=== PATIENT | female | born 1955 | race Caucasian/White ===

== ENCOUNTER → 2019-12-14 12:50 | Outpatient (BNVA) | payer MEDICARE, MEDICAID, SELFPAY | PROVIDERS: PCP Family Medicine; Visit Provider Family Medicine | DX: E05.90 Thyrotoxicosis, unspecified without thyrotoxic crisis or storm (principal); F25.9 Schizoaffective disorder, unspecified; F41.9 Anxiety disorder, unspecified; G47.00 Insomnia, unspecified; J44.9 Chronic obstructive pulmonary disease, unspecified | CPT/HCPCS: 80053; 80061; 84443; 85025 ==

== ENCOUNTER → 2020-05-23 11:57 | Outpatient (BNVA) | payer MEDICARE, MEDICAID, SELFPAY | PROVIDERS: PCP Family Medicine; Visit Provider Family Medicine | DX: E89.0 Postprocedural hypothyroidism (principal); F25.9 Schizoaffective disorder, unspecified; R07.1 Chest pain on breathing | CPT/HCPCS: 71046; 80053; 80061; 84443; 85025 ==

== ENCOUNTER → 2020-11-29 13:16 | Outpatient (BNVA) | payer MEDICARE, MEDICAID, SELFPAY | PROVIDERS: PCP Family Medicine; Visit Provider Family Medicine | DX: F25.9 Schizoaffective disorder, unspecified (principal); E78.2 Mixed hyperlipidemia; E89.0 Postprocedural hypothyroidism; G47.00 Insomnia, unspecified; F41.9 Anxiety disorder, unspecified; J44.9 Chronic obstructive pulmonary disease, unspecified | CPT/HCPCS: 80053; 80061; 84443 ==

== ENCOUNTER → 2021-03-04 11:59 | Outpatient (BNVA) | payer MEDICARE, MEDICAID, SELFPAY | PROVIDERS: PCP Family Medicine; Visit Provider Family Medicine | DX: E78.2 Mixed hyperlipidemia (principal); E89.0 Postprocedural hypothyroidism; F25.9 Schizoaffective disorder, unspecified; J44.9 Chronic obstructive pulmonary disease, unspecified | CPT/HCPCS: 80053; 80061; 84443; 85025 ==

== ENCOUNTER → 2021-08-07 10:22 | Outpatient (BNVA) | payer MEDICARE, MEDICAID, SELFPAY | PROVIDERS: PCP Family Medicine; Visit Provider Nurse Practitioner Family | DX: E78.2 Mixed hyperlipidemia (principal); E89.0 Postprocedural hypothyroidism; E55.9 Vitamin D deficiency, unspecified; F25.9 Schizoaffective disorder, unspecified; G47.00 Insomnia, unspecified; F41.9 Anxiety disorder, unspecified; R03.0 Elevated blood-pressure reading, without diagnosis of hypertension | CPT/HCPCS: 80053; 80061; 82306; 84439; 84443; 84481; 85025 ==

== ENCOUNTER 2021-12-18 10:25 | Inpatient (IN) | payer MEDICARE, MEDICAID, SELFPAY ==
[2021-12-18] VITALS (8 sets, daily range): BP systolic 148–182; BP diastolic 82–101; PULSE 0–113; RESP 16–21; TEMP 36.6–36.8; O2SAT 96–99; BMI 30.7
--- NOTE | 2021-12-18 10:31 | ECG_ITS ---
[facility] Test Date: 2021-12-18 Pat Name: Gilda Hodge Department: Room: Gender: Female Paid Search Analyst: : 1955 Requested By: Naveen Zuniga Order Number: [id number] Alfonso MD: Mundo Campbell M.D. Measurements Intervals [place] Rate: 100 P: 55 PA: 158 QRS: -12 QRSD: 78 T: 34 QT: 349 QTc: 450 Interpretive Statements SINUS TACHYCARDIA ABNORMAL RHYTHM ECG No previous ECG available for comparison Electronically Signed On 12-18-2021 15:16:20 CDT by Mundo Campbell M.D. [email or web address].[id number]
--- NOTE | 2021-12-18 10:31 | CT_ITS ---
WS: [id number] CT HEAD NONCONTRAST HISTORY: AMS TECHNIQUE: Contiguous axial imaging performed through the brain in 2.5 mm imaging. Bone and soft tiss ue windows. Sagittal and coronal reformats reviewed. All CT scans at [facility] use at least one of these dose optimization techniques: automated exposure control; mA and/or kV adjustment per pa tient size (includes targeted exams where dose is matched to clinical indication); or iterative recon struction. DLP: 831.39 mGy.cm COMPARISON: None available. No acute intracranial hemorrhage, midline shift or mass effect. Moderate atrophy involving the frontotemporal lobes is out of proportion to the remaining brain in mo re than expected for a patient of this age. Mild small vessel ischemic disease in the white matter. T here is also mild bilateral cerebellar atrophy. Ventricles: Normal size with no hydrocephalus. Paranasal sinuses: As visualized are clear. Mastoid air cells: Well pneumatized. Calvarium and scalp: Skull is intact with no soft tissue edema or swelling. CT/CT head wo con* [id number] IMPRESSION: 1. No acute intracranial hemorrhage or edema. 2. Moderate bilateral frontal temporal lobe atrophy more than expected for a p atient of this age. 3. Mild small vessel ischemic disease.
[2021-12-18 10:48] LABS: Basophils % 0.3 %; Hematocrit 31.5 % (37.0-47.0); Hemoglobin 11.2 g/dL (11.5-15.3); Lymphocytes # 0.6 10^3/uL (0.8-4.8); Lymphocytes % 6.4 %; Mean Corpuscular HGB Conc 35.6 g/dL (30.0-36.0); Mean Corpuscular Hemoglobin 36.4 pg (28.0-34.0); Mean Corpuscular Volume 102.3 fl (81-99); Mean Platelet Volume 11.2 fL (7.4-10.4); Monocytes # 0.6 10^3/uL (0.2-0.9); Monocytes % 6.6 %; Neutrophils # 7.81 10^3/uL (1.8-7.7); Neutrophils % 86.1 %; Nucleated Red Blood Cells % 0 %; Platelet Count 124 10^3/cmm (130-400); Red Blood Count 3.08 10^6/uL (4.1-5.3); Red Cell Distribution Width 12.2 % (12.1-15.1); White Blood Count 9.1 10^3/uL (4.0-10.0)
[2021-12-18] MEDS: lactated ringers 1,000 ML 999 ML IV (11:02)
[2021-12-18 11:04] LABS: Ketone (Acetest) Serum Negative (Negative)
--- NOTE | 2021-12-18 11:06 | XR_ITS ---
WS: [id number] PORTABLE CHEST HISTORY: chest pain COMPARISON: 05/23/2020 Minimal atelectasis or scar at the LEFT lung base. No pneumonia. No increased vascularity. No pleural effusion or pneumothorax. Cardiac size: Normal. Mediastinum/Aorta: Mild ectasia aorta. Remote healed rib fractures in the posterior LEFT thorax. XR/XR chest 1V portable [id number] IMPRESSION: 1. No pneumonia. 2. Minimal LEFT basilar atelectasis versus scar.
--- NOTE | 2021-12-18 11:09 | ED_ITS ---
HPI - General Adult General: Chief complaint: General Medical Stated complaint: GENERAL WEAKNESS Time Seen by Provider: 12/18/21 10:26 Source: patient Limitations: no limitations History of Present Illness: 66-year-old female presents emergency room with complaints of chest pain for the last 3 days. She not really had any shortness of breath with it. She does generally feel poorly weak not of malaise. No vomiting she had a single episode of diarrhea she denies any hematochezia melena hematemesis or coffee-ground emesis. She denies any productive cough. She does admit to drinking 3-4 mixed drinks of hard liquor per day her last drink was this morning before she came in. She has no known history of heart disease per her report. She is on antihypertensives as well as on a statin. Onset (ago): day(s) (3) Relieving factors: none Associated symptoms: Reports chest pain, decreased appetite, malaise and nausea; Deny confusion, cough, diaphoresis, dyspnea, fevers/chills, headache(s), rash, palpitations, seizures, short of breath, syncope, vomiting or weakness Treatments prior to arrival: other (Nitroglycerin) Review of Systems Const: Reports: fatigue and malaise; Denies: fever(s), chills or diaphoresis ENMT: Denies: throat pain, ear or mastoid pain, nasal discharge or nasal congestion Card: Reports: chest pain; Denies: palpitations or syncope Resp: Reports: non-productive cough; Denies: dyspnea, productive cough or wheezing GI: Reports: nausea and diarrhea (Single episode); Denies: abdominal pain or vomiting : Denies: flank pain, difficulty voiding, dysuria, urinary frequency or urinary urgency Skin/Breast: Denies: rash Neuro: Denies: headache(s) or confusion PFSH ED PFSH: Medical History (Updated 12/18/21 @ 15:12 by Naveen Evans DO) Anxiety Chronic alcohol use Chronic back pain DDD (degenerative disc disease) High anion gap metabolic acidosis Hyperthyroidism Insomnia Schizoaffective disorder Schizoaffective disorder Social History (Updated 12/18/21 @ 11:13 by Naveen Evans DO) Smoking and tobacco status: current every day smoker (1ppd for 50 years) Second hand smoke exposure: Yes Smoking risk assessment/counseling performed?: No Alcohol intake: current Alcohol intake frequency: 3 or more drinks per day Alcohol type: hard liquor Current occupational status: unemployed Current gender identity: Female Physical Exam Const: GENERAL APPEARANCE: cooperative and comfortable ORIENTATION/CONSCIOUSNESS: Yes awake, Yes oriented to person, Yes oriented to place and Yes oriented to time HENMT: COMMON NORMALS: normocephalic, atraumatic and hearing grossly normal bilaterally HEAD & SCALP: normocephalic and atraumatic Neck/C-Spine: COMMON NORMALS: no JVD Resp: COMMON NORMALS: normal respiratory effort, No retractions, No use of accessory muscles and clear to auscultation bilaterally AUSCULTATION: clear to auscultation bilaterally Cardio: COMMON NORMALS: no JVD, regular rate, regular rhythm and No murmurs present (Cardio) RATE: regular rate RHYTHM: regular rhythm GI: COMMON NORMALS: Soft to palpation and No hepatosplenomegaly present AUSCULTATION: Yes normoactive bowel sounds PALPATION: Yes Soft to palpation, No Tenderness to palpation present (GI), No Guarding due to palpation present (GI) and Yes No hepatosplenomegaly present Extremity: COMMON NORMALS: normal to inspection, capillary refill normal, no clubbing, cyanosis or edema, no calf tenderness and no pedal edema Neuro: SENSORIUM/ORIENTATION: Yes oriented to person, Yes oriented to place and Yes oriented to time Skin: COMMON NORMALS: no rashes or lesions noted GENERAL SKIN EXAM: no rashes or lesions noted Course Vital Signs: Vital signs: Vital Signs Temperature 97.9 F 12/18/21 11:50 Pulse Rate 92 12/18/21 14:03 Respiratory Rate 21 H 12/18/21 14:03 Blood Pressure 178/89 12/18/21 14:03 Pulse Oximetry 99 12/18/21 14:03 [facility] - General Adult Medical Decision Making High anion gap metabolic acidosis with CT elevated CPK I think some of this is caused by alcohol intake. Her first troponin was 19 and her second was 15.89 with a negative delta. Her EKG is downtrending [place] chest x-ray is normal fluid resuscitation given empiric antibiotics started discussed with Dr. Morton orders written. Medical Records I reviewed the patient's medical records. Lab Data I reviewed the patient's lab results. : 12/18/21 10:40 12/18/21 10:[address] 12/18/21 10:31 IMPRESSION: 1. No acute intracranial hemorrhage or edema. 2. Moderate bilateral frontal temporal lobe atrophy more than expected for a patient of this age. 3. Mild small vessel ischemic disease. Chest X-Ray 12/18/21 11:06 IMPRESSION: 1. No pneumonia. 2. Minimal LEFT basilar atelectasis versus scar. Laboratory Results WBC 9.1 10^3/uL (4.0-10.0) 12/18/21 10:40 RBC 3.08 10^6/uL (4.1-5.3) L 12/18/21 10:40 Hgb 11.2 g/dL (11.5-15.3) L 12/18/21 10:40 Hct 31.5 % (37.0-47.0) L 12/18/21 10:40 MCV 102.3 fl (81-99) H 12/18/21 10:40 MCH 36.4 pg (28.0-34.0) H 12/18/21 10:40 MCHC 35.6 g/dL (30.0-36.0) 12/18/21 10:40 RDW 12.2 % (12.1-15.1) 12/18/21 10:40 Plt Count 124 10^3/cmm (130-400) L 12/18/21 10:40 MPV 11.2 fL (7.4-10.4) H 12/18/21 10:40 Neut % (Auto) 86.1 % 12/18/21 10:40 Lymph % (Auto) 6.4 % 12/18/21 10:40 [place] % (Auto) 6.6 % 12/18/21 10:40 Eos % (Auto) 0.0 % 12/18/21 10:40 Baso % (Auto) 0.3 % 12/18/21 10:40 Neut # (Auto) 7.81 10^3/uL (1.8-7.7) H 12/18/21 10:40 Lymph # (Auto) 0.6 10^3/uL (0.8-4.8) L 12/18/21 10:40 [place] # (Auto) 0.6 10^3/uL (0.2-0.9) 12/18/21 10:40 Eos # (Auto) 0.0 10^3/uL (0.0-0.8) 12/18/21 10:40 Baso # (Auto) 0.0 10^3/uL (0.0-0.1) 12/18/21 10:40 Nucleated RBC % (auto) 0 % 12/18/21 10:40 Nucleated RBCs # 0.0 /100WBC 12/18/21 10:40 Sodium 135 mmol/L (136-145) L 12/18/21 10:40 Potassium 3.4 mmol/L (3.5-5.1) L 12/18/21 10:40 Chloride 92 mmol/L (98-107) L 12/18/21 10:40 Carbon Dioxide 15 mmol/L (22-29) L 12/18/21 10:40 Anion Gap 31.4 (5-19) H 12/18/21 10:40 BUN 14 mg/dL (8-23) 12/18/21 10:40 Creatinine 1.0 mg/dL (0.5-0.9) H 12/18/21 10:40 GFR Calculation 55.3 mL/min (90-130) L 12/18/21 10:40 Glucose 93 mg/dL (65-115) 12/18/21 10:40 Calculated Osmolality 280 mOsm/kg (285-295) L 12/18/21 10:40 Lactic Acid 4.1 mmol/L (0.5-2.2) H* 12/18/21 10:40 Lactic Acid (Sepsis) 2.1 mmol/L (0.5-2.2) 12/18/21 13:08 Calcium 8.9 mg/dL (8.5-10.5) 12/18/21 10:40 Total Bilirubin 0.7 mg/dL (0.15-1.2) 12/18/21 10:40 AST 91 U/L (0-32) H 12/18/21 10:40 ALT 61 U/L (0-33) H 12/18/21 10:40 Alkaline Phosphatase 53 IU/L (35-105) 12/18/21 10:40 Creatine Kinase 1020 U/L (26-192) H* 12/18/21 10:40 CK-MB (CK-2) 6.8 ng/mL (0-5.34) H 12/18/21 10:40 CK-MB (CK-2) Rel Index 0.6 % (0.0-10.4) 12/18/21 10:40 Troponin T Baseline 19 ng/L (0-10) H 12/18/21 10:40 Troponin T 120 Minute 15.89 ng/L (0-10) H 12/18/21 13:08 Delta Troponin T -3.11 ABS# (0-10) L 12/18/21 13:08 Total Protein 7.1 g/dL (6.6-8.7) 12/18/21 10:40 Albumin 4.5 g/dL (3.5-5.2) 12/18/21 10:40 Globulin 2.6 g/dL (1.3-4.6) 12/18/21 10:40 Lipase 60 U/L (13-60) 12/18/21 10:40 Ethyl Alcohol 20 mg/dL (0-10) H 12/18/21 10:40 Serum Ketones Negative (Negative) 12/18/21 10:40 Discharge Plan Discharge Patient Disposition: Admitted As Inpatient Admit Provider: Cristi Wang Clinical Impression: High anion gap metabolic acidosis, Chronic alcohol use, Transaminitis, Altered mental status, Schizoaffective disorder, Rhabdomyolysis Condition: Stable Prescriptions: No Action ziprasidone HCl 80 mg capsule 80 mg PO BEDTIME 0RF Rx Instructions: *GIVE WITH FOOD(MEAL/SNACK) * trazodone 50 mg tablet 50 mg PO BEDTIME PRN (Reason: Sleep) 0RF clonazepam 0.5 mg tablet 0.5 mg PO BEDTIME 0RF levothyroxine 150 mcg tablet 150 mcg PO QAM 0RF ergocalciferol (vitamin D2) 1,250 mcg (50,000 unit) capsule 50,000 unit PO Q7D 0RF Ventolin HFA 90 mcg/actuation HFA aerosol inhaler 2 puff inhalation TID PRN (Reason: Shortness Of Breath) 0RF sertraline 50 mg tablet 100 mg PO QAM 0RF rosuvastatin 10 mg tablet 10 mg PO QAM 0RF Rx Instructions: TAKE ONE TABLET BY MOUTH EVERY DAY bupropion HCl 150 mg tablet extended release 24 hr 150 mg PO BID 0RF Referrals: Vivian Roblero MD [Primary Care Provider] - Coding Level of Care Code ED Rn Forensic for Chg Fwd Exam Comprehensive
[2021-12-18 11:13] LABS: Troponin(5th) Baseline 19 ng/L (0-10)
[2021-12-18 11:16] LABS: Lactic Sepsis W/Reflex 4.1 mmol/L (0.5-2.2)
[2021-12-18] MEDS: aspirin 81 mg Chew Tablet 324 MG PO (11:17)
[2021-12-18] MEDS: morphine 4 mg/mL SDV 1 mL 2 MG IVP (11:17)
[2021-12-18] MEDS: ondansetron 2 mg/ML SDV 2 mL 4 MG IVP (11:18)
[2021-12-18 11:19] LABS: Alanine Aminotransferase 61 U/L (0-33); Albumin Level 4.5 g/dL (3.5-5.2); Alkaline Phosphatase 53 IU/L (35-105); Aspartate Amino Transferase 91 U/L (0-32); Blood Urea Nitrogen 14 mg/dL (8-23); Calcium 8.9 mg/dL (8.5-10.5); Carbon Dioxide 15 mmol/L (22-29); Globulin 2.6 g/dL (1.3-4.6); Glomerular Filtration Rate 55.3 mL/min (90-130); Glucose 93 mg/dL (65-115); Lipase 60 U/L (13-60); Total Bilirubin 0.7 mg/dL (0.15-1.2); Total Protein 7.1 g/dL (6.6-8.7)
[2021-12-18 11:21] LABS: Creatine Phosphokinase 1020 U/L (26-192)
[2021-12-18 11:25] LABS: Potassium 3.4 mmol/L (3.5-5.1)
[2021-12-18 11:41] LABS: Alcohol Level 20 mg/dL (0-10)
[2021-12-18 11:42] LABS: CKMB 6.8 ng/mL (0-5.34)
[2021-12-18 11:43] LABS: Anion Gap 31.4 (5-19); CKMB Relative Index 0.6 % (0.0-10.4); Chloride 92 mmol/L (98-107); Osmolality Calculated 280 mOsm/kg (285-295); Sodium 135 mmol/L (136-145)
[2021-12-18] MEDS: sodium chloride 0.9% 1,000 ML 999 ML IV (11:45)
--- NOTE | 2021-12-18 12:31 | ECG_ITS ---
[facility] Test Date: 2021-12-18 Pat Name: Gilda Hodge Department: Room: Gender: Female Parts Product Analyst: : 1955 Requested By: Naveen Zuniga Order Number: [id number] Alfonso MD: Mundo Campbell M.D. Measurements Intervals [place] Rate: 96 P: 74 PA: 156 QRS: -11 QRSD: 81 T: 48 QT: 354 QTc: 447 Interpretive Statements SINUS RHYTHM Compared to ECG 12/18/2021 10:50:39 Sinus tachycardia no longer present Electronically Signed On 12-18-2021 15:18:29 CDT by Mundo Campbell M.D. [id number]
[2021-12-18 12:33] LABS: Reflex Lactate Order REFLEX LACTIC ORDERD
[2021-12-18] MEDS: levofloxacin-dextrose 5 % 750 MG/150 ML PREMIX 100 MG IV (13:44)
[2021-12-18 14:00] LABS: Lactic Acid level (Lactate) 2.1 mmol/L (0.5-2.2)
--- NOTE | 2021-12-18 14:04 | PM.HP ---
Providers/Chief Complaint Primary Care Provider: Vivian Roblero MD Chief Complaint: GENERAL WEAKNESS History of Present Illness Gilda Hodge is a 66 year old female with past medical history of chronic alcohol abuse, schizoaffective disorder, insomnia, COPD, hypothyroidism who presented to the ER today because of chest pain which has been going on and off for last 3 days associated with moving around along with patient stating she might think she had a UTI because she is not passing as much urine as she usually does. States last bowel movement was few days ago and also states has not been able to eat for last 1 week or so as nobody has been able to get her food. States usually she goes out by herself to the store to get her food but not able to do so currently. Patient states she usually drinks up to 4 shots of hard alcohol including vodka daily. In the ER was found to have a blood pressure 178/90 mmHg, saturating 99% on room air. Denies of having any chest pain currently. Patient slightly confused on examination. In the ER getting D5 NS at 125 cc/h, getting Levaquin. Blood work showed a white count 9000, hemoglobin of 11.2, MCV of 102, sodium 135 potassium 3.4, chloride 92, bicarb 18, creatinine of 1 lactate of 4.1, AST/ALT of 91/61, CPK 1020, baseline troponin of 19 with a delta of -3 in 2 hours, and had alcohol level of 20. Review of Systems General: Reports: 10 or more systems reviewed and unremarkable except in HPI and below Const: Denies: fever(s), chills, body aches, change in appetite, change in weight, malaise, night sweats, diaphoresis, change in sleep pattern, daytime sleepiness or snoring Eyes: Denies: change in vision, blurry vision, photophobia, eye discomfort or eye discharge ENMT: Denies: throat pain, enlarged tonsils, hoarseness, mouth pain, oral sores, dry mouth, tinnitus, nasal congestion or post nasal drip Card: Denies: chest pain, palpitations, irregular heart rhythm, edema, swelling of feet/ankles, lightheadedness, syncope, pre-syncope, dyspnea on exertion, orthopnea, leg pain with exertion or acrocyanosis Resp: Denies: dyspnea, productive cough, non-productive cough, wheezing, stridor, pain on inspiration, change in phlegm color, hemoptysis or chest congestion GI: Denies: abdominal pain, nausea, vomiting, hematemesis, coffee ground emesis, dysphagia, heartburn, diarrhea, constipation, bloating, GI cramping, change in bowel habits, pain on defecation, hematochezia or melena : Denies: flank pain, dysuria, urinary frequency, urinary urgency, urinary hesitancy, nocturia or hematuria Musc: Denies: neck pain, back pain, extremity pain, joint pain, joint swelling, joint redness, joint stiffness or limited range of motion Neuro: Denies: headache(s), numbness in extremities, weakness in extremities, sensory changes, lack of coordination, difficulty walking, frequent falls, dizziness, vertigo, confusion, Slurred speech present, difficulty communicating thoughts or seizure-like activity Psych: Denies: anxiety, depression, mood swings, panic attacks, hopelessness or irritability Endo: Denies: polyuria, polydipsia, tired all the time, cold intolerance, excessive sweating, flushing or heat intolerance [place]/Lymph: Denies: easy bruising or easy bleeding All/Imm: Denies: tongue swelling, facial swelling or acute wheezing Medications/Allergies Home Medications Medication Instructions Recorded Confirmed Last Taken Type albuterol sulfate 90 mcg/actuation 2 puff INHALATION TID PRN 12/18/21 12/18/21 12/18/21 History aerosol inhaler (Ventolin HFA) bupropion HCl 150 mg 24 hr tablet, 150 mg PO BID 12/18/21 12/18/21 Unknown History extended release clonazepam 0.5 mg tablet 0.5 mg PO BEDTIME 12/18/21 12/18/21 12/17/21 History ergocalciferol (vitamin D2) 1,250 50,000 unit PO Q7D 12/18/21 12/18/21 Unknown History mcg (50,000 unit) capsule levothyroxine 150 mcg tablet 150 mcg PO QAM 12/18/21 12/18/21 12/17/21 History rosuvastatin 10 mg tablet 10 mg PO QAM 12/18/21 12/18/21 12/18/21 08:00 History sertraline 50 mg tablet 100 mg PO QAM 12/18/21 12/18/21 Unknown History trazodone 50 mg tablet 50 mg PO BEDTIME PRN 12/18/21 12/18/21 1 Month Ago History ~11/17/21 ziprasidone HCl 80 mg capsule 80 mg PO BEDTIME 12/18/21 12/18/21 Unknown History Allergies Allergy/AdvReac Type Severity Reaction Status Date / Time Penicillins Allergy unk Verified 12/18/21 11:10 PFSH Acute PFSH: Medical History (Updated 12/18/21 @ 14:26 by Cristi Wang MD) Anxiety Chronic alcohol use Chronic back pain DDD (degenerative disc disease) High anion gap metabolic acidosis Hyperthyroidism Insomnia Schizoaffective disorder Schizoaffective disorder Social History (Updated 12/18/21 @ 11:13 by Naveen Evans DO) Smoking and tobacco status: current every day smoker (1ppd for 50 years) Second hand smoke exposure: Yes Smoking risk assessment/counseling performed?: No Alcohol intake: current Alcohol intake frequency: 3 or more drinks per day Alcohol type: hard liquor Current occupational status: unemployed Current gender identity: Female Vitals/I&O/Wt Last Vital Signs Temp 97.9 F 12/18/21 11:50 Pulse 92 12/18/21 14:03 Resp 21 H 12/18/21 14:03 BP 178/89 12/18/21 14:03 Pulse Ox 99 12/18/21 14:03 12/17/21 12/18/21 12/18/21 22:59 06:59 14:59 Intake Total 1999 Balance 1999 Weight last 48 hrs Weight 76.204 kg Physical Exam Narrative: General: No acute distress, AO x3, slightly confused on examination standing up at the bedside, dehydrated HEENT: PERRLA, pupils bilaterally equal and reactive Chest: Normal vesicular breath sounds, no added sounds, equal good air entry bilaterally CVS: S1-S2 regular, no murmurs, no tachycardia, no gallops, no rubs Abdomen: Soft, nontender, no organomegaly, bowel sounds present Neuro: No focal deficits, no facial deformity, AO x3, power 5/5 in all limbs Data : 12/18/21 10:40 12/18/21 10:40 Other Labs: Radiology Impressions Head CT 12/18/21 10:31 IMPRESSION: 1. No acute intracranial hemorrhage or edema. 2. Moderate bilateral frontal temporal lobe atrophy more than expected for a patient of this age. 3. Mild small vessel ischemic disease. Chest X-Ray 12/18/21 11:06 IMPRESSION: 1. No pneumonia. 2. Minimal LEFT basilar atelectasis versus scar. Micro: Microbiology 12/18/21 13:08 Blood Culture - Preliminary Blood SPECIMEN COLLECTED 12/18/21 12:05 Blood Culture - Preliminary Blood SPECIMEN COLLECTED A&P Assessment and plan (1) Altered mental status: Status: Acute (2) PANCHO (acute kidney injury): Status: Acute (3) High anion gap metabolic acidosis: Status: Acute (4) Chronic alcohol use: Status: Acute (5) Transaminitis: Status: Acute (6) Elevated blood pressure reading: Status: Acute (7) Chest pain made worse by breathing: Status: Acute (8) Chronic obstructive pulmonary disease: Status: Acute Qualifiers: COPD type: unspecified COPD Qualified Code(s): J44.9 - Chronic obstructive pulmonary disease, unspecified (9) Schizoaffective disorder: Status: Acute Plan 66-year-old female with past medical history of schizoaffective disorder, chronic alcohol abuse, COPD presented to the ER with chest pain on movement and taking deep breath found to have elevated blood pressures, abnormal BMP consistent with high anion gap acidosis, dehydration. Also complaining of dysuria. Altered mental status: Chronic alcohol abuse: Most likely secondary to chronic alcohol use. PEEWEE Cruz protocol. Oral folic acid, thiamine. Frequent reorientation. Check ammonia levels, vitamin B12, folate level. CT head negative for acute abnormality. IV thiamine. High anion gap acidosis: Most likely secondary to lactic acidosis, ketosis secondary dehydration and rhabdomyolysis Check CT abdomen pelvis. Check ketone level. D5 NS at 100 cc/h. Monitor BMP daily for now. Strict ins output charting, daily weights. Adame catheterization. Dysuria: Urine analysis awaited. Cannot rule out UTI. For now start on ceftriaxone IV daily. Check blood cultures. We will follow-up urinalysis and de-escalate antibiotics accordingly. Rhabdomyolysis: Dehydration chronic alcohol use. IV fluid as above check CPK daily. Stop statins. Transaminitis: Most likely secondary alcohol abuse. Check HIV, hepatitis panel. Chest pain: Unlikely cardiac in nature. Troponin cycle negative in 2 hours. Follow-up for 6-hour. Could be secondary to mild COPD exacerbation. Cannot rule out musculoskeletal versus psychosomatic. marj Priestonide. Continue other chronic medications for anxiety, schizoaffective disorder. Full code. Regular diet. Protonix for PUD prophylaxis. Lovenox for DVT prophylaxis. Attestations Medical Necessity Statement*: Admission for more than 2 midnights for management of altered mental status secondary to chronic alcohol abuse, high anion gap metabolic acidosis, dysuria, rhabdomyolysis Time Spent in Patient Care: Greater than 35 minutes Coding Level of Care Code Acute Auto Claim Representative for [facility] Fwd Diagnoses Altered mental status R41.82 PANCHO (acute kidney injury) N17.9 High anion gap metabolic acidosis E87.2 Chronic alcohol use Z72.89 Transaminitis R74.01 Elevated blood pressure reading R03.0 Chest pain made worse by breathing R07.1 Chronic obstructive pulmonary disease J44.9 COPD type: unspecified COPD Schizoaffective disorder F25.9
[2021-12-18 14:15] LABS: Troponin 5 2HR 15.89 ng/L (0-10)
[2021-12-18 14:17] LABS: Troponin 5 2HR Delta -3.11 ABS# (0-10)
--- NOTE | 2021-12-18 14:33 | CT_ITS ---
WS: [id number] CT ABDOMEN AND PELVIS NONCONTRAST HISTORY: uti, urinary retention TECHNIQUE: Imaging performed through the abdomen and pelvis. Coronal and sagittal reformats are submi tted. All CT scans at [facility] use at least one of these dose optimization techniques: auto mated exposure control; mA and/or kV adjustment per patient size (includes targeted exams where dose is matched to clinical indication); or iterative reconstruction. DLP: 1585.87 mGy.cm COMPARISON: None available. Lower thorax: Lung bases are clear. Heart is normal size. Large portion of the stomach is intrathorac ic. Liver: Marked low attenuation from hepatic steatosis throughout the liver. Gallbladder: Normal gallbladder. Pancreas: Normal size and attenuation. Normal pancreatic duct. No pancreatitis or mass. Spleen: Normal. Adrenal glands: Negative. Right kidney: Mild renal atrophy with no obstruction. Left kidney: Mild atrophy with no obstruction. Aorta: Mild atherosclerosis abdominal aorta with no aneurysm. No free fluid, intraperitoneal air or significant lymphadenopathy. GI tract: Collapsed stomach. No small bowel obstruction. No wall thickening throughout the GI tract. Negative appendix. Abdominal wall: Small umbilical hernia contains fat only. Pelvis: No free fluid. Prior hysterectomy. Osseous structures: Increase in the lumbar lordosis. Mild compression fractures involving T12 and L4 of approximately 20%. Age indeterminate. Remote fracture with healing inferior RIGHT pubic ramus. Rem ote healed rib fractures in the posterior inferior LEFT thorax. CT/CT abdomen pelvis wo con [id number] IMPRESSION: 1. No acute abdominal or pelvic abnormalities are identified. 2. Hepatic steatosis. 3. Large portion of the stomach is intrathoracic. 4. No renal obstruction. 5. Age indeterminate but remote appearing compression fractures at T12 and L4. 6. Remote healed rib fractures in the posterior inferior LEFT thorax and the R IGHT inferior pubic ramus.
[2021-12-18] MEDS: folic acid 1 MG, multivitamin inj 10 ML, thiamine 100 MG in sodium chloride 0.9% 1,000 ML 252.8 MG IV (15:07)
[2021-12-18 15:13] LABS: Adenovirus Not Detected (NOT DETECT); Chlamydia Pneumoniae Not Detected (NOT DETECT); Coronavirus 229E,HKU1,NL63,OC4 Not Detected (NOT DETECT); Human Metapneumovirus Not Detected (NOT DETECT); Human Rhinovirus/Enterovirus Not Detected (NOT DETECT); Influenza A Not Detected (NOT DETECT); Influenza A H1 Not Detected (NOT DETECT); Influenza A H1-2009 Not Detected (NOT DETECT); Influenza A H3 Not Detected (NOT DETECT); Influenza B Not Detected (NOT DETECT); Mycoplasma Pneumoniae Not Detected (NOT DETECT); Parainfluenza Virus Type 1 Not Detected (NOT DETECT); Parainfluenza Virus Type 2 Not Detected (NOT DETECT); Parainfluenza Virus Type 3 Not Detected (NOT DETECT); Parainfluenza Virus Type 4 Not Detected (NOT DETECT); Respiratory Syncytial Virus A Not Detected (NOT DETECT); Respiratory Syncytial Virus B Not Detected (NOT DETECT); SARS-COV-2 Not Detected (NOT DETECT)
[2021-12-18 15:19] LABS: Procalcitonin 0.28 ng/mL (0-0.5); Thyroid Stimulating Hormone 5.83 uIU/mL (0.27-4.20); Vitamin B12 280 pg/mL (232-1245)
[2021-12-18 15:32] LABS: Ammonia 11 umol/L (11-51)
[2021-12-18 16:06] LABS: Ketone (Acetest) Serum Positive (Negative)
[2021-12-18 16:24] LABS: Add Urine Microscopic? YES; Bilirubin Urine Neg (Negative); Blood Urine 2+ (Negative); Glucose Urine UA Norm (Normal); Ketones Urine 1+ (Negative); Leukocyte Esterase Urine Negative (Negative); Nitrate Urine Negative (Negative); Protein Urine Neg (Negative); RBC Urine 0-4 /hpf (0-2); Squamous Epithelial Cell Urine 0-4 /hpf (0-5); Urine Appearance Clear (CLEAR); Urine Color Yellow (Yellow); Urobilinogen Urine Norm (Negative); WBC Urine 0-4 /hpf (0-5); pH Urine 6 (5-7)
[2021-12-18 16:25] LABS: HIV 1 & 2 Antibody Non-Reactive (Non-Reactiv); HIV 1 & 2 Antigen Non-Reactive (Non-Reactiv)
[2021-12-18 16:25] LABS: Add Urine Culture? No; Bacteria Urine TRACE /hpf; Hyaline Casts Urine 0-4 /lpf
[2021-12-18 16:31] LABS: Potassium, Radom Urine 37 mmol/L; Urine Random Chloride 22 mmol/L
--- NOTE | 2021-12-18 16:31 | ECG_ITS ---
[facility] Test Date: 2021-12-18 Pat Name: Gilda Hodge Department: Room: 252 Gender: Female Manager Spanish: : 1955 Requested By: Naveen Zuniga Order Number: [id number] Alfonso MD: Florentino Trejo M.D. Measurements Intervals [place] Rate: 100 P: 47 SD: 178 QRS: 4 QRSD: 84 T: 49 QT: 346 QTc: 446 Interpretive Statements SINUS TACHYCARDIA LOW QRS VOLTAGE IN PRECORDIAL LEADS [QRS DEFLECTION < 1.0 mV IN CHEST LEADS] ABNORMAL RHYTHM ECG Compared to ECG 12/18/2021 12:39:40 Low QRS voltage now present Sinus rhythm no longer present Electronically Signed On 12-19-2021 19:03:25 CDT by Florentino Trejo M.D. [id number]
[2021-12-18 16:32] LABS: Folate Level 4.6 ng/mL (4.8-37.3)
[2021-12-18 16:33] LABS: Urine Random Sodium 19 mmol/L
[2021-12-18 16:35] LABS: Hepatitis A Antibody IgM Non-Reactive (Nonreactive); Hepatitis B Core AB, Total Non-Reactive (Nonreactive); Hepatitis B Surface AB 3.5 (11.5-1000); Hepatitis B Surface Antigen Non-Reactive (Nonreactive); Hepatitis C Virus Antibody Reactive (Nonreactive)
[2021-12-18 17:05] LABS: Iron 73 ug/dL (37-145); Total Iron Binding Capacity 221 mcg/dl; Unsaturated Iron Binding 148 ug/dL (112-347)
[2021-12-18] MEDS: cyanocobalamin 1,000 mcg/mL SDV 1000 MCG IM (17:10)
[2021-12-18] MEDS: enoxaparin 40 mg/0.4 mL Syringe SUBCUT (17:13)
[2021-12-18] MEDS: pantoprazole 40 mg SDV IVP (17:15)
[2021-12-18] MEDS: folic acid 1 mg Tablet PO (17:16)
[2021-12-18] MEDS: buPROPion XL (24 HR) 150 mg Tablet PO (17:16)
[2021-12-18] MEDS: ergocalciferol (vitamin D2) 50,000 Unit Capsule 50000 UNIT PO (17:16)
[2021-12-18] MEDS: dextrose 5%-ns + KCl 20 20 MEQ/1,000 ML BAG 100 MEQ IV (17:19)
[2021-12-18 19:04] LABS: Troponin 5 6HR 17.37 ng/L (0-10)
[2021-12-18 19:10] LABS: Troponin 5 6HR Delta -1.63 ng/L (0-12)
--- NOTE | 2021-12-18 19:43 | PC.NURSE ---
i reported high reps 20 to nurse
[2021-12-18] MEDS: budesonide 0.5 mg/2 mL Neb INHALATION (20:29)
[2021-12-18] MEDS: ipratropium-albuterol 3 mL Neb INHALATION (20:29)
[2021-12-18] MEDS: ziprasidone hcl 40 mg Capsule 80 MG PO (20:51)
[2021-12-18] MEDS: CLONazepam 0.5 mg Tablet PO (20:51)
[2021-12-19] VITALS (16 sets, daily range): BP systolic 126–179; BP diastolic 70–93; PULSE 72–94; RESP 14–20; TEMP 36.6–36.9; O2SAT 93–98
[2021-12-19] MEDS: acetaminophen 325 mg Tablet 650 MG PO ×3 (01:45→20:23)
[2021-12-19] MEDS: alum-mag-hydroxide-sime 30 mL UDC 15 ML PO ×2 (01:45→20:23)
[2021-12-19 03:41] LABS: Basophils % 0.2 %; Hematocrit 28.9 % (37.0-47.0); Lymphocytes # 0.7 10^3/uL (0.8-4.8); Lymphocytes % 14.9 %; Mean Corpuscular HGB Conc 34.6 g/dL (30.0-36.0); Mean Corpuscular Hemoglobin 35.8 pg (28.0-34.0); Mean Corpuscular Volume 103.6 fl (81-99); Mean Platelet Volume 10.7 fL (7.4-10.4); Monocytes # 0.3 10^3/uL (0.2-0.9); Monocytes % 6.5 %; Neutrophils # 3.86 10^3/uL (1.8-7.7); Nucleated Red Blood Cells % 0 %; Platelet Count 94 10^3/cmm (130-400); Red Blood Count 2.79 10^6/uL (4.1-5.3); Red Cell Distribution Width 12.2 % (12.1-15.1)
[2021-12-19 04:04] LABS: Alanine Aminotransferase 43 U/L (0-33); Albumin Level 3.6 g/dL (3.5-5.2); Alkaline Phosphatase 42 IU/L (35-105); Anion Gap 17.9 (5-19); Aspartate Amino Transferase 63 U/L (0-32); Blood Urea Nitrogen 11 mg/dL (8-23); Calcium 7.9 mg/dL (8.5-10.5); Carbon Dioxide 21 mmol/L (22-29); Chloride 103 mmol/L (98-107); Chol HDL Ratio 1.38 mg/dL (0.0-4.40); Cholesterol 128 mg/dL (0-200); Globulin 2.5 g/dL (1.3-4.6); Glomerular Filtration Rate 99.7 mL/min (90-130); Glucose 252 mg/dL (65-115); HDL Cholesterol 93 mg/dL (60-100); LDL Cholesterol Calculated 21 mg/dL (50-129); Magnesium 1.4 mg/dL (1.7-2.3); Osmolality Calculated 294 mOsm/kg (285-295); Phosphorus 1.2 mg/dL (2.5-4.5); Potassium 3.9 mmol/L (3.5-5.1); Sodium 138 mmol/L (136-145); Total Bilirubin 0.6 mg/dL (0.15-1.2); Total Protein 6.1 g/dL (6.6-8.7); Triglycerides 69 mg/dL (0-150); VLDL Cholestrol Calculation 14 mg/dL (0-30)
[2021-12-19 04:08] LABS: Estmated Average Glucose 85; Hemoglobin A1C 4.6 % (4.0-6.0)
[2021-12-19 04:11] LABS: Creatine Phosphokinase 579 U/L (26-192)
[2021-12-19] MEDS: sertraline 50 mg Tablet 100 MG PO (05:27)
[2021-12-19] MEDS: levothyroxine 150 mcg Tablet PO (05:27)
[2021-12-19] MEDS: pantoprazole 40 mg SDV IVP ×2 (05:50→17:53)
[2021-12-19] MEDS: budesonide 0.5 mg/2 mL Neb INHALATION ×2 (08:27→20:49)
[2021-12-19] MEDS: ipratropium-albuterol 3 mL Neb INHALATION ×4 (08:27→20:49)
[2021-12-19] MEDS: LORazepam 2 mg Tablet PO (08:45)
[2021-12-19] MEDS: folic acid 1 mg Tablet PO ×2 (08:45→17:53)
[2021-12-19] MEDS: docusate sodium 100 mg Capsule PO ×2 (08:45→17:53)
[2021-12-19] MEDS: cefTRIAXone 1,000 MG in sodium chloride 0.9% (plus) 50 ML 100 MG IV (08:46)
[2021-12-19] MEDS: multivitamin therapeutic Tablet 1 TAB PO (08:46)
[2021-12-19] MEDS: buPROPion XL (24 HR) 150 mg Tablet PO ×2 (08:46→17:53)
[2021-12-19] MEDS: dextrose 5%-ns + KCl 20 20 MEQ/1,000 ML BAG 100 MEQ IV ×2 (10:30→17:52)
[2021-12-19] MEDS: ondansetron 2 mg/ML SDV 2 mL 4 MG IVP (11:55)
--- NOTE | 2021-12-19 15:17 | P.PN_ITS ---
Subjective Subjective: No acute vents overnight. Patient states she is feeling okay but little weak. Denies any nausea, vomiting, headache, dizziness, jitteriness, hallucination. Required 1 dose of oral Ativan within the last 24 hours since admission. Has remained hemodynamically stable and afebrile. Denies any fur ther chest pain. Vitals/I&O/Wt Last Vital Signs Temp 98.1 F 12/19/21 11:37 Pulse 93 12/19/21 14:00 Resp 18 12/19/21 11:49 BP 133/82 12/19/21 11:37 Pulse Ox 98 12/19/21 11:49 12/19/21 12/19/21 12/19/21 06:59 14:59 22:59 Intake Total 418 / 3819.2 1232 / 1232 Output Total 1800 / 2550 1025 / 1025 Balance -1382 / 1269.2 207 / 207 Weight last 48 hrs Weight 80.966 kg Weight 76.204 kg Weight 76.204 kg Physical Exam Narrative: General: No acute distress, AO x3, left dehydrated, not confused, slightly drowsy HEENT: PERRLA, pupils bilaterally equal and reactive Chest: Normal vesicular breath sounds, no added sounds, equal good air entry bilaterally CVS: S1-S2 regular, no murmurs, no tachycardia, no gallops, no rubs Abdomen: Soft, nontender, no organomegaly, bowel sounds present Neuro: No focal deficits, no facial deformity, AO x3, power 5/5 in all limbs Urinary Catheter Management: Adame: Cath Placed During This Visit: yes Reason for Continuing Indwelling Catheter: Acute Urinary Retention or Obstruction Urinary Catheter Date of Insertion: 12/18/21 Urinary Catheter Time of Insertion: 14:56 Data : 12/19/21 03:20 12/19/21 03:20 Micro: Microbiology 12/18/21 13:08 Blood Culture - Preliminary Blood NEGATIVE TO DATE 12/18/21 12:05 Blood Culture - Preliminary Blood NEGATIVE TO DATE A&P Assessment and plan (1) Altered mental status: Status: Acute (2) PANCHO (acute kidney injury): Status: Acute (3) High anion gap metabolic acidosis: Status: Acute (4) Chronic alcohol use: Status: Acute (5) Transaminitis: Status: Acute (6) Elevated blood pressure reading: Status: Acute (7) Chest pain made worse by breathing: Status: Acute (8) Chronic obstructive pulmonary disease: Status: Acute Qualifiers: COPD type: unspecified COPD Qualified Code(s): J44.9 - Chronic obstructive pulmonary disease, unspecified (9) Schizoaffective disorder: Status: Acute (10) Hepatitis C: Status: Acute Plan 66-year-old female with past medical history of schizoaffective disorder, chronic alcohol abuse, COPD presented to the ER with chest pain on movement and taking deep breath found to have elevated blood pressures, abnormal BMP co nsistent with high anion gap acidosis, dehydration. Also complaining of dysuria. Altered mental status: Chronic alcohol abuse: Most likely secondary to chronic alcohol abuse along with polypharmacy for schizoaffective disorder. Continue with oral folic acid, IV thiamine. Vitamin B12 borderline normal, low folic acid, normal ammonia levels. CIWA protocol Ativan. Decrease dose of Geodon to 60 mg nightly. High anion gap acidosis: Most likely secondary to lactic acidosis, ketosis secondary dehydration and rhabdomyolysis Resolved. Continued IV hydration. Monitor BMP daily for now. SIGIFREDO Adame. Dysuria: UTI ruled out. UA clear Stop IV antibiotics. Rhabdomyolysis: Dehydration chronic alcohol use. Resolving. Continue to hold statins. Transaminitis: Most likely secondary alcohol abuse. Back to baseline. HIV negative, positive hepatitis C Chest pain: Unlikely cardiac in nature. Troponin cycle negative. Could be secondary to mild COPD exacerbation. Cannot rule out musculoskeletal versus psychosomatic. DuoNebs, budesonide. Full code. Regular diet. Protonix for PUD prophylaxis. Lovenox for DVT prophylaxis. Attestations Medical Necessity Statement*: Requires further hospitalization for resolving rhabdomyolysis in a patient with chronic alcohol abuse, schizoaffective disorder Time Spent in Patient Care: 16 - 35 minutes Coding Level of Care Code Acute Soil Conservation Technician for [facility] Fwd Diagnoses Altered mental status R41.82 PANCHO (acute kidney injury) N17.9 High anion gap metabolic acidosis E87.2 Chronic alcohol use Z72.89 Transaminitis R74.01 Elevated blood pressure reading R03.0 Chest pain made worse by breathing R07.1 Chronic obstructive pulmonary disease J44.9 COPD type: unspecified COPD Schizoaffective disorder F25.9 Hepatitis C B19.20
[2021-12-19] MEDS: enoxaparin 40 mg/0.4 mL Syringe SUBCUT (15:56)
[2021-12-19] MEDS: CLONazepam 0.5 mg Tablet PO (20:23)
[2021-12-19] MEDS: ziprasidone hcl 60 mg Capsule PO (22:11)
[2021-12-20] VITALS (8 sets, daily range): BP systolic 152–168; BP diastolic 90–95; PULSE 67–98; RESP 16–18; TEMP 36.6–36.8; O2SAT 96–99
[2021-12-20 03:01] LABS: Basophils % 0.5 %; Eosinophils % 0.5 %; Hemoglobin 9.3 g/dL (11.5-15.3); Lymphocytes # 0.9 10^3/uL (0.8-4.8); Lymphocytes % 23.2 %; Mean Corpuscular HGB Conc 34.4 g/dL (30.0-36.0); Mean Corpuscular Hemoglobin 35.8 pg (28.0-34.0); Mean Corpuscular Volume 103.8 fl (81-99); Mean Platelet Volume 10.7 fL (7.4-10.4); Monocytes # 0.4 10^3/uL (0.2-0.9); Monocytes % 9.8 %; Neutrophils # 2.37 10^3/uL (1.8-7.7); Neutrophils % 64.9 %; Nucleated Red Blood Cells % 0 %; Platelet Count 105 10^3/cmm (130-400); White Blood Count 3.7 10^3/uL (4.0-10.0)
[2021-12-20 03:20] LABS: Alanine Aminotransferase 62 U/L (0-33); Albumin Level 3.3 g/dL (3.5-5.2); Alkaline Phosphatase 48 IU/L (35-105); Aspartate Amino Transferase 119 U/L (0-32); Blood Urea Nitrogen 7 mg/dL (8-23); Calcium 7.9 mg/dL (8.5-10.5); Carbon Dioxide 23 mmol/L (22-29); Chloride 102 mmol/L (98-107); Globulin 2.6 g/dL (1.3-4.6); Glomerular Filtration Rate 83.5 mL/min (90-130); Glucose 101 mg/dL (65-115); Osmolality Calculated 282 mOsm/kg (285-295); Sodium 137 mmol/L (136-145); Total Bilirubin 0.3 mg/dL (0.15-1.2); Total Protein 5.9 g/dL (6.6-8.7)
[2021-12-20 03:25] LABS: Anion Gap 14.8 (5-19); Potassium 2.8 mmol/L (3.5-5.1)
[2021-12-20] MEDS: sertraline 50 mg Tablet 100 MG PO (05:43)
[2021-12-20] MEDS: potassium chloride ER 20 mEq Tablet 60 MEQ PO (05:44)
[2021-12-20] MEDS: levothyroxine 150 mcg Tablet PO (05:44)
[2021-12-20] MEDS: dextrose 5%-ns + KCl 20 20 MEQ/1,000 ML BAG 100 MEQ IV (05:50)
[2021-12-20] MEDS: docusate sodium 100 mg Capsule PO (07:48)
[2021-12-20] MEDS: folic acid 1 mg Tablet PO (07:48)
[2021-12-20] MEDS: buPROPion XL (24 HR) 150 mg Tablet PO (07:49)
[2021-12-20] MEDS: multivitamin therapeutic Tablet 1 TAB PO (07:49)
[2021-12-20] MEDS: pantoprazole 40 mg SDV IVP (07:49)
[2021-12-20] MEDS: ipratropium-albuterol 3 mL Neb INHALATION ×2 (08:05→13:20)
[2021-12-20] MEDS: budesonide 0.5 mg/2 mL Neb INHALATION (08:05)
--- NOTE | 2021-12-20 09:38 | PC.NURSE ---
Bedside report received from HITESH Carney, this morning.
--- NOTE | 2021-12-20 12:18 | P.DS_ITS ---
Discharge Providers Date of Admission: 12/18/21 13:13 Date of Discharge: December 20, 2021 Attending Provider at Admission: Cristi Wang MD Attending Provider at Discharge: Cristi Wang MD Primary Care Provider: Vivian Roblero MD Diagnoses at Discharge Discharge Diagnosis (1) Altered mental status: Status: Acute (2) PANCHO (acute kidney injury): Status: Acute (3) High anion gap metabolic acidosis: Status: Acute (4) Chronic alcohol use: Status: Acute (5) Transaminitis: Status: Acute (6) Elevated blood pressure reading: Status: Acute (7) Chest pain made worse by breathing: Status: Acute (8) Chronic obstructive pulmonary disease: Status: Acute Qualifiers: COPD type: unspecified COPD Qualified Code(s): J44.9 - Chronic obstructive pulmonary disease, unspecified (9) Schizoaffective disorder: Status: Acute (10) Hepatitis C: Status: Acute Reason for Visit Reason for Visit: GENERAL WEAKNESS Hospital Course Hospital Course Gilda Hodge is a 66 year old female with past medical history of chronic alcohol abuse, schizoaffective disorder, insomnia, COPD, hypothyroidism who presented to the ER today because of chest pain which has been going on and off for last 3 days associated with moving around along with patient stating she might think she had a UTI because she is not passing as much urine as she usually does.? States last bowel movement was few days ago and also states has not been able to eat for last 1 week or so as nobody has been able to get her food.? States usually she goes out by herself to the store to get her food but not able to do so currently.? Patient states she usually drinks up to 4 shots of hard alcohol including vodka daily. In the ER was found to have a blood pressure 178/90 mmHg, saturating 99% on room air.? Denies of having any chest pain currently.? Patient slightly confused on examination. In the ER getting D5 NS at 125 cc/h, getting Levaquin. Blood work showed a white count 9000, hemoglobin of 11.2, MCV of 102, sodium 135 potassium 3.4, chloride 92, bicarb 18, creatinine of 1 lactate of 4.1, AST/ALT of 91/61, CPK 1020, baseline troponin of 19 with a delta of -3 in 2 hours, and had alcohol level of 20. Patient admitted to hospital for further evaluation and management. On admission she was found to be severely dehydrated, altered mental status secondary to chronic alcohol abuse and polypharmacy from multiple psych medications. Blood work suggestive of high anion gap metabolic acidosis secondary to starvation ketosis and rhabdomyolysis. She was started on IV hydration. With her IV hydration her acute kidney injury, anion gap acidosis, rhabdomyolysis resolved. Transaminitis also resolved is back to her baseline. She was found to be positive for hepatitis C. Patient is back to her baseline mentation. She did not have any episode of alcohol withdrawal. She was found to be deficient for vitamin B12 and folate which were repleted. During hospitalization patient has been able to walk around, get out of bed by herself multiple times. She was also found to be mildly hypotensive for which she was started on 10 mg of amlodipine daily. She has been discharged back home in hemodynamically stable condition. Multiple psych medication doses have been changed. It is believed her altered mental status on admission was secondary to polypharmacy. Physical Exam Narrative: General: No acute distress, AO x3, HEENT: PERRLA, pupils bilaterally equal and reactive Chest: Normal vesicular breath sounds, no added sounds, equal good air entry bilaterally CVS: S1-S2 regular, no murmurs, no tachycardia, no gallops, no rubs Abdomen: Soft, nontender, no organomegaly, bowel sounds present Neuro: No focal deficits, no facial deformity, AO x3, power 5/5 in all limbs Urinary Catheter Management: Adame: Cath Placed During This Visit: yes, but has since been removed by the nurse Reason for Continuing Indwelling Catheter: Does Not Meet Criteria Urinary Catheter Date of Insertion: 12/18/21 Urinary Catheter Time of Insertion: 14:56 Date Urinary Catheter Removed: 12/19/21 Time Urinary Catheter Discontinued: 15:58 Discharge Data Studies Completed and Pending Completed Studies During Hospitalization Category Date Time Status CT abdomen pelvis wo con [id number] Urgent Cat Scan 12/18/21 14:[address] head wo con* [id number] Stat Cat Scan 12/18/21 10:31 Completed XR chest 1V portable [id number] Stat Exams 12/18/21 11:06 Completed Pending at discharge Category Date Time Status Blood Culture Stat Lab 12/18/21 13:08 Results Hepatitis C RNA Viral Load Qnt Routine Lab 12/18/21 16:45 Received Radiology Impressions Head CT 12/18/21 10:31 IMPRESSION: 1. No acute intracranial hemorrhage or edema. 2. Moderate bilateral frontal temporal lobe atrophy more than expected for a patient of this age. 3. Mild small vessel ischemic disease. Chest X-Ray 12/18/21 11:06 IMPRESSION: 1. No pneumonia. 2. Minimal LEFT basilar atelectasis versus scar. Abdomen/Pelvis CT 12/18/21 14:33 IMPRESSION: 1. No acute abdominal or pelvic abnormalities are identified. 2. Hepatic steatosis. 3. Large portion of the stomach is intrathoracic. 4. No renal obstruction. 5. Age indeterminate but remote appearing compression fractures at T12 and L4. 6. Remote healed rib fractures in the posterior inferior LEFT thorax and the RIGHT inferior pubic ramus. Microbiology 12/18/21 14:45 Nose MRSA Culture - Final 12/18/21 13:08 Blood Blood Culture - Preliminary NEGATIVE TO DATE 12/18/21 12:05 Blood Blood Culture - Preliminary NEGATIVE TO DATE Laboratory Results WBC 3.7 10^3/uL (4.0-10.0) L 12/20/21 02:33 RBC 2.60 10^6/uL (4.1-5.3) L 12/20/21 02:33 Hgb 9.3 g/dL (11.5-15.3) L 12/20/21 02:33 Hct 27.0 % (37.0-47.0) L 12/20/21 02:33 MCV 103.8 fl (81-99) H 12/20/21 02:33 MCH 35.8 pg (28.0-34.0) H 12/20/21 02:33 MCHC 34.4 g/dL (30.0-36.0) 12/20/21 02:33 RDW 12.0 % (12.1-15.1) L 12/20/21 02:33 Plt Count 105 10^3/cmm (130-400) L 12/20/21 02:33 MPV 10.7 fL (7.4-10.4) H 12/20/21 02:33 Neut % (Auto) 64.9 % 12/20/21 02:33 Lymph % (Auto) 23.2 % 12/20/21 02:33 [place] % (Auto) 9.8 % 12/20/21 02:33 Eos % (Auto) 0.5 % 12/20/21 02:33 Baso % (Auto) 0.5 % 12/20/21 02:33 Neut # (Auto) 2.37 10^3/uL (1.8-7.7) 12/20/21 02:33 Lymph # (Auto) 0.9 10^3/uL (0.8-4.8) 12/20/21 02:33 [place] # (Auto) 0.4 10^3/uL (0.2-0.9) 12/20/21 02:33 Eos # (Auto) 0.0 10^3/uL (0.0-0.8) 12/20/21 02:33 Baso # (Auto) 0.0 10^3/uL (0.0-0.1) 12/20/21 02:33 Nucleated RBC % (auto) 0 % 12/20/21 02:33 Nucleated RBCs # 0.0 /100WBC 12/20/21 02:33 Sodium 137 mmol/L (136-145) 12/20/21 02:33 Potassium 2.8 mmol/L (3.5-5.1) L* D 12/20/21 02:33 Chloride 102 mmol/L (98-107) 12/20/21 02:33 Carbon Dioxide 23 mmol/L (22-29) 12/20/21 02:33 Anion Gap 14.8 (5-19) 12/20/21 02:33 BUN 7 mg/dL (8-23) L 12/20/21 02:33 Creatinine 0.7 mg/dL (0.5-0.9) 12/20/21 02:33 GFR Calculation 83.5 mL/min (90-130) L 12/20/21 02:33 Glucose 101 mg/dL (65-115) 12/20/21 02:33 Estimat Average Glucose 85 12/19/21 03:20 Hemoglobin A1c 4.6 % (4.0-6.0) 12/19/21 03:20 Calculated Osmolality 282 mOsm/kg (285-295) L 12/20/21 02:33 Lactic Acid 4.1 mmol/L (0.5-2.2) H* 12/18/21 10:40 Lactic Acid (Sepsis) 2.1 mmol/L (0.5-2.2) 12/18/21 13:08 Calcium 7.9 mg/dL (8.5-10.5) L 12/20/21 02:33 Phosphorus 1.2 mg/dL (2.5-4.5) L 12/19/21 03:20 Magnesium 1.4 mg/dL (1.7-2.3) L 12/19/21 03:20 Iron 73 ug/dL (37-145) 12/18/21 10:40 TIBC 221 mcg/dl 12/18/21 10:40 % Saturation 33.0 % (20-50) 12/18/21 10:40 Unsat Iron Binding 148 ug/dL (112-347) 12/18/21 10:40 Total Bilirubin 0.3 mg/dL (0.15-1.2) 12/20/21 02:33 AST 119 U/L (0-32) H 12/20/21 02:33 ALT 62 U/L (0-33) H 12/20/21 02:33 Alkaline Phosphatase 48 IU/L (35-105) 12/20/21 02:33 Ammonia 11 umol/L (11-51) 12/18/21 15:10 Creatine Kinase 579 U/L (26-192) H* 12/19/21 03:20 CK-MB (CK-2) 6.8 ng/mL (0-5.34) H 12/18/21 10:40 CK-MB (CK-2) Rel Index 0.6 % (0.0-10.4) 12/18/21 10:40 Troponin T Baseline 19 ng/L (0-10) H 12/18/21 10:40 Troponin T 120 Minute 15.89 ng/L (0-10) H 12/18/21 13:08 Delta Troponin T -3.11 ABS# (0-10) L 12/18/21 13:08 Troponin T Hi Sens 6Hr 17.37 ng/L (0-10) H 12/18/21 17:55 Troponin T Hi Sens 6Hr Delta -1.63 ng/L (0-12) L 12/18/21 17:55 Total Protein 5.9 g/dL (6.6-8.7) L 12/20/21 02:33 Albumin 3.3 g/dL (3.5-5.2) L 12/20/21 02:33 Globulin 2.6 g/dL (1.3-4.6) 12/20/21 02:33 Triglycerides 69 mg/dL (0-150) 12/19/21 03:20 Cholesterol 128 mg/dL (0-200) 12/19/21 03:20 LDL Cholesterol, Calc 21 mg/dL (50-129) L 12/19/21 03:20 Total VLDL Cholesterol 14 mg/dL (0-30) 12/19/21 03:20 HDL Cholesterol 93 mg/dL (60-100) 12/19/21 03:20 Cholesterol/HDL Ratio 1.38 mg/dL (0.0-4.40) 12/19/21 03:20 Lipase 60 U/L (13-60) 12/18/21 10:40 Vitamin B12 280 pg/mL (232-1245) 12/18/21 10:40 Folate 4.6 ng/mL (4.8-37.3) L 12/18/21 15:10 Procalcitonin 0.28 ng/mL (0-0.5) 12/18/21 10:40 TSH 5.83 uIU/mL (0.27-4.20) H 12/18/21 10:40 Urine Color Yellow (Yellow) 12/18/21 14:56 Urine Appearance Clear (CLEAR) 12/18/21 14:56 Urine pH 6 (5-7) 12/18/21 14:56 Ur Specific [place] 1.010 (1.005-1.030) 12/18/21 14:56 Urine Protein Neg (Negative) 12/18/21 14:56 Urine Glucose (UA) Norm (Normal) 12/18/21 14:56 Urine Ketones 1+ (Negative) H 12/18/21 14:56 Urine Blood 2+ (Negative) H 12/18/21 14:56 Urine Nitrate Negative (Negative) 12/18/21 14:56 Urine Bilirubin Neg (Negative) 12/18/21 14:56 Urine Urobilinogen Norm mg/dL (Negative) 12/18/21 14:56 Ur Leukocyte Esterase Negative (Negative) 12/18/21 14:56 Urine RBC 0-4 /hpf (0-2) H 12/18/21 14:56 Urine WBC 0-4 /hpf (0-5) H 12/18/21 14:56 Ur Squamous Epith Cells 0-4 /hpf (0-5) H 12/18/21 14:56 Amorphous Sediment Not Reportable 12/18/21 14:56 Urine Bacteria Trace /hpf (NONE) 12/18/21 14:56 Hyaline Casts 0-4 /lpf H 12/18/21 14:56 Ur Random Sodium 19 mmol/L 12/18/21 14:56 Ur Random Potassium 37 mmol/L 12/18/21 14:56 Ur Random Chloride 22 mmol/L 12/18/21 14:56 Ethyl Alcohol 20 mg/dL (0-10) H 12/18/21 10:40 Serum Ketones Positive (Negative) H 12/18/21 15:10 Coronavirus 229E (PCR) Not detected (NOT DETECT) 12/18/21 13:25 Hepatitis A IgM Ab Non-reactive (Nonreactive) 12/18/21 15:10 Hep Bs Antigen Non-reactive (Nonreactive) 12/18/21 15:10 Hep Bs Antibody 3.5 (11.5-1000) L 12/18/21 15:10 Hep B Core Total Ab Non-reactive (Nonreactive) 12/18/21 15:10 Hepatitis C Antibody Reactive (Nonreactive) H 12/18/21 15:10 HIV 1&2 Ab & HIV 1 Ag Non-reactive (Non-Reactiv) 12/18/21 15:10 HIV 1&2 Antibody Non-reactive (Non-Reactiv) 12/18/21 15:10 SARS-CoV-2 (PCR) Not detected (NOT DETECT) 12/18/21 13:25 Vitals Last Vital Signs Temp 97.8 F 12/20/21 11:45 Pulse 92 12/20/21 11:45 Resp 17 12/20/21 11:45 BP 159/95 12/20/21 11:45 Pulse Ox 96 12/20/21 11:45 Discharge Plan Discharge Patient Disposition: Home Condition: Stable Prescriptions: New folic acid 1 mg Tablet 1 mg PO BID Qty: 60 0RF ziprasidone HCl 60 mg Capsule 60 mg PO BEDTIME Qty: 30 0RF amlodipine 10 mg tablet 10 mg PO DAILY Qty: 30 0RF Continued trazodone 50 mg tablet 50 mg PO BEDTIME PRN (Reason: Sleep) 0RF levothyroxine 150 mcg tablet 150 mcg PO QAM 0RF ergocalciferol (vitamin D2) 1,250 mcg (50,000 unit) capsule 50,000 unit PO Q7D 0RF Ventolin HFA 90 mcg/actuation HFA aerosol inhaler 2 puff inhalation TID PRN (Reason: Shortness Of Breath) 0RF sertraline 50 mg tablet 100 mg PO QAM 0RF rosuvastatin 10 mg tablet 10 mg PO QAM 0RF Rx Instructions: TAKE ONE TABLET BY MOUTH EVERY DAY bupropion HCl 150 mg tablet extended release 24 hr 150 mg PO BID 0RF Changed clonazepam 0.5 mg tablet 0.5 mg PO BEDTIME PRN (Reason: Anxiety) Qty: 0 0RF Discontinued ziprasidone HCl 80 mg capsule 80 mg PO BEDTIME 0RF Rx Instructions: *GIVE WITH FOOD(MEAL/SNACK) * Discharge Orders: Discharge Order (Routine); Ordered 12/20/21 Ordered By: Cristi Wang Referrals: Vivian Roblero MD [Primary Care Provider] - 7-10 days Discharge Diet: Usual diet Discharge Activity: Resume usual activity and Increase activity as tolerated Patient Instructions: Opioid Safety Activity Restrictions/Additional Instructions: Klonopin has been changed to as needed at bedtime. Dose of ziprasidone has been decreased to 60 mg daily. Amlodipine 10 mg daily has been added to your medication list. Please try to practice alcohol or stimulants as much as possible. Please follow-up with a primary care provider within next 1 week. Your hepatitis C positive. You should follow-up with your primary care provider for further treatment of hepatitis C. Discharge Attestations Time Spent in Discharge Care*: greater than 30 min Specific Discharge Activities: educating patient, discussing with shelter case manager/social workers/dc planners, documenting/other paperwork and evaluating patient/reviewing data Status at Discharge: Cognitive status at discharge: mildly impaired cognition , Behavioral status at discharge: cooperative , Functional status at discharge: independent ambulation , Overall status at discharge: patient is back to baseline Quality Metrics Clinical Quality Measures [ No reported AMI, CVA or VTE this stay] Coding Level of Care Code Acute Chg DC note Diagnoses Altered mental status R41.82 PANCHO (acute kidney injury) N17.9 High anion gap metabolic acidosis E87.2 Chronic alcohol use Z72.89 Transaminitis R74.01 Elevated blood pressure reading R03.0 Chest pain made worse by breathing R07.1 Chronic obstructive pulmonary disease J44.9 COPD type: unspecified COPD Schizoaffective disorder F25.9 Hepatitis C B19.20
[2021-12-20] MEDS: potassium chloride ER 20 mEq Tablet 40 MEQ PO (12:31)
[2021-12-20] MEDS: acetaminophen 325 mg Tablet 650 MG PO (13:17)
[2021-12-20] MEDS: alum-mag-hydroxide-sime 30 mL UDC 15 ML PO (13:17)
[2021-12-21 03:17] LABS: HEP C RNA Viral Load Quant <1.18 NOT DETECTED Log IU/mL (NOT DETECTED); HEP C RNA Viral Load Quant <15 NOT DETECTED IU/mL (NOT DETECTED)
== END 2021-12-20 16:34 | disposition home or self-care (01) | DRG 683 ==
LOC: ER 11:10 → MEDSURG 15:12
PROVIDERS: Admitting Provider Student in an Organized Health Care Education/Training Program; Emergency Provider Family Medicine; PCP Family Medicine; Visit Provider Student in an Organized Health Care Education/Training Program
DX: N17.9 Acute kidney failure, unspecified (principal); E87.2 Acidosis; M62.82 Rhabdomyolysis; F25.9 Schizoaffective disorder, unspecified; F10.129 Alcohol abuse with intoxication, unspecified; Y90.9 Presence of alcohol in blood, level not specified; G89.29 Other chronic pain; M54.9 Dorsalgia, unspecified; F17.200 Nicotine dependence, unspecified, uncomplicated; G47.00 Insomnia, unspecified; J44.9 Chronic obstructive pulmonary disease, unspecified; E03.9 Hypothyroidism, unspecified; B19.20 Unspecified viral hepatitis C without hepatic coma; E86.0 Dehydration; R30.0 Dysuria; Z79.51 Long term (current) use of inhaled steroids; Z79.891 Long term (current) use of opiate analgesic; I95.9 Hypotension, unspecified; E53.8 Deficiency of other specified B group vitamins; T50.991A Poisoning by other drugs, medicaments and biological substances, accidental (unintentional), initial encounter; R41.82 Altered mental status, unspecified; R07.89 Other chest pain
CPT/HCPCS: 36415; 51702; 70450; 71045; 74176; 80053; 80061; 80307; 81001; 82009; 82140; 82436; 82550; 82553; 82607; 82746; 83036; 83540; 83550; 83605; 83690; 83735; 84100; 84133; 84145; 84300; 84443; 84484; 85025; 86705; 86706; 86709; 86803; 87040; 87340; 87522; 87635; 87641; 87806; 93005; 94640; 96365; 96372; 96375; 99285; C9113; J0696; J1650; J1956; J2270; J2405; J3411; J3420; J3490; J7030; J7626

== ENCOUNTER → 2021-12-31 17:01 | Outpatient (BNVA) | payer MEDICARE, MEDICAID, SELFPAY | PROVIDERS: PCP Family Medicine; Visit Provider Family Medicine | DX: R41.82 Altered mental status, unspecified (principal); E89.0 Postprocedural hypothyroidism; Z09 Encounter for follow-up examination after completed treatment for conditions other than malignant neoplasm; E87.6 Hypokalemia | CPT/HCPCS: 80053; 82607; 82746; 84443; 85025 ==

== ENCOUNTER → 2022-02-18 17:45 | Outpatient (BNVA) | payer MEDICARE, MEDICAID, SELFPAY | PROVIDERS: PCP Family Medicine; Visit Provider Family Medicine | DX: E87.6 Hypokalemia (principal); R60.9 Edema, unspecified | CPT/HCPCS: 80053; 85025 ==

== ENCOUNTER 2022-02-25 09:29 | Emergency (ER) | payer MEDICARE, MEDICAID, SELFPAY ==
[2022-02-25 10:02] VITALS: BP 117/73; PULSE 67; RESP 15; TEMP 36.3; O2SAT 99
--- NOTE | 2022-02-25 11:47 | ED_ITS ---
HPI - Extremity Problem General: Chief complaint: Extremity Problem,Nontraumatic Stated complaint: needs rings cut off Time Seen by Provider: 02/25/22 09:30 History of Present Illness: 66-year-old female patient presents to the emergency department with a ring stuck on her right fourth digit. Patient states she had some swelling to that finger and tried to get the ring off that caused more swelling. Patient presents to have this ring cut off. Patient denies any numbness or tingling. Patient denies any other complaint Associated symptoms: Deny chest pain, fever(s) or rash Review of Systems Const: Denies: fever(s), chills, body aches, change in appetite, change in weight, fatigue, malaise or diaphoresis Eyes: Denies: change in vision, blurry vision, blind spots, photophobia, eye discomfort, eye discharge, eye redness, floaters or seeing flashes ENMT: Denies: throat pain, enlarged tonsils, odynophagia, hoarseness, mouth pain, swelling of lips/tongue, oral sores, bleeding gums, dental pain, dry mouth, ear or mastoid pain, ear discharge, change in hearing, tinnitus, disequilibrium, nasal discharge, nasal congestion, post nasal drip or sinus pain Card: Denies: chest pain, palpitations, irregular heart rhythm, edema, swelling of feet/ankles, lightheadedness, syncope, pre-syncope, dyspnea on exertion, orthopnea, leg pain with exertion or acrocyanosis Resp: Denies: dyspnea, productive cough, non-productive cough, wheezing, stridor, pain on inspiration, change in phlegm color, hemoptysis or chest congestion GI: Denies: abdominal pain, nausea, vomiting, hematemesis, dysphagia, diarrhea, constipation, GI cramping, change in bowel habits or rectal pain : Denies: flank pain, difficulty voiding, dysuria, urinary frequency, urinary urgency, urinary hesitancy or hematuria Musc: Reports: extremity swelling; Denies: neck pain, back pain, extremity pain, joint pain, joint swelling, joint redness, joint warmth or deformity Skin/Breast: Denies: rash, pruritus, erythema, sores, new lesions, changes in skin color or dry skin Neuro: Denies: headache(s), numbness in extremities, weakness in extremities, sensory changes, lack of coordination, difficulty walking, frequent falls, dizziness, vertigo, confusion, behavioral changes, Slurred speech present, difficulty communicating thoughts or seizure-like activity Psych: Denies: anxiety, depression, suicidal ideation or homicidal ideation Endo: Denies: polyuria, polydipsia, tired all the time, cold intolerance, excessive sweating, flushing, hot flashes or heat intolerance [place]/Lymph: Denies: easy bruising, easy bleeding, petechiae, purpura, enlarged lymph nodes or tender lymph nodes All/Imm: Denies: urticaria, throat swelling, tongue swelling, facial swelling, acute wheezing or itchy eyes PFSH ED PFSH: Medical History Anxiety Chronic alcohol use Chronic back pain Chronic obstructive pulmonary disease DDD (degenerative disc disease) Hepatitis C High anion gap metabolic acidosis Hyperthyroidism Insomnia Schizoaffective disorder Schizoaffective disorder Transaminitis Social History Smoking and tobacco status: current every day smoker Second hand smoke exposure: Yes Smoking risk assessment/counseling performed?: No Alcohol intake: current Alcohol intake frequency: 3 or more drinks per day Alcohol type: hard liquor Current occupational status: unemployed Current gender identity: Female Physical Exam Const: COMMON NORMALS: no acute distress, average body habitus, patient oriented x3, no limitations, healthy appearing, alert and well nourished Extremity: NARRATIVE EXTREMITY EXAM: Swelling noted to the fourth digit on the right hand Neuro: COMMON NORMALS: patient oriented x3 SENSORIUM/ORIENTATION: Yes alert Course Vital Signs: Vital signs: Vital Signs Temperature 97.4 F L 02/25/22 10:02 Pulse Rate 67 02/25/22 10:02 Respiratory Rate 15 02/25/22 10:02 Blood Pressure 117/73 02/25/22 10:02 Pulse Oximetry 99 02/25/22 10:02 Oxygen Delivery Me thod 02/25/22 10:02 MDM - Extremity (Nontraumatic) Medical Decision Making Patient is well-appearing nontoxic in no acute distress.66-year-old female patient presents to the emergency department with a ring stuck on her right fourth digit. Patient states she had some swelling to that finger and tried to get the ring off that caused more swelling. Patient presents to have this ring cut off. Patient denies any numbness or tingling. Patient denies any other complaint Ring was removed successfully. Patient has no pain or tenderness to digit. Patient is neurovascular intact distally. Discharge Plan Discharge Patient Disposition: Home Clinical Impression: Finger swelling Condition: Stable Prescriptions: No Action triamterene-hydrochlorothiazid 37.5-25 mg tablet 1 tab PO QAM Qty: 30 2RF bupropion HCl 150 mg tablet extended release 24 hr 150 mg PO BID Qty: 60 0RF ergocalciferol (vitamin D2) 1,250 mcg (50,000 unit) capsule 50,000 unit PO Q7D Qty: 4 0RF ziprasidone HCl 60 mg capsule 60 mg PO BEDTIME Qty: 30 0RF rosuvastatin 10 mg tablet 10 mg PO QAM Qty: 30 0RF Rx Instructions: TAKE ONE TABLET BY MOUTH EVERY DAY sertraline 50 mg tablet 100 mg PO QAM Qty: 60 0RF trazodone 50 mg tablet 50 mg PO BEDTIME PRN (Reason: Sleep) Qty: 30 0RF levothyroxine 150 mcg tablet 150 mcg PO QAM Qty: 30 0RF amlodipine 10 mg tablet See Rx Instructions .ROUTE .COMPLEX Qty: 30 0RF Dose Instruction: TAKE ONE TABLET BY MOUTH DAILY Rx Instructions: TAKE ONE TABLET BY MOUTH DAILY Ventolin HFA 90 mcg/actuation HFA aerosol inhaler 2 puff inhalation TID PRN (Reason: Shortness Of Breath) folic acid 1 mg Tablet 1 mg PO BID Qty: 60 0RF clonazepam 0.5 mg tablet 0.5 mg PO BEDTIME PRN (Reason: Anxiety) Qty: 0 0RF Discharge Orders: Discharge ED (Routine); Ordered 02/25/22 Ordered By: Mary Brantley Referrals: Vivian Roblero MD [Primary Care Provider] - Discharge Diet: Advance as tolerated Discharge Activity: Increase activity as tolerated Patient Instructions: Opioid Safety Activity Restrictions/Additional Instructions: Return to ER with any worsening of symptoms Coding Level of Care Code ED Peat Shredder Tender for Anyi Cunningham
[2022-02-25 11:52] VITALS: PULSE 67; RESP 16; O2SAT 99
== END 2022-02-25 11:56 | disposition home or self-care (01) ==
PROVIDERS: Emergency Provider Registered Nurse; PCP Family Medicine
DX: M25.441 Effusion, right hand (principal)
CPT/HCPCS: 99282

== ENCOUNTER 2022-10-17 16:55 | Inpatient (IN) | payer MEDICARE, MEDICAID, SELFPAY ==
[2022-10-17 17:03] VITALS: BP 152/66; PULSE 84; RESP 15; TEMP 36.6; O2SAT 97
--- NOTE | 2022-10-17 17:14 | CTR_ITS ---
PROCEDURE INFORMATION: Exam: CT Head Without Contrast Exam date and time: 10/17/2022 5:27 PM Age: 67 years old Clinical indication: Injury or trauma; Fall; Blunt trauma (contusions or hematomas); Additional info: Fall, altered level of consciousness (? ) TECHNIQUE: Imaging protocol: Computed tomography of the head without contrast. Radiation optimization: All CT scans at this facility use at least one of these dose optimization techniques: automated exposure control; mA and/or kV adjustment per patient size (includes targeted exams where dose is matched to clinical indication); or iterative reconstruction. REPORTING DATA: Count of CT and Cardiac NM exams in prior 12 months: This patient has received 2 known CTs and 0 known cardiac nuclear medicine studies in the 12 months prior to the current study. COMPARISON: CT head wo con* [id number] 12/18/2021 11:35 AM RADIATION DOSE METRICS: Total DLP (mGy-cm): 1107.32 FINDINGS: Brain: No hemorrhage. No edema. Moderate diffuse cerebral atrophy. No significant white matter disease. No mass effect. Cerebral ventricles: No ventriculomegaly. Paranasal sinuses: Visualized sinuses are unremarkable. No fluid levels. Mastoid air cells: Visualized mastoid air cells are well aerated. Bones/joints: Unremarkable. No acute fracture. Soft tissues: Unremarkable. CT/CT head wo con* [id number] IMPRESSION: No acute intracranial abnormality.
--- NOTE | 2022-10-17 17:15 | CTR_ITS ---
PROCEDURE INFORMATION: Exam: CT Cervical Spine Without Contrast Exam date and time: 10/17/2022 5:27 PM Age: 67 years old Clinical indication: Injury or trauma; Fall; Blunt trauma; Additional info: Fall, altered mental (? ) TECHNIQUE: Imaging protocol: Computed tomography of the cervical spine without contrast. Radiation optimization: All CT scans at this facility use at least one of these dose optimization techniques: automated exposure control; mA and/or kV adjustment per patient size (includes targeted exams where dose is matched to clinical indication); or iterative reconstruction. REPORTING DATA: Count of CT and Cardiac NM exams in prior 12 months: This patient has received 2 known CTs and 0 known cardiac nuclear medicine studies in the 12 months prior to the current study. COMPARISON: CT head wo con* [id number] 12/18/2021 11:35 AM RADIATION DOSE METRICS: Total DLP (mGy-cm): 237.9 FINDINGS: Bones/joints: No acute fracture. Normal alignment. No significant disc bulge or herniation. No severe spinal canal stenosis. Lungs: Lung apices are normal. Soft tissues: Unremarkable. CT/CT cervical spin wo con* [id number] IMPRESSION: No acute findings.
--- NOTE | 2022-10-17 17:15 | XRR_ITS ---
PROCEDURE INFORMATION: Exam: XR Right Forearm Exam date and time: 10/17/2022 5:49 PM Age: 67 years old Clinical indication: Injury or trauma; Fall; Blunt trauma (contusions or hematomas); Arm, lower; Right; Additional info: Fall, large skin abrasion/tear TECHNIQUE: Imaging protocol: Radiologic exam of the right forearm. Views: 2 views. COMPARISON: No relevant prior studies available. FINDINGS: Bones/joints: Radius and ulna are intact. Negative for fracture. Soft tissues: Normal. XR/XR forearm RT 2V [id number] IMPRESSION: No acute findings.
--- NOTE | 2022-10-17 17:15 | XRR_ITS ---
PROCEDURE INFORMATION: Exam: XR Right Hip Exam date and time: 10/17/2022 5:45 PM Age: 67 years old Clinical indication: Injury or trauma; Fall; Blunt trauma (contusions or hematomas); Right; Hip; Additional info: Fall, favoring RT hip- per EMS TECHNIQUE: Imaging protocol: Radiologic exam of the right hip. Views: 1 view hip with pelvis when performed. COMPARISON: CT abdomen pelvis wo con [id number] 12/18/2021 3:46 PM FINDINGS: Bones/joints: Fracture through the inferior right pubic ramus. A 1.5 cm ossific fragment projects over the obturator foramen. Soft tissues: Unremarkable. XR/XR hip RT 2-3V wo/w pel* [id number] IMPRESSION: Fracture through the inferior right pubic ramus.
--- NOTE | 2022-10-17 17:19 | ED_ITS ---
HPI - Fall General: Chief Complaint: Fall Stated Complaint: Fall/ R hip pain Time Seen by Provider: 10/17/22 17:06 Source: patient, EMS and RN notes reviewed Mode of arrival: EMS Limitations: altered mental status (slowed, slurred speech) History of Present Illness: Patient presents to the emergency department today brought by EMS for evaluation treatment of injury sustained after falling in her bathroom. All the patient is extremely pleasant and is attempting to answer her history, she is extremely slurred and speech is extremely slowed. Nursing was able to gather the EMS report which indicates the patient was found down in her bathroom. They believe she fell off the toilet and may have impacted the wall. She has a wound to her right forearm and they indicated minimal weightbearing and favoring of the right lower extremity at the hip when they attempted to ambulate her. They also ace cated there was a bottle of vodka in the bathroom with her. Patient agrees she was in the bathroom but does not know much about her fall. She thinks she may have hit her arm on the trash can causing her wound. She is not sure if she hit her head or why she fell. Chart review shows she is not on any blood thinners. She does have a history of chronic alcohol use and hepatitis C. She also has a history of schizophrenia. It appears patient has been septic and acidotic before and in rhabdomyolysis. Patient's body temperature is within normal limits upon arrival. Review of Systems General: Reports: 10 or more systems reviewed and unremarkable except in HPI and below PFSH ED PFSH: Medical History (Updated 10/17/22 @ 21:37 by Cristi Wang MD) Anxiety Chronic alcohol use Chronic back pain Chronic obstructive pulmonary disease DDD (degenerative disc disease) Hepatitis C High anion gap metabolic acidosis Hyperthyroidism Insomnia Schizoaffective disorder Schizoaffective disorder Transaminitis Social History Smoking and tobacco status: current every day smoker Second hand smoke exposure: Yes Smoking risk assessment/counseling performed?: No Alcohol intake: current Alcohol intake frequency: 3 or more drinks per day Alcohol type: hard liquor Substance/Drug Use: never Current occupational status: unemployed Current gender identity: Female Physical Exam Const: COMMON NORMALS: no acute distress, patient oriented x3 and alert EXAM LIMITATIONS: altered mental status (Speech is extremely slowed/slurred, reports she is unsure of cause of fall) ORIENTATION/CONSCIOUSNESS: Yes oriented to person HENMT: COMMON NORMALS: normocephalic, atraumatic and hearing grossly normal bilaterally HEAD & SCALP: normocephalic and atraumatic OTHER: Patient is speaking extremely loud Eye: COMMON NORMALS: Equal, round and reactive pupils present, EOMs intact bilaterally and conjunctivae normal CONJUNCTIVA: Yes conjunctivae normal PUPIL: Yes Equal, round and reactive pupils present Neck/C-Spine: COMMON NORMALS: full ROM and no JVD Lymph: LYMPHATIC: no lymphadenopathy noted Resp: COMMON NORMALS: normal respiratory effort, No retractions and No use of accessory muscles Cardio: COMMON NORMALS: no JVD and regular rate RATE: regular rate Extremity: NARRATIVE EXTREMITY EXAM: Patient arrives from EMS laying on her left hip. Patient is not laying back and is having difficulty describing locations of pain at this time. Neuro: COMMON NORMALS: patient oriented x3 SENSORIUM/ORIENTATION: Yes alert and Yes oriented to person Psych: COMMON NORMALS: mental status grossly normal, Normal thought process present, cooperative and normal affect SPEECH: Yes minimal (Short responses- I do not know , I am not sure , that is fine ...), Yes slow, Yes loud and Yes slurred THOUGHT PROCESS: Normal thought process present Skin: COMMON NORMALS: no rashes or lesions noted NARRATIVE SKIN EXAM: Patient has many areas of bruising on her upper extremities. Patient has a large area of total skin loss/abrasion noted to the posterior mid forearm approximately 10 to 12 cm in length and approximately 4 to 5 cm wide. No significant bleeding at this time. GENERAL SKIN EXAM: no rashes or lesions noted Course Vital Signs: Vital signs: Vital Signs Temperature 97.8 F 10/17/22 17:03 Pulse Rate 88 10/17/22 21:11 Respiratory Rate 19 H 10/17/22 21:11 Blood Pressure 126/74 10/17/22 18:20 Pulse Oximetry 94 10/17/22 21:11 Oxygen Delivery Me thod Room Air 10/17/22 21:11 MDM - Fall Medical Decision Making Patient presented to the emergency department today brought by EMS secondary to reports of falling in her bathroom. Patient was not able to tell me why she fel l but, EMS indicated finding a bottle of vodka with her. Patient has known chronic alcohol use with hepatitis C, transaminitis, history of acidosis and rhabdomyolysis. Patient was found to have a right forearm skin tear but, x-ray indicated no underlying bony injury. CT of the patient's head and neck was otherwise negative except for chronic changes and atrophy noted. Patient's pelvic and right hip x-ray did indicate an inferior rami fracture. Patient was somewhat difficult to treat while she was here as she often would refuse lab work, imaging, fluids, or EKG. However, each time I went in and spoke with her, she would agree to continue treatment. Patient had no elevated white blood cell count. She had no signs of acute anemia today. She did have an abnormal CO2 level at 16 with an anion gap of 29.8. Patient's GFR was 62 and she received IV fluids upon arrival. Patient's glucose was found to be 59 and we switched her over to a lactated ringer. Patient had a slightly elevated ALT at 185. Urinalysis showed 1+ ketones. CK was negative. Patient's EtOH was 310 but her urine drug screen was negative. Took quite a long time to get the patient's lactic acid back as apparently, it had to be collected more than once. I also had to call down to the lab who had not gotten the result posted after it had been ran. Patient's lactate came back at 7.2. At this point I did call the hospitalist after speaking to Dr. Adlana as I do not think the patient is safe or stable to go home. Hospitalist agreed patient needs to be admitted but also requested we start a banana bag and get a CT of the abdomen pelvis with contrast. He indicated he would be seeing the patient at bedside. Dr. Aldana provided the admission order for the patient to be admitted to the [facility] floor. We will defer care to the hospitalist services for further treatment and intervention at this time. Differential Diagnosis Likely syncope (MD, cardiac arrhythmia, alcohol intoxication, septicemia, rhabdomyolysis), compression fracture and concussion with loss of consciousness Lab Data 10/17/22 18:05 10/17/22 18:[address] 10/17/22 17:14 IMPRESSION: No acute intracranial abnormality. Cervical Spine CT 10/17/22 17:15 IMPRESSION: No acute findings. Forearm X-Ray 10/17/22 17:15 IMPRESSION: No acute findings. Hip/Pelvis X-Ray 10/17/22 17:15 IMPRESSION: Fracture through the inferior right pubic ramus. Laboratory Results WBC 4.7 10^3/uL (4.0-10.0) 10/17/22 18:05 RBC 3.49 10^6/uL (4.1-5.3) L 10/17/22 18:05 Hgb 12.5 g/dL (11.5-15.3) 10/17/22 18:05 Hct 38.2 % (37.0-47.0) 10/17/22 18:05 MCV 109.5 fl (81-99) H 10/17/22 18:05 MCH 35.8 pg (28.0-34.0) H 10/17/22 18:05 MCHC 32.7 g/dL (30.0-36.0) 10/17/22 18:05 RDW 14.7 % (12.1-15.1) 10/17/22 18:05 Plt Count 217 10^3/cmm (130-400) 10/17/22 18:05 MPV 10.2 fL (7.4-10.4) 10/17/22 18:05 Neut % (Auto) 56.9 % 10/17/22 18:05 Lymph % (Auto) 32.3 % 10/17/22 18:05 [place] % (Auto) 9.1 % 10/17/22 18:05 Eos % (Auto) 0.2 % 10/17/22 18:05 Baso % (Auto) 1.1 % 10/17/22 18:05 Neut # (Auto) 2.70 10^3/uL (1.8-7.7) 10/17/22 18:05 Lymph # (Auto) 1.5 10^3/uL (0.8-4.8) 10/17/22 18:05 [place] # (Auto) 0.4 10^3/uL (0.2-0.9) 10/17/22 18:05 Eos # (Auto) 0.0 10^3/uL (0.0-0.8) 10/17/22 18:05 Baso # (Auto) 0.1 10^3/uL (0.0-0.1) 10/17/22 18:05 Nucleated RBC % (auto) 0 % 10/17/22 18:05 Nucleated RBCs # 0.0 /100WBC 10/17/22 18:05 Sodium 141 mmol/L (136-145) 10/17/22 18:05 Potassium 3.8 mmol/L (3.5-5.1) 10/17/22 18:05 Chloride 99 mmol/L (98-107) 10/17/22 18:05 Carbon Dioxide 16 mmol/L (22-29) L 10/17/22 18:05 Anion Gap 29.8 (5-19) H 10/17/22 18:05 BUN 11 mg/dL (8-23) 10/17/22 18:05 Creatinine 0.9 mg/dL (0.5-0.9) 10/17/22 18:05 GFR Calculation 62.3 mL/min (90-130) L 10/17/22 18:05 Glucose 59 mg/dL (65-115) L 10/17/22 18:05 POC Glucose 55 mg/dL (70-110) L 10/17/22 20:55 Calculated Osmolality 289 mOsm/kg (285-295) 10/17/22 18:05 Lactic Acid 7.2 mmol/L (0.5-2.2) H* 10/17/22 19:37 Calcium 8.7 mg/dL (8.5-10.5) 10/17/22 18:05 Total Bilirubin 0.5 mg/dL (0.15-1.2) 10/17/22 18:05 AST 186 U/L (0-32) H 10/17/22 18:05 ALT 85 U/L (0-33) H 10/17/22 18:05 Alkaline Phosphatase 71 U/L (35-105) 10/17/22 18:05 Creatine Kinase 139 U/L (26-192) 10/17/22 18:05 Total Protein 7.7 g/dL (6.6-8.7) 10/17/22 18:05 Albumin 4.6 g/dL (3.5-5.2) 10/17/22 18:05 Globulin 3.1 g/dL (1.3-4.6) 10/17/22 18:05 Urine Color Light yellow (Yellow) 10/17/22 18:00 Urine Appearance Clear (CLEAR) 10/17/22 18:00 Urine pH 6 (5-7) 10/17/22 18:00 Ur Specific [place] 1.015 (1.005-1.030) 10/17/22 18:00 Urine Protein Neg (Negative) 10/17/22 18:00 Urine Glucose (UA) Norm (Normal) 10/17/22 18:00 Urine Ketones 1+ (Negative) H 10/17/22 18:00 Urine Blood Neg (Negative) 10/17/22 18:00 Urine Nitrate Negative (Negative) 10/17/22 18:00 Urine Bilirubin Neg (Negative) 10/17/22 18:00 Urine Urobilinogen Norm mg/dL (Negative) 10/17/22 18:00 Ur Leukocyte Esterase Negative (Negative) 10/17/22 18:00 Urine Opiates Screen Negative ng/mL (Negative) 10/17/22 18:00 Ur Barbiturates Screen Negative ng/mL (Negative) 10/17/22 18:00 Ur Phencyclidine Scrn Negative ng/mL (Negative) 10/17/22 18:00 Ur Amphetamines Screen Negative ng/mL (Negative) 10/17/22 18:00 U Benzodiazepines Scrn Negative ng/mL (Negative) 10/17/22 18:00 Urine Cocaine Screen Negative ng/mL (Negative) 10/17/22 18:00 U Marijuana (THC) Screen Negative ng/mL (Negative) 10/17/22 18:00 Ethyl Alcohol 232 mg/dL (0-10) H 10/17/22 20:58 Discharge Plan Discharge Patient Disposition: Admitted As Inpatient Admit Provider: Cristi Wang Clinical Impression: Closed fracture of inferior pubic ramus, Elevated lactic acid level, Alcohol intoxication, Skin tear of right upper extremity Condition: Stable Coding Level of Care Code ED Bottom Liquor Attendant for Anyi Cunningham
[2022-10-17 18:20] VITALS: BP 126/74; PULSE 96; RESP 16; O2SAT 98
[2022-10-17 18:31] LABS: Basophils # 0.1 10^3/uL (0.0-0.1); Basophils % 1.1 %; Eosinophils % 0.2 %; Hematocrit 38.2 % (37.0-47.0); Hemoglobin 12.5 g/dL (11.5-15.3); Lymphocytes # 1.5 10^3/uL (0.8-4.8); Lymphocytes % 32.3 %; Mean Corpuscular HGB Conc 32.7 g/dL (30.0-36.0); Mean Corpuscular Hemoglobin 35.8 pg (28.0-34.0); Mean Corpuscular Volume 109.5 fl (81-99); Mean Platelet Volume 10.2 fL (7.4-10.4); Monocytes # 0.4 10^3/uL (0.2-0.9); Monocytes % 9.1 %; Neutrophils % 56.9 %; Nucleated Red Blood Cells % 0 %; Platelet Count 217 10^3/cmm (130-400); Red Blood Count 3.49 10^6/uL (4.1-5.3); Red Cell Distribution Width 14.7 % (12.1-15.1); White Blood Count 4.7 10^3/uL (4.0-10.0)
[2022-10-17 18:32] LABS: Add Urine Microscopic? NO; Charge for UA Resulting for Rev
[2022-10-17 18:46] LABS: Amphetamines Screen Urine Negative (Negative); Barbiturates Screen Urine Negative (Negative); Benzodiazepines Screen Urine Negative (Negative); Bilirubin Urine Neg (Negative); Blood Urine Neg (Negative); Cocaine Screen Urine Negative (Negative); Glucose Urine UA Norm (Normal); Ketones Urine 1+ (Negative); Nitrate Urine Negative (Negative); Opiate Screen Urine Negative (Negative); PCP Screen Urine Negative (Negative); Protein Urine Neg (Negative); Specific Gravity, Urine 1.015 (1.005-1.030); THC Screen Urine Negative (Negative); Urine Appearance Clear (CLEAR); Urine Color Light yellow (Yellow); pH Urine 6 (5-7)
[2022-10-17 18:47] LABS: Leukocyte Esterase Urine Negative (Negative); Urobilinogen Urine Norm (Negative)
[2022-10-17 18:52] LABS: Alanine Aminotransferase 85 U/L (0-33); Albumin Level 4.6 g/dL (3.5-5.2); Alkaline Phosphatase 71 U/L (35-105); Anion Gap 29.8 (5-19); Aspartate Amino Transferase 186 U/L (0-32); Blood Urea Nitrogen 11 mg/dL (8-23); Calcium 8.7 mg/dL (8.5-10.5); Carbon Dioxide 16 mmol/L (22-29); Chloride 99 mmol/L (98-107); Creatine Phosphokinase 139 U/L (26-192); Globulin 3.1 g/dL (1.3-4.6); Glomerular Filtration Rate 62.3 mL/min (90-130); Glucose 59 mg/dL (65-115); Osmolality Calculated 289 mOsm/kg (285-295); Potassium 3.8 mmol/L (3.5-5.1); Sodium 141 mmol/L (136-145); Total Bilirubin 0.5 mg/dL (0.15-1.2); Total Protein 7.7 g/dL (6.6-8.7)
[2022-10-17] MEDS: sodium chloride 0.9% 1,000 ML 999 ML IV ×2 (18:52→21:04)
[2022-10-17 18:57] LABS: Alcohol Level 310 mg/dL (0-10)
[2022-10-17] MEDS: lactated ringers 500 ML 999 ML IV (19:55)
--- NOTE | 2022-10-17 20:09 | ECG_ITS ---
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 Measurements Intervals [place] Rate: 81 P: 34 FL: 162 QRS: -18 QRSD: 84 T: 60 QT: 396 QTc: 462 Interpretive Statements SINUS RHYTHM LOW QRS VOLTAGE IN PRECORDIAL LEADS [QRS DEFLECTION < 1.0 mV IN CHEST LEADS] Compared to ECG 12/18/2021 17:19:41 Sinus tachycardia no longer present Electronically Signed On 10-18-2022 16:36:15 CDT by Didier Garcia M.D. [email or web address]
[2022-10-17 20:46] LABS: Lactic Sepsis W/Reflex 7.2 mmol/L (0.5-2.2)
[2022-10-17 20:57] LABS: Glucose Point of Care 55 mg/dL (70-110)
--- NOTE | 2022-10-17 20:58 | CTR_ITS ---
PROCEDURE INFORMATION: Exam: CT Abdomen And Pelvis With Contrast Exam date and time: 10/17/2022 9:19 PM Age: 67 years old Clinical indication: Abnormal findings; Abnormal lab test; Other: Lactic acid 7.2; Patient HX: Lactic acid of 7.2. ETOH. History of hep c. ; Additional info: Altered mental, fall, per hospitalist TECHNIQUE: Imaging protocol: Computed tomography of the abdomen and pelvis with contrast. Radiation optimization: All CT scans at this facility use at least one of these dose optimization techniques: automated exposure control; mA and/or kV adjustment per patient size (includes targeted exams where dose is matched to clinical indication); or iterative reconstruction. Contrast material: OMNI 350; Contrast volume: 100 ml; Contrast route: INTRAVENOUS (IV); REPORTING DATA: Count of CT and Cardiac NM exams in prior 12 months: This patient has received 2 known CTs and 0 known cardiac nuclear medicine studies in the 12 months prior to the current study. COMPARISON: CT abdomen pelvis wo con [id number] 12/18/2021 3:46 PM RADIATION DOSE METRICS: Total DLP (mGy-cm): 810.97 FINDINGS: Diaphragm: Moderate intrathoracic hiatal hernia. Liver: Markedly severe fatty infiltration of the liver measuring 21 Hounsfield units on images with contrast. Previously this measured-10 Hounsfield units on images without contrast. Correlation with chronic ingestion of alcohol and/or fructose is recommended. Calcified hepatic granulomas. Gallbladder and bile ducts: Normal. No calcified stones. No ductal dilation. Pancreas: Normal. No ductal dilation. Spleen: One or more accessory splenules. One or more accessory splenules. Adrenal glands: Normal. No mass. Kidneys and ureters: Normal. No hydronephrosis. Stomach and bowel: Unremarkable. No obstruction. No mucosal thickening. Appendix: No evidence of appendicitis. Intraperitoneal space: Unremarkable. No free air. No significant fluid collection. Vasculature: One or more calcified pelvic phleboliths. Calcification of the abdominal aorta and/or iliac arteries consistent with atherosclerotic vessel disease. Lymph nodes: Unremarkable. No enlarged lymph nodes. Urinary bladder: Unremarkable as visualized. Reproductive: Unremarkable as visualized. Bones/joints: Healed right inferior pubic ramus fracture. Soft tissues: Unremarkable. CT/CT abdomen pelvis w con* [id number] IMPRESSION: 1. Markedly severe fatty infiltration of the liver measuring 21 Hounsfield units on images with contrast. Previously this measured-10 Hounsfield units on images without contrast. Correlation with chronic ingestion of alcohol and/or fructose is recommended. 2. Moderate intrathoracic hiatal hernia.
[2022-10-17] MEDS: mupirocin oint 22 gm 1 APPLIC TOPICAL (21:04)
[2022-10-17 21:11] VITALS: PULSE 88; RESP 19; O2SAT 94
[2022-10-17] MEDS: iohexol 350 mg/mL 500 mL Btl (per mL) IV (21:24)
[2022-10-17 21:30] VITALS: BP 143/72; PULSE 88; RESP 19; O2SAT 96
[2022-10-17 21:32] LABS: Alcohol Level 232 mg/dL (0-10)
--- NOTE | 2022-10-17 21:35 | P.HP_ITS ---
Providers/Chief Complaint Admitting Physician: Cristi Wang MD Primary Care Provider: Vivian Roblero MD Chief Complaint: Fall/ R hip pain History of Present Illness Gilda Hodge is a 67 year old female with past medical history of psoriasis, hepatitis C, schizoaffective disorder, chronic alcohol abuse who was brought to the ER via EMS after she was found fallen in the bathroom while she was trying to get up from the toilet. Patient has been continuing vodka daily. Today she had 2 glasses of vodka with water. She states she has been having alcohol for a long time and has not had alcohol withdrawal in the past. She denies of having any pain currently. Is AOx3, pleasant on examination asking for her ziprasidone. Denies any nausea, vomiting, headache. Review of Systems General: Reports: 10 or more systems reviewed and unremarkable except in HPI and below Const: Denies: fever(s), chills, body aches, change in appetite, change in weight, malaise, night sweats, diaphoresis, change in sleep pattern, daytime sleepiness or snoring Eyes: Denies: change in vision, blurry vision, photophobia, eye discomfort or eye discharge ENMT: Denies: throat pain, enlarged tonsils, hoarseness, mouth pain, oral sores, dry mouth, tinnitus, nasal congestion or post nasal drip Card: Denies: chest pain, palpitations, irregular heart rhythm, edema, swelling of feet/ankles, lightheadedness, syncope, pre-syncope, dyspnea on exertion, orthopnea, leg pain with exertion or acrocyanosis Resp: Denies: dyspnea, productive cough, non-productive cough, wheezing, stridor, pain on inspiration, change in phlegm color, hemoptysis or chest congestion GI: Denies: abdominal pain, nausea, vomiting, hematemesis, coffee ground emesis, dysphagia, heartburn, diarrhea, constipation, bloating, GI cramping, change in bowel habits, pain on defecation, hematochezia or melena : Denies: flank pain, dysuria, urinary frequency, urinary urgency, urinary hesitancy, nocturia or hematuria Musc: Denies: neck pain, back pain, extremity pain, joint pain, joint swelling, joint redness, joint stiffness or limited range of motion Neuro: Denies: headache(s), numbness in extremities, weakness in extremities, sensory changes, lack of coordination, difficulty walking, frequent falls, dizziness, vertigo, confusion, Slurred speech present, difficulty communicating thoughts or seizure-like activity Psych: Denies: anxiety, depression, mood swings, panic attacks, hopelessness or irritability Endo: Denies: polyuria, polydipsia, tired all the time, cold intolerance, excessive sweating, flushing or heat intolerance Wyatt/Lymph: Denies: easy bruising or easy bleeding All/Imm: Denies: tongue swelling, facial swelling or acute wheezing Medications/Allergies Home Medications Medication Instructions Recorded Confirmed Last Taken Type albuterol sulfate 90 mcg/actuation 2 puff inhalation TID PRN 12/18/21 02/18/22 12/18/21 History aerosol inhaler (Ventolin HFA) Shortness Of Breath clonazepam 0.5 mg tablet 0.5 mg PO BEDTIME PRN Anxiety #0 12/20/21 02/18/22 12/17/21 Rx tabs folic acid 1 mg tablet 1 mg PO BID #60 tabs 12/20/21 02/18/22 Unknown Rx ziprasidone HCl 60 mg capsule See Rx Instructions .Route 08/13/22 Unknown Rx .COMPLEX #30 caps amlodipine 10 mg tablet See Rx Instructions .Route 10/03/22 Unknown Rx .COMPLEX #30 tabs bupropion HCl 150 mg 24 hr tablet, See Rx Instructions .Route 10/03/22 Unknown Rx extended release .COMPLEX #60 tabs ergocalciferol (vitamin D2) 1,250 See Rx Instructions .Route 10/03/22 Unknown Rx mcg (50,000 unit) capsule .COMPLEX #4 caps levothyroxine 150 mcg tablet See Rx Instructions .Route 10/03/22 Unknown Rx .COMPLEX #30 tabs rosuvastatin 10 mg tablet See Rx Instructions .Route 10/03/22 Unknown Rx .COMPLEX #14 tabs sertraline 50 mg tablet See Rx Instructions .Route 10/03/22 Unknown Rx .COMPLEX #60 tabs trazodone 50 mg tablet See Rx Instructions .Route 10/03/22 Unknown Rx .COMPLEX #30 tabs triamterene 37.5 See Rx Instructions .Route 10/03/22 Unknown Rx mg-hydrochlorothiazide 25 mg tablet .COMPLEX #30 tabs Allergies Allergy/AdvReac Type Severity Reaction Status Date / Time Penicillins Allergy unk Verified 02/18/22 13:36 PFSH Acute PFSH: Medical History (Updated 10/17/22 @ 23:23 by Cristi Wang MD) Anxiety Chronic alcohol use Consumes vodka daily. Chronic back pain Chronic obstructive pulmonary disease DDD (degenerative disc disease) Hepatitis C High anion gap metabolic acidosis Hyperthyroidism Insomnia Psoriasis Schizoaffective disorder Schizoaffective disorder Transaminitis Social History Smoking and tobacco status: current every day smoker Second hand smoke exposure: Yes Smoking risk assessment/counseling performed?: No Alcohol intake: current Alcohol intake frequency: 3 or more drinks per day Alcohol type: hard liquor Substance/Drug Use: never Current occupational status: unemployed Current gender identity: Female Vitals/I&O/Wt Last Vital Signs Temp 97.8 F 10/17/22 17:03 Pulse 88 10/17/22 21:11 Resp 19 H 10/17/22 21:11 BP 126/74 10/17/22 18:20 Pulse Ox 94 10/17/22 21:11 O2 Del Method Room Air 10/17/22 21:11 10/17/22 10/17/22 10/17/22 06:59 14:59 22:59 Intake Total 1500 / 1500 Balance 1500 / 1500 Weight last 48 hrs Weight 78.471 kg Physical Exam Narrative: General: No acute distress, AO x3, pleasant HEENT: PERRLA, pupils bilaterally equal and reactive Chest: Normal vesicular breath sounds all over lung germain with occasional rhonchi CVS: S1-S2 regular, no murmurs, no tachycardia, no gallops, no rubs Abdomen: Soft, nontender, no organomegaly, bowel sounds present, morbidly obese Neuro: No focal deficits, no facial deformity, AO x3, power 5/5 in all limbs Skin: RASHES: rashes noted (Psoriatic rash on both lower limbs) Data 10/17/22 18:05 10/17/22 18:05 Other Labs: Radiology Impressions Head CT 10/17/22 17:14 IMPRESSION: No acute intracranial abnormality. Cervical Spine CT 10/17/22 17:15 IMPRESSION: No acute findings. Forearm X-Ray 10/17/22 17:15 IMPRESSION: No acute findings. Hip/Pelvis X-Ray 10/17/22 17:15 IMPRESSION: Fracture through the inferior right pubic ramus. A&P Assessment and plan (1) Altered mental status: Most likely in setting of alcohol intoxication along with hypoglycemia. Infectious cause less likely. Seizure protocol. Keep n.p.o. for now. Will reassess in the morning. Hypoglycemia protocol, fall precautions. Frequent reorientation. (2) Alcohol intoxication: Banana bag. Followed by [facility] NS at 75 cc/h. Oral folic acid, thiamine. Watch for alcohol withdrawal. CIWA protocol. IV Protonix 40 mg daily, Zofran as needed (3) Elevated lactic acid level: Most likely in setting of transaminitis along with alcohol abuse. Not sure of circumstances of fall. Patient did receive Ringer lactate in ER. Multiple CT images appreciated. Check CT abdomen pelvis with contrast. For now hold off on antibiotics. Repeat lactate in AM. So far hemodynamically stable. (4) High anion gap metabolic acidosis: Most likely in setting of starvation ketosis along with lactic acidosis. Monitor BMP every 12 hours for now. IV fluid as above. (5) Hypoglycemia: Hypoglycemia protocol. Last A1c within the last 1 year ago 4.6. 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 Continue to monitor. (7) Hepatitis C: Chronic. Not treated. HIV negative. (8) Closed fracture of inferior pubic ramus: Will consult Ortho in a.m. Most likely will need outpatient follow-up. PT evaluation. Adame catheter. Pain control with morphine 1 mg every 4 hours as needed, [place] 5 mg every 6 sol rly as needed (9) Schizoaffective disorder: Restart home dose of ziprasidone 60 mg nightly, Klonopin 0.5 nightly as needed. Restart ordered medications after confirming from patient's outpatient pharmacy in AM. (10) Chronic alcohol use: (11) Skin tear of right upper extremity: Superficial. Wound care. Empirically start on Keflex for now. Allergies to penicillin. Plan History of hypertension: Goal blood pressure less than 140/90 mmHg. For now continue with home dose of amlodipine 10 mg oral daily. Hypothyroidism: Check TSH. Continue with home dose of levothyroxine. Full code. N.p.o. except meds. Protonix for PUD prophylaxis Heparin for DVT prophylaxis. Attestations Medical Necessity Statement*: Admission for more than 2 midnights for management of altered mental status in setting of alcohol intoxication, hypoglycemia, lactic acidosis with high anion gap metabolic acidosis, inferior pubic rami fracture while safe discharge planning is sought. Diagnoses Altered mental status R41.82 Alcohol intoxication F10.929 Elevated lactic acid level R79.89 High anion gap metabolic acidosis E87.2 Hypoglycemia E16.2 Transaminitis R74.01 Hepatitis C B19.20 Closed fracture of inferior pubic ramus S32.599A Schizoaffective disorder F25.9 Chronic alcohol use Z72.89 Skin tear of right upper extremity S41.111A
[2022-10-17 21:37] LABS: Reflex Lactate Order REFLEX LACTIC ORDERD
[2022-10-17] MEDS: folic acid 1 MG, multivitamin inj 10 ML, thiamine 100 MG in sodium chloride 0.9% 1,000 ML 252.8 MG IV (21:40)
[2022-10-17 22:07] VITALS: BP 127/66; PULSE 81; RESP 16; TEMP 36.4; O2SAT 95
--- NOTE | 2022-10-17 22:36 | PC.NURSE ---
Patient refusing castellano. Patient getting up to bedside commode with one assist. Patient oriented x3. Patient states she got brought her by an ambulance but doesn't know why she is here. Patient appears to have poor hygiene and body odor. Patient placed in hospital gown but refusing to be cleaned up.
[2022-10-17] MEDS: LORazepam 2 mg/mL INJ 1 mL 1 MG IVP (22:49)
[2022-10-17] MEDS: heparin 5,000 unit/mL INJ 1 mL 5000 UNIT SUBCUT (22:49)
[2022-10-17] MEDS: pantoprazole 40 mg SDV IVP (22:49)
[2022-10-17 22:53] LABS: Procalcitonin 0.08 ng/mL (0-0.5); Thyroid Stimulating Hormone 11.45 uIU/mL (0.27-4.20)
[2022-10-17 22:58] LABS: Lactic Acid level (Lactate) 5.8 mmol/L (0.5-2.2)
[2022-10-17 23:08] LABS: Vitamin B12 514 pg/mL (232-1245)
[2022-10-17 23:10] LABS: Folate Level 12.9 ng/mL (4.8-37.3)
[2022-10-17 23:25] VITALS: BP 140/64; PULSE 68; RESP 16; O2SAT 94
[2022-10-17] MEDS: ziprasidone hcl 20 mg Capsule 60 MG PO (23:28)
--- NOTE | 2022-10-17 23:32 | PC.NURSE ---
Unable to verify home medications at this time.
[2022-10-17] MEDS: dextrose 5%-sod chloride 0.9% 1,000 ML 75 ML IV (23:37)
[2022-10-17 23:47] LABS: Free T4 Free Thyroxine 0.82 ng/dL (0.82-1.77); T3 Free 1.6 PG/ML (2.0-4.4)
[2022-10-17 23:50] LABS: Glucose Point of Care 54 mg/dL (70-110)
[2022-10-18] VITALS (7 sets, daily range): BP systolic 112–157; BP diastolic 70–89; PULSE 69–92; RESP 16–18; TEMP 36.6–36.9; O2SAT 92–99; BMI 33.4
[2022-10-18 04:15] LABS: Glucose Point of Care 63 mg/dL (70-110)
[2022-10-18] MEDS: HYDROcodone-acetaminophen 5-325 mg Tablet 1 TAB PO ×3 (05:00→19:57)
[2022-10-18 05:12] LABS: Basophils % 0.8 %; Eosinophils % 0.5 %; Hematocrit 32.2 % (37.0-47.0); Hemoglobin 10.5 g/dL (11.5-15.3); Lymphocytes # 1.2 10^3/uL (0.8-4.8); Lymphocytes % 33.3 %; Mean Corpuscular HGB Conc 32.6 g/dL (30.0-36.0); Mean Corpuscular Hemoglobin 35.6 pg (28.0-34.0); Mean Corpuscular Volume 109.2 fl (81-99); Mean Platelet Volume 10.2 fL (7.4-10.4); Monocytes # 0.4 10^3/uL (0.2-0.9); Monocytes % 10.1 %; Neutrophils # 2.01 10^3/uL (1.8-7.7); Nucleated Red Blood Cells % 0 %; Platelet Count 154 10^3/cmm (130-400); Red Blood Count 2.95 10^6/uL (4.1-5.3); Red Cell Distribution Width 14.6 % (12.1-15.1); White Blood Count 3.7 10^3/uL (4.0-10.0)
[2022-10-18 05:36] LABS: Albumin Level 3.9 g/dL (3.5-5.2); Alkaline Phosphatase 50 U/L (35-105); Chloride 102 mmol/L (98-107); Cholesterol 187 mg/dL (0-200); Globulin 2.7 g/dL (1.3-4.6); LDL HDL Ratio 0.19 RATIO (0.00-3.22); Osmolality Calculated 286 mOsm/kg (285-295); Phosphorus 2.5 mg/dL (2.5-4.5); Sodium 140 mmol/L (136-145); Total Bilirubin 0.7 mg/dL (0.15-1.2); Total Protein 6.6 g/dL (6.6-8.7); Triglycerides 82 mg/dL (0-150)
[2022-10-18 05:40] LABS: Lactic Sepsis W/Reflex 3.8 mmol/L (0.5-2.2)
[2022-10-18 06:56] LABS: Reflex Lactate Order REFLEX LACTIC ORDERD
[2022-10-18 07:30] LABS: Alanine Aminotransferase 67 U/L (0-33); Aspartate Amino Transferase 121 U/L (0-32); Blood Urea Nitrogen 7 mg/dL (8-23); Calcium 7.6 mg/dL (8.5-10.5); Carbon Dioxide 15 mmol/L (22-29); Glucose 59 mg/dL (65-115); HDL Cholesterol 144 mg/dL (60-100); LDL Cholesterol Calculated 27 mg/dL (50-129); Magnesium 1.5 mg/dL (1.7-2.3)
--- NOTE | 2022-10-18 08:08 | P.CONIM_ITS ---
Providers/Reason For Consult Consulting Physician/Specialty*: hospitalist Reason for Consult*: pubic rami fx on x ray Attending Physician: Constantine Villareal MD Primary Care Provider: Vivian Roblero MD History of Present Illness History of Present Illness Gilda Hodge is a 67 year old female brought to the ER via EMS after she was found fallen in the bathroom while she was trying to get up from the toilet.? Patient has been continuing vodka daily.? Today she had 2 glasses of vodka with water.? She states she has been having alcohol for a long time and has not had alcohol withdrawal in the past.? She denies of having any pain currently.? Is AOx3, pleasant on examination asking for her ziprasidone.? Denies any nausea, vomiting, headache. Review of Systems General: Reports: 10 or more systems reviewed and unremarkable except in HPI and below Const: Denies: fever(s), chills, body aches, change in appetite, change in weight, malaise, night sweats, diaphoresis, change in sleep pattern, daytime sleepiness or snoring Eyes: Denies: change in vision, blurry vision, photophobia, eye discomfort or eye discharge ENMT: Denies: throat pain, enlarged tonsils, hoarseness, mouth pain, oral sores, dry mouth, tinnitus, nasal congestion or post nasal drip Card: Denies: chest pain, palpitations, irregular heart rhythm, edema, swelling of feet/ankles, lightheadedness, syncope, pre-syncope, dyspnea on exertion, orthopnea, leg pain with exertion or acrocyanosis Resp: Denies: dyspnea, productive cough, non-productive cough, wheezing, stridor, pain on inspiration, change in phlegm color, hemoptysis or chest congestion GI: Denies: abdominal pain, nausea, vomiting, hematemesis, coffee ground emesis, dysphagia, heartburn, diarrhea, constipation, bloating, GI cramping, change in bowel habits, pain on defecation, hematochezia or melena : Denies: flank pain, dysuria, urinary frequency, urinary urgency, urinary hesitancy, nocturia or hematuria Musc: Denies: neck pain, back pain, extremity pain, joint pain, joint swelling, joint redness, joint stiffness or limited range of motion Neuro: Denies: headache(s), numbness in extremities, weakness in extremities, sensory changes, lack of coordination, difficulty walking, frequent falls, dizziness, vertigo, confusion, Slurred speech present, difficulty communicating thoughts or seizure-like activity Psych: Denies: anxiety, depression, mood swings, panic attacks, hopelessness or irritability Endo: Denies: polyuria, polydipsia, tired all the time, cold intolerance, excessive sweating, flushing or heat intolerance Wyatt/Lymph: Denies: easy bruising or easy bleeding All/Imm: Denies: tongue swelling, facial swelling or acute wheezing Medications/Allergies Home Medications Medication Instructions Recorded Confirmed Last Taken Type albuterol sulfate 90 mcg/actuation 2 puff inhalation TID PRN 12/18/21 02/18/22 12/18/21 History aerosol inhaler (Ventolin HFA) Shortness Of Breath clonazepam 0.5 mg tablet 0.5 mg PO BEDTIME PRN Anxiety #0 12/20/21 02/18/22 12/17/21 Rx tabs folic acid 1 mg tablet 1 mg PO BID #60 tabs 12/20/21 02/18/22 Unknown Rx ziprasidone HCl 60 mg capsule See Rx Instructions .Route 08/13/22 Unknown Rx .COMPLEX #30 caps amlodipine 10 mg tablet See Rx Instructions .Route 10/03/22 Unknown Rx .COMPLEX #30 tabs bupropion HCl 150 mg 24 hr tablet, See Rx Instructions .Route 10/03/22 Unknown Rx extended release .COMPLEX #60 tabs ergocalciferol (vitamin D2) 1,250 See Rx Instructions .Route 10/03/22 Unknown Rx mcg (50,000 unit) capsule .COMPLEX #4 caps levothyroxine 150 mcg tablet See Rx Instructions .Route 10/03/22 Unknown Rx .COMPLEX #30 tabs rosuvastatin 10 mg tablet See Rx Instructions .Route 10/03/22 Unknown Rx .COMPLEX #14 tabs sertraline 50 mg tablet See Rx Instructions .Route 10/03/22 Unknown Rx .COMPLEX #60 tabs trazodone 50 mg tablet See Rx Instructions .Route 10/03/22 Unknown Rx .COMPLEX #30 tabs triamterene 37.5 See Rx Instructions .Route 10/03/22 Unknown Rx mg-hydrochlorothiazide 25 mg tablet .COMPLEX #30 tabs Allergies Allergy/AdvReac Type Severity Reaction Status Date / Time Penicillins Allergy unk Verified 02/18/22 13:36 Current Medications Generic Name Dose Route Start Last Admin Trade Name Freq PRN Reason Stop Dose Admin Hydrocodone Bitart/Acetaminophen 1 tab 10/17/22 21:43 10/18/22 05:00 Hydrocodone-Acetaminophen 5-325 Mg Tablet PO 1 tab Q6H PRN Administration MODERATE PAIN Heparin Sodium (Porcine) 5,000 unit 10/17/22 22:07 10/17/22 22:49 Heparin 5,000 Unit/Ml Inj 1 Ml SUBCUT 5,000 unit Q12H WILLIAM Administration Dextrose/Sodium Chloride 1,000 mls @ 75 mls/hr 10/17/22 22:07 10/17/22 23:37 Dextrose 5%-Sod Chloride 0.9% IV 75 mls/hr .[id number] WILLIAM Administration Lorazepam 1 mg 10/17/22 22:07 10/17/22 22:49 Lorazepam 2 Mg/Ml Inj 1 Ml IVP 1 mg Q4H PRN Administration WITHDRAWAL Protocol Pantoprazole Sodium 40 mg 10/17/22 22:07 10/17/22 22:49 Pantoprazole 40 Mg Sdv IVP 40 mg Q24H WILLIAM Administration Ziprasidone 60 mg 10/17/22 23:30 10/17/22 23:28 Ziprasidone Hcl 20 Mg Capsule PO 60 mg BEDTIME WILLIAM Administration PFSH Acute PFSH: Medical History (Updated 10/17/22 @ 23:23 by Cristi Wang MD) Anxiety Chronic alcohol use Consumes vodka daily. Chronic back pain Chronic obstructive pulmonary disease DDD (degenerative disc disease) Hepatitis C High anion gap metabolic acidosis Hyperthyroidism Insomnia Psoriasis Schizoaffective disorder Schizoaffective disorder Transaminitis Social History Smoking and tobacco status: current every day smoker Second hand smoke exposure: Yes Smoking risk assessment/counseling performed?: No Alcohol intake: current Alcohol intake frequency: 3 or more drinks per day Alcohol type: hard liquor Substance/Drug Use: never Current occupational status: unemployed Current gender identity: Female Vitals/I&O/Wt Last Vital Signs Temp 98.3 F 10/18/22 07:56 Pulse 81 10/18/22 07:56 Resp 16 10/18/22 07:56 BP 157/83 10/18/22 07:56 Pulse Ox 99 10/18/22 07:56 O2 Del Method Room Air 10/18/22 07:56 10/17/22 10/18/22 10/18/22 22:59 06:59 14:59 Intake Total 2500 / 2500 1011.2 / 3511.2 Balance 2500 / 2500 1011.2 / 3511.2 Weight last 48 hrs Weight 182 lb 11.2 oz Weight 173 lb Physical Exam Narrative: Patient has no pain in her hips with range of motion. Complain more of knee pain. Data 10/18/22 04:56 10/18/22 04:56 Micro: Microbiology 10/17/22 22:07 Blood Culture - Preliminary Blood SPECIMEN COLLECTED 10/17/22 22:04 Blood Culture - Preliminary Blood SPECIMEN COLLECTED A&P Assessment and plan (1) Chronic alcohol use: X-ray does make it look like there is a possible pubic rami fracture. However she does have a CT scan after this x-ray which shows no evidence of any fra cture. Clinically she is not having any pain as well. At this point I would let her weight-bear as tolerated and she can follow-up with her primary care because she does not have a fracture. Coding Level of Care Code Acute Code for Chg Fwd Diagnoses Chronic alcohol use Z72.89
[2022-10-18 08:25] LABS: Glucose Point of Care 86 mg/dL (70-110)
[2022-10-18 08:30] LABS: Creatinine Clr Calc Pharmacy 67.1589; Glomerular Filtration Rate 83.2 mL/min (90-130)
[2022-10-18 08:31] LABS: Lactic Acid level (Lactate) 2.5 mmol/L (0.5-2.2)
[2022-10-18 08:38] LABS: Estmated Average Glucose 77; Hemoglobin A1C 4.3 % (4.0-6.0)
[2022-10-18] MEDS: levothyroxine 150 mcg Tablet PO (08:53)
[2022-10-18] MEDS: multivitamin therapeutic Tablet 1 TAB PO (08:53)
[2022-10-18] MEDS: amlodipine 10 mg Tablet PO (08:54)
[2022-10-18] MEDS: thiamine 100 mg Tablet PO (08:54)
[2022-10-18] MEDS: folic acid 1 mg Tablet PO (08:54)
[2022-10-18] MEDS: cephALEXin 500 mg Capsule PO ×4 (08:57→19:56)
--- NOTE | 2022-10-18 10:41 | PC.NURSE ---
Tereza Anderson per patient medical contact- [phone] or [phone]. Tereza Anderson called for update on patient, Tereza states, she takes patient to all her Dr appointments, picks up her groceries, patient also has a home caregiver named Cassandra and a nurse who is suppose to come and take care of the patient as well and help with her medications,Possibly uses [facility] nurse, Tereza believes patient takes multiple sleeping pills/nerve pills, but does not know all of the medications the patient takes on a daily basis, pt uses [facility].
[2022-10-18] MEDS: dextrose 5%-sod chloride 0.9% 1,000 ML 75 ML IV ×2 (13:01→19:57)
--- NOTE | 2022-10-18 13:04 | P.PN_ITS ---
Subjective Medications: Medication Review Details: Generic Name Dose Route Start Last Admin Trade Name Vincenzoq PRN Reason Stop Dose Admin Hydrocodone Bitart /Acetaminophen 1 tab 10/17/22 21:43 10/18/22 13:01 Hydrocodone-Acet aminophen 5-325 Mg Tablet PO 1 tab Q6H PRN Administration MODERATE PAIN Amlodipine Besylat e 10 mg 10/18/22 09:00 10/18/22 08:54 Amlodipine 10 Mg Tablet PO 10 mg DAILY WILLIAM Administration Cephalexin HCl 500 mg 10/18/22 09:00 10/18/22 13:01 Cephalexin 500 M g Capsule PO 10/23/22 08:59 500 mg QID WILLIAM Administration Protocol Folic Acid 1 mg 10/18/22 09:00 10/18/22 08:54 Folic Acid 1 Mg Tablet PO 1 mg DAILY WILLIAM Administration Heparin Sodium (Po rcine) 5,000 unit 10/17/22 22:07 10/18/22 09:00 Heparin 5,000 Un it/Ml Inj 1 Ml SUBCUT Not Given Q12H WILLIAM Dextrose/Sodium Ch loride 1,000 mls @ 75 ml s/hr 10/17/22 22:07 10/18/22 13:01 Dextrose 5%-Sod Chloride 0.9% IV 75 mls/hr .[id number] WILLIAM Administration Levothyroxine Sodi um 150 mcg 10/18/22 09:00 10/18/22 08:53 Levothyroxine 15 0 Mcg Tablet PO 150 mcg DAILY WILLIAM Administration Lorazepam 1 mg 10/17/22 22:07 10/17/22 22:49 Lorazepam 2 Mg/M l Inj 1 Ml IVP 1 mg Q4H PRN Administration WITHDRAWAL Protocol Multivitamins Ther apeutic 1 tab 10/18/22 09:00 10/18/22 08:53 Multivitamin The rapeutic Tablet PO 1 tab DAILY WILLIAM Administration Pantoprazole Sodiu m 40 mg 10/17/22 22:07 10/17/22 22:49 Pantoprazole 40 Mg Sdv IVP 40 mg Q24H WILLIAM Administration Thiamine Mononitra te 100 mg 10/18/22 09:00 10/18/22 08:54 Thiamine 100 Mg Tablet PO 100 mg DAILY WILLIAM Administration Ziprasidone 60 mg 10/17/22 23:30 10/17/22 23:28 Ziprasidone Hcl 20 Mg Capsule PO 60 mg BEDTIME WILLIAM Administration Vitals/I&O/Wt Last Vital Signs Temp 98.4 F 10/18/22 11:51 Pulse 89 10/18/22 11:51 Resp 18 10/18/22 11:51 BP 149/87 10/18/22 11:51 Pulse Ox 96 10/18/22 11:51 O2 Del Method Room Air 10/18/22 11:51 10/17/22 10/18/22 10/18/22 22:59 06:59 14:59 Intake Total 2500 / 2500 1011.2 / 3511.2 1000 / 1000 Balance 2500 / 2500 1011.2 / 3511.2 1000 / 1000 Weight last 48 hrs Weight 82.871 kg Weight 82.871 kg Weight 78.471 kg Physical Exam Narrative: NAD, currently holding good conversation HENMT: COMMON NORMALS: hearing grossly normal bilaterally and external ears normal EXTERNAL EAR: Yes external ears normal Resp: COMMON NORMALS: normal respiratory effort, No retractions, No use of accessory muscles and clear to auscultation bilaterally EFFORT & INSPECTION: Yes symmetric chest movement AUSCULTATION: clear to auscultation bilaterally Cardio: COMMON NORMALS: regular rate, regular rhythm, S1 normal heart sound present, S2 normal heart sound present, No gallops present (Cardio), No murmurs present (Cardio), No rub (Cardio) and Peripheral pulses 2+ throughout RATE: regular rate RHYTHM: regular rhythm HEART SOUNDS: S1 normal heart sound present and S2 normal heart sound present PERIPHERAL PULSES: Peripheral pulses 2+ throughout GI: COMMON NORMALS: Normal to inspection, nondistended, normoactive bowel sounds present, Soft to palpation, non-tender, No hepatosplenomegaly present and no masses AUSCULTATION: Yes normoactive bowel sounds PALPATION: Yes Soft to palpation and Yes No hepatosplenomegaly present RECTAL EXAM: deferred Extremity: COMMON NORMALS: no clubbing, cyanosis or edema and no pedal edema Data 10/18/22 04:56 10/18/22 04:56 Micro: Microbiology 10/17/22 22:07 Blood Culture - Preliminary Blood SPECIMEN COLLECTED 10/17/22 22:04 Blood Culture - Preliminary Blood SPECIMEN COLLECTED A&P Assessment and plan (1) Altered mental status: Most likely in setting of alcohol intoxication along with hypoglycemia. Infec tious cause less likely. Seizure protocol. Keep n.p.o. for now. Will reassess in the morning. Hypoglycemia protocol, fall precautions. Frequent reorientation. (2) Alcohol intoxication: Banana bag. Followed by D5 NS at 75 cc/h. Oral folic acid, thiamine. Watch for alcohol withdrawal. CIWA protocol. IV Protonix 40 mg daily, Zofran as needed (3) Elevated lactic acid level: Most likely in setting of transaminitis along with alcohol abuse. Not sure of circumstances of fall. Patient did receive Ringer lactate in ER. Multiple CT images appreciated. Check CT abdomen pelvis with contrast. For now hold off on antibiotics. Repeat lactate in AM. So far hemodynamically stable. (4) High anion gap metabolic acidosis: Most likely in setting of starvation ketosis along with lactic acidosis. Monitor BMP every 12 hours for now. IV fluid as above. (5) Hypoglycemia: Hypoglycemia protocol. Last A1c within the last 1 year ago 4.6. 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 Continue to monitor. (7) Hepatitis C: Chronic. Not treated. HIV negative. (8) Closed fracture of inferior pubic ramus: Will consult Ortho in a.m. Most likely will need outpatient follow-up. PT evaluation. Adame catheter. Pain control with morphine 1 mg every 4 hours as needed, [place] 5 mg every 6 hourly as needed (9) Schizoaffective disorder: Restart home dose of ziprasidone 60 mg nightly, Klonopin 0.5 nightly as needed. Restart ordered medications after confirming from patient's outpatient pharmacy in AM. (10) Chronic alcohol use: (11) Skin tear of right upper extremity: Superficial. Wound care. Empirically start on Keflex for now. Allergies to penicillin. Plan 67 year old female with medical history of C psoriasis chronic alcohol abuse, was brought in by the EMS after she experienced fall at home, she fell in her bathroom while trying to get up from the toilet, when she was brought in ER she was found to be alcohol intoxication, as well as hypoglycemic, she was admitted for the management of the same. Assessment: Altered mental status secondary to alcohol intoxication ,hypoglycemia. Currently it has resolved: Patient is holding good conversation, she is hungry and asking for food. Serum B12:514 Serum folate:12.9 CT head without contrast: No acute intracranial pathology CT C-spine: No acute finding CT abdomen and pelvis:Markedly severe fatty infiltration of the liver,Moderate intrathoracic hiatal hernia. ?Blood culture. Monitor for alcohol withdrawal: Monitor CIWA score Continue IV hydration Continue thiamine folic acid On IV Protonix Zofran as needed Lactic acidosis: Possibly secondary to alcohol intoxication: has more or less normalized Continue IV hydration. 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 Attestations Medical Necessity Statement*: Needs to be in hospital for monitoring of alcohol withdrawal, need for IV fluid. Coding Level of Care Code Acute Code for Chg Fwd Diagnoses Altered mental status R41.82 Alcohol intoxication F10.929 Elevated lactic acid level R79.89 High anion gap metabolic acidosis E87.2 Hypoglycemia E16.2 Transaminitis R74.01 Hepatitis C B19.20 Closed fracture of inferior pubic ramus S32.599A Schizoaffective disorder F25.9 Chronic alcohol use Z72.89 Skin tear of right upper extremity S41.111A
[2022-10-18] MEDS: LORazepam 2 mg/mL INJ 1 mL 1 MG IVP (15:13)
[2022-10-18 16:52] LABS: Glucose Point of Care 134 mg/dL (70-110)
[2022-10-18] MEDS: CLONazepam 0.5 mg Tablet PO (19:56)
[2022-10-18] MEDS: ziprasidone hcl 20 mg Capsule 60 MG PO (19:56)
[2022-10-18] MEDS: heparin 5,000 unit/mL INJ 1 mL 5000 UNIT SUBCUT (19:57)
[2022-10-18] MEDS: pantoprazole 40 mg SDV IVP (19:57)
[2022-10-19 01:33] LABS: Glucose Point of Care 112 mg/dL (70-110)
[2022-10-19] MEDS: HYDROcodone-acetaminophen 5-325 mg Tablet 1 TAB PO ×2 (03:44→10:08)
[2022-10-19 03:58] VITALS: BP 111/73; PULSE 79; RESP 18; TEMP 36.8; O2SAT 98
[2022-10-19 05:25] LABS: Basophils % 0.4 %; Eosinophils % 0.8 %; Hemoglobin 10.5 g/dL (11.5-15.3); Lymphocytes % 38.3 %; Mean Corpuscular HGB Conc 32.8 g/dL (30.0-36.0); Mean Corpuscular Hemoglobin 35.1 pg (28.0-34.0); Mean Platelet Volume 10.5 fL (7.4-10.4); Monocytes # 0.3 10^3/uL (0.2-0.9); Monocytes % 10.7 %; Neutrophils # 1.28 10^3/uL (1.8-7.7); Nucleated Red Blood Cells % 0 %; Platelet Count 136 10^3/cmm (130-400); Red Blood Count 2.99 10^6/uL (4.1-5.3); Red Cell Distribution Width 14.2 % (12.1-15.1); White Blood Count 2.6 10^3/uL (4.0-10.0)
[2022-10-19 05:39] LABS: Alanine Aminotransferase 51 U/L (0-33); Albumin Level 3.9 g/dL (3.5-5.2); Alkaline Phosphatase 50 U/L (35-105); Anion Gap 18.2 (5-19); Aspartate Amino Transferase 75 U/L (0-32); Blood Urea Nitrogen 6 mg/dL (8-23); Calcium 7.9 mg/dL (8.5-10.5); Carbon Dioxide 22 mmol/L (22-29); Chloride 102 mmol/L (98-107); Creatinine Clr Calc Pharmacy 67.1589; Globulin 2.8 g/dL (1.3-4.6); Glomerular Filtration Rate 83.2 mL/min (90-130); Glucose 105 mg/dL (65-115); Osmolality Calculated 286 mOsm/kg (285-295); Potassium 3.2 mmol/L (3.5-5.1); Sodium 139 mmol/L (136-145); Total Bilirubin 0.9 mg/dL (0.15-1.2); Total Protein 6.7 g/dL (6.6-8.7)
[2022-10-19 07:52] VITALS: BP 160/84; PULSE 71; RESP 16; TEMP 36.6; O2SAT 99
[2022-10-19] MEDS: cephALEXin 500 mg Capsule PO (08:32)
[2022-10-19] MEDS: multivitamin therapeutic Tablet 1 TAB PO (08:32)
[2022-10-19] MEDS: folic acid 1 mg Tablet PO (08:32)
[2022-10-19] MEDS: thiamine 100 mg Tablet PO (08:32)
[2022-10-19] MEDS: levothyroxine 150 mcg Tablet PO (08:32)
[2022-10-19] MEDS: amlodipine 10 mg Tablet PO (08:32)
[2022-10-19] MEDS: potassium chloride ER 20 mEq Tablet 40 MEQ PO (10:08)
[2022-10-19] MEDS: heparin 5,000 unit/mL INJ 1 mL 5000 UNIT SUBCUT (10:10)
[2022-10-19 11:12] VITALS: BP 132/89; PULSE 91; RESP 18; TEMP 36.3; O2SAT 97
--- NOTE | 2022-10-19 15:39 | PM.DCS ---
Discharge Providers Date of Admission: 10/17/22 21:04 Date of Discharge: October 19, 2022 Attending Provider at Admission: Cristi Wang MD Attending Provider at Discharge: Constantine Villareal MD Primary Care Provider: Vivian Roblero MD Diagnoses at Discharge Discharge Diagnosis (1) Altered mental status: Status: Acute (2) Alcohol intoxication: Status: Acute (3) Elevated lactic acid level: Status: Acute (4) High anion gap metabolic acidosis: Status: Acute (5) Hypoglycemia: Status: Acute (6) Transaminitis: Status: Acute (7) Hepatitis C: Status: Acute (8) Closed fracture of inferior pubic ramus: Status: Acute (9) Schizoaffective disorder: Status: Acute (10) Chronic alcohol use: Status: Acute Permanent problem details: Consumes vodka daily. (11) Skin tear of right upper extremity: Status: Acute Reason for Visit Reason for Visit: Fall/ R hip pain Hospital Course Hospital Course 67 year old female with medical history of C psoriasis chronic alcohol abuse, was brought in by the EMS after she experienced fall at home, she fell in her bathroom while trying to get up from the toilet, when she was brought in? ER she was found to be alcohol intoxication, as well as hypoglycemic, during the hospital stay she was managed for Altered mental status secondary to alcohol intoxication ,hypoglycemia,Serum B12:514 Serum folate:12.9,CT head without contrast: No acute intracranial pathology,CT C-spine: No acute finding CT abdomen and pelvis:Markedly severe fatty infiltration of the liver,Moderate intrathoracic hiatal hernia. She was kept on IV hydration, folic acid, thiamine, antiemetics, Protonix, she was monitored for alcohol withdrawal, was on CIWA protocol. During hospital stay she was also managed for lactic acidosis possibly secondary to alcohol intoxication, had normalized at the time of discharge with IV hydration, she was also managed for transaminitis, possibly secondary to alcohol abuse disorder hep C fatty liver CMP was monitored, her TSH was elevated,Free T4 : 0.82 , free T31.6 Follow with repeat TSH in 2 to 3 weeks,for pubic rami fx seen on x ray:CT abdomen and pelvis has not shown any fracture. Case was reviewed by orthopedic, for a superficial skin laceration of the right upper extremity, she was kept on Keflex, and was discharged on p.o. Keflex for 7 days, for hypoglycemia, she was on D5 normal saline, fingerstick was monitored, more frequently, she was started on regular diet, hypoglycemia had resolved Possibility of intermittent hypoglycemia in the setting of, progressively worsening overall liver function, cannot be ruled out. Overall patient responded well to above medical management she was discharged stable condition to home.She will continue to follow PCP as outpatient. Physical Exam Narrative: NAD, currently holding good conversation HENMT: COMMON NORMALS: hearing grossly normal bilaterally and external ears normal EXTERNAL EAR: Yes external ears normal Resp: COMMON NORMALS: normal respiratory effort, No retractions, No use of accessory muscles and clear to auscultation bilaterally EFFORT & INSPECTION: Yes symmetric chest movement AUSCULTATION: clear to auscultation bilaterally Cardio: COMMON NORMALS: regular rate, regular rhythm, S1 normal heart sound present, S2 normal heart sound present, No gallops present (Cardio), No murmurs present (Cardio), No rub (Cardio) and Peripheral pulses 2+ throughout RATE: regular rate RHYTHM: regular rhythm HEART SOUNDS: S1 normal heart sound present and S2 normal heart sound present PERIPHERAL PULSES: Peripheral pulses 2+ throughout GI: COMMON NORMALS: Normal to inspection, nondistended, normoactive bowel sounds present, Soft to palpation, non-tender, No hepatosplenomegaly present and no masses AUSCULTATION: Yes normoactive bowel sounds PALPATION: Yes Soft to palpation and Yes No hepatosplenomegaly present RECTAL EXAM: deferred Extremity: COMMON NORMALS: no clubbing, cyanosis or edema and no pedal edema Discharge Data Studies Completed and Pending Completed Studies During Hospitalization Category Date Time Status CT abdomen pelvis w con* [id number] Stat Cat Scan 10/17/22 20:[address] cervical spin wo con* [id number] Stat Cat Scan 10/17/22 17:[address] head wo con* [id number] Stat Cat Scan 10/17/22 17:14 Completed XR forearm RT 2V [id number] Stat Exams 10/17/22 17:15 Completed XR hip RT 2-3V wo/w pel* [id number] Stat Exams 10/17/22 17:15 Completed Pending at discharge Category Date Time Status Blood Culture Stat Lab 10/17/22 22:07 Results Radiology Impressions Head CT 10/17/22 17:14 IMPRESSION: No acute intracranial abnormality. Cervical Spine CT 10/17/22 17:15 IMPRESSION: No acute findings. Forearm X-Ray 10/17/22 17:15 IMPRESSION: No acute findings. Hip/Pelvis X-Ray 10/17/22 17:15 IMPRESSION: Fracture through the inferior right pubic ramus. Abdomen/Pelvis CT 10/17/22 20:58 IMPRESSION: 1. Markedly severe fatty infiltration of the liver measuring 21 Hounsfield units on images with contrast. Previously this measured-10 Hounsfield units on images without contrast. Correlation with chronic ingestion of alcohol and/or fructose is recommended. 2. Moderate intrathoracic hiatal hernia. Laboratory Results WBC 2.6 10^3/uL (4.0-10.0) L 10/19/22 04:39 RBC 2.99 10^6/uL (4.1-5.3) L 10/19/22 04:39 Hgb 10.5 g/dL (11.5-15.3) L 10/19/22 04:39 Hct 32.0 % (37.0-47.0) L 10/19/22 04:39 MCV 107.0 fl (81-99) H 10/19/22 04:39 MCH 35.1 pg (28.0-34.0) H 10/19/22 04:39 MCHC 32.8 g/dL (30.0-36.0) 10/19/22 04:39 RDW 14.2 % (12.1-15.1) 10/19/22 04:39 Plt Count 136 10^3/cmm (130-400) 10/19/22 04:39 MPV 10.5 fL (7.4-10.4) H 10/19/22 04:39 Neut % (Auto) 49.0 % 10/19/22 04:39 Lymph % (Auto) 38.3 % 10/19/22 04:39 [place] % (Auto) 10.7 % 10/19/22 04:39 Eos % (Auto) 0.8 % 10/19/22 04:39 Baso % (Auto) 0.4 % 10/19/22 04:39 Neut # (Auto) 1.28 10^3/uL (1.8-7.7) L 10/19/22 04:39 Lymph # (Auto) 1.0 10^3/uL (0.8-4.8) 10/19/22 04:39 [place] # (Auto) 0.3 10^3/uL (0.2-0.9) 10/19/22 04:39 Eos # (Auto) 0.0 10^3/uL (0.0-0.8) 10/19/22 04:39 Baso # (Auto) 0.0 10^3/uL (0.0-0.1) 10/19/22 04:39 Nucleated RBC % (auto) 0 % 10/19/22 04:39 Nucleated RBCs # 0.0 /100WBC 10/19/22 04:39 Sodium 139 mmol/L (136-145) 10/19/22 04:39 Potassium 3.2 mmol/L (3.5-5.1) L 10/19/22 04:39 Chloride 102 mmol/L (98-107) 10/19/22 04:39 Carbon Dioxide 22 mmol/L (22-29) 10/19/22 04:39 Anion Gap 18.2 (5-19) 10/19/22 04:39 BUN 6 mg/dL (8-23) L 10/19/22 04:39 Creatinine 0.7 mg/dL (0.5-0.9) 10/19/22 04:39 GFR Calculation 83.2 mL/min (90-130) L 10/19/22 04:39 Glucose 105 mg/dL (65-115) 10/19/22 04:39 POC Glucose 112 mg/dL (70-110) H 10/19/22 01:30 Estimat Average Glucose 77 10/18/22 04:56 Hemoglobin A1c 4.3 % (4.0-6.0) 10/18/22 04:56 Calculated Osmolality 286 mOsm/kg (285-295) 10/19/22 04:39 Lactic Acid 3.8 mmol/L (0.5-2.2) H 10/18/22 04:56 Lactic Acid (Sepsis) 2.5 mmol/L (0.5-2.2) H 10/18/22 07:56 Calcium 7.9 mg/dL (8.5-10.5) L 10/19/22 04:39 Phosphorus 2.5 mg/dL (2.5-4.5) 10/18/22 04:56 Magnesium 1.5 mg/dL (1.7-2.3) L 10/18/22 04:56 Total Bilirubin 0.9 mg/dL (0.15-1.2) 10/19/22 04:39 AST 75 U/L (0-32) H 10/19/22 04:39 ALT 51 U/L (0-33) H 10/19/22 04:39 Alkaline Phosphatase 50 U/L (35-105) 10/19/22 04:39 Creatine Kinase 139 U/L (26-192) 10/17/22 18:05 Total Protein 6.7 g/dL (6.6-8.7) 10/19/22 04:39 Albumin 3.9 g/dL (3.5-5.2) 10/19/22 04:39 Globulin 2.8 g/dL (1.3-4.6) 10/19/22 04:39 Triglycerides 82 mg/dL (0-150) 10/18/22 04:56 Cholesterol 187 mg/dL (0-200) 10/18/22 04:56 LDL Cholesterol, Calc 27 mg/dL (50-129) L 10/18/22 04:56 HDL Cholesterol 144 mg/dL (60-100) H 10/18/22 04:56 LDL/HDL Ratio 0.19 RATIO (0.00-3.22) 10/18/22 04:56 Cholesterol/HDL Ratio 1.30 mg/dL (0.0-4.40) 10/18/22 04:56 Vitamin B12 514 pg/mL (232-1245) 10/17/22 22:04 Folate 12.9 ng/mL (4.8-37.3) 10/17/22 22:04 Procalcitonin 0.08 ng/mL (0-0.5) 10/17/22 22:04 TSH 11.45 uIU/mL (0.27-4.20) H 10/17/22 22:04 Free T4 0.82 ng/dL (0.82-1.77) 10/17/22 22:04 Free T3 1.6 PG/ML (2.0-4.4) L 10/17/22 22:04 Urine Color Light yellow (Yellow) 10/17/22 18:00 Urine Appearance Clear (CLEAR) 10/17/22 18:00 Urine pH 6 (5-7) 10/17/22 18:00 Ur Specific [place] 1.015 (1.005-1.030) 10/17/22 18:00 Urine Protein Neg (Negative) 10/17/22 18:00 Urine Glucose (UA) Norm (Normal) 10/17/22 18:00 Urine Ketones 1+ (Negative) H 10/17/22 18:00 Urine Blood Neg (Negative) 10/17/22 18:00 Urine Nitrate Negative (Negative) 10/17/22 18:00 Urine Bilirubin Neg (Negative) 10/17/22 18:00 Urine Urobilinogen Norm mg/dL (Negative) 10/17/22 18:00 Ur Leukocyte Esterase Negative (Negative) 10/17/22 18:00 Urine Opiates Screen Negative ng/mL (Negative) 10/17/22 18:00 Ur Barbiturates Screen Negative ng/mL (Negative) 10/17/22 18:00 Ur Phencyclidine Scrn Negative ng/mL (Negative) 10/17/22 18:00 Ur Amphetamines Screen Negative ng/mL (Negative) 10/17/22 18:00 U Benzodiazepines Scrn Negative ng/mL (Negative) 10/17/22 18:00 Urine Cocaine Screen Negative ng/mL (Negative) 10/17/22 18:00 U Marijuana (THC) Screen Negative ng/mL (Negative) 10/17/22 18:00 Ethyl Alcohol 232 mg/dL (0-10) H 10/17/22 20:58 Vitals Last Vital Signs Temp 97.4 F L 10/19/22 11:12 Pulse 91 10/19/22 11:12 Resp 18 10/19/22 11:12 BP 132/89 10/19/22 11:12 Pulse Ox 97 10/19/22 11:12 O2 Del Method Room Air 10/19/22 11:12 Discharge Plan Discharge Patient Disposition: Home Condition: Stable Prescriptions: New cephalexin 500 mg Capsule 500 mg PO QID 7 Days Qty: 28 0RF Thera 400 mcg Tablet 1 tab PO DAILY 30 Days Qty: 30 1RF Continued ziprasidone HCl 60 mg capsule See Rx Instructions .ROUTE .COMPLEX Qty: 30 2RF Dose Instruction: TAKE ONE CAPSULE BY MOUTH At Bedtime Rx Instructions: TAKE ONE CAPSULE BY MOUTH At Bedtime rosuvastatin 10 mg tablet See Rx Instructions .ROUTE .COMPLEX Qty: 14 0RF Dose Instruction: TAKE ONE TABLET BY MOUTH EVERY DAY Rx Instructions: TAKE ONE TABLET BY MOUTH EVERY DAY levothyroxine 150 mcg tablet See Rx Instructions .ROUTE .COMPLEX Qty: 30 0RF Dose Instruction: TAKE ONE TABLET BY MOUTH EVERY MORNING Rx Instructions: TAKE ONE TABLET BY MOUTH EVERY MORNING ergocalciferol (vitamin D2) 1,250 mcg (50,000 unit) capsule See Rx Instructions .ROUTE .COMPLEX Qty: 4 0RF Dose Instruction: TAKE ONE CAPSULE BY MOUTH EVERY 7 DAYS Rx Instructions: TAKE ONE CAPSULE BY MOUTH EVERY 7 DAYS amlodipine 10 mg tablet See Rx Instructions .ROUTE .COMPLEX Qty: 30 0RF Dose Instruction: TAKE ONE TABLET BY MOUTH DAILY Rx Instructions: TAKE ONE TABLET BY MOUTH DAILY bupropion HCl 150 mg tablet extended release 24 hr See Rx Instructions .ROUTE .COMPLEX Qty: 60 0RF Dose Instruction: TAKE ONE TABLET BY MOUTH TWICE DAILY Rx Instructions: TAKE ONE TABLET BY MOUTH TWICE DAILY sertraline 50 mg tablet See Rx Instructions .ROUTE .COMPLEX Qty: 60 0RF Dose Instruction: TAKE TWO TABLETS BY MOUTH EVERY MORNING Rx Instructions: TAKE TWO TABLETS BY MOUTH EVERY MORNING trazodone 50 mg tablet See Rx Instructions .ROUTE .COMPLEX Qty: 30 0RF Dose Instruction: TAKE ONE TABLET BY MOUTH At Bedtime NEEDED FOR SLEEP Rx Instructions: TAKE ONE TABLET BY MOUTH At Bedtime NEEDED FOR SLEEP triamterene-hydrochlorothiazid 37.5-25 mg tablet See Rx Instructions .ROUTE .COMPLEX Qty: 30 0RF Dose Instruction: TAKE ONE TABLET BY MOUTH EVERY MORNING Rx Instructions: TAKE ONE TABLET BY MOUTH EVERY MORNING folic acid 1 mg Tablet 1 mg PO BID 30 Days Qty: 60 3RF albuterol sulfate [Ventolin HFA] 90 mcg/actuation HFA aerosol inhaler 2 puff inhalation TID PRN (Reason: Shortness Of Breath) clonazepam 0.5 mg tablet 0.5 mg PO BEDTIME PRN (Reason: Anxiety) Qty: 0 0RF Discharge Orders: Discharge Order (Routine); Ordered 10/19/22 Ordered By: Constantine Villareal Referrals: Vivian Roblero MD [Primary Care Provider] - 1 week (Dr. Roblero's office will call with your follow up appointment.) Patient Instructions: Cephalexin (By mouth), Multivitamins, Adult Formula (By mouth), Hypoglycemia, Alcohol Use Disorder (DC), Opioid Safety Discharge Attestations Time Spent in Discharge Care*: less than 30 min Status at Discharge: Cognitive status at discharge: mildly impaired cognition, Behavioral status at discharge: cooperative, Quality Metrics Clinical Quality Measures [ No reported AMI, CVA or VTE this stay] Coding Level of Care Code Acute Code for Chg Fwd Diagnoses Altered mental status R41.82 Alcohol intoxication F10.929 Elevated lactic acid level R79.89 High anion gap metabolic acidosis E87.2 Hypoglycemia E16.2 Transaminitis R74.01 Hepatitis C B19.20 Closed fracture of inferior pubic ramus S32.599A Schizoaffective disorder F25.9 Chronic alcohol use Z72.89 Skin tear of right upper extremity S41.111A
== END 2022-10-19 12:24 | disposition home or self-care (01) | DRG 897 ==
LOC: ER 21:13 → MEDSURG 21:32
PROVIDERS: Admitting Provider Student in an Organized Health Care Education/Training Program; Emergency Provider Physician Assistant; PCP Family Medicine; Visit Provider Internal Medicine
DX: F10.229 Alcohol dependence with intoxication, unspecified (principal); S32.591A Other specified fracture of right pubis, initial encounter for closed fracture; E87.20 Acidosis, unspecified; F10.239 Alcohol dependence with withdrawal, unspecified; K70.0 Alcoholic fatty liver; K70.10 Alcoholic hepatitis without ascites; Y90.8 Blood alcohol level of 240 mg/100 ml or more; W19.XXXA Unspecified fall, initial encounter; L40.9 Psoriasis, unspecified; E16.2 Hypoglycemia, unspecified; K44.9 Diaphragmatic hernia without obstruction or gangrene; Z79.891 Long term (current) use of opiate analgesic; Z79.51 Long term (current) use of inhaled steroids; F20.9 Schizophrenia, unspecified; F41.9 Anxiety disorder, unspecified; G89.29 Other chronic pain; M54.9 Dorsalgia, unspecified; F17.200 Nicotine dependence, unspecified, uncomplicated; Z88.0 Allergy status to penicillin
CPT/HCPCS: 36415; 36416; 70450; 72125; 73090; 73502; 74177; 80053; 80061; 80306; 80307; 81003; 82550; 82607; 82746; 82962; 83036; 83605; 83735; 84100; 84145; 84439; 84443; 84481; 85025; 87040; 93005; 94664; 96360; 96361; 96372; 97110; 97116; 97161; 99285; A6446; C9113; J1644; J2060; J3411; J3490; J7030; J7042; J7120; Q9967

== ENCOUNTER → 2022-10-22 10:32 | Outpatient (BNVA) | payer MEDICARE, MEDICAID, SELFPAY | PROVIDERS: PCP Family Medicine; Visit Provider Family Medicine | DX: E05.90 Thyrotoxicosis, unspecified without thyrotoxic crisis or storm (principal); E87.6 Hypokalemia; E78.5 Hyperlipidemia, unspecified; N17.9 Acute kidney failure, unspecified; E55.9 Vitamin D deficiency, unspecified | CPT/HCPCS: 80053; 80061; 82306; 84443; 85025 ==

== ENCOUNTER → 2022-10-24 09:46 | Outpatient (BNVA) | payer MEDICARE, MEDICAID, SELFPAY | PROVIDERS: PCP Family Medicine; Visit Provider Family Medicine | DX: R74.8 Abnormal levels of other serum enzymes (principal); Z11.59 Encounter for screening for other viral diseases; Z72.89 Other problems related to lifestyle | CPT/HCPCS: 80076; 86705; 86706; 86709; 86803; 87340; 87522 ==

== ENCOUNTER 2022-10-25 08:19 | Outpatient (CLI) | payer MEDICARE, MEDICAID, SELFPAY ==
--- NOTE | 2022-10-25 09:00 | US_ITS ---
WS: [id number] ULTRASOUND ABDOMEN CLINICAL INFORMATION: R74.8 - Abnormal levels of other serum enzymes COMPARISON: None. FINDINGS: Liver Size: Upper limits of normal Craniocaudal length: 15.1 cm. Echogenicity: Coarse Surface nodularity: None. Mass (size and location): None. Bile ducts Intrahepatic ducts: Normal. Common bile duct diameter: 0.6 cm. Gallbladder Normal. Gallstones: None. Gallbladder sludge: None. Gallbladder wall thickening: None. Pericholecystic fluid: None. Sonographic Betancourt sign: Absent. Pancreas Normal as visualized. Spleen Splenomegaly: None. Craniocaudal length: 9.6 cm. Right kidney: Normal. Hydronephrosis: None. Size: 9.9 cm x 4.2 cm x 3.7 cm Left kidney: Normal. Hydronephrosis: None. Size: 10.0 cm x 4.3 cm x 3.6 cm. Abdominal aorta and IVC Visualized portions are normal. Ascites: None. US/US abdomen complete* [id number] IMPRESSION: 1. Diffuse fatty infiltration liver. Liver size upper limits of normal. 2. Normal gallbladder. Normal common bile duct. 3. No hydronephrosis in either kidney. 4. Normal spleen.
== END 2022-10-25 08:20 | disposition home or self-care (01) ==
LOC: RAD 08:25
PROVIDERS: PCP Family Medicine; Visit Provider Family Medicine
DX: R74.8 Abnormal levels of other serum enzymes (principal); K76.0 Fatty (change of) liver, not elsewhere classified
CPT/HCPCS: 76700

== ENCOUNTER 2023-07-08 10:06 | Inpatient (IN) | payer MEDICARE, MEDICAID, SELFPAY ==
[2023-07-08 10:07] VITALS: BP 145/101; PULSE 86; RESP 18; TEMP 36.6; O2SAT 98; BMI 29.2
--- NOTE | 2023-07-08 10:36 | ED_ITS ---
HPI - Weakness 2 General: Chief complaint: Weakness Stated complaint: Weakness Time Seen by Provider: 07/08/23 10:07 Source: patient Mode of arrival: ambulatory History of Present Illness: 68-year-old female presents to the [facility] ency room with generalized weakness. She usually is in a wheelchair dialyzed last 2 weeks has not been able to get up or get out of the wheelchair or assist with transfers she has not been eating or drinking well she tells me that she fell out of her wheelchair a couple weeks ago she states she was evaluated after that there is no significant abnormality. She denies chest or abdominal pain denies difficulty breathing or vision or swallowing. She has had some falls at home. She is bruising on her EXTR MD Complaint: generalized weakness Onset (ago): minute(s) Associated symptoms: Denies chest pain, chills, dysuria or fever(s) Review of Systems 2 Const: Denies: fever(s) or chills Card: Denies: chest pain Resp: Denies: dyspnea GI: Denies: abdominal pain : Denies: dysuria, urinary frequency or urinary urgency Musc: Denies: neck pain or back pain Skin/Breast: Denies: rash PFSH ED 2 PFSH: Medical History Psoriasis Hypoglycemia Skin tear of right upper extremity Alcohol intoxication Elevated lactic acid level Closed fracture of inferior pubic ramus Hepatitis C Altered mental status Transaminitis High anion gap metabolic acidosis Chronic alcohol use Consumes vodka daily. Insomnia Anxiety Chronic obstructive pulmonary disease Schizoaffective disorder Schizoaffective disorder Chronic back pain DDD (degenerative disc disease) Hyperthyroidism Social History Smoking and tobacco/nicotine status: current every day tobacco/nicotine user Second hand smoke exposure: Yes Alcohol intake: current Alcohol intake frequency: 3 or more drinks per day Alcohol type: hard liquor Substance/Drug Use: never Current occupational status: unemployed Current gender identity: Female Physical Exam 2 Const: COMMON NORMALS: no acute distress GENERAL APPEARANCE: cooperative and comfortable ORIENTATION/CONSCIOUSNESS: Yes awake, Yes oriented to person, Yes oriented to place and Yes oriented to time HENMT: COMMON NORMALS: normocephalic, atraumatic and hearing grossly normal bilaterally HEAD & SCALP: normocephalic and atraumatic Resp: COMMON NORMALS: normal respiratory effort, No retractions, No use of accessory muscles and clear to auscultation bilaterally AUSCULTATION: clear to auscultation bilaterally Cardio: COMMON NORMALS: regular rate, regular rhythm and No murmurs present (Cardio) RATE: regular rate RHYTHM: regular rhythm GI: COMMON NORMALS: Soft to palpation and No hepatosplenomegaly present A USCULTATION: Yes normoactive bowel sounds PALPATION: Yes Soft to palpation, No Tenderness to palpation present (GI), No Guarding due to palpation present (GI) and Yes No hepatosplenomegaly present Extremity: COMMON NORMALS: normal to inspection, capillary refill normal, no clubbing, cyanosis or edema, no calf tenderness and no pedal edema Neuro: SENSORIUM/ORIENTATION: Yes oriented to person, Yes oriented to place and Yes oriented to time Skin: COMMON NORMALS: no rashes or lesions noted GENERAL SKIN EXAM: no rashes or lesions noted Course 2 Vital Signs: Vital signs: Vital Signs Temperature 97.9 F 07/08/23 10:07 Pulse Rate 100 07/08/23 14:24 Respiratory Rate 16 07/08/23 14:24 Blood Pressure 103/76 07/08/23 14:24 Pulse Oximetry 97 07/08/23 14:24 Oxygen Delivery Me thod Room Air 07/08/23 14:24 MDM - Weakness Medical Decision Making CT of her head is negative CT of the lumbar spine lumbar spine shows stenotic areas and some stenosis. We did have PT come down she was able to ambulate and transfer. She has normal sensation of the lower extremities. She does have a bit of a tremor. She has a neighbor who actually is the one who called EMS for. She is not able to manage to care for self at home at this point. Discussed with hospitalist will admit for failure to thrive. [facility] protocol. Medical Records I reviewed the patient's medical records. Lab Data I reviewed the patient's lab results. 07/08/23 10:32 07/08/23 10:32 Laboratory Results WBC 8.56 10^3/uL (3.29-11.43) 07/08/23 10:32 RBC 3.20 10^6/uL (3.85-5.65) L 07/08/23 10:32 Hgb 11.70 g/dL (11.27-16.99) 07/08/23 10:32 Hct 33.7 % (36-47) L 07/08/23 10:32 MCV 105.3 fl (85-98) H 07/08/23 10:32 MCH 36.6 pg (27-33) H 07/08/23 10:32 MCHC 34.7 g/dL (30-55) 07/08/23 10:32 RDW 12.8 % (12.1-15.1) 07/08/23 10:32 Plt Count 217 10^3/cmm (157-399) 07/08/23 10:32 MPV 10.4 fL (7.4-10.4) 07/08/23 10:32 Neut % (Auto) 68.3 % 07/08/23 10:32 Lymph % (Auto) 21.0 % 07/08/23 10:32 [place] % (Auto) 9.8 % 07/08/23 10:32 Eos % (Auto) 0.1 % 07/08/23 10:32 Baso % (Auto) 0.2 % 07/08/23 10:32 Neut # (Auto) 5.84 10^3/uL (1.8-7.7) 07/08/23 10:32 Lymph # (Auto) 1.8 10^3/uL (0.8-4.8) 07/08/23 10:32 [place] # (Auto) 0.8 10^3/uL (0.2-0.9) 07/08/23 10:32 Eos # (Auto) 0.0 10^3/uL (0.0-0.8) 07/08/23 10:32 Baso # (Auto) 0.0 10^3/uL (0.0-0.1) 07/08/23 10:32 Nucleated RBC % (auto) 0 % 07/08/23 10:32 Nucleated RBCs # 0.0 /100WBC 07/08/23 10:32 Sodium 128 mmol/L (136-145) L 07/08/23 10:32 Potassium 3.8 mmol/L (3.5-5.1) 07/08/23 10:32 Chloride 91 mmol/L (98-107) L 07/08/23 10:32 Carbon Dioxide 22 mmol/L (22-29) 07/08/23 10:32 Anion Gap 18.8 (5-19) 07/08/23 10:32 BUN 8 mg/dL (8-23) 07/08/23 10:32 Creatinine 0.6 mg/dL (0.5-0.9) 07/08/23 10:32 GFR Calculation 99.1 mL/min (90-130) 07/08/23 10:32 Glucose 100 mg/dL (65-115) 07/08/23 10:32 Calculated Osmolality 264 mOsm/kg (285-295) L 07/08/23 10:32 Calcium 8.7 mg/dL (8.5-10.5) 07/08/23 10:32 Total Bilirubin 0.5 mg/dL (0.15-1.2) 07/08/23 10:32 AST 38 U/L (0-32) H 07/08/23 10:32 ALT 21 U/L (0-33) 07/08/23 10:32 Alkaline Phosphatase 86 U/L (35-105) 07/08/23 10:32 Troponin T Baseline 21 ng/L (0-10) H 07/08/23 10:32 Troponin T 120 Minute 20.63 ng/L (0-10) H 07/08/23 12:26 Delta Troponin T -0.37 ABS# (0-10) L 07/08/23 12:26 Total Protein 5.5 g/dL (6.6-8.7) L 07/08/23 10:32 Albumin 3.3 g/dL (3.5-5.2) L 07/08/23 10:32 Globulin 2.2 g/dL (1.3-4.6) 07/08/23 10:32 Urine Color Light yellow (Yellow) 07/08/23 12:05 Urine Appearance Sl hazy (CLEAR) A 07/08/23 12:05 Urine pH 7 (5-7) 07/08/23 12:05 Ur Specific [place] 1.005 (1.005-1.030) 07/08/23 12:05 Urine Protein Neg (Negative) 07/08/23 12:05 Urine Glucose (UA) Norm (Normal) 07/08/23 12:05 Urine Ketones Negative (Negative) 07/08/23 12:05 Urine Blood Trace (Negative) H 07/08/23 12:05 Urine Nitrate Negative (Negative) 07/08/23 12:05 Urine Bilirubin Neg (Negative) 07/08/23 12:05 Urine Urobilinogen Norm mg/dL (Negative) 07/08/23 12:05 Ur Leukocyte Esterase 2+ (Negative) H 07/08/23 12:05 Urine RBC 0-4 /hpf (0-2) H 07/08/23 12:05 Urine WBC 15-25 /hpf (0-5) H 07/08/23 12:05 Ur Squamous Epith Cells 5-10 /hpf (0-5) H 07/08/23 12:05 Ur Transition Epith Cell 0-4 /hpf 07/08/23 12:05 Amorphous Sediment Not Reportable 07/08/23 12:05 Urine Bacteria 2+ /hpf (NONE) H 07/08/23 12:05 Urine Mucus Trace /hpf 07/08/23 12:05 Ethyl Alcohol < 10 mg/dL (0-10) 07/08/23 12:26 All radiology interpretation(s) finalized by discharge Discharge Plan Discharge Patient Disposition: Admitted As Inpatient Clinical Impression: Adult failure to thrive, Alcoholism Condition: Stable Prescriptions: No Action (DME) shower chair See Rx Instructions .Route .MEDSUPPLY Qty: 1 0RF Rx Instructions: As directed trazodone 50 mg tablet 50 mg PO BEDTIME levothyroxine 150 mcg tablet 150 mcg PO QAM ziprasidone HCl 60 mg capsule 60 mg PO BEDTIME Referrals: Vivian Roblero MD [Primary Care Provider] - Patient Instructions: Opioid Safety, Pain Management Coding Level of Care Code ED Car Detailer for Anyi Cunningham
[2023-07-08 10:38] LABS: Basophils % 0.2 %; Eosinophils % 0.1 %; Hematocrit 33.7 % (36-47); Lymphocytes # 1.8 10^3/uL (0.8-4.8); Mean Corpuscular HGB Conc 34.7 g/dL (30-55); Mean Corpuscular Hemoglobin 36.6 pg (27-33); Mean Corpuscular Volume 105.3 fl (85-98); Mean Platelet Volume 10.4 fL (7.4-10.4); Monocytes # 0.8 10^3/uL (0.2-0.9); Monocytes % 9.8 %; Neutrophils # 5.84 10^3/uL (1.8-7.7); Neutrophils % 68.3 %; Nucleated Red Blood Cells % 0 %; Platelet Count 217 10^3/cmm (157-399); Red Cell Distribution Width 12.8 % (12.1-15.1); White Blood Count 8.56 10^3/uL (3.29-11.43)
--- NOTE | 2023-07-08 10:44 | CT_ITS ---
WS: [id number] CT LUMBAR SPINE, noncontrast. HISTORY: Trauma/fall TECHNIQUE: Contiguous 2.0 mm axial imaging are performed. Sagittal and coronal reformats are submitte d and reviewed. All CT scans at [facility] use at least one of these dose optimization techni ques: automated exposure control; mA and/or kV adjustment per patient size (includes targeted exams w here dose is matched to clinical indication); or iterative reconstruction. IV contrast: None DLP: 600.48 mGy.cm COMPARISON: 10/17/2022 Normal posterior alignment. Remote mild compression fractures are reidentified at T12 and L4. These a re stable since at least 10/17/2022. Mild irregularity along the superior endplate of L5 is also stabl e. No pedicle or transverse process fracture. Spinous processes are normal. L1-2: Normal. L2-3: Diffuse disc bulging. No stenosis. L3-4: Diffuse disc bulging with encroachment upon the ventral thecal sac and subarticular recesses. M oderate facet arthritis. Mild central, bilateral subarticular recess and foraminal stenosis. L4-5: Moderate annular disc bulging, ligamentum flavum and facet arthritis. Suspect there is probably a small central disc extrusion extending caudad. Severe central, bilateral subarticular recess and f oraminal stenosis. L5-S1: Mild annular disc bulging, asymmetric to the RIGHT. Mild bilateral foraminal narrowing. Modera te facet arthritis. No sacral fracture. Atherosclerosis aorta is mild. IMPRESSION: 1. No acute lumbar spine fracture. 2. Remote stable fractures at T12 and L4. 3. L4-5: Severe central, bilateral subarticular recess and foraminal stenosis as described above. 4. L3-4: Mild central, bilateral subarticular recess and foraminal stenosis.
--- NOTE | 2023-07-08 10:44 | CT_ITS ---
WS: [id number] CT HEAD NONCONTRAST HISTORY: Altered mental status, trauma, fall. TECHNIQUE: Contiguous axial imaging performed through the brain in 2.5 mm imaging. Bone and soft tiss ue windows. Sagittal and coronal reformats reviewed. All CT scans at [facility] use at least one of these dose optimization techniques: automated exposure control; mA and/or kV adjustment per pa tient size (includes targeted exams where dose is matched to clinical indication); or iterative recon struction. DLP: 1122.78 mGy.cm COMPARISON: 10/17/2022 No acute intracranial hemorrhage, midline shift or mass effect. Moderate symmetric atrophy similar to the prior examination. No new area of sulcal effacement. Mild s mall vessel ischemic changes. Mild bilateral cerebellar atrophy. Ventricles: Normal size with no hydrocephalus. No inferior displacement of the cerebellar tonsils. Paranasal sinuses: As visualized are clear. Mastoid air cells: Well pneumatized. Calvarium and scalp: Skull is intact with no soft tissue edema or swelling. IMPRESSION: 1. No acute intracranial hemorrhage or edema. 2. 2. Moderate atrophy and mild small vessel ischemic disease. Unchanged since 10/17/2022.
[2023-07-08 10:58] LABS: Troponin(5th) Baseline 21 ng/L (0-10)
[2023-07-08 11:02] LABS: Alanine Aminotransferase 21 U/L (0-33); Albumin Level 3.3 g/dL (3.5-5.2); Alkaline Phosphatase 86 U/L (35-105); Anion Gap 18.8 (5-19); Aspartate Amino Transferase 38 U/L (0-32); Blood Urea Nitrogen 8 mg/dL (8-23); Calcium 8.7 mg/dL (8.5-10.5); Carbon Dioxide 22 mmol/L (22-29); Chloride 91 mmol/L (98-107); Creatinine Clr Calc Pharmacy 61.9111; Globulin 2.2 g/dL (1.3-4.6); Glomerular Filtration Rate 99.1 mL/min (90-130); Glucose 100 mg/dL (65-115); Osmolality Calculated 264 mOsm/kg (285-295); Potassium 3.8 mmol/L (3.5-5.1); Sodium 128 mmol/L (136-145); Total Bilirubin 0.5 mg/dL (0.15-1.2); Total Protein 5.5 g/dL (6.6-8.7)
--- NOTE | 2023-07-08 11:25 | PC.PHAR ---
pt states she takes care of her own medications-pt states she is only taking ziprasidone 60mg hs filled 06/29/23 30d/s,trazodone 50mg hs filled 06/25/23 30d/s and levothyroxine 150mcg daily filled 12/24/22 30d/s [facility] states the pt has refills on the prescriptions-pt states she is no longer taking amlodipine 10mg daily filled 11/18/22 30d/s,bupropion er 150mg bid filled 12/24/22 30d/s,vitamin d2 46783 units q7d filled 12/24/22 28d/s,rosuvastatin 10mg daily filled 12/24/22 30d/s,zoloft 50mg take 100mg qam filled 12/24/22 30d/s,triamterene-hcyz 37.5-25mg qam filled 12/24/22 30d,s
[2023-07-08 12:10] VITALS: BP 133/96; PULSE 80; RESP 18; O2SAT 100
--- NOTE | 2023-07-08 12:11 | ECG_ITS ---
[facility] Test Date: 2023-07-08 Pat Name: Gilda Hodge Department: Room: Gender: Female Parts Product Analyst: : 1955 Requested By: Naveen Zuniga Order Number: [id number] Reading MD: Mundo Campbell M.D. Measurements Intervals [place] Rate: 89 P: 70 ND: 161 QRS: -11 QRSD: 74 T: 41 QT: 386 QTc: 472 Interpretive Statements SINUS RHYTHM LOW QRS VOLTAGE IN PRECORDIAL LEADS [QRS DEFLECTION < 1.0 mV IN CHEST LEADS] Compared to ECG 10/17/2022 20:09:48 No significant changes Electronically Signed On 07-08-2023 14:27:06 MUSIC EXECUTIVE by Mundo Campbell M.D. [id number]
[2023-07-08 12:39] LABS: Specific Gravity, Urine 1.005 (1.005-1.030); Urine Appearance SL Hazy (CLEAR); Urine Color Light yellow (Yellow); pH Urine 7 (5-7)
[2023-07-08 12:40] LABS: Add Urine Microscopic? YES; Bilirubin Urine Neg (Negative); Blood Urine Trace (Negative); Glucose Urine UA Norm (Normal); Ketones Urine Negative (Negative); Leukocyte Esterase Urine 2+ (Negative); Nitrate Urine Negative (Negative); Protein Urine Neg (Negative); Urobilinogen Urine Norm (Negative)
[2023-07-08 12:48] LABS: Add Urine Culture? Yes; Bacteria Urine 2+ /hpf; Mucus Urine TRACE /hpf; RBC Urine 0-4 /hpf (0-2); Transitional Epi Cells Urine 0-4 /hpf; WBC Urine 15-25 /hpf (0-5)
[2023-07-08 12:58] LABS: Troponin 5 2HR 20.63 ng/L (0-10)
[2023-07-08] MEDS: HYDROcodone-acetaminophen 5-325 mg Tablet 1 TAB PO ×2 (13:00→20:54)
[2023-07-08 13:02] LABS: Troponin 5 2HR Delta -0.37 ABS# (0-10)
[2023-07-08] MEDS: cefTRIAXone 1,000 MG in sodium chloride 0.9% (plus) 50 ML 100 MG IV (13:29)
[2023-07-08 14:06] LABS: Alcohol Level < 10 mg/dL (0-10)
[2023-07-08 14:24] VITALS: BP 103/76; PULSE 100; RESP 16; O2SAT 97
[2023-07-08 14:43] VITALS: O2SAT 99
[2023-07-08 14:45] LABS: Influenza A by IFA negative (Negative); Influenza B by IFA negative (Negative)
[2023-07-08 15:39] LABS: SARS Covid-2 Antigen negative (Negative)
--- NOTE | 2023-07-08 16:10 | P.HP_ITS ---
Providers/Chief Complaint 2 Primary Care Provider: Vivian Roblero MD Chief Complaint: Weakness History of Present Illness Gilda Hodge is a 68 year old female with EtOH use disorder, psoriasis, hepatitis C, schizoaffective disorder, COPD, DDD, thyroid disorder, current smoking, other medical problems was brought in to ER after EMS was called by her neighbor who was checking up on her, finding that she was weak, unable to walk, with reported inability to care for self, poor living conditions. She has had some falls. Has been dealing with back pain. In ER found to have severe cental spinal stenosis on CT L spine, unremarkable head CT. UA suggestive of possible UTI. Hyponatremia. Last drink was two large cups of vodka last night. She states she has been seeing some things which should not be there. Denies history of DT. Review of Systems 2 Const: Denies: fever(s), chills, body aches or malaise ENMT: Denies: throat pain Card: Denies: chest pain, edema, pre-syncope or dyspnea on exertion Resp: Denies: dyspnea, productive cough, change in phlegm color or hemoptysis GI: Denies: abdominal pain, nausea, vomiting, diarrhea, constipation, hematochezia or melena : Denies: flank pain, urinary frequency or hematuria Musc: Reports: back pain; Denies: joint swelling or joint redness Skin/Breast: Denies: rash or new lesions Neuro: Reports: difficulty walking; Denies: headache(s), numbness in extremities, weakness in extremities, dizziness, confusion or seizure-like activity Psych: Reports: other (illusions vs hallucintations.) Medications/Allergies Home Medications Medication Instructions Recorded Confirmed Last Taken Type shower chair #1 ea 11/21/22 07/08/23 Unknown Rx levothyroxine 150 mcg tablet 150 mcg PO QAM 07/08/23 07/08/23 07/08/23 History last filled 12/24/22 trazodone 50 mg tablet 50 mg PO BEDTIME 07/08/23 07/08/23 Unknown History ziprasidone HCl 60 mg capsule 60 mg PO BEDTIME 07/08/23 07/08/23 Unknown History Allergies Allergy/AdvReac Type Severity Reaction Status Date / Time Penicillins Allergy Unknown Verified 07/08/23 16:19 PFSH Acute 2 PFSH: Medical History Psoriasis Hypoglycemia Skin tear of right upper extremity Alcohol intoxication Elevated lactic acid level Closed fracture of inferior pubic ramus Hepatitis C Altered mental status Transaminitis High anion gap metabolic acidosis Chronic alcohol use Consumes vodka daily. Insomnia Anxiety Chronic obstructive pulmonary disease Schizoaffective disorder Schizoaffective disorder Chronic back pain DDD (degenerative disc disease) Hyperthyroidism Social History Smoking and tobacco/nicotine status: current every day tobacco/nicotine user Second hand smoke exposure: Yes Alcohol intake: current Alcohol intake frequency: 3 or more drinks per day Alcohol type: hard liquor Substance/Drug Use: never Current occupational status: unemployed Current gender identity: Female Vitals/I&O/Wt Last Vital Signs Temp 97.9 F 07/08/23 10:07 Pulse 100 07/08/23 14:24 Resp 16 07/08/23 14:24 BP 103/76 07/08/23 14:24 Pulse Ox 99 07/08/23 14:43 O2 Del Method Room Air 07/08/23 14:43 07/08/23 07/08/23 07/08/23 06:59 14:59 22:59 Intake Total 50 / 50 Balance 50 / 50 Weight last 48 hrs Weight 72.575 kg Physical Exam 2 Const: COMMON NORMALS: patient oriented x3 and alert GENERAL APPEARANCE: c ooperative ORIENTATION/CONSCIOUSNESS: Yes awake HENMT: COMMON NORMALS: oropharynx normal TEETH & GINGIVA: Yes edentulous Neck/C-Spine: COMMON NORMALS: no JVD Resp: COMMON NORMALS: normal respiratory effort and clear to auscultation bilaterally AUSCULTATION: clear to auscultation bilaterally Cardio: COMMON NORMALS: no JVD, regular rhythm, S1 normal heart sound present, S2 normal heart sound present and No murmurs present (Cardio) RHYTHM: regular rhythm HEART SOUNDS: S1 normal heart sound present and S2 normal heart sound present GI: COMMON NORMALS: Normal to inspection, nondistended, normoactive bowel sounds present, Soft to palpation and non-tender PALPATION: Yes Soft to palpation Extremity: COMMON NORMALS: no joint enlargement and no pedal edema Neuro: COMMON NORMALS: patient oriented x3 and moves all extremities S ENSORIUM/ORIENTATION: Yes alert OTHER: Lifts both legs off bed. Sensation symmetrical in LE, feels light touch. Data 07/08/23 10:32 07/08/23 10:32 A&P Assessment and plan (1) Chronic alcohol use: Reporting some delusions present hallucinations. Last drinks were yesterday, 2 cups of vodka. Possible withdrawal. [facility] protocol requested. Vitamin supplementation requested. At risk of severe withdrawal. Seizure precaution. Benzodiazepine as per [facility] protocol. Monitor for any signs of altered mental status, respiratory depression. She is currently awake and alert. (2) Inability to walk: Unable to get up and take care of herself at home, EMS was called by the neighbor. This likely may be compounded by urinary tract infection, hyponatremia, possible alcohol withdrawal. PT, OT assessment. Case management consultation. Reviewed CT head, CT lumbar spine. Reviewed ER documentation, discussed with ER physician. With central spinal stenosis, back pain. Add lidocaine patch. Acetaminophen, hydrocodone for moderate pain. IV Dilaudid as needed for severe breakthrough. (3) Hyponatremia: Noted hyponatremia, sodium 128. Possible hypovolemic with poor oral intake, possible low solute hyponatremia. Received fluid challenge in ER. Hold additional IV fluids. Recheck sodium level. Regular diet. Reviewed vitals, CMP. (4) UTI (urinary tract infection): Continue ceftriaxone. Follow-up urine culture. Reviewed vitals, CBC, UA (5) Smoking addiction: Discussed smoking cessation 4 minutes. Plan Hepatitis C, Schizoaffective disorder, COPD, DDD, Thyroid disorder: levothyroxine Goals of care: In case could not make her own decisions names her friend León or friend/Neighbor Tereza pizano as surrogate decision makers. Attestations 2 Medical Necessity Statement*: Admission of over 2 midnights anticipated for assessment management of inability to walk, hyponatremia, suspected alcohol withdrawal with alcohol use disorder, UTI, and lady with additional comorbidities as above. Diagnoses Chronic alcohol use Z72.89 Inability to walk R26.2 Hyponatremia E87.1 UTI (urinary tract infection) N39.0 Smoking addiction F17.200
--- NOTE | 2023-07-08 16:27 | ECG_ITS ---
[facility] Test Date: 2023-07-08 Pat Name: Gilda Hodge Department: Room: Gender: Female Pot Fisher: : 1955 Requested By: Naveen Zuniga Order Number: [id number] Alfonso MD: Florentino Trejo M.D. Measurements Intervals [place] Rate: 89 P: 65 [place]: 153 QRS: -3 QRSD: 80 T: 49 QT: 390 QTc: 476 Interpretive Statements SINUS RHYTHM LOW QRS VOLTAGE IN PRECORDIAL LEADS [QRS DEFLECTION < 1.0 mV IN CHEST LEADS] Compared to ECG 07/08/2023 12:11:18 No significant changes Electronically Signed On 07-09-2023 11:08:13 INDUSTRIAL ROBOTICS MECHANIC by Florentino Trejo M.D. [id number]
[2023-07-08 18:06] LABS: Troponin 5 6HR 21.97 ng/L (0-10); Troponin 5 6HR Delta 0.97 ng/L (0-12)
[2023-07-08] MEDS: pantoprazole DR 40 mg Tablet PO (18:30)
[2023-07-08] MEDS: heparin 5,000 unit/mL INJ 1 mL 5000 UNIT SUBCUT (18:30)
[2023-07-08 19:16] LABS: Sodium 130 mmol/L (136-145)
[2023-07-08 19:54] LABS: Thyroid Stimulating Hormone 0.56 uIU/mL (0.27-4.20)
[2023-07-08 19:59] VITALS: BP 130/78; PULSE 84; RESP 17; TEMP 36.4; O2SAT 96
[2023-07-08] MEDS: ziprasidone hcl 60 mg Capsule PO (20:24)
[2023-07-08] MEDS: nicotine 21 mg Patch 1 PATCH TRANSDERMA (20:24)
[2023-07-08] MEDS: trazodone 50 mg Tablet PO (21:15)
[2023-07-09] VITALS: BP 109/68; PULSE 93; RESP 17; TEMP 36.8; O2SAT 99
[2023-07-09 04:00] VITALS: BP 111/75; PULSE 76; RESP 16; TEMP 37.6; O2SAT 92
[2023-07-09 05:00] VITALS: BMI 25.5
[2023-07-09 05:29] LABS: Basophils % 0.4 %; Eosinophils % 0.9 %; Hematocrit 28.5 % (36-47); Lymphocytes # 1.6 10^3/uL (0.8-4.8); Lymphocytes % 34.6 %; Mean Corpuscular HGB Conc 34.4 g/dL (30-55); Mean Corpuscular Hemoglobin 36.2 pg (27-33); Mean Corpuscular Volume 105.2 fl (85-98); Mean Platelet Volume 10.6 fL (7.4-10.4); Monocytes # 0.5 10^3/uL (0.2-0.9); Monocytes % 10.9 %; Neutrophils # 2.42 10^3/uL (1.8-7.7); Neutrophils % 52.8 %; Nucleated Red Blood Cells % 0 %; Platelet Count 150 10^3/cmm (157-399); Red Blood Count 2.71 10^6/uL (3.85-5.65); Red Cell Distribution Width 13.1 % (12.1-15.1); White Blood Count 4.59 10^3/uL (3.29-11.43)
[2023-07-09 05:52] LABS: Alanine Aminotransferase 16 U/L (0-33); Albumin Level 2.8 g/dL (3.5-5.2); Alkaline Phosphatase 58 U/L (35-105); Anion Gap 12.7 (5-19); Aspartate Amino Transferase 27 U/L (0-32); Blood Urea Nitrogen 10 mg/dL (8-23); Calcium 8.8 mg/dL (8.5-10.5); Carbon Dioxide 26 mmol/L (22-29); Chloride 97 mmol/L (98-107); Globulin 2.3 g/dL (1.3-4.6); Glomerular Filtration Rate 99.1 mL/min (90-130); Glucose 91 mg/dL (65-115); Osmolality Calculated 273 mOsm/kg (285-295); Potassium 3.7 mmol/L (3.5-5.1); Sodium 132 mmol/L (136-145); Total Bilirubin 0.5 mg/dL (0.15-1.2); Total Protein 5.1 g/dL (6.6-8.7)
[2023-07-09] MEDS: levothyroxine 150 mcg Tablet PO (06:10)
[2023-07-09] MEDS: heparin 5,000 unit/mL INJ 1 mL 5000 UNIT SUBCUT ×2 (06:10→17:19)
[2023-07-09 08:00] VITALS: BP 106/67; PULSE 87; RESP 17; TEMP 36.8; O2SAT 98
[2023-07-09] MEDS: lidocaine 5% Patch 1 PATCH TOPICAL (08:51)
[2023-07-09] MEDS: folic acid 1 mg Tablet PO (08:52)
[2023-07-09] MEDS: multivitamin therapeutic Tablet 1 TAB PO (08:52)
[2023-07-09] MEDS: thiamine 100 mg Tablet PO (08:52)
[2023-07-09] MEDS: pantoprazole DR 40 mg Tablet PO (08:52)
[2023-07-09] MEDS: HYDROcodone-acetaminophen 5-325 mg Tablet 1 TAB PO ×2 (09:57→22:41)
[2023-07-09] MEDS: cefTRIAXone 1,000 MG in sodium chloride 0.9% (plus) 50 ML 100 MG IV (09:57)
[2023-07-09 11:40] VITALS: BP 112/88; PULSE 82; RESP 17; TEMP 36.4; O2SAT 96
[2023-07-09 15:52] VITALS: BP 120/75; PULSE 80; RESP 18; TEMP 36.8; O2SAT 98
[2023-07-09 20:00] VITALS: BP 109/66; PULSE 82; RESP 19; TEMP 36.7; O2SAT 95
[2023-07-09] MEDS: ziprasidone hcl 60 mg Capsule PO (20:34)
[2023-07-09] MEDS: trazodone 50 mg Tablet PO (20:35)
[2023-07-09] MEDS: nicotine 21 mg Patch 1 PATCH TRANSDERMA (20:35)
--- NOTE | 2023-07-09 21:48 | PM.PN ---
Subjective Subjective: He feels slightly sluggish after receiving pain medication this morning. Has worked with outpatient therapy, noted retropulsion. Fall risk. Some moderate cognitive dysfunction. Vitals/I&O/Wt Last Vital Signs Temp 98.1 F 07/09/23 20:00 Pulse 82 07/09/23 20:00 Resp 19 H 07/09/23 20:00 BP 109/66 07/09/23 20:00 Pulse Ox 95 07/09/23 20:00 O2 Del Method Room Air 07/09/23 20:00 07/09/23 07/09/23 07/09/23 06:59 14:59 22:59 Intake Total 220 / 220 120 / 340 Balance 220 / 220 120 / 340 Weight last 48 hrs Weight 63.321 kg Weight 59.988 kg Weight 72.575 kg Physical Exam Narrative: She is oriented. Takes her some time to answer questions, but answers all appropriately. Visited by occupational therapist and then caseworker protective services. Const: COMMON NORMALS: patient oriented x3 and alert GENERAL APPEARANCE: cooperative ORIENTATION/CONSCIOUSNESS: Yes awake HENMT: COMMON NORMALS: oropharynx normal TEETH & GINGIVA: Yes edentulous Neck/C-Spine: COMMON NORMALS: no JVD Resp: COMMON NORMALS: normal respiratory effort and clear to auscultation bilaterally AUSCULTATION: clear to auscultation bilaterally Cardio: COMMON NORMALS: no JVD, regular rhythm, S1 normal heart sound present, S2 normal heart sound present and No murmurs present (Cardio) RHYTHM: regular rhythm HEART SOUNDS: S1 normal heart sound present and S2 normal heart sound present GI: COMMON NORMALS: Normal to inspection, nondistended, normoactive bowel sounds present, Soft to palpation and non-tender PALPATION: Yes Soft to palpation Extremity: COMMON NORMALS: no joint enlargement and no pedal edema Neuro: COMMON NORMALS: patient oriented x3 and moves all extremities SENSORIUM/ORIENTATION: Yes alert OTHER: Lifts both legs off bed. Sensation symmetrical in LE, feels light touch. Data 07/09/23 05:08 07/09/23 05:08 Micro: Microbiology 07/08/23 12:05 Urine Culture - Preliminary Urine,Clean Catch Gram Negative Rods A&P Assessment and plan (1) Chronic alcohol use: So far no additional hallucinations. Still at risk of withdrawal within the next 48 hours. Monitor. At risk of severe withdrawal, seizure precautions. Vitamin supplementation requested. At risk of severe withdrawal. Seizure precaution. Benzodiazepine as per [facility] protocol. Monitor for any signs of altered mental status, respiratory depression. She is currently awake and alert. (2) Inability to walk: Reviewed TSH. Check B12. Mg. Severe spinal stenosis and degenerative disc disease. Will need rehabilitation as he would not be a good candidate for surgery given EtOH use disorder, concern for lost to follow-up, poor living conditions and social support. Continue OT, PT, discussed with RT therapist. Discussed with caseworker protective services. She would be agreeable to go for skilled rehabilitation if this could be arranged. Unable to get up and take care of herself at home, EMS was called by the neighbor. This likely may be compounded by urinary tract infection, hyponatremia, possible alcohol withdrawal. Lidocaine patch. Acetaminophen, hydrocodone for moderate pain. IV Dilaudid as needed for severe breakthrough. (3) Hyponatremia: Reviewed vitals, reviewed chemistry. Sodium with improvement up to 132. Continue regular diet. Reassess chemistry. Fall precautions. (4) UTI (urinary tract infection): Continue ceftriaxone. Reviewed urine culture, pending. Reviewed vitals, CBC, without leukocytosis. Afebrile. (5) Smoking addiction: Continue to encourage smoking cessation. Plan Hepatitis C, Schizoaffective disorder, COPD, DDD, Thyroid disorder: levothyroxine Goals of care: In case could not make her own decisions names her friend León or friend/Neighbor Tereza pizano as surrogate decision makers. Attestations Medical Necessity Statement*: Continue assessment and management of inability to walk, hyponatremia, suspected alcohol withdrawal with alcohol use disorder, UTI, and lady with additional comorbidities as above. and High MDM includes amount and/or complexity of data reviewed/ordered [ resulted lab(s)/test(s), ordered lab(s)/test(s) and other healthcare professional discussion] and described risk of complication, morbidity or mortality of management as documented Diagnoses Chronic alcohol use Z72.89 Inability to walk R26.2 Hyponatremia E87.1 UTI (urinary tract infection) N39.0 Smoking addiction F17.200
[2023-07-10] VITALS (8 sets, daily range): BP systolic 109–143; BP diastolic 68–86; PULSE 76–84; RESP 16–18; TEMP 36.3–37.1; O2SAT 94–98; BMI 25.7
[2023-07-10 05:36] LABS: Basophils % 0.6 %; Eosinophils % 1.1 %; Hematocrit 30.5 % (36-47); Lymphocytes # 1.5 10^3/uL (0.8-4.8); Lymphocytes % 40.8 %; Mean Corpuscular HGB Conc 33.8 g/dL (30-55); Mean Corpuscular Hemoglobin 37.1 pg (27-33); Mean Corpuscular Volume 109.7 fl (85-98); Mean Platelet Volume 11.1 fL (7.4-10.4); Monocytes # 0.4 10^3/uL (0.2-0.9); Monocytes % 10.7 %; Neutrophils # 1.63 10^3/uL (1.8-7.7); Nucleated Red Blood Cells % 0 %; Platelet Count 159 10^3/cmm (157-399); Red Blood Count 2.78 10^6/uL (3.85-5.65); Red Cell Distribution Width 13.2 % (12.1-15.1); White Blood Count 3.55 10^3/uL (3.29-11.43)
[2023-07-10 06:06] LABS: Alanine Aminotransferase 16 U/L (0-33); Albumin Level 2.9 g/dL (3.5-5.2); Alkaline Phosphatase 62 U/L (35-105); Anion Gap 14.6 (5-19); Aspartate Amino Transferase 24 U/L (0-32); Blood Urea Nitrogen 7 mg/dL (8-23); Calcium 8.5 mg/dL (8.5-10.5); Carbon Dioxide 24 mmol/L (22-29); Chloride 101 mmol/L (98-107); Globulin 2.2 g/dL (1.3-4.6); Glucose 84 mg/dL (65-115); Osmolality Calculated 279 mOsm/kg (285-295); Potassium 3.6 mmol/L (3.5-5.1); Sodium 136 mmol/L (136-145); Total Bilirubin 0.2 mg/dL (0.15-1.2); Total Protein 5.1 g/dL (6.6-8.7)
[2023-07-10] MEDS: heparin 5,000 unit/mL INJ 1 mL 5000 UNIT SUBCUT ×2 (06:06→17:16)
[2023-07-10] MEDS: levothyroxine 150 mcg Tablet PO (06:06)
[2023-07-10 06:07] LABS: Magnesium 1.8 mg/dL (1.7-2.3)
[2023-07-10 06:20] LABS: Vitamin B12 435 pg/mL (232-1245)
--- NOTE | 2023-07-10 06:45 | PC.NURSE ---
Shift Summary Gilda had a good night with no complaints. After receiving her usual night time meds and pain medications she rested comfortably in bed and slept for several hours. She has no requests this morning.
--- NOTE | 2023-07-10 09:14 | PC.SOCIAL ---
IMM Update pg 2 of IMM updated and reviewed w/ patient. Copy provided and copy dated, initialed and placed in chart.
[2023-07-10] MEDS: folic acid 1 mg Tablet PO (10:06)
[2023-07-10] MEDS: multivitamin therapeutic Tablet 1 TAB PO (10:06)
[2023-07-10] MEDS: pantoprazole DR 40 mg Tablet PO (10:06)
[2023-07-10] MEDS: thiamine 100 mg Tablet PO (10:07)
[2023-07-10] MEDS: cefTRIAXone 1,000 MG in sodium chloride 0.9% (plus) 50 ML 100 MG IV (10:08)
[2023-07-10] MEDS: lidocaine 5% Patch 1 PATCH TOPICAL (10:09)
--- NOTE | 2023-07-10 10:12 | PC.CHAP ---
Pastoral Care Encounter/Spiritual Assessment Type of Contact [] Declined zoo caretaker visit [] Patient/Family/Request visit [] Outpatient visit [] Follow-up visit [] Physician referral [] Code/Alert [] Routine visit [] Staff referral [] Actively dying [] Patient sleeping [] Family support [] [] Out of room [] Palliative care [] [x] Receiving care in room [] Pre-surgical visit [] Trauma [] Long length of stay [] ICU visit [] Other: Relational/Emotional Strength [] Patient feels connected with others/family/visitors/staff [] Distress [] Loneliness/isolation [] Abandonment Spirituality of Patient [] Person of [place] [] Attends Rastafarian of their [place] [] Believes in Prayer [] Reads Bible or Anglican materials [] There are Spiritual issues to be addressed Squirrel Worker Interventions [] Prayer [] Active listening [] Non-anxious presence [] Spiritual/emotional support [] Crisis/trauma care [] Spiritual counseling [] Bereavement support [] Provided bereavement packet [] Provided Bible/devotional materials [] Provided toy/stuffed animal, coloring book to patient or family member [] Provided Communion [] Anointing/[place] [] Salvation [] Completed spiritual assessment [] Other: Impact on Illness or Injury [] Angry [] Fearful [] Anxious [] Often cries [] Exhaustion [] Unable to work [] Unable to attend rastafari [] Unable to walk/stand [] Unable to read [] Unable to drive [] Unable to eat/drink [] Unable to sleep [] Unable to be with family [] Patient intubated [] Other: Summary Time spent with patient
[2023-07-10] MEDS: HYDROcodone-acetaminophen 5-325 mg Tablet 1 TAB PO (17:15)
[2023-07-10] MEDS: ziprasidone hcl 60 mg Capsule PO (21:31)
[2023-07-10] MEDS: nicotine 21 mg Patch 1 PATCH TRANSDERMA (21:32)
[2023-07-10] MEDS: trazodone 50 mg Tablet PO (21:38)
--- NOTE | 2023-07-10 21:51 | P.PN_ITS ---
Subjective 2 Subjective: States she is trying to work with physical therapy. Denies hallucinations. Vitals/I&O/Wt Last Vital Signs Temp 97.5 F L 07/10/23 20:00 Pulse 81 07/10/23 20:00 Resp 17 07/10/23 20:00 BP 113/68 07/10/23 20:00 Pulse Ox 96 07/10/23 20:00 O2 Del Method Room Air 07/10/23 16:00 07/10/23 07/10/23 07/10/23 06:59 14:59 22:59 Intake Total 410 / 410 480 / 890 Balance 410 / 410 480 / 890 Weight last 48 hrs Weight 63.684 kg Weight 63.321 kg Physical Exam 2 Const: COMMON NORMALS: patient oriented x3 and alert GENERAL APPEARANCE: c ooperative ORIENTATION/CONSCIOUSNESS: Yes awake HENMT: COMMON NORMALS: oropharynx normal TEETH & GINGIVA: Yes edentulous Neck/C-Spine: COMMON NORMALS: no JVD Resp: COMMON NORMALS: normal respiratory effort and clear to auscultation bilaterally AUSCULTATION: clear to auscultation bilaterally Cardio: COMMON NORMALS: no JVD, regular rhythm, S1 normal heart sound present, S2 normal heart sound present and No murmurs present (Cardio) RHYTHM: regular rhythm HEART SOUNDS: S1 normal heart sound present and S2 normal heart sound present GI: COMMON NORMALS: Normal to inspection, nondistended, normoactive bowel sounds present, Soft to palpation and non-tender PALPATION: Yes Soft to palpation Extremity: COMMON NORMALS: no joint enlargement and no pedal edema Neuro: COMMON NORMALS: patient oriented x3 and moves all extremities S ENSORIUM/ORIENTATION: Yes alert OTHER: Lifts both legs off bed. Sensation symmetrical in LE, feels light touch. Data 07/10/23 05:04 07/10/23 05:04 Micro: Microbiology 07/08/23 12:05 Urine Culture - Final Urine,Clean Catch Escherichia coli esbl A&P Assessment and plan (1) Chronic alcohol use: Reviewed CIWA score, so far doing okay. Had hallucinations initially but without recurrence. If no withdrawal by tomorrow likely should in the clear. At risk of severe withdrawal, seizure precautions. Vitamin supplementation requested. At risk of severe withdrawal. Seizure precaution. Benzodiazepine as per CIWA protocol. Monitor for any signs of altered mental status, respiratory depression. She is currently awake and alert. (2) Inability to walk: Reviewed B12. Mg. B12 is okay. Magnesium mildly low 1.8. Will give 1 g magnesium. Reviewed CBC, CMP. Continue physical therapy, mobilization, arrangements for rehabilitation at SNF. Discussed with protective services case worker. Severe spinal stenosis and degenerative disc disease. Will need rehabilitation as he would not be a good candidate for surgery given EtOH use disorder, concern for lost to follow-up, poor living conditions and social support. Continue OT, PT, discussed with RT therapist. Discussed with protective services case worker. She would be agreeable to go for skilled rehabilitation if this could be arranged. Unable to get up and take care of herself at home, EMS was called by the neighbor. This likely may be compounded by urinary tract infection, hyponatremia, possible alcohol withdrawal. Lidocaine patch. Acetaminophen, hydrocodone for moderate pain. IV Dilaudid as needed for severe breakthrough. (3) Hyponatremia: Reviewed vitals, reviewed chemistry. Sodium with improvement up to 132. Continue regular diet. Reassess chemistry. Fall precautions. (4) UTI (urinary tract infection): Continue ceftriaxone. Reviewed urine culture, pending. Reviewed vitals, CBC, without leukocytosis. Afebrile. (5) Smoking addiction: Continue to encourage smoking cessation. Plan Hepatitis C, Schizoaffective disorder, COPD, DDD, Thyroid disorder: levothyroxine Goals of care: In case could not make her own decisions names her friend León or friend/Neighbor Tereza pizano as surrogate decision makers. Attestations 2 Medical Necessity Statement*: Admission of over 2 midnights anticipated for assessment management of inability to walk, hyponatremia, suspected alcohol withdrawal with alcohol use disorder, UTI, and lady with additional comorbidities as above. and High MDM includes described risk of complication, morbidity or mortality of management as documented Diagnoses Chronic alcohol use Z72.89 Inability to walk R26.2 Hyponatremia E87.1 UTI (urinary tract infection) N39.0 Smoking addiction F17.200
[2023-07-10] MEDS: magnesium sulfate premix 1 GM/100 ML PIGGYBACK IV (22:37)
[2023-07-11] VITALS (7 sets, daily range): BP systolic 115–143; BP diastolic 73–90; PULSE 62–82; RESP 17–18; TEMP 36.6–37; O2SAT 96–99
[2023-07-11] MEDS: levothyroxine 150 mcg Tablet PO (05:37)
[2023-07-11] MEDS: heparin 5,000 unit/mL INJ 1 mL 5000 UNIT SUBCUT ×2 (05:37→17:54)
[2023-07-11 05:49] LABS: Basophils % 0.5 %; Eosinophils # 0.1 10^3/uL (0.0-0.8); Eosinophils % 1.6 %; Hematocrit 31.5 % (36-47); Lymphocytes # 1.6 10^3/uL (0.8-4.8); Mean Corpuscular Hemoglobin 36.5 pg (27-33); Mean Corpuscular Volume 110.5 fl (85-98); Mean Platelet Volume 10.7 fL (7.4-10.4); Monocytes # 0.3 10^3/uL (0.2-0.9); Monocytes % 9.3 %; Neutrophils # 1.59 10^3/uL (1.8-7.7); Neutrophils % 43.8 %; Nucleated Red Blood Cells % 0 %; Platelet Count 178 10^3/cmm (157-399); Red Blood Count 2.85 10^6/uL (3.85-5.65); Red Cell Distribution Width 13.2 % (12.1-15.1); White Blood Count 3.64 10^3/uL (3.29-11.43)
[2023-07-11 06:08] LABS: Alanine Aminotransferase 17 U/L (0-33); Alkaline Phosphatase 59 U/L (35-105); Anion Gap 15.4 (5-19); Aspartate Amino Transferase 29 U/L (0-32); Blood Urea Nitrogen 5 mg/dL (8-23); Calcium 8.8 mg/dL (8.5-10.5); Carbon Dioxide 25 mmol/L (22-29); Chloride 103 mmol/L (98-107); Globulin 2.8 g/dL (1.3-4.6); Glomerular Filtration Rate 71.1 mL/min (90-130); Glucose 92 mg/dL (65-115); Osmolality Calculated 287 mOsm/kg (285-295); Potassium 3.4 mmol/L (3.5-5.1); Sodium 140 mmol/L (136-145); Total Bilirubin 0.2 mg/dL (0.15-1.2); Total Protein 5.8 g/dL (6.6-8.7)
[2023-07-11] MEDS: cefTRIAXone 1,000 MG in sodium chloride 0.9% (plus) 50 ML 100 MG IV (08:25)
[2023-07-11] MEDS: pantoprazole DR 40 mg Tablet PO (08:25)
[2023-07-11] MEDS: folic acid 1 mg Tablet PO (08:25)
[2023-07-11] MEDS: thiamine 100 mg Tablet PO (08:25)
[2023-07-11] MEDS: multivitamin therapeutic Tablet 1 TAB PO (08:25)
[2023-07-11] MEDS: lidocaine 5% Patch 1 PATCH TOPICAL (08:25)
[2023-07-11] MEDS: meropenem 1,000 MG in sodium chloride 0.9% (plus) 50 ML 100 MG IV ×2 (11:14→17:53)
[2023-07-11] MEDS: acetaminophen 325 mg Tablet 650 MG PO (17:58)
[2023-07-11] MEDS: ziprasidone hcl 60 mg Capsule PO (20:37)
[2023-07-11] MEDS: trazodone 50 mg Tablet PO (20:39)
--- NOTE | 2023-07-11 22:25 | P.PN_ITS ---
Subjective 2 Subjective: Having back pain but slightly better. No hallucinations. Vitals/I&O/Wt Last Vital Signs Temp 98.6 F 07/11/23 19:33 Pulse 81 07/11/23 22:00 Resp 18 07/11/23 19:33 BP 122/74 07/11/23 19:33 Pulse Ox 99 07/11/23 19:33 O2 Del Method Room Air 07/11/23 17:12 07/11/23 07/11/23 07/11/23 06:59 14:59 22:59 Intake Total 100 / 990 780 / 780 650 / 1430 Balance 100 / 990 780 / 780 650 / 1430 Weight last 48 hrs Weight 63.775 kg Weight 63.684 kg Physical Exam 2 Const: COMMON NORMALS: patient oriented x3 and alert GENERAL APPEARANCE: c ooperative ORIENTATION/CONSCIOUSNESS: Yes awake HENMT: COMMON NORMALS: oropharynx normal TEETH & GINGIVA: Yes edentulous Neck/C-Spine: COMMON NORMALS: no JVD Resp: COMMON NORMALS: normal respiratory effort and clear to auscultation bilaterally AUSCULTATION: clear to auscultation bilaterally Cardio: COMMON NORMALS: no JVD, regular rhythm, S1 normal heart sound present, S2 normal heart sound present and No murmurs present (Cardio) RHYTHM: regular rhythm HEART SOUNDS: S1 normal heart sound present and S2 normal heart sound present GI: COMMON NORMALS: Normal to inspection, nondistended, normoactive bowel sounds present, Soft to palpation and non-tender PALPATION: Yes Soft to palpation Extremity: COMMON NORMALS: no joint enlargement and no pedal edema Neuro: COMMON NORMALS: patient oriented x3 and moves all extremities S ENSORIUM/ORIENTATION: Yes alert Data 07/11/23 05:23 07/11/23 05:23 A&P Assessment and plan (1) UTI (urinary tract infection): Complicated GI, reviewed urine culture, ESBL E. coli. Discussed with her. Stop ceftriaxone. Start meropenem. Monitor for risk of seizure with meropenem, EtOH use, risk of withdrawal. Will need IV antibiotics for treatment of complicated UTI with multidrug-resistant organism.Continue treatment with ertapenem once ready for discharge. Reviewed vitals, CBC, CMP. (2) Inability to walk: Reviewed magnesium, has been replaced. Discussed with physical therapist. Continue therapy. Continue arrangements for rehabilitation after hospital stay. Condition is complicated by socioeconomic factors. Limited social support. Severe spinal stenosis and degenerative disc disease. Will need rehabilitation as he would not be a good candidate for surgery given EtOH use disorder, concern for lost to follow-up, poor living conditions and social support. Unable to get up and take care of herself at home, EMS was called by the neighbor. This likely may be compounded by urinary tract infection, hyponatremia, possible alcohol withdrawal. Lidocaine patch. Acetaminophen, hydrocodone for moderate pain. IV Dilaudid as needed for severe breakthrough. (3) Chronic alcohol use: Reviewed CIWA score, so far doing okay. Had hallucinations initially but without recurrence. If no withdrawal by tomorrow likely should in the clear. At risk of severe withdrawal, seizure precautions. Vitamin supplementation requested. At risk of severe withdrawal. Seizure precaution. Benzodiazepine as per CIWA protocol. Monitor for any signs of altered mental status, respiratory depression. She is currently awake and alert. (4) Hyponatremia: Reviewed sodium, hyponatremia resolved. Continue regular diet. Reassess chemistry. Fall precautions. (5) Smoking addiction: Continue to encourage smoking cessation. Plan Hepatitis C, Schizoaffective disorder, COPD, DDD, Thyroid disorder: levothyroxine Goals of care: In case could not make her own decisions names her friend León or friend/Neighbor Tereza pizano as surrogate decision makers. Attestations 2 Medical Necessity Statement*: Admission of over 2 midnights anticipated for assessment management of inability to walk, complicated UTI with MDRO, requiring change of antibiotic, risk of seizure, inability to walk, continue to posthospitalization planning and arrangements. and High MDM includes amount and/or complexity of data reviewed/ordered [ resulted lab(s)/test(s), ordered lab(s)/test(s) and other healthcare professional discussion] and described risk of complication, morbidity or mortality of management as documented Diagnoses UTI (urinary tract infection) N39.0 Inability to walk R26.2 Chronic alcohol use Z72.89 Hyponatremia E87.1 Smoking addiction F17.200
[2023-07-12] VITALS (8 sets, daily range): BP systolic 99–138; BP diastolic 66–90; PULSE 66–89; RESP 16–18; TEMP 36.4–37; O2SAT 97–99
[2023-07-12] MEDS: meropenem 1,000 MG in sodium chloride 0.9% (plus) 50 ML 100 MG IV ×3 (00:30→17:10)
[2023-07-12] MEDS: levothyroxine 150 mcg Tablet PO (05:08)
[2023-07-12] MEDS: heparin 5,000 unit/mL INJ 1 mL 5000 UNIT SUBCUT ×2 (05:08→17:10)
[2023-07-12 06:40] LABS: Basophils % 0.4 %; Eosinophils # 0.1 10^3/uL (0.0-0.8); Eosinophils % 1.7 %; Lymphocytes # 1.5 10^3/uL (0.8-4.8); Lymphocytes % 28.2 %; Mean Corpuscular HGB Conc 33.4 g/dL (30-55); Mean Corpuscular Hemoglobin 36.8 pg (27-33); Mean Platelet Volume 10.8 fL (7.4-10.4); Monocytes # 0.5 10^3/uL (0.2-0.9); Monocytes % 10.2 %; Neutrophils # 3.06 10^3/uL (1.8-7.7); Neutrophils % 59.1 %; Nucleated Red Blood Cells % 0 %; Platelet Count 211 10^3/cmm (157-399); Red Blood Count 2.91 10^6/uL (3.85-5.65); Red Cell Distribution Width 13.2 % (12.1-15.1); White Blood Count 5.18 10^3/uL (3.29-11.43)
[2023-07-12 07:04] LABS: Magnesium 1.8 mg/dL (1.7-2.3)
[2023-07-12 07:06] LABS: Anion Gap 12.8 (5-19); Blood Urea Nitrogen 5 mg/dL (8-23); Calcium 8.7 mg/dL (8.5-10.5); Carbon Dioxide 25 mmol/L (22-29); Chloride 105 mmol/L (98-107); Glucose 95 mg/dL (65-115); Osmolality Calculated 285 mOsm/kg (285-295); Potassium 3.8 mmol/L (3.5-5.1); Sodium 139 mmol/L (136-145)
[2023-07-12] MEDS: folic acid 1 mg Tablet PO (08:54)
[2023-07-12] MEDS: acetaminophen 325 mg Tablet 650 MG PO ×2 (08:54→20:11)
[2023-07-12] MEDS: pantoprazole DR 40 mg Tablet PO (08:54)
[2023-07-12] MEDS: thiamine 100 mg Tablet PO (08:54)
[2023-07-12] MEDS: lidocaine 5% Patch 1 PATCH TOPICAL (08:54)
[2023-07-12] MEDS: multivitamin therapeutic Tablet 1 TAB PO (08:54)
--- NOTE | 2023-07-12 11:39 | PM.PN ---
Subjective Subjective: Denies any changes from yesterday. Reports occasional vision/shadow/brief hallucination overnight which resolved on their own. No symptoms this morning. Working with physical therapy. Vitals/I&O/Wt Last Vital Signs Temp 97.5 F L 07/12/23 07:53 Pulse 88 07/12/23 07:53 Resp 16 07/12/23 07:53 BP 134/90 07/12/23 07:53 Pulse Ox 98 07/12/23 07:53 O2 Del Method Room Air 07/12/23 07:53 07/11/23 07/12/23 07/12/23 22:59 06:59 14:59 Intake Total 650 / 1430 50 / 1480 290 / 290 Balance 650 / 1430 50 / 1480 290 / 290 Weight last 48 hrs Weight 64.728 kg Weight 63.775 kg Physical Exam Narrative: She is oriented. Takes her some time to answer questions. Const: COMMON NORMALS: patient oriented x3 and alert GENERAL APPEARANCE: cooperative ORIENTATION/CONSCIOUSNESS: Yes awake HENMT: COMMON NORMALS: oropharynx normal TEETH & GINGIVA: Yes edentulous Neck/C-Spine: COMMON NORMALS: no JVD Resp: COMMON NORMALS: normal respiratory effort and clear to auscultation bilaterally AUSCULTATION: clear to auscultation bilaterally Cardio: COMMON NORMALS: no JVD, regular rhythm, S1 normal heart sound present, S2 normal heart sound present and No murmurs present (Cardio) RHYTHM: regular rhythm HEART SOUNDS: S1 normal heart sound present and S2 normal heart sound present GI: COMMON NORMALS: Normal to inspection, nondistended, normoactive bowel sounds present, Soft to palpation and non-tender PALPATION: Yes Soft to palpation Extremity: COMMON NORMALS: no joint enlargement and no pedal edema Neuro: COMMON NORMALS: patient oriented x3 and moves all extremities SENSORIUM/ORIENTATION: Yes alert OTHER: Lifts both legs off bed. Sensation symmetrical in LE, feels light touch. Data 07/12/23 05:58 07/12/23 05:58 A&P Assessment and plan (1) UTI (urinary tract infection): Antibiotic has been switched to meropenem. Monitor for risk of seizure with some minor signs of alcohol withdrawal. Complicated UTI w ESBL E. coli. Monitor for risk of seizure with meropenem, EtOH use, risk of withdrawal. Will need IV antibiotics for treatment of complicated UTI with multidrug-resistant organism.Continue treatment with ertapenem once ready for discharge. Reviewed vitals, CBC, CMP. Requesting midline catheter so she may complete her IV antibiotic treatment at discharge at halfway. Reviewed rifle case repairer note, should be able to go on Thursday (2) Inability to walk: Discussed with physical therapist. Working currently. Awaiting arrangements to go for rehabilitation to SNF. Condition is complicated by socioeconomic factors. Limited social support. Reviewed CBC, BMP. Reviewed magnesium. Replace additional using 1.8. Recheck magnesium. Severe spinal stenosis and degenerative disc disease. Will need rehabilitation as he would not be a good candidate for surgery given EtOH use disorder, concern for lost to follow-up, poor living conditions and social support. Unable to get up and take care of herself at home, EMS was called by the neighbor. This likely may be compounded by urinary tract infection, hyponatremia, possible alcohol withdrawal. Lidocaine patch. Acetaminophen, hydrocodone for moderate pain. IV Dilaudid as needed for severe breakthrough. (3) Chronic alcohol use: Minor delusions overnight, spontaneously resolved, possibly brief hallucinations. Overall has done well without significant alcohol withdrawal. Should be outside the window now. At risk of severe withdrawal, seizure precautions. Vitamin supplementation. At risk of severe withdrawal. Seizure precaution. Benzodiazepine as per [facility] protocol. Monitor for any signs of altered mental status, respiratory depression. She is currently awake and alert. (4) Hyponatremia: Hyponatremia resolved. Continue regular diet. Reassess chemistry. Fall precautions. (5) Smoking addiction: Continue to encourage smoking cessation. Plan Hepatitis C, Schizoaffective disorder, continue ziprasidone COPD, DDD, Thyroid disorder: levothyroxine Goals of care: In case could not make her own decisions names her friend León or friend/Neighbor Tereza pizaon as surrogate decision makers. Attestations Medical Necessity Statement*: Admission of over 2 midnights anticipated for assessment management of inability to walk, complicated UTI with MDRO, requiring change of antibiotic, risk of seizure, posthospitalization planning and arrangements. Diagnoses UTI (urinary tract infection) N39.0 Inability to walk R26.2 Chronic alcohol use Z72.89 Hyponatremia E87.1 Smoking addiction F17.200
[2023-07-12] MEDS: HYDROcodone-acetaminophen 5-325 mg Tablet 1 TAB PO (14:09)
[2023-07-12] MEDS: magnesium sulfate premix 1 GM/100 ML PIGGYBACK IV (14:12)
--- NOTE | 2023-07-12 14:30 | PC.NURSE ---
Midline placed to right basilic vein. Referred to vascular access nurse for IV antibiotics at discharge and poor access. Pt alert and oriented. Risks and benefits discussed and informed consent obtained from patient. Right arm assessed with right basilic vein measuring 3.6 mm, straight, and apparent best choice for placement. Using sterile technique and MST, right basilic vein accessed x 1 stick. Mid-arm circumference measured 10 cm from right AC 24 cm. Trimmed cath 10 cm with external length 1 cm noted. Line secured with stat-lock. Insertion site covered with Biopatch and TSM. Report given to bedside nurseShawnee.
[2023-07-12] MEDS: ziprasidone hcl 60 mg Capsule PO (20:11)
[2023-07-13] VITALS (8 sets, daily range): BP systolic 116–158; BP diastolic 63–100; PULSE 61–85; RESP 17–18; TEMP 36.4–36.7; O2SAT 97–99
[2023-07-13] MEDS: meropenem 1,000 MG in sodium chloride 0.9% (plus) 50 ML 100 MG IV ×3 (00:43→17:48)
[2023-07-13 04:48] LABS: Basophils % 0.7 %; Eosinophils # 0.2 10^3/uL (0.0-0.8); Eosinophils % 3.5 %; Hematocrit 31.3 % (36-47); Lymphocytes # 1.9 10^3/uL (0.8-4.8); Lymphocytes % 42.1 %; Mean Corpuscular HGB Conc 33.2 g/dL (30-55); Mean Corpuscular Hemoglobin 36.9 pg (27-33); Monocytes # 0.6 10^3/uL (0.2-0.9); Monocytes % 12.4 %; Neutrophils # 1.83 10^3/uL (1.8-7.7); Neutrophils % 40.6 %; Nucleated Red Blood Cells % 0 %; Platelet Count 179 10^3/cmm (157-399); Red Blood Count 2.82 10^6/uL (3.85-5.65); Red Cell Distribution Width 13.3 % (12.1-15.1); White Blood Count 4.51 10^3/uL (3.29-11.43)
[2023-07-13 05:20] LABS: Magnesium 2.1 mg/dL (1.7-2.3)
[2023-07-13 05:22] LABS: Blood Urea Nitrogen 6 mg/dL (8-23); Calcium 8.7 mg/dL (8.5-10.5); Carbon Dioxide 25 mmol/L (22-29); Chloride 105 mmol/L (98-107); Glomerular Filtration Rate 71.1 mL/min (90-130); Glucose 88 mg/dL (65-115); Osmolality Calculated 285 mOsm/kg (285-295); Sodium 139 mmol/L (136-145)
[2023-07-13 05:25] LABS: Anion Gap 13.2 (5-19); Potassium 4.2 mmol/L (3.5-5.1)
[2023-07-13] MEDS: heparin 5,000 unit/mL INJ 1 mL 5000 UNIT SUBCUT ×2 (06:04→17:49)
[2023-07-13] MEDS: levothyroxine 150 mcg Tablet PO (06:04)
[2023-07-13] MEDS: lidocaine 5% Patch 1 PATCH TOPICAL ×2 (08:55→20:48)
[2023-07-13] MEDS: pantoprazole DR 40 mg Tablet PO (08:55)
[2023-07-13] MEDS: multivitamin therapeutic Tablet 1 TAB PO (08:55)
[2023-07-13] MEDS: HYDROcodone-acetaminophen 5-325 mg Tablet 1 TAB PO (08:55)
[2023-07-13] MEDS: folic acid 1 mg Tablet PO (08:55)
[2023-07-13] MEDS: thiamine 100 mg Tablet PO (08:55)
[2023-07-13] MEDS: ziprasidone hcl 60 mg Capsule PO (20:48)
--- NOTE | 2023-07-13 22:43 | P.PN_ITS ---
Subjective 2 Subjective: no new complaints today, she asks when she can leave the hospital. Vitals/I&O/Wt Last Vital Signs Temp 97.9 F 07/13/23 20:00 Pulse 85 07/13/23 20:00 Resp 18 07/13/23 20:00 BP 116/63 07/13/23 20:00 Pulse Ox 97 07/13/23 20:00 O2 Del Method Room Air 07/13/23 20:00 07/13/23 07/13/23 07/13/23 06:59 14:59 22:59 Intake Total 50 / 1090 970 / 970 290 / 1260 Balance 50 / 1090 970 / 970 290 / 1260 Weight last 48 hrs Weight 64.495 kg Weight 64.728 kg Physical Exam 2 Narrative: General: No acute distress, AO x3 HEENT: PERRLA, pupils bilaterally equal and reactive, pallors not present Chest: Normal vesicular breath sounds, no added sounds, equal good air entry bilaterally CVS: S1-S2 regular, no murmurs, no tachycardia, no gallops, no rubs Abdomen: Soft, nontender, no organomegaly, bowel sounds present Data 07/13/23 04:25 07/13/23 04:25 A&P Assessment and plan (1) UTI (urinary tract infection): Antibiotic has been switched to meropenem. Monitor for risk of seizure with some minor signs of alcohol withdrawal. Complicated UTI w ESBL E. coli. Monitor for risk of seizure with meropenem, EtOH use, risk of withdrawal. Will need IV antibiotics for treatment of complicated UTI with multidrug-resistant organism.Continue treatment with ertapenem once ready for discharge. Reviewed vitals, CBC, CMP. Requesting midline catheter so she may complete her IV antibiotic treatment at discharge at shelter. Reviewed outpatient case manager note, should be able to go on Thursday (2) Inability to walk: Discussed with physical therapist. Working currently. Awaiting arrangements to go for rehabilitation to SNF. Condition is complicated by socioeconomic factors. Limited social support. Reviewed CBC, BMP. Reviewed magnesium. Replace additional using 1.8. Recheck magnesium. Severe spinal stenosis and degenerative disc disease. Will need rehabilitation as he would not be a good candidate for surgery given EtOH use disorder, concern for lost to follow-up, poor living conditions and social support. Unable to get up and take care of herself at home, EMS was called by the neighbor. This likely may be compounded by urinary tract infection, hyponatremia, possible alcohol withdrawal. Lidocaine patch. Acetaminophen, hydrocodone for moderate pain. IV Dilaudid as needed for severe breakthrough. (3) Chronic alcohol use: Minor delusions overnight, spontaneously resolved, possibly brief hallucinations. Overall has done well without significant alcohol withdrawal. Should be outside the window now. At risk of severe withdrawal, seizure precautions. Vitamin supplementation. At risk of severe withdrawal. Seizure precaution. Benzodiazepine as per [facility] protocol. Monitor for any signs of altered mental status, respiratory depression. She is currently awake and alert. (4) Hyponatremia: Hyponatremia resolved. Continue regular diet. Reassess chemistry. Fall precautions. (5) Smoking addiction: Continue to encourage smoking cessation. Plan Hepatitis C, Schizoaffective disorder, continue ziprasidone COPD, DDD, Thyroid disorder: levothyroxine Goals of care: In case could not make her own decisions names her friend León or friend/Neighbor Tereza pizano as surrogate decision makers. Plan for today 07/13/23: Patient was unable to be discharged today due to transportation problems due to inclement weather. Plan to discharge to SNF tomorrow Attestations 2 Medical Necessity Statement*: anticipating discharge over the next 24 hrs, unable to leave today due to inclemnet weather conditions Coding Level of Care Code Acute Code for Chg Fwd Diagnoses UTI (urinary tract infection) N39.0 Inability to walk R26.2 Chronic alcohol use Z72.89 Hyponatremia E87.1 Smoking addiction F17.200
[2023-07-14] VITALS (7 sets, daily range): BP systolic 114–139; BP diastolic 72–82; PULSE 62–83; RESP 18–19; TEMP 36.3–36.6; O2SAT 96–99; BMI 25.8
[2023-07-14] MEDS: meropenem 1,000 MG in sodium chloride 0.9% (plus) 50 ML 100 MG IV ×2 (01:56→09:44)
[2023-07-14] MEDS: levothyroxine 150 mcg Tablet PO (05:01)
[2023-07-14] MEDS: heparin 5,000 unit/mL INJ 1 mL 5000 UNIT SUBCUT (05:02)
[2023-07-14 05:44] LABS: Basophils % 0.6 %; Eosinophils # 0.3 10^3/uL (0.0-0.8); Eosinophils % 5.4 %; Hematocrit 32.6 % (36-47); Lymphocytes # 1.9 10^3/uL (0.8-4.8); Lymphocytes % 38.4 %; Mean Corpuscular HGB Conc 33.4 g/dL (30-55); Mean Corpuscular Hemoglobin 36.6 pg (27-33); Mean Corpuscular Volume 109.4 fl (85-98); Mean Platelet Volume 10.9 fL (7.4-10.4); Monocytes # 0.6 10^3/uL (0.2-0.9); Monocytes % 12.7 %; Neutrophils # 2.09 10^3/uL (1.8-7.7); Neutrophils % 42.1 %; Nucleated Red Blood Cells % 0 %; Platelet Count 218 10^3/cmm (157-399); Red Blood Count 2.98 10^6/uL (3.85-5.65); Red Cell Distribution Width 13.2 % (12.1-15.1); White Blood Count 4.97 10^3/uL (3.29-11.43)
[2023-07-14 06:04] LABS: Blood Urea Nitrogen 8 mg/dL (8-23); Calcium 9.4 mg/dL (8.5-10.5); Carbon Dioxide 26 mmol/L (22-29); Chloride 104 mmol/L (98-107); Glomerular Filtration Rate 71.1 mL/min (90-130); Glucose 94 mg/dL (65-115); Osmolality Calculated 284 mOsm/kg (285-295); Sodium 138 mmol/L (136-145)
[2023-07-14] MEDS: HYDROcodone-acetaminophen 5-325 mg Tablet 1 TAB PO (09:44)
[2023-07-14] MEDS: folic acid 1 mg Tablet PO (09:44)
[2023-07-14] MEDS: multivitamin therapeutic Tablet 1 TAB PO (09:44)
[2023-07-14] MEDS: pantoprazole DR 40 mg Tablet PO (09:44)
[2023-07-14] MEDS: thiamine 100 mg Tablet PO (09:44)
[2023-07-14] MEDS: lidocaine 5% Patch 1 PATCH TOPICAL (09:45)
--- NOTE | 2023-07-14 10:58 | P.DS_ITS ---
Discharge Providers Date of Admission: 07/08/23 16:57 Date of Discharge: July 14, 2023 Attending Provider at Admission: Yousuf Renee Attending Provider at Discharge: Shannan Thorne MD Primary Care Provider: Vivian Roblero MD Diagnoses at Discharge Discharge Diagnosis (1) UTI (urinary tract infection): Status: Acute (2) Inability to walk: Status: Acute (3) Chronic alcohol use: Status: Acute Permanent problem details: Consumes vodka daily. (4) Hyponatremia: Status: Acute (5) Smoking addiction: Status: Acute Reason for Visit Reason for Visit: Weakness Hospital Course Hospital Course 68 year old Female with alcohol use disorder living independently, but apparently helped by a friend and neighbor . She was brought to the ER on 07/08 after her neighbor found her to be confused and disheveled. She reported drinking vodka just the night prior. There have been concerns from her family that she is unable to care for herself at home and has had recurrent falls. with reported fall lumbar spine CT obtained showing severe central stenosis L4-5, remote fractures T12-L4.? Not likely to make a good surgical candidate so discussed with her effort for rehabilitation.? She was evlauted by PT and showed decreased attention, decreased endurance, poor safety awareness. She was a max 2 person assist. Ongoing rehabilition was recommended and she is being transferred to SNF fo rthe same. She may have underlying wernicke's encephalopathy as she tends to be forgetful and confabulates parts of her history. She is on daily thiamine supplementation for the same. Initially some concern for alcohol withdrawal, mild hallucinations, which are much imrpoved.?She has a positive UA for which urine cx was checked and she was found to have ESBL E.coli UTI for which she received meropenem during admission. She will complete total 7 days of abx (received 4 days inpatient,has 3 remaining days at SNF) for the same. She remained afberile, hemodynamically stable, without leukocytosis. Physical Exam Narrative: General: No acute distress, AO x3 HEENT: PERRLA, pupils bilaterally equal and reactive, pallors not present Chest: Normal vesicular breath sounds, no added sounds, equal good air entry bilaterally CVS: S1-S2 regular, no murmurs, no tachycardia, no gallops, no rubs Abdomen: Soft, nontender, no organomegaly, bowel sounds present Neuro: No focal deficits, no facial deformity, AO x3, power 5/5 in all limbs Discharge Data Studies Completed and Pending Completed Studies During Hospitalization Category Date Time Status CT head wo con* [id number] Stat Cat Scan 07/08/23 10:[address] lumbar spine wo con* [id number] Stat Cat Scan 07/08/23 10:44 Completed Laboratory Results WBC 4.97 10^3/uL (3.29-11.43) 07/14/23 05:06 RBC 2.98 10^6/uL (3.85-5.65) L 07/14/23 05:06 Hgb 10.90 g/dL (11.27-16.99) L 07/14/23 05:06 Hct 32.6 % (36-47) L 07/14/23 05:06 MCV 109.4 fl (85-98) H 07/14/23 05:06 MCH 36.6 pg (27-33) H 07/14/23 05:06 MCHC 33.4 g/dL (30-55) 07/14/23 05:06 RDW 13.2 % (12.1-15.1) 07/14/23 05:06 Plt Count 218 10^3/cmm (157-399) 07/14/23 05:06 MPV 10.9 fL (7.4-10.4) H 07/14/23 05:06 Neut % (Auto) 42.1 % 07/14/23 05:06 Lymph % (Auto) 38.4 % 07/14/23 05:06 [place] % (Auto) 12.7 % 07/14/23 05:06 Eos % (Auto) 5.4 % 07/14/23 05:06 Baso % (Auto) 0.6 % 07/14/23 05:06 Neut # (Auto) 2.09 10^3/uL (1.8-7.7) 07/14/23 05:06 Lymph # (Auto) 1.9 10^3/uL (0.8-4.8) 07/14/23 05:06 [place] # (Auto) 0.6 10^3/uL (0.2-0.9) 07/14/23 05:06 Eos # (Auto) 0.3 10^3/uL (0.0-0.8) 07/14/23 05:06 Baso # (Auto) 0.0 10^3/uL (0.0-0.1) 07/14/23 05:06 Nucleated RBC % (auto) 0 % 07/14/23 05:06 Nucleated RBCs # 0.0 /100WBC 07/14/23 05:06 Sodium 138 mmol/L (136-145) 07/14/23 05:06 Potassium 4.0 mmol/L (3.5-5.1) 07/14/23 05:06 Chloride 104 mmol/L (98-107) 07/14/23 05:06 Carbon Dioxide 26 mmol/L (22-29) 07/14/23 05:06 Anion Gap 12.0 (5-19) 07/14/23 05:06 BUN 8 mg/dL (8-23) 07/14/23 05:06 Creatinine 0.8 mg/dL (0.5-0.9) 07/14/23 05:06 GFR Calculation 71.1 mL/min (90-130) L 07/14/23 05:06 Glucose 94 mg/dL (65-115) 07/14/23 05:06 Calculated Osmolality 284 mOsm/kg (285-295) L 07/14/23 05:06 Calcium 9.4 mg/dL (8.5-10.5) 07/14/23 05:06 Magnesium 2.1 mg/dL (1.7-2.3) 07/13/23 04:25 Total Bilirubin 0.2 mg/dL (0.15-1.2) 07/11/23 05:23 AST 29 U/L (0-32) 07/11/23 05:23 ALT 17 U/L (0-33) 07/11/23 05:23 Alkaline Phosphatase 59 U/L (35-105) 07/11/23 05:23 Troponin T Baseline 21 ng/L (0-10) H 07/08/23 10:32 Troponin T 120 Minute 20.63 ng/L (0-10) H 07/08/23 12:26 Delta Troponin T -0.37 ABS# (0-10) L 07/08/23 12:26 Troponin T Hi Sens 6Hr 21.97 ng/L (0-10) H 07/08/23 16:58 Troponin T Hi Sens 6Hr Delta 0.97 ng/L (0-12) 07/08/23 16:58 Total Protein 5.8 g/dL (6.6-8.7) L 07/11/23 05:23 Albumin 3.0 g/dL (3.5-5.2) L 07/11/23 05:23 Globulin 2.8 g/dL (1.3-4.6) 07/11/23 05:23 Vitamin B12 435 pg/mL (232-1245) 07/10/23 05:04 Vitamin B12 Cancelled 07/10/23 05:04 TSH 0.56 uIU/mL (0.27-4.20) 07/08/23 16:58 Urine Color Light yellow (Yellow) 07/08/23 12:05 Urine Appearance Sl hazy (CLEAR) A 07/08/23 12:05 Urine pH 7 (5-7) 07/08/23 12:05 Ur Specific [place] 1.005 (1.005-1.030) 07/08/23 12:05 Urine Protein Neg (Negative) 07/08/23 12:05 Urine Glucose (UA) Norm (Normal) 07/08/23 12:05 Urine Ketones Negative (Negative) 07/08/23 12:05 Urine Blood Trace (Negative) H 07/08/23 12:05 Urine Nitrate Negative (Negative) 07/08/23 12:05 Urine Bilirubin Neg (Negative) 07/08/23 12:05 Urine Urobilinogen Norm mg/dL (Negative) 07/08/23 12:05 Ur Leukocyte Esterase 2+ (Negative) H 07/08/23 12:05 Urine RBC 0-4 /hpf (0-2) H 07/08/23 12:05 Urine WBC 15-25 /hpf (0-5) H 07/08/23 12:05 Ur Squamous Epith Cells 5-10 /hpf (0-5) H 07/08/23 12:05 Ur Transition Epith Cell 0-4 /hpf 07/08/23 12:05 Amorphous Sediment Not Reportable 07/08/23 12:05 Urine Bacteria 2+ /hpf (NONE) H 07/08/23 12:05 Urine Mucus Trace /hpf 07/08/23 12:05 Ethyl Alcohol < 10 mg/dL (0-10) 07/08/23 12:26 Influenza Type A Ag negative (Negative) 07/08/23 14:20 Influenza Type B Ag negative (Negative) 07/08/23 14:20 SARS-CoV-2 Ag (Rapid) negative (Negative) 07/08/23 14:20 Vitals Last Vital Signs Temp 97.5 F L 07/14/23 08:19 Pulse 75 07/14/23 08:19 Resp 18 07/14/23 08:19 BP 122/82 07/14/23 08:19 Pulse Ox 98 07/14/23 08:19 O2 Del Method Room Air 07/14/23 08:19 Discharge Plan Discharge Patient Disposition: Xfer SNF Condition: Stable Prescriptions: New pantoprazole 40 mg Tablet,Delayed Release (Dr/Ec) 40 mg PO DAILY 30 Days Qty: 30 0RF thiamine mononitrate (vit B1) [Vitamin B-1 (mononitrate)] 100 mg Tablet 100 mg PO DAILY 30 Days Qty: 30 0RF Continued trazodone 50 mg tablet 50 mg PO BEDTIME levothyroxine 150 mcg tablet 150 mcg PO QAM ziprasidone HCl 60 mg capsule 60 mg PO BEDTIME No Action (DME) shower chair See Rx Instructions .Route .MEDSUPPLY Qty: 1 0RF Rx Instructions: As directed Discharge Orders: Discharge Order (Routine); Ordered 07/14/23 Ordered By: Shannan Thorne Referrals: [facility] [Outside] Vivian Roblero MD [Primary Care Provider] - Patient Instructions: Opioid Safety, Pain Management Discharge Attestations Time Spent in Discharge Care*: greater than 30 min Status at Discharge: Cognitive status at discharge: mildly impaired cognition , Behavioral status at discharge: cooperative , Quality Metrics Clinical Quality Measures [ No reported AMI, CVA or VTE this stay] Coding Level of Care Code Acute Code for Chg Fwd Diagnoses UTI (urinary tract infection) N39.0 Inability to walk R26.2 Chronic alcohol use Z72.89 Hyponatremia E87.1 Smoking addiction F17.200
[2023-07-14] MEDS: ertapenem 1,000 MG in sodium chloride 0.9% (plus) 100 ML 200 MG IV (11:30)
--- NOTE | 2023-07-14 16:43 | PC.NURSE ---
Discharge Note Patient discharged to [facility] via transport accompanied by transport vehicle. Discharge instructions reviewed with patient and/or tax representative. Mobile pharmacy medications and/or prescriptions provided. Belongings/home medications returned.
== END 2023-07-14 16:47 | disposition short-term general hospital (02) | DRG 690 ==
LOC: ER 15:59 → MEDSURG 16:57
PROVIDERS: Admitting Provider Internal Medicine; Emergency Provider Family Medicine; PCP Family Medicine; Visit Provider Student in an Organized Health Care Education/Training Program
DX: N39.0 Urinary tract infection, site not specified (principal); Z16.12 Extended spectrum beta lactamase (ESBL) resistance; Z16.24 Resistance to multiple antibiotics; E51.2 Wernicke's encephalopathy; F10.139 Alcohol abuse with withdrawal, unspecified; E87.1 Hypo-osmolality and hyponatremia; B96.20 Unspecified Escherichia coli [E. coli] as the cause of diseases classified elsewhere; F17.210 Nicotine dependence, cigarettes, uncomplicated; Y90.0 Blood alcohol level of less than 20 mg/100 ml; L40.9 Psoriasis, unspecified; B19.20 Unspecified viral hepatitis C without hepatic coma; F25.9 Schizoaffective disorder, unspecified; J44.9 Chronic obstructive pulmonary disease, unspecified; M51.36 Other intervertebral disc degeneration, lumbar region; M48.061 Spinal stenosis, lumbar region without neurogenic claudication; R29.6 Repeated falls; E05.90 Thyrotoxicosis, unspecified without thyrotoxic crisis or storm
CPT/HCPCS: 36415; 36569; 36573; 36592; 51701; 70450; 72131; 80048; 80053; 80307; 81001; 82607; 83735; 84295; 84443; 84484; 85025; 87077; 87086; 87186; 87426; 87804; 93005; 96365; 96372; 97110; 97116; 97161; 97162; 97167; 97530; 97535; 99285; C1751; J0696; J1335; J1644; J2185; J3411; J3475

== ENCOUNTER 2023-12-10 10:42 | Outpatient (CLI) | payer MEDICARE, MEDICAID, SELFPAY ==
--- NOTE | 2023-12-10 10:47 | XRR_ITS ---
PROCEDURE INFORMATION: Exam: XR Lumbosacral Spine Exam date and time: 12/10/2023 10:52 AM Age: 68 years old Clinical indication: Injury or trauma; Fall; Blunt trauma (contusions or hematomas); Injury date: 10/23/23; Injury details: Fell on back Oct 23 2023, previous fracture; Additional info: M54.50 - low back pain, unspecified TECHNIQUE: Imaging protocol: Radiologic exam of the lumbosacral spine. Views: 2 or 3 views. COMPARISON: CT lumbar spine wo con* [id number] 07/08/2023 11:01 AM FINDINGS: Bones/joints: Mild degenerative disc disease reflected as a decrease in disc space height and anterior endplate osteophytosis. No spondylolisthesis. No pars defect. 10 degree levocurvature centered at L2-L3. Compression fracture involving anterior and to a lesser degree the middle column of L4, anterior middle columns of L3 as well as T12. Soft tissues: Unremarkable. Vasculature: Calcification of the abdominal aorta. XR/XR lumbar spine 2-3V* [id number] IMPRESSION: Compression fracture involving anterior and to a lesser degree the middle column of L4, anterior middle columns of L3 as well as T12. Fractures at L3 and T12 represent a change from the CT dated 07-08-23.
== END 2023-12-10 10:43 | disposition home or self-care (01) ==
PROVIDERS: PCP Family Medicine; Visit Provider Family Medicine
DX: M51.36 Other intervertebral disc degeneration, lumbar region (principal); S32.049A Unspecified fracture of fourth lumbar vertebra, initial encounter for closed fracture; S22.089A Unspecified fracture of T11-T12 vertebra, initial encounter for closed fracture; S32.039A Unspecified fracture of third lumbar vertebra, initial encounter for closed fracture; M25.78 Osteophyte, vertebrae; X58.XXXA Exposure to other specified factors, initial encounter
CPT/HCPCS: 72100

== ENCOUNTER → 2024-04-07 12:21 | Outpatient (BNVA) | payer MEDICARE, MEDICAID, SELFPAY | PROVIDERS: PCP Family Medicine; Visit Provider Family Medicine | DX: E89.0 Postprocedural hypothyroidism (principal); D64.9 Anemia, unspecified; E88.09 Other disorders of plasma-protein metabolism, not elsewhere classified; F10.20 Alcohol dependence, uncomplicated | CPT/HCPCS: 80053; 80061; 82607; 82728; 83540; 83550; 84443; 85025 ==

== ENCOUNTER → 2024-05-02 14:14 | Outpatient (BNVA) | payer MEDICARE, MEDICAID, SELFPAY | PROVIDERS: PCP Family Medicine; Visit Provider Family Medicine | DX: M25.552 Pain in left hip (principal) | CPT/HCPCS: 73502 ==

== ENCOUNTER 2024-05-10 12:39 | Outpatient (CLI) | payer MEDICARE, MEDICAID, SELFPAY ==
--- NOTE | 2024-05-10 12:40 | MM_ITS ---
WS: [id number] BILATERAL 3D TOMOSYNTHESIS DIGITAL SCREENING MAMMOGRAPHY WITH CAD CLINICAL INFORMATION: Z12.39 - Encounter for other screening for malignant neop... HISTORY: Screening mammogram. No current complaints. COMPARISON: New baseline TECHNIQUE: Bilateral CC and MLO views. FINDINGS: The breasts are composed of heterogeneous fibroglandular density tissue, which can limit the detectio n of small underlying mass lesions. No suspicious mass, asymmetry, calcifications, or architectural d istortion. No evidence of malignancy. Incidental lucent centered calcifications LEFT breast. MM/MM [facility] tomosynthesis [id number] IMPRESSION: DENSITY: The breasts are heterogeneously dense, which may obscure small masses. BI-RADS: 2 - Benign FOLLOW UP: 1 Year Follow-up Recommend return to annual screening mammography.
== END 2024-05-10 12:40 | disposition home or self-care (01) ==
PROVIDERS: PCP Family Medicine; Visit Provider Family Medicine
DX: Z12.31 Encounter for screening mammogram for malignant neoplasm of breast (principal); R92.333 Mammographic heterogeneous density, bilateral breasts; R92.1 Mammographic calcification found on diagnostic imaging of breast
CPT/HCPCS: 77063; 77067

== ENCOUNTER 2024-10-23 20:47 | Emergency (ER) | payer MEDICARE, MEDICAID, SELFPAY ==
[2024-10-23 20:48] VITALS: BP 164/109; PULSE 118; RESP 20; TEMP 36.9; O2SAT 99; BMI 21.9
--- NOTE | 2024-10-23 21:02 | XRR_ITS ---
PROCEDURE INFORMATION: Exam: XR Chest Exam date and time: 10/23/2024 9:12 PM Age: 69 years old Clinical indication: Shortness of breath; SOB; Tardive dyskinesia TECHNIQUE: Imaging protocol: Radiologic exam of the chest. Views: 1 view. COMPARISON: CR XR chest 1V portable [id number] 12/18/2021 11:20 AM FINDINGS: Lungs: Mild left basilar atelectasis/scarring. No focal consolidation. Pleural spaces: Unremarkable. No pleural effusion. No pneumothorax. Heart/Mediastinum: Unremarkable. No cardiomegaly. Vasculature: Atherosclerotic aortic calcifications. Bones/joints: Unremarkable. XR/XR chest 1V portable [id number] IMPRESSION: No acute cardiopulmonary process.
--- NOTE | 2024-10-23 21:23 | W.ED.SOB ---
HPI - SOB/Dyspnea General: Chief Complaint: Shortness of Breath/Dyspnea Stated Complaint: sob Time Seen by Provider: 10/23/24 20:57 History of Present Illness: HPI Narrative: 69-year-old female with a history of schizoaffective disorder. She takes tetrabenazine for tar dive like movements. She also takes trazodone. She called an ambulance for shortness of breath earlier. She says she has not had a cough, fever, or any sputum production. She has no chest pain. She is experiencing significant facial pain from uncontrolled movements of her face, likely brought on by lack of tetrabenazine. Saturations were normal at home. She is usually not on oxygen Related Data Previous Rx's ?Medication ?Instructions ?Recorded shower chair #1 ea 11/21/22 Back brace #1 ea 12/16/23 tlso back brace #1 ea 03/14/24 nicotine See Rx Instructions transdermal 04/08/24 21mg/24hr-14mg/24hr-7mg/24hr daily .COMPLEX #56 patches transderm patches,sequentl levothyroxine 137 mcg tablet 137 mcg PO QAM #60 tabs 04/18/24 lisinopril 10 mg tablet See Rx Instructions .Route 07/08/24 .COMPLEX #30 tabs clonazepam 1 mg tablet 1 mg PO BID #60 tabs 09/12/24 sertraline 100 mg tablet 100 mg PO DAILY #30 tabs 09/12/24 ziprasidone HCl 20 mg capsule 20 mg PO BID #60 caps 09/12/24 ziprasidone HCl 80 mg capsule 80 mg PO BID #60 caps 09/12/24 pantoprazole 40 mg tablet,delayed See Rx Instructions .Route 10/07/24 release .COMPLEX #30 tabs tetrabenazine 25 mg tablet 25 mg PO BID #60 tabs 10/23/24 trazodone 100 mg tablet See Rx Instructions .Route 10/23/24 .COMPLEX #30 tabs Allergies Allergy/AdvReac Type Severity Reaction Status Date / Time Penicillins Allergy Unknown Verified 10/23/24 20:50 [facility] ED PFSH: Medical History History of hepatitis C negative viral load following treatment Enrolled in chronic care management Psoriasis Hypoglycemia Skin tear of right upper extremity Alcohol intoxication Elevated lactic acid level Closed fracture of inferior pubic ramus Altered mental status High anion gap metabolic acidosis Chronic alcohol use Consumes vodka daily. Insomnia Anxiety Chronic obstructive pulmonary disease Schizoaffective disorder Schizoaffective disorder Chronic back pain DDD (degenerative disc disease) Hyperthyroidism Surgical History History of cataract extraction with lens replacement Family History Denies family history of Diabetes CAD (coronary artery disease) Cancer Stroke Social History Smoking and tobacco/nicotine status: current every day tobacco/nicotine user cigarettes Packs smoked per day: 1 Years cigarettes smoked: 55 Second hand smoke exposure: Yes Alcohol intake: former Year of sobriety/quit date alcohol: 2023 Substance/Drug Use: never Lives independently: Yes Household members: friend(s) Marital status: / Number of children: 0 Current occupational 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 Eye: COMMON NORMALS: EOMs intact bilaterally Chest: CHEST: Yes Symmetrical chest wall rise Resp: COMMON NORMALS: normal respiratory effort, No use of accessory muscles and clear to auscultation bilaterally AUSCULTATION: clear to auscultation bilaterally Cardio: COMMON NORMALS: regular rate and regular rhythm RATE: regular rate RHYTHM: regular rhythm Neuro: SENSORIUM/ORIENTATION: Yes alert, Yes oriented to person, Yes oriented to place and Yes oriented to time Course Vital Signs: Vital signs: Vital Signs Temperature 98.5 F 10/23/24 20:48 Pulse Rate 90 10/23/24 22:48 Respiratory Rate 18 10/23/24 22:48 Blood Pressure 144/69 10/23/24 22:37 Pulse Oximetry 95 10/23/24 22:48 Oxygen Delivery Me thod Room Air 10/23/24 22:48 Oxygen Flow Rate 2 10/23/24 21:46 MDM - SOB/Dyspnea Medical Decision Making Patient given lorazepam 2 help with involuntary mouth movements. Vitals have been stable here on room air. Chest x-ray is negative. She is given 1 breathing treatment with some improvement as well. Tetrabenazine and trazodone have been refilled for the patient. She will be discharged. Outpatient follow-up. Return for worsening symptoms. Lab Data Labs/Radiology: Radiology Impressions Chest X-Ray 10/23/24 21:02 IMPRESSION: No acute cardiopulmonary process. All radiology interpretation(s) finalized by discharge Discharge Plan Discharge Patient Disposition: Home Clinical Impression: Tardive dyskinesia, Anxiety Condition: Stable Prescriptions: Continued trazodone 100 mg tablet See Rx Instructions .ROUTE .COMPLEX Qty: 30 0RF Dose Instruction: TAKE ONE TABLET BY MOUTH DAILY Rx Instructions: TAKE ONE TABLET BY MOUTH DAILY tetrabenazine 25 mg tablet 25 mg PO BID Qty: 60 0RF No Action nicotine 21-14-7 mg/24 hr patch, TD daily, sequential See Rx Instructions transdermal .COMPLEX Qty: 56 0RF Rx Instructions: apply 1-21 mg NICOTINE PATCH daily for 28 days; follow with 1-14 mg PATCH daily for 14 days, then 1-7mg PATCH daily for 14 days transdermal (DME) shower chair See Rx Instructions .Route .MEDSUPPLY Qty: 1 0RF Rx Instructions: As directed (DME) Back brace See Rx Instructions .Route .MEDSUPPLY Qty: 1 0RF Rx Instructions: As directed (DME) tlso back brace See Rx Instructions .Route .MEDSUPPLY Qty: 1 0RF Rx Instructions: L3, L4.T12 compression fracture Wear as directed for the next two months. levothyroxine 137 mcg tablet 137 mcg PO QAM Qty: 60 3RF lisinopril 10 mg tablet See Rx Instructions .ROUTE .COMPLEX Qty: 30 0RF Dose Instruction: TAKE 1 TABLET BY MOUTH DAILY Rx Instructions: TAKE 1 TABLET BY MOUTH DAILY ziprasidone HCl 20 mg capsule 20 mg PO BID Qty: 60 0RF Rx Instructions: give with food (meal/snack) ziprasidone HCl 80 mg capsule 80 mg PO BID Qty: 60 0RF Rx Instructions: give with food (meal/snack) clonazepam 1 mg tablet 1 mg PO BID Qty: 60 0RF sertraline 100 mg tablet 100 mg PO DAILY Qty: 30 0RF pantoprazole 40 mg tablet,delayed release (DR/EC) See Rx Instructions .ROUTE .COMPLEX Qty: 30 0RF Dose Instruction: TAKE ONE TABLET BY MOUTH DAILY Rx Instructions: TAKE ONE TABLET BY MOUTH DAILY Discharge Orders: Discharge ED (Routine); Ordered 10/23/24 Ordered By: Trevor Harper Referrals: Cherrie Cosme MD [Primary Care Provider, [facility]] - 1-3 days Patient Instructions: Dyspnea (ED), Anxiety (ED), Opioid Safety, Pain Management Activity Restrictions/Additional Instructions: Return for fever, cough, worsening shortness of breath. Medications as directed. Make sure you fill them tomorrow. Print Language: Icelandic Coding Level of Care Code ED Ear Specialist for Anyi Cunningham
[2024-10-23] MEDS: LORazepam 1 MG/0.5 ML injection IVP ×2 (21:44→22:27)
[2024-10-23 21:46] VITALS: BP 156/122; PULSE 112; O2SAT 99
[2024-10-23 22:37] VITALS: BP 144/69; PULSE 102; O2SAT 98
[2024-10-23] MEDS: ipratropium-albuterol 3 mL Neb INHALATION (22:42)
[2024-10-23 22:43] VITALS: PULSE 88; RESP 18; O2SAT 99
[2024-10-23 22:48] VITALS: PULSE 90; RESP 18; O2SAT 95
== END 2024-10-23 23:04 | disposition home or self-care (01) ==
PROVIDERS: Emergency Provider Emergency Medicine; PCP Family Medicine
DX: G24.01 Drug induced subacute dyskinesia (principal); F41.9 Anxiety disorder, unspecified; F17.210 Nicotine dependence, cigarettes, uncomplicated
CPT/HCPCS: 71045; 94640; 96374; 96376; 99284; J2060; J9999

== ENCOUNTER 2024-11-19 08:20 | Emergency (ER) | payer MEDICARE, MEDICAID, SELFPAY ==
[2024-11-19 08:21] VITALS: BP 117/91; PULSE 84; RESP 18; TEMP 37; O2SAT 99
--- NOTE | 2024-11-19 08:31 | XRR_ITS ---
PROCEDURE INFORMATION: Exam: XR Chest Exam date and time: 11/19/2024 8:35 AM Age: 69 years old Clinical indication: Shortness of breath; SOB TECHNIQUE: Imaging protocol: Radiologic exam of the chest. Views: 1 view. COMPARISON: CR (CHEST, ) 10/23/2024 9:12 PM FINDINGS: Lungs: Unremarkable. No consolidation. Pleural spaces: Unremarkable. No pleural effusion. No pneumothorax. Heart/Mediastinum: Unremarkable. No cardiomegaly. Vasculature: Atherosclerotic aortic calcifications. Bones/joints: Unremarkable. XR/XR chest 1V portable [id number] IMPRESSION: No acute cardiopulmonary process.
--- NOTE | 2024-11-19 08:39 | W.ED.GENADLT ---
HPI - General Adult General: Chief complaint: General Medical Stated complaint: SHAKES Time Seen by Provider: 11/19/24 08:31 History of Present Illness: Patient presents complaining that she is out of her tardive dyskinesia medicine. She states she is also out of her Klonopin. She states she has been out of her Klonopin for a long time for many months. The tetrabenazine she has been out of for 2 days. She states since she ran out of it she has felt some shortness of breath and shakiness. No cough. No headache. No fever. No chest pain. No abdominal pain. No leg pain or swelling. Related Data Previous Rx's ?Medication ?Instructions ?Recorded shower chair #1 ea 11/21/22 Back brace #1 ea 12/16/23 tlso back brace #1 ea 03/14/24 nicotine See Rx Instructions transdermal 04/08/24 21mg/24hr-14mg/24hr-7mg/24hr daily .COMPLEX #56 patches transderm patches,sequentl levothyroxine 137 mcg tablet 137 mcg PO QAM #60 tabs 04/18/24 lisinopril 10 mg tablet See Rx Instructions .Route 07/08/24 .COMPLEX #30 tabs clonazepam 1 mg tablet 1 mg PO BID #60 tabs 09/12/24 ziprasidone HCl 20 mg capsule 20 mg PO BID #60 caps 09/12/24 ziprasidone HCl 80 mg capsule 80 mg PO BID #60 caps 09/12/24 pantoprazole 40 mg tablet,delayed See Rx Instructions .Route 10/07/24 release .COMPLEX #30 tabs tetrabenazine 25 mg tablet 25 mg PO BID #60 tabs 10/23/24 trazodone 100 mg tablet See Rx Instructions .Route 10/23/24 .COMPLEX #30 tabs sertraline 100 mg tablet 100 mg PO DAILY #30 tabs 10/24/24 albuterol sulfate 90 mcg/actuation 2 inh inhalation Q6H PRN shortness 11/19/24 aerosol inhaler (Ventolin HFA) of breath or wheezing #6.7 grams tetrabenazine 25 mg tablet 25 mg PO BID #60 tabs 11/19/24 Allergies Allergy/AdvReac Type Severity Reaction Status Date / Time Penicillins Allergy Unknown Verified 10/23/24 20:50 PFSH ED PFSH: Medical History History of hepatitis C negative viral load following treatment Enrolled in chronic care management Psoriasis Hypoglycemia Skin tear of right upper extremity Alcohol intoxication Elevated lactic acid level Closed fracture of inferior pubic ramus Altered mental status High anion gap metabolic acidosis Chronic alcohol use Consumes vodka daily. Insomnia Anxiety Chronic obstructive pulmonary disease Schizoaffective disorder Schizoaffective disorder Chronic back pain DDD (degenerative disc disease) Hyperthyroidism Surgical History History of cataract extraction with lens replacement Family History Denies family history of Diabetes CAD (coronary artery disease) Cancer Stroke Social History Smoking and tobacco/nicotine status: current every day tobacco/nicotine user cigarettes Packs smoked per day: 1 Years cigarettes smoked: 55 Second hand smoke exposure: Yes Alcohol intake: former Year of sobriety/quit date alcohol: 2023 Substance/Drug Use: never Lives independently: Yes Household members: friend(s) Marital status: / Number of children: 0 Current occupational 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 Pupils are equal and reactive. Normal conjunctive up. Patient has rhythmic repeated movements of her tongue and mouth. Heart regular rhythm. Lungs show mild diminished breath sounds bilaterally. Abdomen soft nontender. Extremities warm well-perfused no calf tenderness or pitting edema. Patient moves her arms and legs freely. Neck is supple. No rash in exposed areas. She moves her neck and back freely. Course Vital Signs: Vital signs: Vital Signs Temperature 98.6 F 11/19/24 08:21 Pulse Rate 80 11/19/24 09:26 Respiratory Rate 16 11/19/24 08:43 Blood Pressure 134/73 11/19/24 09:26 Pulse Oximetry 100 11/19/24 09:26 Oxygen Delivery Me thod Room Air 11/19/24 08:43 Oxygen Flow Rate 21 11/19/24 08:43 MDM - General Adult Medical Decision Making Patient presents complaining that she is out of her tardive dyskinesia medicine. She states she does have some shortness of breath. She states she does have a history of inhalers use but does not have a prescription for 1. She thinks she has COPD. Her symptoms are more shakiness and anxiety and her mouth movements. Patient's pulse ox is 100% on room air and she is breathing comfortably. Will screen chest x-ray and EKG however she denies fever or chest pain or cough to suggest pneumonia. She is not hypoxic. She denies recent immobility or leg pain or swelling to suggest PE. No pleurisy. I ordered a DuoNeb. Will prescribe her an albuterol inhaler refill her tardive dyskinesia medication and I ordered a dose of Benadryl 25 mg p.o. here and clonazepam 0.5 mg here for her anxiety and tardive dyskinesia. I advised limits of ED evaluation close outpatient follow-up and return instructions and we will refill her tetrabenazine. Patient agrees with plan after informed discussion. Patient EKG to my interpretation shows sinus rhythm with a rate of [address] segment changes. Chest x-ray negative for acute process to my interpretation. Patient feels okay if she has her door open but if the door is closed she starts feeling short of breath. I discussed with patient limits of ED evaluation. Patient agrees with plan after informed discussion we will discharge home with a refill of her medication that she ran out of. Patient is laying down flat in the bed breathing comfortably. She states she is feeling better. Lab Data Radiology Impressions Chest X-Ray 11/19/24 08:31 IMPRESSION: No acute cardiopulmonary process. All radiology interpretation(s) finalized by discharge Discharge Plan Discharge Patient Disposition: Home Clinical Impression: Anxiety, Tardive dyskinesia Condition: Stable Prescriptions: New tetrabenazine 25 mg tablet 25 mg PO BID Qty: 60 0RF albuterol sulfate [Ventolin HFA] 90 mcg/actuation HFA aerosol inhaler 2 inh inhalation Q6H PRN (Reason: shortness of breath or wheezing) Qty: 6.7 0RF No Action nicotine 21-14-7 mg/24 hr patch, TD daily, sequential See Rx Instructions transdermal .COMPLEX Qty: 56 0RF Rx Instructions: apply 1-21 mg NICOTINE PATCH daily for 28 days; follow with 1-14 mg PATCH daily for 14 days, then 1-7mg PATCH daily for 14 days transdermal (DME) shower chair See Rx Instructions .Route .MEDSUPPLY Qty: 1 0RF Rx Instructions: As directed (DME) Back brace See Rx Instructions .Route .MEDSUPPLY Qty: 1 0RF Rx Instructions: As directed (DME) tlso back brace See Rx Instructions .Route .MEDSUPPLY Qty: 1 0RF Rx Instructions: L3, L4.T12 compression fracture Wear as directed for the next two months. levothyroxine 137 mcg tablet 137 mcg PO QAM Qty: 60 3RF lisinopril 10 mg tablet See Rx Instructions .ROUTE .COMPLEX Qty: 30 0RF Dose Instruction: TAKE 1 TABLET BY MOUTH DAILY Rx Instructions: TAKE 1 TABLET BY MOUTH DAILY ziprasidone HCl 20 mg capsule 20 mg PO BID Qty: 60 0RF Rx Instructions: give with food (meal/snack) ziprasidone HCl 80 mg capsule 80 mg PO BID Qty: 60 0RF Rx Instructions: give with food (meal/snack) clonazepam 1 mg tablet 1 mg PO BID Qty: 60 0RF pantoprazole 40 mg tablet,delayed release (DR/EC) See Rx Instructions .ROUTE .COMPLEX Qty: 30 0RF Dose Instruction: TAKE ONE TABLET BY MOUTH DAILY Rx Instructions: TAKE ONE TABLET BY MOUTH DAILY sertraline 100 mg tablet 100 mg PO DAILY Qty: 30 0RF trazodone 100 mg tablet See Rx Instructions .ROUTE .COMPLEX Qty: 30 0RF Dose Instruction: TAKE ONE TABLET BY MOUTH DAILY Rx Instructions: TAKE ONE TABLET BY MOUTH DAILY tetrabenazine 25 mg tablet 25 mg PO BID Qty: 60 0RF Discharge Orders: Discharge ED (Routine); Ordered 11/19/24 Ordered By: Ramirez Ellsworth Referrals: Cherrie Comse MD [Primary Care Provider, Family Practice] Activity Restrictions/Additional Instructions: Come back if concerning symptoms, difficulty breathing, chest pain, fever, any worse or concerns. Please review all your medications with your doctor. Follow-up with your doctor within the next week. Follow-up on your test results with your doctor Print Language: Irish Coding Level of Care Code ED Body Shop Worker for Anyi Cunningham
[2024-11-19] MEDS: diphenhydrAMINE 25 mg Capsule PO (08:41)
[2024-11-19] MEDS: CLONazepam 0.5 mg Tablet PO (08:41)
--- NOTE | 2024-11-19 08:42 | ECG_ITS ---
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 Measurements Intervals [place] Rate: 77 P: 79 TN: 171 QRS: 23 QRSD: 78 T: 66 QT: 330 QTc: 373 Interpretive Statements SINUS RHYTHM NONSPECIFIC T-WAVE ABNORMALITY Compared to ECG 07/08/2023 16:27:09 T-wave abnormality now present Electronically Signed On 11-22-2024 11:43:44 CDT by Florentino Trejo M.D. [id number] [id number]
[2024-11-19 08:43] VITALS: PULSE 83; RESP 16; O2SAT 99
[2024-11-19] MEDS: ipratropium-albuterol 3 mL Neb INHALATION (08:47)
[2024-11-19 09:26] VITALS: BP 134/73; PULSE 80; O2SAT 100
== END 2024-11-19 09:32 | disposition home or self-care (01) ==
PROVIDERS: Emergency Provider Emergency Medicine; PCP Family Medicine
DX: F41.9 Anxiety disorder, unspecified (principal); G24.01 Drug induced subacute dyskinesia; F17.210 Nicotine dependence, cigarettes, uncomplicated
CPT/HCPCS: 12345; 71045; 93005; 94640; 99284; J9999

== ENCOUNTER → 2024-12-01 15:14 | Outpatient (BNVA) | payer MEDICARE, MEDICAID, SELFPAY | PROVIDERS: PCP Family Medicine; Visit Provider Family Medicine | DX: I10 Essential (primary) hypertension (principal); I70.90 Unspecified atherosclerosis | CPT/HCPCS: 80053; 85025 ==

== ENCOUNTER 2024-12-03 12:31 | Observation (INO) | payer MEDICARE, MEDICAID, SELFPAY ==
[2024-12-03] VITALS (11 sets, daily range): BP systolic 120–164; BP diastolic 63–89; PULSE 68–82; RESP 12–20; TEMP 36.3–36.7; O2SAT 93–96; BMI 20.4
--- NOTE | 2024-12-03 12:34 | ECG_ITS ---
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 Measurements Intervals [place] Rate: 77 P: 75 IA: 181 QRS: -34 QRSD: 73 T: 52 QT: 379 QTc: 431 Interpretive Statements SINUS RHYTHM LEFT AXIS DEVIATION [QRS AXIS < -30] Non diagnostic T wave changes LOW QRS VOLTAGE IN PRECORDIAL LEADS [QRS DEFLECTION < 1.0 mV IN CHEST LEADS] POSSIBLE RIGHT VENTRICULAR CONDUCTION DELAY [RSR (QR) IN V1/V2] POSSIBLE ANTERIOR MYOCARDIAL INFARCTION , PROBABLY OLD [30 ms Q WAVE IN V3/V4, OR R < 0.2 mV IN V4] Compared to ECG 11/19/2024 08:42:25 Left-axis deviation now present Low QRS voltage now present Myocardial infarct finding now present T-wave abnormality no longer present Electronically Signed On 12-03-2024 14:31:15 CDT by Didier Garcia M.D. [email or web address]
--- NOTE | 2024-12-03 12:37 | ED_ITS ---
HPI - Recheck/Abnormal Lab/Rx 2 General: Chief Complaint: Recheck/Abnormal Lab/Rx Stated Complaint: low potassium Time Seen by Provider: 12/03/24 12:33 History of Present Illness: 69-year-old female brought to the emerge ncy room by EMS at the direction of her primary care provider she had labs done yesterday her potassium was noted to be 2.5. She is also anemic microcytic anemia with a hemoglobin of 9.2 and MCV of 79 she has had issues with anemia in the past. Her renal function is normal and liver functions were normal. Related Data Home Medications ?Medication ?Instructions ?Recorded ?Confirmed sertraline 100 mg tablet 100 mg PO DAILY 12/03/24 Previous Rx's ?Medication ?Instructions ?Recorded shower chair #1 ea 11/21/22 Back brace #1 ea 12/16/23 pantoprazole 40 mg tablet,delayed See Rx Instructions .Route 10/07/24 release .COMPLEX #30 tabs trazodone 100 mg tablet See Rx Instructions .Route 0 10/23/24 .COMPLEX #30 tabs albuterol sulfate 90 mcg/actuation 2 inh inhalation Q6 H PRN shortness 11/19/24 aerosol inhaler (Ventolin HFA) of breath or wheezing # 6.7 grams levothyroxine 137 mcg tablet 137 mcg PO QAM #60 tabs 0 12/01/24 tetrabenazine 25 mg tablet 25 mg PO BID #60 tabs 12/01 amlodipine 10 mg tablet 10 mg PO DAILY #30 tabs 11/20 11/13 potassium chloride 10 mEq 20 meq (2 x 10 mEq) PO BID 1 4 days 12/04/24 capsule,extended release #56 caps potassium chloride 20 mEq 20 meq PO DAILY #14 tabs tablet,extended release (K-Tab) spironolactone 25 mg tablet 25 mg PO BID #60 tabs 11/20 11/13 Allergies Allergy/AdvReac Type Severity Reaction Status Date / Time Penicillins Allergy Unknown Verified 12/01/24 14:21 Review of Systems 2 Const: Denies: fever(s) or chills Card: Denies: chest pain Resp: Denies: dyspnea GI: Denies: abdominal pain : Denies: dysuria, urinary frequency or urinary urgency Musc: Denies: neck pain or back pain Skin/Breast: Denies: rash PFSH ED 2 PFSH: Medical History History of hepatitis C negative viral load following treatment Enrolled in chronic care management Psoriasis Hypoglycemia Skin tear of right upper extremity Alcohol intoxication Elevated lactic acid level Closed fracture of inferior pubic ramus Altered mental status High anion gap metabolic acidosis Chronic alcohol use Consumes vodka daily. Insomnia Anxiety Chronic obstructive pulmonary disease Schizoaffective disorder Schizoaffective disorder Chronic back pain DDD (degenerative disc disease) Hyperthyroidism Surgical History History of cataract extraction with lens replacement Family History Denies family history of Diabetes CAD (coronary artery disease) Cancer Stroke Social History Smoking and tobacco/nicotine status: current every day tobacco/nicotine user cigarettes Packs smoked per day: 1 Years cigarettes smoked: 55 Second hand smoke exposure: Yes Alcohol intake: former Year of sobriety/quit date alcohol: 2023 Substance/Drug Use: never Lives independently: Yes Household members: friend(s) Marital status: / Number of children: 0 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 occupational 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 gender identity: Female Special supa needs: No Agree to transfusion: Yes Physical Exam 2 Const: GENERAL APPEARANCE: cooperative ORIENTATION/CONSCIOUSNESS: Yes awake, Yes oriented to person, Yes oriented to place and Yes oriented to time HENMT: COMMON NORMALS: normocephalic, atraumatic and hearing grossly normal bilaterally HEAD & SCALP: normocephalic and atraumatic Resp: COMMON NORMALS: normal respiratory effort, No retractions, No use of accessory muscles and clear to auscultation bilaterally AUSCULTATION: clear to auscultation bilaterally Cardio: COMMON NORMALS: regular rate, regular rhythm and No murmurs present (Cardio) RATE: regular rate RHYTHM: regular rhythm GI: COMMON NORMALS: Soft to palpation and No hepatosplenomegaly present A USCULTATION: Yes normoactive bowel sounds PALPATION: Yes Soft to palpation, No Tenderness to palpation present (GI), No Guarding due to palpation present (GI) and Yes No hepatosplenomegaly present Extremity: COMMON NORMALS: normal to inspection, capillary refill normal, no clubbing, cyanosis or edema, no calf tenderness and no pedal edema Neuro: SENSORIUM/ORIENTATION: Yes oriented to person, Yes oriented to place and Yes oriented to time Skin: COMMON NORMALS: no rashes or lesions noted GENERAL SKIN EXAM: no rashes or lesions noted Course 2 Vital Signs: Vital signs: Vital Signs Temperature 97.5 F L 12/04/24 13:17 Pulse Rate 91 12/04/24 13:17 Respiratory Rate 19 H 12/04/24 13:17 Blood Pressure 162/84 12/04/24 13:17 Pulse Oximetry 96 12/04/24 13:17 Oxygen Delivery Me thod Room Air 12/04/24 11:33 MDM - Recheck/Abnormal Lab/Rx Medical Decision Making Potassium 2.2 slightly lower than the day prior to 2.5. She remains oral potassium. She has a history of alcohol use. Discussed with hospitalist will admit. Medical Records I reviewed the patient's medical records. Lab Data I reviewed the patient's lab results. 12/04/24 02:55 12/04/24 02:55 Laboratory Results WBC 7.22 10^3/uL (3.29-11.43) 12/03/24 12:48 RBC 3.76 10^6/uL (3.85-5.65) L 12/03/24 12:48 Hgb 9.10 g/dL (11.27-16.99) L 12/03/24 12:48 Hct 29.3 % (36-47) L 12/03/24 12:48 MCV 77.9 fl (85-98) L 12/03/24 12:48 MCH 24.2 pg (27-33) L 12/03/24 12:48 MCHC 31.1 g/dL (30-55) 12/03/24 12:48 RDW 22.9 % (12.1-15.1) H 12/03/24 12:48 Plt Count 396 10^3/cmm (157-399) 12/03/24 12:48 MPV 9.2 fL (7.4-10.4) 12/03/24 12:48 Neut % (Auto) 56.4 % 12/03/24 12:48 Lymph % (Auto) 31.4 % 12/03/24 12:48 [place] % (Auto) 9.1 % 12/03/24 12:48 Eos % (Auto) 2.1 % 12/03/24 12:48 Baso % (Auto) 0.4 % 12/03/24 12:48 Neut # (Auto) 4.07 10^3/uL (1.8-7.7) 12/03/24 12:48 Lymph # (Auto) 2.3 10^3/uL (0.8-4.8) 12/03/24 12:48 [place] # (Auto) 0.7 10^3/uL (0.2-0.9) 12/03/24 12:48 Eos # (Auto) 0.2 10^3/uL (0.0-0.8) 12/03/24 12:48 Baso # (Auto) 0.0 10^3/uL (0.0-0.1) 12/03/24 12:48 Nucleated RBC % (auto) 0 % 12/03/24 12:48 Nucleated RBCs # 0.0 /100WBC 12/03/24 12:48 Sodium 131 mmol/L (136-145) L 12/03/24 12:48 Potassium 2.2 mmol/L (3.5-5.1) L* 12/03/24 12:48 Chloride 90 mmol/L (98-107) L 12/03/24 12:48 Carbon Dioxide 28 mmol/L (22-29) 12/03/24 12:48 Anion Gap 15.2 (5-19) 12/03/24 12:48 BUN 6 mg/dL (8-23) L 12/03/24 12:48 Creatinine 1.0 mg/dL (0.5-0.9) H 12/03/24 12:48 GFR Calculation 54.8 mL/min (90-130) L 12/03/24 12:48 Glucose 102 mg/dL (65-115) 12/03/24 12:48 Estimat Average Glucose 85 12/03/24 12:48 Hemoglobin A1c 4.6 % (4.0-6.0) 12/03/24 12:48 Calculated Osmolality 270 mOsm/kg (285-295) L 12/03/24 12:48 Lactic Acid 1.5 mmol/L (0.5-2.2) 12/03/24 12:48 Calcium 9.1 mg/dL (8.5-10.5) 12/03/24 12:48 Magnesium 1.7 mg/dL (1.7-2.3) 12/03/24 12:48 Iron 24 ug/dL (37-145) L 12/03/24 12:48 TIBC 278 mcg/dl 12/03/24 12:48 % Saturation 8.6 % (20-50) L 12/03/24 12:48 Unsat Iron Binding 254 ug/dL (112-347) 12/03/24 12:48 Total Bilirubin 0.2 mg/dL (0.15-1.2) 12/03/24 12:48 AST 15 U/L (0-32) 12/03/24 12:48 ALT < 5 U/L (0-33) 12/03/24 12:48 Alkaline Phosphatase 103 U/L (35-105) 12/03/24 12:48 Total Protein 6.7 g/dL (6.6-8.7) 12/03/24 12:48 Albumin 3.2 g/dL (3.5-5.2) L 12/03/24 12:48 Globulin 3.5 g/dL (1.3-4.6) 12/03/24 12:48 Vitamin B12 690 pg/mL (232-1245) 12/03/24 12:48 Procalcitonin 0.06 ng/mL (0-0.5) 12/03/24 12:48 TSH 9.11 uIU/mL (0.27-4.20) H 12/03/24 12:48 Ethyl Alcohol < 10 mg/dL (0-10) 12/03/24 12:48 No radiology studies performed this visit Discharge Plan Discharge Patient Disposition: Admitted As Inpatient Admit Provider: Cristi Wang Clinical Impression: Hypokalemia, Inability to walk, Alcoholism Condition: Stable Discharge Diet: Regular Discharge Activity: Resume usual activity and Increase activity as tolerated Coding Level of Care Code ED Lift Builder Whole for Anyi Cunningham
[2024-12-03 12:53] LABS: Basophils % 0.4 %; Eosinophils # 0.2 10^3/uL (0.0-0.8); Eosinophils % 2.1 %; Hematocrit 29.3 % (36-47); Lymphocytes # 2.3 10^3/uL (0.8-4.8); Lymphocytes % 31.4 %; Mean Corpuscular HGB Conc 31.1 g/dL (30-55); Mean Corpuscular Hemoglobin 24.2 pg (27-33); Mean Corpuscular Volume 77.9 fl (85-98); Mean Platelet Volume 9.2 fL (7.4-10.4); Monocytes # 0.7 10^3/uL (0.2-0.9); Monocytes % 9.1 %; Neutrophils # 4.07 10^3/uL (1.8-7.7); Neutrophils % 56.4 %; Nucleated Red Blood Cells % 0 %; Platelet Count 396 10^3/cmm (157-399); Red Blood Count 3.76 10^6/uL (3.85-5.65); Red Cell Distribution Width 22.9 % (12.1-15.1); White Blood Count 7.22 10^3/uL (3.29-11.43)
[2024-12-03] MEDS: potassium chloride oral liq 20 mEq/15 mL UDC 60 MEQ PO (12:53)
[2024-12-03 13:09] LABS: Alanine Aminotransferase < 5 U/L (0-33); Albumin Level 3.2 g/dL (3.5-5.2); Alkaline Phosphatase 103 U/L (35-105); Anion Gap 15.2 (5-19); Aspartate Amino Transferase 15 U/L (0-32); Blood Urea Nitrogen 6 mg/dL (8-23); Calcium 9.1 mg/dL (8.5-10.5); Carbon Dioxide 28 mmol/L (22-29); Chloride 90 mmol/L (98-107); Creatinine Clr Calc Pharmacy 39.8941; Globulin 3.5 g/dL (1.3-4.6); Glomerular Filtration Rate 54.8 mL/min (90-130); Glucose 102 mg/dL (65-115); Magnesium 1.7 mg/dL (1.7-2.3); Osmolality Calculated 270 mOsm/kg (285-295); Sodium 131 mmol/L (136-145); Total Bilirubin 0.2 mg/dL (0.15-1.2); Total Protein 6.7 g/dL (6.6-8.7)
[2024-12-03 13:12] LABS: Potassium 2.2 mmol/L (3.5-5.1)
[2024-12-03] MEDS: potassium chloride premix 100 ML 25 MEQ IV (14:22)
[2024-12-03] MEDS: lidocaine 1% 5 ML in potassium chloride premix 100 ML 52.5 ML IV ×2 (14:53→17:16)
--- NOTE | 2024-12-03 15:31 | P.HP_ITS ---
Providers/Chief Complaint 2 Admitting Physician: Cristi Wang MD Primary Care Provider: Cherrie Cosme MD Chief Complaint: low potassium History of Present Illness Gilda Hodge is a 69 year old female with past medical history of alcoholism, hypothyroidism was sent to the ER by her PCP because of low potassium levels which was seen on routine blood work with potassium down to 2.4. Patient has been complaining of weakness. States she was having diarrhea around a month ago. Is not having any further diarrhea. Has been having episodes of vomiting with last vomitus yesterday. Denies any headache, dizziness, fever, hematemesis or melena. Review of Systems 2 General: Reports: 10 or more systems reviewed and unremarkable except in HPI and below Const: Denies: fever(s), chills, body aches, change in appetite, change in weight, malaise, night sweats, diaphoresis, change in sleep pattern, daytime sleepiness or snoring Eyes: Denies: change in vision, blurry vision, photophobia, eye discomfort or eye discharge ENMT: Denies: throat pain, enlarged tonsils, hoarseness, mouth pain, oral sores, dry mouth, tinnitus, nasal congestion or post nasal drip Card: Denies: chest pain, palpitations, irregular heart rhythm, edema, swelling of feet/ankles, lightheadedness, syncope, pre-syncope, dyspnea on exertion, orthopnea, leg pain with exertion or acrocyanosis Resp: Denies: dyspnea, productive cough, non-productive cough, wheezing, stridor, pain on inspiration, change in phlegm color, hemoptysis or chest congestion GI: Denies: abdominal pain, nausea, vomiting, hematemesis, coffee ground emesis, dysphagia, heartburn, diarrhea, constipation, bloating, GI cramping, change in bowel habits, pain on defecation, hematochezia or melena : Denies: flank pain, dysuria, urinary frequency, urinary urgency, urinary hesitancy, nocturia or hematuria Musc: Denies: neck pain, back pain, extremity pain, joint pain, joint swelling, joint redness, joint stiffness or limited range of motion Neuro: Denies: headache(s), numbness in extremities, weakness in extremities, sensory changes, lack of coordination, difficulty walking, frequent falls, dizziness, vertigo, confusion, Slurred speech present, difficulty communicating thoughts or seizure-like activity Psych: Denies: anxiety, depression, mood swings, panic attacks, hopelessness or irritability Endo: Denies: polyuria, polydipsia, tired all the time, cold intolerance, excessive sweating, flushing or heat intolerance Wyatt/Lymph: Denies: easy bruising or easy bleeding All/Imm: Denies: tongue swelling, facial swelling or acute wheezing Medications/Allergies Home Medications ?Medication ?Instructions ?Recorded ?Confirmed ?Last Taken ?Type shower chair #1 ea 11/21/22 12/03/24 Unkn own Rx Back brace #1 ea 12/16/23 12/03/24 Unkn own Rx pantoprazole 40 mg tablet,delayed See Rx Instructions .Route 10/07/24 12/03/24 Unknown Rx release .COMPLEX #30 tabs trazodone 100 mg tablet See Rx Instructions .Route 0 10/23/24 12/03/24 12/02/24 Rx .COMPLEX #30 tabs albuterol sulfate 90 mcg/actuation 2 inh inhalation Q6 H PRN shortness 11/19/24 12/03/24 Unknown Rx aerosol inhaler (Ventolin HFA) of breath or wheezing # 6.7 grams levothyroxine 137 mcg tablet 137 mcg PO QAM #60 tabs 0 12/01/24 12/03/24 12/02/24 Rx tetrabenazine 25 mg tablet 25 mg PO BID #60 tabs 12/0112/03/24 12/02/24 Rx sertraline 100 mg tablet 100 mg PO DAILY 12/03/2412/02/24 History Allergies Allergy/AdvReac Type Severity Reaction Status Date / Time Penicillins Allergy Unknown Verified 12/01/24 14:21 PFSH Acute 2 PFSH: Medical History History of hepatitis C negative viral load following treatment Enrolled in chronic care management Psoriasis Hypoglycemia Skin tear of right upper extremity Alcohol intoxication Elevated lactic acid level Closed fracture of inferior pubic ramus Altered mental status High anion gap metabolic acidosis Chronic alcohol use Consumes vodka daily. Insomnia Anxiety Chronic obstructive pulmonary disease Schizoaffective disorder Schizoaffective disorder Chronic back pain DDD (degenerative disc disease) Hyperthyroidism Surgical History History of cataract extraction with lens replacement Family History Denies family history of Diabetes CAD (coronary artery disease) Cancer Stroke Social History Smoking and tobacco/nicotine status: current every day tobacco/nicotine user cigarettes Packs smoked per day: 1 Years cigarettes smoked: 55 Second hand smoke exposure: Yes Alcohol intake: former Year of sobriety/quit date alcohol: 2023 Substance/Drug Use: never Lives independently: Yes Household members: friend(s) Marital status: / Number of children: 0 Current occupational 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 gender identity: Female Special supa needs: No Agree to transfusion: Yes Vitals/I&O/Wt Last Vital Signs Temp 97.5 F L 12/03/24 14:24 Pulse 77 12/03/24 14:24 Resp 16 12/03/24 14:24 BP 164/89 12/03/24 14:24 Pulse Ox 96 12/03/24 14:24 O2 Del Method Room Air 12/03/24 14:24 12/03/24 12/03/24 12/03/24 06:59 14:59 22:59 Intake Total 5 / 5 Balance 5 / 5 Weight last 48 hrs Weight 48.988 kg Physical Exam 2 Narrative: General: No acute distress, AO x3 HEENT: PERRLA, pupils bilaterally equal and reactive Chest: Normal vesicular breath sounds, no added sounds, equal good air entry bilaterally CVS: S1-S2 regular, no murmurs, no tachycardia, no gallops, no rubs Abdomen: Soft, nontender, no organomegaly, bowel sounds present Neuro: No focal deficits, no facial deformity, AO x3, power 5/5 in all limbs Data 12/03/24 12:48 12/03/24 12:48 A&P Assessment and plan (1) Weakness: Most likely in setting of hypokalemia. Chronic failure to thrive. Has a caregiver at home. (2) Inability to walk: Chronic. (3) Hypokalemia: Received 60 minutes of oral potassium, 40 minutes of IV potassium in the ER. Repeat 40 mg of oral potassium. Repeat potassium level in evening. Most likely in setting of vomiting. Check urinalysis, urine lites. (4) Alcoholism: CIWA protocol. Consumes daily vodka. Check alcohol level, urine drug screen, (5) Depression: Continue with home medications including sertraline, tetrabenazine Plan Hypothyroidism: Continue with home dose of levothyroxine. Check TSH. Check vitamin B12 and folate levels, iron panel. Full code Full liquid diet Protonix for PUD prophylaxis Heparin for DVT prophylaxis PDMP PDMP Reviewed: Not Reviewed Attestations 2 Medical Necessity Statement*: Admission under observation for further evaluation and management of weakness due to severe hypokalemia Diagnoses Weakness R53.1 Inability to walk R26.2 Hypokalemia E87.6 Alcoholism F10.20 Depression F32.A
[2024-12-03 15:51] LABS: Lactic Sepsis W/Reflex 1.5 mmol/L (0.5-2.2)
[2024-12-03 16:10] LABS: Procalcitonin 0.06 ng/mL (0-0.5); Thyroid Stimulating Hormone 9.11 uIU/mL (0.27-4.20); Vitamin B12 690 pg/mL (232-1245)
[2024-12-03 16:17] LABS: Estmated Average Glucose 85; Hemoglobin A1C 4.6 % (4.0-6.0)
[2024-12-03 16:21] LABS: Alcohol Level < 10 mg/dL (0-10); Iron 24 ug/dL (37-145); Percent Saturation 8.6 % (20-50); Total Iron Binding Capacity 278 mcg/dl; Unsaturated Iron Binding 254 ug/dL (112-347)
[2024-12-03] MEDS: magnesium sulfate premix 1 GM/100 ML PIGGYBACK IV (16:23)
[2024-12-03] MEDS: thiamine 100 mg/mL 2mL SDV IM (16:23)
[2024-12-03] MEDS: sodium chlor 0.9% + KCl 20 mEq 20 MEQ/1,000 ML BAG 50 MEQ IV (16:23)
[2024-12-03] MEDS: acetaminophen 325 mg Tablet 650 MG PO ×2 (16:24→22:34)
[2024-12-03] MEDS: pantoprazole 40 mg SDV IVP (16:24)
[2024-12-03] MEDS: heparin 5,000 unit/mL INJ 1 mL 5000 UNIT SUBCUT (16:24)
[2024-12-03] MEDS: docusate sodium 100 mg Capsule PO (17:16)
[2024-12-03 19:14] LABS: Potassium 3.1 mmol/L (3.5-5.1)
[2024-12-03] MEDS: trazodone 100 mg Tablet PO (20:15)
[2024-12-03 20:18] LABS: Free T4 Free Thyroxine 1.33 ng/dL (0.82-1.77); T3 Free 1.8 PG/ML (2.0-4.4)
[2024-12-03] MEDS: lidocaine 1% 5 ML in potassium chloride premix 100 ML 26.25 ML IV (23:00)
[2024-12-04] VITALS (7 sets, daily range): BP systolic 156–210; BP diastolic 84–120; PULSE 68–91; RESP 16–19; TEMP 36.4–36.6; O2SAT 94–96
[2024-12-04] MEDS: lidocaine 1% 5 ML in potassium chloride premix 100 ML 26.25 ML IV (03:06)
[2024-12-04] MEDS: LORazepam 2 mg Tablet PO (03:17)
[2024-12-04] MEDS: heparin 5,000 unit/mL INJ 1 mL 5000 UNIT SUBCUT (03:18)
[2024-12-04 03:30] LABS: Basophils % 0.6 %; Eosinophils # 0.1 10^3/uL (0.0-0.8); Eosinophils % 1.5 %; Hematocrit 26.6 % (36-47); Lymphocytes # 2.1 10^3/uL (0.8-4.8); Lymphocytes % 39.7 %; Mean Corpuscular HGB Conc 30.8 g/dL (30-55); Mean Corpuscular Volume 77.8 fl (85-98); Mean Platelet Volume 9.5 fL (7.4-10.4); Monocytes # 0.6 10^3/uL (0.2-0.9); Monocytes % 11.4 %; Neutrophils # 2.48 10^3/uL (1.8-7.7); Neutrophils % 46.2 %; Nucleated Red Blood Cells % 0 %; Platelet Count 376 10^3/cmm (157-399); Red Blood Count 3.42 10^6/uL (3.85-5.65); Red Cell Distribution Width 23.1 % (12.1-15.1); White Blood Count 5.36 10^3/uL (3.29-11.43)
[2024-12-04 04:01] LABS: Procalcitonin 0.09 ng/mL (0-0.5)
[2024-12-04 04:04] LABS: Alanine Aminotransferase < 5 U/L (0-33); Albumin Level 2.9 g/dL (3.5-5.2); Alkaline Phosphatase 98 U/L (35-105); Anion Gap 14.2 (5-19); Aspartate Amino Transferase 16 U/L (0-32); Blood Urea Nitrogen 7 mg/dL (8-23); Calcium 8.3 mg/dL (8.5-10.5); Carbon Dioxide 24 mmol/L (22-29); Chloride 98 mmol/L (98-107); Creatinine Clr Calc Pharmacy 44.3268; Glomerular Filtration Rate 61.9 mL/min (90-130); Glucose 93 mg/dL (65-115); Magnesium 1.8 mg/dL (1.7-2.3); Osmolality Calculated 272 mOsm/kg (285-295); Phosphorus 2.8 mg/dL (2.5-4.5); Potassium 4.2 mmol/L (3.5-5.1); Sodium 132 mmol/L (136-145); Total Bilirubin 0.2 mg/dL (0.15-1.2); Total Protein 5.9 g/dL (6.6-8.7)
[2024-12-04 04:07] LABS: Chol HDL Ratio 1.48 mg/dL (0.0-4.40); Cholesterol 148 mg/dL (0-200); HDL Cholesterol 100 mg/dL (60-100); LDL Cholesterol Calculated 36 mg/dL (50-129); LDL HDL Ratio 0.36 RATIO (0.00-3.22); Triglycerides 60 mg/dL (0-150)
[2024-12-04 04:32] LABS: Folate Level 6.5 ng/mL (4.8-37.3)
[2024-12-04] MEDS: levothyroxine 137 mcg Tablet PO (05:48)
[2024-12-04] MEDS: ondansetron 2 mg/ML SDV 2 mL 4 MG IVP (07:27)
[2024-12-04] MEDS: acetaminophen 325 mg Tablet 650 MG PO (07:28)
[2024-12-04] MEDS: docusate sodium 100 mg Capsule PO (09:19)
[2024-12-04] MEDS: multivitamin therapeutic Tablet 1 TAB PO (09:19)
[2024-12-04] MEDS: sertraline 100 mg Tablet PO (09:19)
[2024-12-04] MEDS: folic acid 1 mg Tablet PO (09:20)
[2024-12-04] MEDS: thiamine 100 mg Tablet PO (09:20)
[2024-12-04] MEDS: nicotine 21 mg Patch 1 PATCH TRANSDERMA (09:20)
--- NOTE | 2024-12-04 10:32 | PM.DCS ---
Discharge Providers Date of Admission: 12/03/24 13:21 Date of Discharge: December 04, 2024 Attending Provider at Admission: Cristi Wang MD Attending Provider at Discharge: Cristi Wang MD Primary Care Provider: Cherrie Cosme MD Diagnoses at Discharge Discharge Diagnosis (1) Weakness: Status: Acute (2) Inability to walk: Status: Acute (3) Hypokalemia: Status: Acute (4) Alcoholism: Status: Acute (5) Depression: Status: Chronic Reason for Visit Reason for Visit: low potassium Hospital Course Hospital Course Gilda Hodge is a 69 year old female with past medical history of alcoholism, hypothyroidism was sent to the ER by her PCP because of low potassium levels which was seen on routine blood work with potassium down to 2.4. Patient has been complaining of weakness. States she was having diarrhea around a month ago. Is not having any further diarrhea. Has been having episodes of vomiting with last vomitus yesterday. Denies any headache, dizziness, fever, hematemesis or melena. Patient was admitted to the ER for further evaluation and management of severe hypokalemia. She received potassium repletion after which her levels remained stable. She did not had any episodes of diarrhea or vomiting during hospitalization. She did have elevated blood pressures for which she was started on spironolactone 25 mg twice daily member dependent milligrams oral daily. She has been discharged in medically stable condition on adjusted antihypertensive and oral potassium 20 mg daily. She is to follow-up with a primary care provider within next 1 week for repeat potassium level. She is advised to stop alcohol consumption. Physical Exam Narrative: General: No acute distress, AO x3 HEENT: PERRLA, pupils bilaterally equal and reactive Chest: Normal vesicular breath sounds, no added sounds, equal good air entry bilaterally CVS: S1-S2 regular, no murmurs, no tachycardia, no gallops, no rubs Abdomen: Soft, nontender, no organomegaly, bowel sounds present Neuro: No focal deficits, no facial deformity, AO x3, power 5/5 in all limbs Discharge Data Studies Completed and Pending Pending at discharge Category Date Time Status Complete Blood Count w/Auto AM LABS Lab 12/05/24 04:00 Ordered Complete Blood Count w/Auto AM LABS Lab 12/06/24 04:00 Ordered Comprehensive Metabolic Panel AM LABS Lab 12/05/24 04:00 Ordered Comprehensive Metabolic Panel AM LABS Lab 12/06/24 04:00 Ordered Drug Screen, Urine Routine Lab 12/03/24 15:35 Uncollected Magnesium AM LABS Lab 12/05/24 04:00 Ordered Magnesium AM LABS Lab 12/06/24 04:00 Ordered Phosphorus AM LABS Lab 12/05/24 04:00 Ordered Phosphorus AM LABS Lab 12/06/24 04:00 Ordered Urinalysis Routine Lab 12/03/24 15:34 Uncollected Urine Lytes [Urine Random Lytes] Routine Lab 12/03/24 15:34 Uncollected Laboratory Results WBC 5.36 10^3/uL (3.29-11.43) 12/04/24 02:55 RBC 3.42 10^6/uL (3.85-5.65) L 12/04/24 02:55 Hgb 8.20 g/dL (11.27-16.99) L 12/04/24 02:55 Hct 26.6 % (36-47) L 12/04/24 02:55 MCV 77.8 fl (85-98) L 12/04/24 02:55 MCH 24.0 pg (27-33) L 12/04/24 02:55 MCHC 30.8 g/dL (30-55) 12/04/24 02:55 RDW 23.1 % (12.1-15.1) H 12/04/24 02:55 Plt Count 376 10^3/cmm (157-399) 12/04/24 02:55 MPV 9.5 fL (7.4-10.4) 12/04/24 02:55 Neut % (Auto) 46.2 % 12/04/24 02:55 Lymph % (Auto) 39.7 % 12/04/24 02:55 [place] % (Auto) 11.4 % 12/04/24 02:55 Eos % (Auto) 1.5 % 12/04/24 02:55 Baso % (Auto) 0.6 % 12/04/24 02:55 Neut # (Auto) 2.48 10^3/uL (1.8-7.7) 12/04/24 02:55 Lymph # (Auto) 2.1 10^3/uL (0.8-4.8) 12/04/24 02:55 [place] # (Auto) 0.6 10^3/uL (0.2-0.9) 12/04/24 02:55 Eos # (Auto) 0.1 10^3/uL (0.0-0.8) 12/04/24 02:55 Baso # (Auto) 0.0 10^3/uL (0.0-0.1) 12/04/24 02:55 Nucleated RBC % (auto) 0 % 12/04/24 02:55 Nucleated RBCs # 0.0 /100WBC 12/04/24 02:55 Sodium 132 mmol/L (136-145) L 12/04/24 02:55 Potassium 4.2 mmol/L (3.5-5.1) 12/04/24 02:55 Chloride 98 mmol/L (98-107) 12/04/24 02:55 Carbon Dioxide 24 mmol/L (22-29) 12/04/24 02:55 Anion Gap 14.2 (5-19) 12/04/24 02:55 BUN 7 mg/dL (8-23) L 12/04/24 02:55 Creatinine 0.9 mg/dL (0.5-0.9) 12/04/24 02:55 GFR Calculation 61.9 mL/min (90-130) L 12/04/24 02:55 Glucose 93 mg/dL (65-115) 12/04/24 02:55 Estimat Average Glucose 85 12/03/24 12:48 Hemoglobin A1c 4.6 % (4.0-6.0) 12/03/24 12:48 Calculated Osmolality 272 mOsm/kg (285-295) L 12/04/24 02:55 Lactic Acid 1.5 mmol/L (0.5-2.2) 12/03/24 12:48 Calcium 8.3 mg/dL (8.5-10.5) L 12/04/24 02:55 Phosphorus 2.8 mg/dL (2.5-4.5) 12/04/24 02:55 Magnesium 1.8 mg/dL (1.7-2.3) 12/04/24 02:55 Iron 24 ug/dL (37-145) L 12/03/24 12:48 TIBC 278 mcg/dl 12/03/24 12:48 % Saturation 8.6 % (20-50) L 12/03/24 12:48 Unsat Iron Binding 254 ug/dL (112-347) 12/03/24 12:48 Total Bilirubin 0.2 mg/dL (0.15-1.2) 12/04/24 02:55 AST 16 U/L (0-32) 12/04/24 02:55 ALT < 5 U/L (0-33) 12/04/24 02:55 Alkaline Phosphatase 98 U/L (35-105) 12/04/24 02:55 Total Protein 5.9 g/dL (6.6-8.7) L 12/04/24 02:55 Albumin 2.9 g/dL (3.5-5.2) L 12/04/24 02:55 Globulin 3.0 g/dL (1.3-4.6) 12/04/24 02:55 Triglycerides 60 mg/dL (0-150) 12/04/24 02:55 Cholesterol 148 mg/dL (0-200) 12/04/24 02:55 LDL Cholesterol, Calc 36 mg/dL (50-129) L 12/04/24 02:55 HDL Cholesterol 100 mg/dL (60-100) 12/04/24 02:55 LDL/HDL Ratio 0.36 RATIO (0.00-3.22) 12/04/24 02:55 Cholesterol/HDL Ratio 1.48 mg/dL (0.0-4.40) 12/04/24 02:55 Vitamin B12 690 pg/mL (232-1245) 12/03/24 12:48 Folate 6.5 ng/mL (4.8-37.3) 12/04/24 02:55 Procalcitonin 0.09 ng/mL (0-0.5) 12/04/24 02:55 TSH 9.11 uIU/mL (0.27-4.20) H 12/03/24 12:48 Free T4 1.33 ng/dL (0.82-1.77) 12/03/24 18:41 Free T3 1.8 PG/ML (2.0-4.4) L 12/03/24 18:41 Ethyl Alcohol < 10 mg/dL (0-10) 12/03/24 12:48 Vitals Last Vital Signs Temp 97.8 F 12/04/24 07:43 Pulse 76 12/04/24 08:26 Resp 16 12/04/24 08:26 BP 190/98 12/04/24 07:44 Pulse Ox 94 12/04/24 08:26 O2 Del Method Room Air 12/04/24 08:26 Discharge Plan Discharge Patient Disposition: Home Condition: Stable Prescriptions: New spironolactone 25 mg tablet 25 mg PO BID Qty: 60 0RF potassium chloride 10 mEq capsule, extended release 20 meq PO BID 14 Days Qty: 56 0RF amlodipine 10 mg tablet 10 mg PO DAILY Qty: 30 0RF potassium chloride [K-Tab] 20 mEq tablet extended release 20 meq PO DAILY Qty: 14 0RF Continued levothyroxine 137 mcg tablet 137 mcg PO QAM Qty: 60 3RF tetrabenazine 25 mg tablet 25 mg PO BID Qty: 60 0RF (DME) shower chair See Rx Instructions .Route .MEDSUPPLY Qty: 1 0RF Rx Instructions: As directed (DME) Back brace See Rx Instructions .Route .MEDSUPPLY Qty: 1 0RF Rx Instructions: As directed pantoprazole 40 mg tablet,delayed release (DR/EC) See Rx Instructions .ROUTE .COMPLEX Qty: 30 0RF Dose Instruction: TAKE ONE TABLET BY MOUTH DAILY Rx Instructions: TAKE ONE TABLET BY MOUTH DAILY trazodone 100 mg tablet See Rx Instructions .ROUTE .COMPLEX Qty: 30 0RF Dose Instruction: TAKE ONE TABLET BY MOUTH DAILY Rx Instructions: TAKE ONE TABLET BY MOUTH DAILY albuterol sulfate [Ventolin HFA] 90 mcg/actuation HFA aerosol inhaler 2 inh inhalation Q6H PRN (Reason: shortness of breath or wheezing) Qty: 6.7 0RF sertraline 100 mg tablet 100 mg PO DAILY Discharge Orders: Discharge Order (Routine); Ordered 12/04/24 Ordered By: Cristi Wang Referrals: Cherrie Cosme MD [Primary Care Provider, Family Practice] - 4-7 days Referral Note: Please contact your primary care provider Thursday morning to schedule a hospital follow up appointment within 1 week of discharge. Thank you! Discharge Diet: Regular Discharge Activity: Resume usual activity and Increase activity as tolerated Patient Instructions: Spironolactone (By mouth), Potassium Chloride (By mouth), Amlodipine (By mouth), Opioid Safety Activity Restrictions/Additional Instructions: Please try to avoid alcohol use as much as possible. Please check your blood pressure daily at home and maintain a blood pressure diary. Goal blood pressures between 100-140 systolic. Amlodipine 10 mg oral daily and spironolactone 25 mg twice daily has been added to your medication list. Take potassium supplements 20 mg once daily. Follow-up with a primary care provider within next 1 week for a repeat potassium level. Discharge Attestations Time Spent in Discharge Care*: greater than 30 min Specific Discharge Activities: educating patient, educating and/or supporting family/caregiver, discussing with pcp/other providers, discussing with major case detective/social workers/dc planners, documenting/other paperwork and evaluating patient/reviewing data Status at Discharge: Cognitive status at discharge: mildly impaired cognition, Behavioral status at discharge: cooperative, Functional status at discharge: uses cane/walker, Overall status at discharge: patient is back to baseline Quality Metrics Clinical Quality Measures [ No reported AMI, CVA or VTE this stay] Coding Level of Care Code 69720 Total time (in minutes) for Discharge: 65 Diagnoses Weakness R53.1 Inability to walk R26.2 Hypokalemia E87.6 Alcoholism F10.20 Depression F32.A
[2024-12-04] MEDS: amlodipine 10 mg Tablet PO (10:47)
[2024-12-04] MEDS: TRAMadol 50 mg Tablet PO (10:48)
[2024-12-04] MEDS: potassium chloride ER 20 mEq Tablet 40 MEQ PO (12:20)
--- NOTE | 2024-12-04 13:11 | PC.NURSE ---
Patient dressed, IV removed. This nurse assisted patient into wheelchair with one assist. Discharge paperwork explained to patient. All questions were answered. Patient taken to exit via wheelchair by this nurse at 1240, with all belongings.
== END 2024-12-04 12:40 | disposition home or self-care (01) ==
LOC: ER 13:15 → MEDSURG 13:40
PROVIDERS: Admitting Provider Student in an Organized Health Care Education/Training Program; Emergency Provider Family Medicine; PCP Family Medicine; Visit Provider Student in an Organized Health Care Education/Training Program
DX: E87.6 Hypokalemia (principal); R53.1 Weakness; R26.2 Difficulty in walking, not elsewhere classified; F10.20 Alcohol dependence, uncomplicated; F32.A Depression, unspecified; E03.9 Hypothyroidism, unspecified; K21.9 Gastro-esophageal reflux disease without esophagitis; E16.2 Hypoglycemia, unspecified; R41.82 Altered mental status, unspecified; F41.9 Anxiety disorder, unspecified; J44.9 Chronic obstructive pulmonary disease, unspecified; F17.210 Nicotine dependence, cigarettes, uncomplicated; Z86.19 Personal history of other infectious and parasitic diseases
CPT/HCPCS: 36415; 80053; 80061; 80307; 82607; 82746; 83036; 83540; 83550; 83605; 83735; 84100; 84132; 84145; 84439; 84443; 84481; 85025; 93005; 94664; 96365; 96366; 96367; 96372; 96375; 99285; G0378; J1644; J2405; J2470; J3411; J3475; J3480; J9999

== ENCOUNTER → 2024-12-08 10:48 | Outpatient (BNVA) | payer MEDICARE, MEDICAID, SELFPAY | PROVIDERS: PCP Family Medicine; Visit Provider Family Medicine | DX: E87.6 Hypokalemia (principal); D64.9 Anemia, unspecified | CPT/HCPCS: 80048; 85025 ==

== ENCOUNTER 2025-01-04 15:57 | Emergency (ER) | payer MEDICARE, MEDICAID, SELFPAY ==
[2025-01-04 16:05] VITALS: BP 129/66; PULSE 78; RESP 17; TEMP 36.6; O2SAT 99; BMI 19.7
--- NOTE | 2025-01-04 16:28 | ED_ITS ---
HPI - General Adult General: Chief complaint: General Medical Stated complaint: Sym. of tardic dyskensia Time Seen by Provider: 01/04/25 16:15 History of Present Illness: 69-year-old female with a history of tristen izoaffective disorder. She takes tetrabenazine for involuntary movements . She also takes trazodone. Pt c/o facial pain from uncontrolled movements of her face, likely brought on by lack of tetrabenazine. Pt denies any chest pain or SOB. Related Data Home Medications ?Medication ?Instructions ?Recorded ?Confirmed sertraline 100 mg tablet 100 mg PO DAILY 12/03/24 Previous Rx's ?Medication ?Instructions ?Recorded shower chair #1 ea 11/21/22 Back brace #1 ea 12/16/23 pantoprazole 40 mg tablet,delayed See Rx Instructions .Route 10/07/24 release .COMPLEX #30 tabs trazodone 100 mg tablet See Rx Instructions .Route 0 10/23/24 .COMPLEX #30 tabs albuterol sulfate 90 mcg/actuation 2 inh inhalation Q6 H PRN shortness 11/19/24 aerosol inhaler (Ventolin HFA) of breath or wheezing # 6.7 grams levothyroxine 137 mcg tablet 137 mcg PO QAM #60 tabs 0 12/01/24 tetrabenazine 25 mg tablet 25 mg PO BID #60 tabs 12/01 amlodipine 10 mg tablet 10 mg PO DAILY #30 tabs 11/20 11/13 potassium chloride 20 mEq 20 meq PO DAILY #14 tabs tablet,extended release (K-Tab) spironolactone 25 mg tablet 25 mg PO BID #60 tabs 11/20 11/13 tetrabenazine 25 mg tablet 25 mg PO BID 30 days #60 ta bs 01/04/25 (Xenazine) Allergies Allergy/AdvReac Type Severity Reaction Status Date / Time Penicillins Allergy Unknown Verified 01/04/25 16:09 Review of Systems General: Reports: 10 or more systems reviewed and unremarkable except in HPI and below PFSH ED PFSH: Medical History Schizoaffective disorder History of hepatitis C negative viral load following treatment Enrolled in chronic care management Psoriasis Hypoglycemia Skin tear of right upper extremity Alcohol intoxication Elevated lactic acid level Closed fracture of inferior pubic ramus Altered mental status High anion gap metabolic acidosis Chronic alcohol use Consumes vodka daily. Insomnia Anxiety Chronic obstructive pulmonary disease Schizoaffective disorder Chronic back pain DDD (degenerative disc disease) Hyperthyroidism Surgical History History of cataract extraction with lens replacement Family History Denies family history of Diabetes CAD (coronary artery disease) Cancer Stroke Social History Smoking and tobacco/nicotine status: current every day tobacco/nicotine user cigarettes Packs smoked per day: 1 Years cigarettes smoked: 55 Second hand smoke exposure: Yes Alcohol intake: former Year of sobriety/quit date alcohol: 2023 Substance/Drug Use: never Lives independently: Yes Household members: friend(s) Marital status: / Number of children: 0 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 occupational 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 gender identity: Female Special supa needs: No Agree to transfusion: Yes Physical Exam Narrative: EXAM NARRATIVE: GEN: NAD, AOx3, well appearing HEENT: normocephalic, EOMI, no scleral icterus, hearing grossly normal, moist oral mucosa CV: rrr, no murmurs, no edema RESP: nonlabored breathing, LCTAB NEURO: no focal deficits SKIN: no rashes or lesions noted PSYCH: appropriate mood & affect, no SI Neuro: MOTOR EXAM: No no tremor noted and Other motor observations present (lip smacking and face movement noted) Course Vital Signs: Vital signs: Vital Signs Temperature 97.8 F 01/04/25 16:05 Pulse Rate 87 01/04/25 16:36 Respiratory Rate 17 01/04/25 16:05 Blood Pressure 129/66 01/04/25 16:05 Pulse Oximetry 100 01/04/25 16:36 Oxygen Delivery Me thod Room Air 01/04/25 16:36 [facility] - General Adult Medical Decision Making 69-year-old female with a history of schizoaffective disorder. She takes tetrabenazine for involuntary movements . She also takes trazodone. Pt c/o f acial pain from uncontrolled movements of her face, likely brought on by lack of tetrabenazine. Pt denies any chest pain or SOB. Pt states she is out of her meds and this happens. Pt was given Ativan 2mg with some relief. Pt denies any other complaints states she is just here for refill of her meds to keep these from happening. Pt to follow up with PCP for recheck. No radiology studies performed this visit Discharge Plan Discharge Patient Disposition: Home Clinical Impression: Tardive dyskinesia Prescriptions: New tetrabenazine [Xenazine] 25 mg tablet 25 mg PO BID 30 Days Qty: 60 0RF No Action levothyroxine 137 mcg tablet 137 mcg PO QAM Qty: 60 3RF tetrabenazine 25 mg tablet 25 mg PO BID Qty: 60 0RF (DME) shower chair See Rx Instructions .Route .MEDSUPPLY Qty: 1 0RF Rx Instructions: As directed (DME) Back brace See Rx Instructions .Route .MEDSUPPLY Qty: 1 0RF Rx Instructions: As directed pantoprazole 40 mg tablet,delayed release (DR/EC) See Rx Instructions .ROUTE .COMPLEX Qty: 30 0RF Dose Instruction: TAKE ONE TABLET BY MOUTH DAILY Rx Instructions: TAKE ONE TABLET BY MOUTH DAILY trazodone 100 mg tablet See Rx Instructions .ROUTE .COMPLEX Qty: 30 0RF Dose Instruction: TAKE ONE TABLET BY MOUTH DAILY Rx Instructions: TAKE ONE TABLET BY MOUTH DAILY albuterol sulfate [Ventolin HFA] 90 mcg/actuation HFA aerosol inhaler 2 inh inhalation Q6H PRN (Reason: shortness of breath or wheezing) Qty: 6.7 0RF sertraline 100 mg tablet 100 mg PO DAILY spironolactone 25 mg tablet 25 mg PO BID Qty: 60 0RF amlodipine 10 mg tablet 10 mg PO DAILY Qty: 30 0RF potassium chloride [K-Tab] 20 mEq tablet extended release 20 meq PO DAILY Qty: 14 0RF Discharge Orders: Discharge ED (Routine); Ordered 01/04/25 Ordered By: Mary Brantley Referrals: Cherrie Cosme MD [Primary Care Provider, Family Practice] Discharge Diet: Advance as tolerated Discharge Activity: Increase activity as tolerated Patient Instructions: Opioid Safety, Pain Management, Patient Portal & Sid Instructions Activity Restrictions/Additional Instructions: Please keep your follow up as scheduled Take meds as prescribed Return to ER with any wprsening of symptoms or concerns Print Language: Turkish Coding Level of Care Code ED Rod Welder for Anyi Cunningham
[2025-01-04] MEDS: LORazepam 1 MG/0.5 ML injection 2 MG IM (16:33)
[2025-01-04 16:36] VITALS: PULSE 87; O2SAT 100
[2025-01-04 18:37] VITALS: BP 157/89; PULSE 73; O2SAT 97
[2025-01-04 20:08] VITALS: BP 157/89; PULSE 73; RESP 17; O2SAT 97
== END 2025-01-04 22:41 | disposition home or self-care (01) ==
PROVIDERS: Emergency Provider Registered Nurse; PCP Family Medicine
DX: G24.01 Drug induced subacute dyskinesia (principal); F17.210 Nicotine dependence, cigarettes, uncomplicated
CPT/HCPCS: 96372; 99284; J2060

== ENCOUNTER 2025-01-05 05:56 | Emergency (ER) | payer MEDICARE, MEDICAID, SELFPAY ==
--- OUTSIDE RECORDS SUMMARY | 2025-01-05 06:04 | XMS_ITS | Patient Health Record ---
Author Organization [facility] Address [address] [place] [address] Care Team Providers Care Knockout Worker Name Role Phone Brandon Sarkar Primary Care Provider Allergies Allergen (clinical drug ingredient) Drug/Non Drug Allergy documented on EMR Reaction Allergy Type Onset Date Status Penicillin Unknown Drug Allergy Active Reason For Referral No Information Medications Medication SIG (Take, Route, Frequency, Duration) Notes Start Date End Date Status traZODone HCl 50 MG Tablet 1 tablet at b edtime as needed Orally Once a day Active Thiamine HCl 100 MG Tablet 1 tablet Oral ly Once a day Active Levothyroxine Sodium 150 MCG Tablet 1 tablet in the morning on an empty stomach Orally Once a day Active Pantoprazole Sodium 40 MG Tablet Delayed Release 1 tablet Orally Once a day Active Ertapenem Sodium 1 GM Solution Reconstituted as directed Intravenous Active Ziprasidone HCl 60 MG Capsule 1 capsule with food Orally Twice a day Active Thiamine 50 MG Capsule as directed Orally Active Problems Problem Type SNOMED Code ICD Code Onset Dates Problem Status W/U Status Risk Notes Problem Wernicke's encephalopathy (86882351) Wernicke's encephalopathy (E51.2) Active confirmed Problem Alcohol abuse wi th intoxication, unspecified (F10.129) Active confirmed Problem Gastro-esophageal reflux disease without esophagitis (468293681) Gastro-esophageal reflux disease without esophagitis (K21.9) Active confirmed Problem COPD - Chronic obstructive pulmonary disease (62979449) Chronic obstructive pulmonary disease, unspecified COPD type (J44.9) Active confirmed Problem Chronic hepatitis C (873853762) Chronic hepatitis C without hepatic coma (B18.2) Active confirmed Problem Osteoarthritis (107682264) Osteoarthritis, unspecified osteoarthritis type, unspecified site (M19.90) Active confirmed Problem Hypothyroidism (04305955) Hypothyroidism, unspecified type (E03.9) Active confirmed Problem Tobacco user (859282972) Nicotine dependence, uncomplicated, unspecified nicotine product type (F17.200) Active confirmed Problem Insomnia (791202436) Insomnia, unspecified type (G47.00) Active confirmed Problem Anxiety state (112584764) Anxiety disorder, unspecified type (F41.9) Active confirmed Problem Schizoaffective disorder (59465342) Schizoaffective disorder, unspecified type (F25.9) Active confirmed Plan Of Treatment No Information Insurance Providers Payer Name Payer Address Payer Phone Subscriber Number Group Number Insured Name Patient Relationship to Insured Coverage Start Date Coverage End Date [place] Medicare [place] [address] [address] [place] [address] [id number] TOBY DUEÑAS Self - patient is the insured [place] Medicaid [address] [place] [address] [id number] TOBY DUEÑAS Self - patient is the insured
[2025-01-05 06:18] VITALS: BP 152/98; PULSE 77; RESP 16; TEMP 36.7; O2SAT 100; BMI 19.7
--- NOTE | 2025-01-05 06:27 | ED_ITS ---
HPI - General Adult 2 General: Chief complaint: General Medical Stated complaint: Michelle Rios Time Seen by Provider: 01/05/25 06:11 History of Present Illness: 69-year-old female presents emergency ro om requesting Ativan. Patient has a history of tardive dyskinesia she is on tetrabenazine evidently is out of it. She was previously on Geodon for a long period of time that has been stopped. She has an appointment with her doctor later today. She was in the last night for Ativan. She has a history of alcoholism she does admit to drinking yesterday. She was admitted earlier this month for hypokalemia. Associated symptoms: Deny chest pain, dyspnea or rash Related Data Home Medications ?Medication ?Instructions ?Recorded ?Confirmed sertraline 100 mg tablet 100 mg PO DAILY 12/03/24 Previous Rx's ?Medication ?Instructions ?Recorded shower chair #1 ea 11/21/22 Back brace #1 ea 12/16/23 pantoprazole 40 mg tablet,delayed See Rx Instructions .Route 10/07/24 release .COMPLEX #30 tabs trazodone 100 mg tablet See Rx Instructions .Route 0 10/23/24 .COMPLEX #30 tabs albuterol sulfate 90 mcg/actuation 2 inh inhalation Q6 H PRN shortness 11/19/24 aerosol inhaler (Ventolin HFA) of breath or wheezing # 6.7 grams levothyroxine 137 mcg tablet 137 mcg PO QAM #60 tabs 0 12/01/24 tetrabenazine 25 mg tablet 25 mg PO BID #60 tabs 12/01 amlodipine 10 mg tablet 10 mg PO DAILY #30 tabs 11/20 11/13 potassium chloride 20 mEq 20 meq PO DAILY #14 tabs tablet,extended release (K-Tab) spironolactone 25 mg tablet 25 mg PO BID #60 tabs 11/20 11/13 tetrabenazine 25 mg tablet 25 mg PO BID 30 days #60 ta bs 01/04/25 (Xenazine) potassium chloride 20 mEq 20 meq PO BID #60 tabs 01/05 tablet,extended release(part/cryst) (Klor-Con M) Allergies Allergy/AdvReac Type Severity Reaction Status Date / Time Penicillins Allergy Unknown Verified 01/05/25 06:22 Review of Systems 2 Const: Denies: fever(s) or chills Card: Denies: chest pain Resp: Denies: dyspnea GI: Denies: abdominal pain : Denies: dysuria, urinary frequency or urinary urgency Musc: Denies: neck pain or back pain Skin/Breast: Denies: rash PFSH ED 2 PFSH: Medical History Schizoaffective disorder History of hepatitis C negative viral load following treatment Enrolled in chronic care management Psoriasis Hypoglycemia Skin tear of right upper extremity Alcohol intoxication Elevated lactic acid level Closed fracture of inferior pubic ramus Altered mental status High anion gap metabolic acidosis Chronic alcohol use Consumes vodka daily. Insomnia Anxiety Chronic obstructive pulmonary disease Schizoaffective disorder Chronic back pain DDD (degenerative disc disease) Hyperthyroidism Surgical History History of cataract extraction with lens replacement Family History Denies family history of Diabetes CAD (coronary artery disease) Cancer Stroke Social History Smoking and tobacco/nicotine status: current every day tobacco/nicotine user cigarettes Packs smoked per day: 1 Years cigarettes smoked: 55 Second hand smoke exposure: Yes Alcohol intake: former Year of sobriety/quit date alcohol: 2023 Substance/Drug Use: never Lives independently: Yes Household members: friend(s) Marital status: / Number of children: 0 Current occupational 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 gender identity: Female Special supa needs: No Agree to transfusion: Yes Physical Exam 2 Const: GENERAL APPEARANCE: cooperative ORIENTATION/CONSCIOUSNESS: Yes awake, Yes oriented to person, Yes oriented to place and Yes oriented to time HENMT: COMMON NORMALS: normocephalic, atraumatic and hearing grossly normal bilaterally HEAD & SCALP: normocephalic and atraumatic Resp: COMMON NORMALS: normal respiratory effort, No retractions, No use of accessory muscles and clear to auscultation bilaterally AUSCULTATION: clear to auscultation bilaterally Cardio: COMMON NORMALS: regular rate, regular rhythm and No murmurs present (Cardio) RATE: regular rate RHYTHM: regular rhythm GI: COMMON NORMALS: Soft to palpation and No hepatosplenomegaly present A USCULTATION: Yes normoactive bowel sounds PALPATION: Yes Soft to palpation, No Tenderness to palpation present (GI), No Guarding due to palpation present (GI) and Yes No hepatosplenomegaly present Extremity: COMMON NORMALS: normal to inspection, capillary refill normal, no clubbing, cyanosis or edema, no calf tenderness and no pedal edema Neuro: SENSORIUM/ORIENTATION: Yes oriented to person, Yes oriented to place and Yes oriented to time OTHER: Choreatic movements with distortion of her face. She states this is her baseline. Skin: COMMON NORMALS: no rashes or lesions noted GENERAL SKIN EXAM: no rashes or lesions noted Course 2 Vital Signs: Vital signs: Vital Signs Temperature 98.0 F 01/05/25 06:18 Pulse Rate 77 01/05/25 06:18 Respiratory Rate 16 01/05/25 06:18 Blood Pressure 152/98 01/05/25 06:18 Pulse Oximetry 100 01/05/25 06:18 Oxygen Delivery Me thod Room Air 01/05/25 06:18 MDM - General Adult Medical Decision Making She has been out of her tetrabenazine. Per her report when she sees her doctor they will refill it. Patient was given a single dose of clonazepam for this recommend that she follow-up with her primary care doctor regarding long-term management. Recheck for potassium came back at 2.3 she is given 40 mill equivalents of p.o. liquid potassium we encouraged her to wait to recheck her potassium to make sure it was improving last time it was as low required hospital admission she is refusing. I explained to her the problem or concerns she stated I do not care . Will discharge patient home at her request I did ask her to increase her oral potassium supplement and have her follow-up with her primary care doctor within the next week to recheck potassium she should increase her oral potassium to 1 pill twice a day. Medical Records I reviewed the patient's medical records. Lab Data I reviewed the patient's lab results. 01/05/25 06:38 01/05/25 06:38 Laboratory Results WBC 5.27 10^3/uL (3.29-11.43) 01/05/25 06:38 RBC 3.51 10^6/uL (3.85-5.65) L 01/05/25 06:38 Hgb 8.60 g/dL (11.27-16.99) L 01/05/25 06:38 Hct 28.0 % (36-47) L 01/05/25 06:38 MCV 79.8 fl (85-98) L 01/05/25 06:38 MCH 24.5 pg (27-33) L 01/05/25 06:38 MCHC 30.7 g/dL (30-55) 01/05/25 06:38 RDW 19.1 % (12.1-15.1) H 01/05/25 06:38 Plt Count 460 10^3/cmm (157-399) H 01/05/25 06:38 MPV 8.8 fL (7.4-10.4) 01/05/25 06:38 Neut % (Auto) 67.3 % 01/05/25 06:38 Lymph % (Auto) 21.3 % 01/05/25 06:38 Cook % (Auto) 10.4 % 01/05/25 06:38 Eos % (Auto) 0.2 % 01/05/25 06:38 Baso % (Auto) 0.4 % 01/05/25 06:38 Neut # (Auto) 3.55 10^3/uL (1.8-7.7) 01/05/25 06:38 Lymph # (Auto) 1.1 10^3/uL (0.8-4.8) 01/05/25 06:38 Cook # (Auto) 0.6 10^3/uL (0.2-0.9) 01/05/25 06:38 Eos # (Auto) 0.0 10^3/uL (0.0-0.8) 01/05/25 06:38 Baso # (Auto) 0.0 10^3/uL (0.0-0.1) 01/05/25 06:38 Nucleated RBC % (auto) 0 % 01/05/25 06:38 Nucleated RBCs # 0.0 /100WBC 01/05/25 06:38 Sodium 136 mmol/L (136-145) 01/05/25 06:38 Potassium 2.3 mmol/L (3.5-5.1) L* 01/05/25 06:38 Chloride 89 mmol/L (98-107) L 01/05/25 06:38 Carbon Dioxide 27 mmol/L (22-29) 01/05/25 06:38 Anion Gap 22.3 (5-19) H 01/05/25 06:38 BUN 12 mg/dL (8-23) 01/05/25 06:38 Creatinine 1.2 mg/dL (0.5-0.9) H 01/05/25 06:38 GFR Calculation 44.4 mL/min (90-130) L 01/05/25 06:38 Glucose 94 mg/dL (65-115) 01/05/25 06:38 Calculated Osmolality 282 mOsm/kg (285-295) L 01/05/25 06:38 Calcium 8.8 mg/dL (8.5-10.5) 01/05/25 06:38 Magnesium 1.7 mg/dL (1.7-2.3) 01/05/25 06:38 Total Bilirubin 0.3 mg/dL (0.15-1.2) 01/05/25 06:38 AST 16 U/L (0-32) 01/05/25 06:38 ALT 7 U/L (0-33) 01/05/25 06:38 Alkaline Phosphatase 78 U/L (35-105) 01/05/25 06:38 Total Protein 7.1 g/dL (6.6-8.7) 01/05/25 06:38 Albumin 3.7 g/dL (3.5-5.2) 01/05/25 06:38 Globulin 3.4 g/dL (1.3-4.6) 01/05/25 06:38 Ethyl Alcohol < 10 mg/dL (0-10) 01/05/25 06:38 No radiology studies performed this visit Discharge Plan Discharge Patient Disposition: Home Clinical Impression: Acute hypokalemia, Chorea due to tardive dyskinesia, Alcoholism, Schizoaffective disorder Condition: Stable Prescriptions: New potassium chloride [Klor-Con M20] 20 mEq tablet,ER particles/crystals 20 meq PO BID Qty: 60 0RF No Action levothyroxine 137 mcg tablet 137 mcg PO QAM Qty: 60 3RF tetrabenazine 25 mg tablet 25 mg PO BID Qty: 60 0RF (DME) shower chair See Rx Instructions .Route .MEDSUPPLY Qty: 1 0RF Rx Instructions: As directed (DME) Back brace See Rx Instructions .Route .MEDSUPPLY Qty: 1 0RF Rx Instructions: As directed pantoprazole 40 mg tablet,delayed release (DR/EC) See Rx Instructions .ROUTE .COMPLEX Qty: 30 0RF Dose Instruction: TAKE ONE TABLET BY MOUTH DAILY Rx Instructions: TAKE ONE TABLET BY MOUTH DAILY trazodone 100 mg tablet See Rx Instructions .ROUTE .COMPLEX Qty: 30 0RF Dose Instruction: TAKE ONE TABLET BY MOUTH DAILY Rx Instructions: TAKE ONE TABLET BY MOUTH DAILY albuterol sulfate [Ventolin HFA] 90 mcg/actuation HFA aerosol inhaler 2 inh inhalation Q6H PRN (Reason: shortness of breath or wheezing) Qty: 6.7 0RF sertraline 100 mg tablet 100 mg PO DAILY spironolactone 25 mg tablet 25 mg PO BID Qty: 60 0RF amlodipine 10 mg tablet 10 mg PO DAILY Qty: 30 0RF potassium chloride [K-Tab] 20 mEq tablet extended release 20 meq PO DAILY Qty: 14 0RF tetrabenazine [Xenazine] 25 mg tablet 25 mg PO BID 30 Days Qty: 60 0RF Discharge Orders: Discharge ED (Routine); Ordered 01/05/25 Ordered By: Naveen Evans Referrals: Cherrie Cosme MD [Primary Care Provider, Family Practice] Discharge Diet: Usual diet Discharge Activity: Increase activity as tolerated Patient Instructions: Opioid Safety, Pain Management, Patient Portal & Sid Instructions Activity Restrictions/Additional Instructions: Thank you for choosing [facility] for your healthcare needs today. It is very important that you follow up as instructed or that you return to the Emergency Department should you have concerns or if your condition changes or worsens in any way. You were seen in the emergency room with complaints of movements from your tardive dyskinesia. Your potassium was extremely low. We did give you potassium supplement here and recommend you increase your oral potassium supplement to 20 mg equivalents twice a day. We had recommended you stay here so we could recheck your potassium to ensure that it had corrected you declined. Strongly suggest that you follow-up with your primary care doctor to have it rechecked in a couple days. You can return to the emergency room if you wish and we will reevaluate you as appropriate. Print Language: Setswana Coding Level of Care Code ED Real Estate Investor for Anyi Cunningham
[2025-01-05 06:42] LABS: Hematocrit 28.0 % (36-47); Hemoglobin 8.60 g/dL (11.27-16.99); Mean Corpuscular HGB Conc 30.7 g/dL (30-55); Mean Corpuscular Hemoglobin 24.5 pg (27-33); Mean Corpuscular Volume 79.8 fl (85-98); Nucleated Red Blood Cells % 0 %; Platelet Count 460 10^3/cmm (157-399); Red Blood Count 3.51 10^6/uL (3.85-5.65); White Blood Count 5.27 10^3/uL (3.29-11.43)
[2025-01-05 07:00] LABS: Alanine Aminotransferase 7 U/L (0-33); Albumin Level 3.7 g/dL (3.5-5.2); Alkaline Phosphatase 78 U/L (35-105); Anion Gap 22.3 (5-19); Aspartate Amino Transferase 16 U/L (0-32); Blood Urea Nitrogen 12 mg/dL (8-23); Calcium 8.8 mg/dL (8.5-10.5); Carbon Dioxide 27 mmol/L (22-29); Chloride 89 mmol/L (98-107); Creatinine Clr Calc Pharmacy 34.1954; Globulin 3.4 g/dL (1.3-4.6); Glucose 94 mg/dL (65-115); Magnesium 1.7 mg/dL (1.7-2.3); Osmolality Calculated 282 mOsm/kg (285-295); Sodium 136 mmol/L (136-145); Total Protein 7.1 g/dL (6.6-8.7)
[2025-01-05 07:02] LABS: Alcohol Level < 10 mg/dL (0-10); Potassium 2.3 mmol/L (3.5-5.1)
[2025-01-05] MEDS: potassium chloride oral liq 20 mEq/15 mL UDC 40 MEQ PO (07:11)
[2025-01-05 07:22] VITALS: BP 150/86; PULSE 82; O2SAT 100
== END 2025-01-05 07:23 | disposition home or self-care (01) ==
PROVIDERS: Emergency Provider Family Medicine; PCP Family Medicine
DX: E87.6 Hypokalemia (principal); G24.01 Drug induced subacute dyskinesia; G25.4 Drug-induced chorea; Z79.899 Other long term (current) drug therapy; Z53.29 Procedure and treatment not carried out because of patient's decision for other reasons; E05.90 Thyrotoxicosis, unspecified without thyrotoxic crisis or storm; F17.210 Nicotine dependence, cigarettes, uncomplicated; F10.20 Alcohol dependence, uncomplicated; F25.9 Schizoaffective disorder, unspecified
CPT/HCPCS: 36415; 80053; 80307; 83735; 85025; 99283; J9999

== ENCOUNTER 2025-01-06 18:34 | Inpatient (IN) | payer MEDICARE, MEDICAID, SELFPAY ==
[2025-01-06 18:44] VITALS: BP 108/66; PULSE 86; RESP 18; TEMP 36.6; O2SAT 97; BMI 19.7
--- NOTE | 2025-01-06 19:02 | ECG_ITS ---
[facility] Test Date: 2025-01-06 Pat Name: Gilda Hodge Department: Room: Gender: Female Frame Stripper And Crusher: : 1955 Requested By: Samir Collins Order Number: [id number] Alfonso MD: Didier Garcia M.D. Measurements Intervals [place] Rate: 87 P: 95 NE: 173 QRS: -52 QRSD: 75 T: 69 QT: 405 QTc: 487 Interpretive Statements SINUS RHYTHM WITH OCCASIONAL ECTOPIC PREMATURE COMPLEXES LOW QRS VOLTAGE IN PRECORDIAL LEADS [QRS DEFLECTION < 1.0 mV IN CHEST LEADS] POSSIBLE RIGHT VENTRICULAR CONDUCTION DELAY [RSR (QR) IN V1/V2] LEFT ANTERIOR FASCICULAR BLOCK [QRS AXIS <= -45, QR IN I, RS IN II] ANTEROSEPTAL MYOCARDIAL INFARCTION , OF INDETERMINATE AGE [40+ ms Q WAVE IN V1-V4] Compared to ECG 12/03/2024 12:53:28 Left anterior fascicular block now present Left-axis deviation no longer present T-wave abnormality no longer present Myocardial infarct finding still present Electronically Signed On 01-07-2025 00:16:22 CDT by Didier Garcia M.D. [email or web address]
--- OUTSIDE RECORDS SUMMARY | 2025-01-06 19:20 | XMS_ITS | Patient Health Record ---
Author Organization [facility] Address [address] [place] [address] Care Team Providers Care Hairspring Vibrator Name Role Phone Brandon Sarkar Primary Care Provider [phone] Allergies Allergen (clinical drug ingredient) Drug/Non Drug [...] W/U Status Risk Notes Problem Wernicke's encephalopathy (88993042) Wernicke's encephalopathy (E51.2) Active confirmed Problem Alcohol abuse wi th intoxication, unspecified (F10.129) Active confirmed Problem Gastro-esophageal reflux disease without esophagitis (730265236) Gastro-esophageal reflux disease without esophagitis (K21.9) Active confirmed Problem COPD - Chronic obstructive pulmonary disease (04766378) Chronic obstructive pulmonary disease, unspecified COPD type (J44.9) Active confirmed Problem Chronic hepatitis C (688755471) Chronic hepatitis C without hepatic coma (B18.2) Active confirmed Problem Osteoarthritis (501985651) Osteoarthritis, unspecified osteoarthritis type, unspecified site (M19.90) Active confirmed Problem Hypothyroidism (81273230) Hypothyroidism, unspecified type (E03.9) Active confirmed Problem Tobacco user (943494085) Nicotine dependence, uncomplicated, unspecified nicotine product type (F17.200) Active confirmed Problem Insomnia (171225198) Insomnia, unspecified type (G47.00) Active confirmed Problem Anxiety state (041747278) Anxiety disorder, unspecified type (F41.9) Active confirmed Problem Schizoaffective disorder (09614705) Schizoaffective disorder, unspecified type (F25.9) Active confirmed Plan Of Treatment No Information Insurance Providers Payer Name Payer Address Payer Phone Subscriber Number Group Number Insured Name Patient Relationship to Insured Coverage Start Date Coverage End Date [place] Medicare [place] [address] [address] [place] [address] [phone] [id number] TOBY DUEÑAS Self - patient is the insured [place] Medicaid [address] [place] [address] [phone] [id number] TOBY DUEÑAS Self - patient is the insured
[2025-01-06 19:23] LABS: Hematocrit 27.7 % (36-47); Hemoglobin 8.80 g/dL (11.27-16.99); Mean Corpuscular HGB Conc 31.8 g/dL (30-55); Mean Corpuscular Hemoglobin 25.0 pg (27-33); Mean Corpuscular Volume 78.7 fl (85-98); Nucleated Red Blood Cells % 0 %; Platelet Count 485 10^3/cmm (157-399); Red Blood Count 3.52 10^6/uL (3.85-5.65); White Blood Count 6.35 10^3/uL (3.29-11.43)
[2025-01-06 19:35] VITALS: BP 112/67; PULSE 83; RESP 20; O2SAT 100
[2025-01-06 19:52] LABS: Alanine Aminotransferase 6 U/L (0-33); Albumin Level 3.5 g/dL (3.5-5.2); Alkaline Phosphatase 78 U/L (35-105); Anion Gap 19.2 (5-19); Aspartate Amino Transferase 15 U/L (0-32); Blood Urea Nitrogen 8 mg/dL (8-23); Calcium 8.5 mg/dL (8.5-10.5); Carbon Dioxide 28 mmol/L (22-29); Chloride 93 mmol/L (98-107); Creatinine Clr Calc Pharmacy 41.0345; Globulin 3.1 g/dL (1.3-4.6); Glucose 76 mg/dL (65-115); Magnesium 1.7 mg/dL (1.7-2.3); Osmolality Calculated 283 mOsm/kg (285-295); Sodium 138 mmol/L (136-145); Thyroid Stimulating Hormone 5.42 uIU/mL (0.27-4.20); Total Protein 6.6 g/dL (6.6-8.7)
[2025-01-06 19:59] LABS: Potassium 2.2 mmol/L (3.5-5.1)
[2025-01-06 20:00] VITALS: BP 107/78; PULSE 82; RESP 15; O2SAT 98
[2025-01-06 20:30] VITALS: BP 119/70; PULSE 80; RESP 15; O2SAT 98
[2025-01-06] MEDS: lidocaine 1% 5 ML in potassium chloride premix 100 ML 26.25 ML IV (20:52)
[2025-01-06 21:00] VITALS: BP 123/71; PULSE 71; RESP 15; O2SAT 98
--- NOTE | 2025-01-06 22:08 | PM.HP ---
Providers/Chief Complaint Admitting Physician: Yousuf Renee Primary Care Provider: Cherrie Cosme MD Chief Complaint: Low Potassium History of Present Illness Gilda Hodge is a 69 year old patient with a history of schizoaffective disorder, COPD, hypothyroidism, chronic back pain/DDD, psoriasis, prior hepatitis C (treated), alcohol use disorder (sober since 2023 but admits occasional drinking) and nicotine dependence who presents from the ED for worsening hypokalemia and persistent vomiting. The patient was in the ED on 05 January with potassium depletion, received replacement, and returns today with a further drop to 2.2 mEq/L despite prescriptions for oral potassium and spironolactone. Has not been able to eat, anything she eats comes right up . Reports daily vomiting ?forever,? inability to tolerate food for six days, and recent naproxen (Aleve) use two nights ago. Denies diarrhea, GI bleeding, urinary symptoms, fevers, chills, cough, or rashes. Admits occasional alcohol use and current smoking. Medication adherence is uncertain; the patient is unsure about taking prescribed potassium or spironolactone and has home-health assistance. Tardive dyskinesia symptoms have worsened on tetrabenazine but improved with clonazepam in the ED. No known diabetes. Awaiting outpatient upper-GI endoscopy but not scheduled. Requests relief for hip/back pain and anxiety. Code status declared as no resuscitation. Review of Systems Const: Reports: body aches; Denies: fever(s), chills or malaise ENMT: Denies: throat pain Card: Denies: chest pain, edema, pre-syncope or dyspnea on exertion Resp: Denies: dyspnea, productive cough, change in phlegm color or hemoptysis GI: Reports: nausea and vomiting; Denies: abdominal pain, diarrhea, constipation, hematochezia or melena : Denies: flank pain, urinary frequency or hematuria Musc: Reports: back pain and other (Hip pain); Denies: joint swelling or joint redness Skin/Breast: Denies: rash or new lesions Neuro: Denies: headache(s) or confusion Medications/Allergies Home Medications ?Medication ?Instructions ?Recorded ?Confirmed ?Last Taken ?Type shower chair #1 ea 11/21/22 12/08/24 Unknown Rx Back brace #1 ea 12/16/23 12/08/24 Unknown Rx pantoprazole 40 mg tablet,delayed See Rx Instructions .Route 10/07/24 12/08/24 Unknown Rx release .COMPLEX #30 tabs trazodone 100 mg tablet See Rx Instructions .Route 10/23/24 12/08/24 12/02/24 Rx .COMPLEX #30 tabs albuterol sulfate 90 mcg/actuation 2 inh inhalation Q6H PRN shortness 11/19/24 12/08/24 Unknown Rx aerosol inhaler (Ventolin HFA) of breath or wheezing #6.7 grams levothyroxine 137 mcg tablet 137 mcg PO QAM #60 tabs 12/01/24 12/08/24 12/02/24 Rx tetrabenazine 25 mg tablet 25 mg PO BID #60 tabs 12/01/24 12/08/24 12/02/24 Rx sertraline 100 mg tablet 100 mg PO DAILY 12/03/24 12/08/24 12/02/24 History amlodipine 10 mg tablet 10 mg PO DAILY #30 tabs 12/04/24 12/08/24 Unknown Rx potassium chloride 20 mEq 20 meq PO DAILY #14 tabs 12/04/24 12/08/24 Unknown Rx tablet,extended release (K-Tab) spironolactone 25 mg tablet 25 mg PO BID #60 tabs 12/04/24 12/08/24 Unknown Rx tetrabenazine 25 mg tablet 25 mg PO BID 30 days #60 tabs 01/04/25 Unknown Rx (Xenazine) potassium chloride 20 mEq 20 meq PO BID #60 tabs 01/05/25 Unknown Rx tablet,extended release(part/cryst) (Klor-Con M) Allergies Allergy/AdvReac Type Severity Reaction Status Date / Time Penicillins Allergy Unknown Verified 01/05/25 06:22 PFSH Acute PFSH: Medical History Psychiatric care Schizoaffective disorder History of hepatitis C negative viral load following treatment Enrolled in chronic care management Psoriasis Hypoglycemia Skin tear of right upper extremity Alcohol intoxication Elevated lactic acid level Closed fracture of inferior pubic ramus Altered mental status High anion gap metabolic acidosis Chronic alcohol use Consumes vodka daily. Insomnia Anxiety Chronic obstructive pulmonary disease Schizoaffective disorder Chronic back pain DDD (degenerative disc disease) Hyperthyroidism Surgical History History of cataract extraction with lens replacement Family History Denies family history of Diabetes CAD (coronary artery disease) Cancer Stroke Social History Smoking and tobacco/nicotine status: current every day tobacco/nicotine user cigarettes Packs smoked per day: 1 Years cigarettes smoked: 55 Second hand smoke exposure: Yes Alcohol intake: former Year of sobriety/quit date alcohol: 2023 Substance/Drug Use: never Lives independently: Yes Household members: friend(s) Marital status: / Number of children: 0 Current occupational 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 gender identity: Female Special supa needs: No Agree to transfusion: Yes Vitals/I&O/Wt Last Vital Signs Temp 97.8 F 01/06/25 18:44 Pulse 71 01/06/25 21:00 Resp 15 01/06/25 21:00 BP 123/71 01/06/25 21:00 Pulse Ox 98 01/06/25 21:00 O2 Del Method Room Air 01/06/25 20:00 01/06/25 01/06/25 01/06/25 06:59 14:59 22:59 Intake Total 0 / 0 Balance 0 / 0 Weight last 48 hrs Weight 48.988 kg Physical Exam Narrative: Dry heaving, retching intermittently during the visit, regurgitating/vomiting with small amounts of clear liquid Const: COMMON NORMALS: patient oriented x3 and alert GENERAL APPEARANCE: cooperative NUTRITIONAL APPEARANCE: thin ORIENTATION/CONSCIOUSNESS: Yes awake HENMT: COMMON NORMALS: oropharynx normal OTHER: Edentulous Neck/C-Spine: COMMON NORMALS: no JVD Resp: COMMON NORMALS: normal respiratory effort and clear to auscultation bilaterally AUSCULTATION: clear to auscultation bilaterally Cardio: COMMON NORMALS: no JVD, regular rhythm, S1 normal heart sound present, S2 normal heart sound present and No murmurs present (Cardio) RHYTHM: regular rhythm HEART SOUNDS: S1 normal heart sound present and S2 normal heart sound present GI: COMMON NORMALS: Normal to inspection, nondistended, normoactive bowel sounds present, Soft to palpation and non-tender PALPATION: Yes Soft to palpation Extremity: COMMON NORMALS: no joint enlargement and no pedal edema Neuro: COMMON NORMALS: patient oriented x3 and moves all extremities SENSORIUM/ORIENTATION: Yes alert Skin: COMMON NORMALS: no rashes or lesions noted GENERAL SKIN EXAM: no rashes or lesions noted Data 01/06/25 19:17 01/06/25 19:17 A&P Assessment and plan 1. Hypokalemia: Hypokalemia : Recurrent severe hypokalemia (2.2 mEq/L today) with prior episodes despite outpatient supplements and spironolactone. Worsened despite outpatient management and recent increase in potassium supplementation. Reviewed vitals, CBC, CMP, magnesium, TSH, EKG, ED provider note, discussed with ED provider. - Replace potassium IV and PO; also replace magnesium. - Re-check serum potassium and magnesium levels. - Obtain urine studies for urine anion gap (potassium, creatinine, chloride) and ABG to assess for renal tubular acidosis. Although seems possibly more likely related to recurrent vomiting and lack of adherence/ability to take potassium supplementation. - Continue/consider spironolactone to aid potassium retention if tolerated. - Reinforce importance of potassium supplement adherence. 2. Nausea and vomiting: Intractable vomiting : Persistent vomiting for several days with inability to tolerate solids or liquids. - NPO except ice chips and sips with medications until oral intake tolerated. - Initiate anti-emetic therapy (e.g., Reglan). Zofran as needed -IV hydration, monitor for risk of fluid overload - Consider gastric emptying study for possible gastroparesis. - Requesting barium swallow; consider upper-GI endoscopy - If no structural abnormality, and not improving with treatment of gastritis, consider whether tetrabenazine may be causing recurrent nausea/vomiting. Will not increase dose at this time - With iron deficiency anemia check Hemoccult Plan: Suspected NSAID-induced gastritis : Recent naproxen use plus alcohol likely contributing to gastritis and vomiting. Counseled on alcohol avoidance. - Discontinue NSAIDs. - Start IV PPI twice daily (acid suppression). Chronic back and hip pain : History of degenerative disc disease with chronic hip/back pain, currently exacerbated and compounded by inability to take oral meds. - Apply lidocaine patches on schedule. - Morphine IV PRN for breakthrough pain. Tardive dyskinesia : Worsening symptoms reported on tetrabenazine; partial relief previously with clonazepam. - Continue tetrabenazine; document symptom course. - IV Ativan as needed due to difficulties with oral intake until reestablished - Consider neurology/psychiatry input if dyskinesia persists. Nicotine dependence : Active smoking; patient requests assistance. - Order nicotine patch during hospitalization. - Provide brief smoking-cessation counseling. Discussed with 3 and half minutes, she has been trying to quit, but has been having difficulty. She is agreeable with nicotine patches. Alcohol use disorder : History of alcoholism; patient admits occasional recent drinking which may worsen gastritis and hypokalemia. - Advise strict abstinence from alcohol. - Provide counseling and consider addiction services referral if needed. Microcytic anemia : Known chronic anemia (Hgb 8.8 g/dL, MCV 78.7). -Check Hemoccult. -Iron studies - Monitor CBC during hospitalization; no transfusion indicated at present. Medication adherence difficulty : Patient uncertain about home medications, may lack reliable support. - Requesting to confirm medication list accurately during stay. -Will reinforce with her medication adherence in particular potassium supplementation - Coordinate pharmacy and nursing education prior to discharge. - Evaluate need for expanded home-health services. Case management consultation. Follow-up : Post-discharge planning and continuity of care. - Observation admission overnight; day team to reassess. - Ensure outpatient follow-up appointment scheduling for endoscopy. - Arrange follow-up with primary care and psychiatry. PDMP PDMP Reviewed: Not Reviewed Attestations Medical Necessity Statement*: Please observation for additional assessment and management of worsening hypokalemia despite outpatient management, intractable nausea and vomiting, lack of oral intake with electrolyte abnormality and severe hypokalemia, hypomagnesemia, suspected NSAID induced gastritis, additional comorbidities as above. and High MDM includes amount and/or complexity of data reviewed/ordered [ previous or external records, resulted lab(s)/test(s), ordered lab(s)/test(s) and other healthcare professional discussion] and described risk of complication, morbidity or mortality of management as documented Diagnoses Hypokalemia E87.6 Nausea and vomiting R11.2
[2025-01-06 22:12] VITALS: BP 132/71; PULSE 77; RESP 18; O2SAT 99
--- NOTE | 2025-01-06 22:23 | ED_ITS ---
HPI - Weakness 2 General: Chief complaint: Psychiatric Symptoms Stated complaint: SI Time Seen by Provider: 01/06/25 18:49 History of Present Illness: 69-yo F with known tardive dyskinesia an d recent episodes of hypokalemia presents from triage after reporting suicidal statements. Pt clarifies she does not have an active plan to kill herself but is sick of being sick and at times wishes to . Current flare of tardive dyskinesia is causing severe discomfort; she reports spitting up and is totally miserable. She is unable to ambulate and also complains of left hip and back pain. Yesterday?s visit reportedly left her feeling okay. She states she took her morning medications but feels the doses are insufficient?specifically requests a large dose of clonazepam and a higher dose of her tardive dyskinesia medication (tetrabenazine). Pt has a POA who manages her medications. Related Data Home Medications ?Medication ?Instructions ?Recorded ?Confirmed sertraline 100 mg tablet 100 mg PO DAILY 12/03/24 Previous Rx's ?Medication ?Instructions ?Recorded shower chair #1 ea 11/21/22 Back brace #1 ea 12/16/23 pantoprazole 40 mg tablet,delayed See Rx Instructions .Route 10/07/24 release .COMPLEX #30 tabs trazodone 100 mg tablet See Rx Instructions .Route 0 10/23/24 .COMPLEX #30 tabs albuterol sulfate 90 mcg/actuation 2 inh inhalation Q6 H PRN shortness 11/19/24 aerosol inhaler (Ventolin HFA) of breath or wheezing # 6.7 grams levothyroxine 137 mcg tablet 137 mcg PO QAM #60 tabs 0 12/01/24 tetrabenazine 25 mg tablet 25 mg PO BID #60 tabs 12/01 amlodipine 10 mg tablet 10 mg PO DAILY #30 tabs 11/20 11/13 potassium chloride 20 mEq 20 meq PO DAILY #14 tabs tablet,extended release (K-Tab) spironolactone 25 mg tablet 25 mg PO BID #60 tabs 11/20 11/13 tetrabenazine 25 mg tablet 25 mg PO BID 30 days #60 ta bs 01/04/25 (Xenazine) potassium chloride 20 mEq 20 meq PO BID #60 tabs 01/05 tablet,extended release(part/cryst) (Klor-Con M) Allergies Allergy/AdvReac Type Severity Reaction Status Date / Time Penicillins Allergy Unknown Verified 01/05/25 06:22 [facility] ED 2 PFSH: Medical History Psychiatric care Schizoaffective disorder History of hepatitis C negative viral load following treatment Enrolled in chronic care management Psoriasis Hypoglycemia Skin tear of right upper extremity Alcohol intoxication Elevated lactic acid level Closed fracture of inferior pubic ramus Altered mental status High anion gap metabolic acidosis Chronic alcohol use Consumes vodka daily. Insomnia Anxiety Chronic obstructive pulmonary disease Schizoaffective disorder Chronic back pain DDD (degenerative disc disease) Hyperthyroidism Surgical History History of cataract extraction with lens replacement Family History Denies family history of Diabetes CAD (coronary artery disease) Cancer Stroke Social History Smoking and tobacco/nicotine status: current every day tobacco/nicotine user cigarettes Packs smoked per day: 1 Years cigarettes smoked: 55 Second hand smoke exposure: Yes Alcohol intake: former Year of sobriety/quit date alcohol: 2023 Substance/Drug Use: never Lives independently: Yes Household members: friend(s) Marital status: / Number of children: 0 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 Eye: COMMON NORMALS: Equal, round and reactive pupils present, EOMs intact bilaterally and no scleral icterus PUPIL: Yes Equal, round and reactive pupils present Resp: COMMON NORMALS: normal respiratory effort and No retractions Cardio: COMMON NORMALS: regular rate, regular rhythm and No murmurs present (Cardio) RATE: regular rate RHYTHM: regular rhythm GI: COMMON NORMALS: Normal to inspection, nondistended, normoactive bowel sounds present, Soft to palpation and non-tender PALPATION: Yes Soft to palpation Neuro: OTHER: Pronounced lipsmacking and dysarthria secondary to tardive dyskinesia. No unilateral weakness or paresthesia. Psych: OTHER: Reaffirms no SI or HI. No active hallucinations or delusions. Very frustrated with her tardive dyskinesia and feels that she is having a flare which causes her dysphoria. Skin: COMMON NORMALS: no rashes or lesions noted GENERAL SKIN EXAM: no rashes or lesions noted Course 2 Vital Signs: Vital signs: Vital Signs Temperature 97.8 F 01/06/25 18:44 Pulse Rate 77 01/06/25 22:12 Respiratory Rate 18 01/06/25 22:12 Blood Pressure 132/71 01/06/25 22:12 Pulse Oximetry 99 01/06/25 22:12 Oxygen Delivery Me thod Room Air 01/06/25 20:00 MDM - Weakness Medical Decision Making In summary, patient is a 6-year-old female seen for what she feels is a tardive dyskinesia flare. Despite being seen yesterday and given supplemental potassium, she remains profoundly hypokalemic. For this, she will be admitted to the medical service for both IV and oral potassium repletion as well as magnesium repletion. Multiple times she has confirmed that she is not suicidal but that she is very frustrated with her medical problems and hopes to have relief from her current tardive dyskinesia flare if possible. Lab Data 01/06/25 19:17 01/06/25 19: Laboratory Results WBC 6.35 10^3/uL (3.29-11.43) 01/06/25 19: RBC 3.52 10^6/uL (3.85-5.65) L 01/06/25 19: Hgb 8.80 g/dL (11.27-16.99) L 01/06/25 19: Hct 27.7 % (36-47) L 01/06/25 19: MCV 78.7 fl (85-98) L 01/06/25 19: MCH 25.0 pg (27-33) L 01/06/25 19: MCHC 31.8 g/dL (30-55) 01/06/25 19:17 RDW 18.5 % (12.1-15.1) H 01/06/25 19:17 Plt Count 485 10^3/cmm (157-399) H 01/06/25 19:17 MPV 8.9 fL (7.4-10.4) 01/06/25 19:17 Neut % (Auto) 51.2 % 01/06/25 19:17 Lymph % (Auto) 36.9 % 01/06/25 19:17 Sevier % (Auto) 9.4 % 01/06/25 19:17 Eos % (Auto) 1.7 % 01/06/25 19:17 Baso % (Auto) 0.3 % 01/06/25 19:17 Neut # (Auto) 3.25 10^3/uL (1.8-7.7) 01/06/25 19:17 Lymph # (Auto) 2.3 10^3/uL (0.8-4.8) 01/06/25 19:17 Sevier # (Auto) 0.6 10^3/uL (0.2-0.9) 01/06/25 19:17 Eos # (Auto) 0.1 10^3/uL (0.0-0.8) 01/06/25 19:17 Baso # (Auto) 0.0 10^3/uL (0.0-0.1) 01/06/25 19:17 Nucleated RBC % (auto) 0 % 01/06/25 19:17 Nucleated RBCs # 0.0 /100WBC 01/06/25 19:17 Sodium 138 mmol/L (136-145) 01/06/25 19:17 Potassium 2.2 mmol/L (3.5-5.1) L* 01/06/25 19:17 Chloride 93 mmol/L (98-107) L 01/06/25 19:17 Carbon Dioxide 28 mmol/L (22-29) 01/06/25 19:17 Anion Gap 19.2 (5-19) H 01/06/25 19:17 BUN 8 mg/dL (8-23) 01/06/25 19:17 Creatinine 1.0 mg/dL (0.5-0.9) H 01/06/25 19:17 GFR Calculation 54.8 mL/min (90-130) L 01/06/25 19:17 Glucose 76 mg/dL (65-115) 01/06/25 19:17 Calculated Osmolality 283 mOsm/kg (285-295) L 01/06/25 19:17 Calcium 8.5 mg/dL (8.5-10.5) 01/06/25 19:17 Magnesium 1.7 mg/dL (1.7-2.3) 01/06/25 19:17 Total Bilirubin 0.2 mg/dL (0.15-1.2) 01/06/25 19:17 AST 15 U/L (0-32) 01/06/25 19:17 ALT 6 U/L (0-33) 01/06/25 19:17 Alkaline Phosphatase 78 U/L (35-105) 01/06/25 19:17 Total Protein 6.6 g/dL (6.6-8.7) 01/06/25 19:17 Albumin 3.5 g/dL (3.5-5.2) 01/06/25 19:17 Globulin 3.1 g/dL (1.3-4.6) 01/06/25 19:17 TSH 5.42 uIU/mL (0.27-4.20) H 01/06/25 19:17 No radiology studies performed this visit EKG Data EKG 1: Interpretation: Time?1935?sinus rhythm with infrequent PACs, no ST segment elevation or depression, no T wave inversions, T waves are somewhat flattened consistent with the laboratory finding of hypokalemia. QTc = 449 Discharge Plan Discharge Patient Disposition: Admitted As Inpatient Admit Provider: Yousuf Renee Clinical Impression: Acute hypokalemia, Tardive dyskinesia Condition: Stable Coding Level of Care Code ED Criminal Justice Program Director for Anyi Cunningham
[2025-01-06 22:50] VITALS: BMI 18.7
[2025-01-06] MEDS: magnesium sulfate premix 2 GM/50 ML PIGGYBACK IV (23:04)
[2025-01-06] MEDS: pantoprazole 40 mg SDV IVP (23:05)
[2025-01-06] MEDS: ondansetron 2 mg/ML SDV 2 mL 4 MG IVP (23:25)
[2025-01-06 23:43] LABS: ABG PCO2 38.0 mmHg (35-45); ABG PH Result 7.55 (7.35-7.45); Arterial Blood Gas Hematocrit 26.0 % (37-47); Blood Gas Allen Test Pos; Blood Gas Sample Site Brachial, right; Blood Gas Sample Type Arterial; HCO3 ABG 33.2 mmol/L (22-26); PO2 ABG 70.7 mmHg (80.0-100.0)
[2025-01-07] VITALS (8 sets, daily range): BP systolic 117–147; BP diastolic 72–86; PULSE 73–92; RESP 16–19; TEMP 36.6–36.8; O2SAT 94–99
[2025-01-07] MEDS: morphine 4 mg/mL SDV 1 mL 2 MG IVP ×3 (00:11→22:01)
[2025-01-07 01:41] LABS: Ferritin 16 ng/mL (15-150); Iron 11 ug/dL (37-145); Total Iron Binding Capacity 279 mcg/dl; Unsaturated Iron Binding 268 ug/dL (112-347)
[2025-01-07] MEDS: metoclopramide 5 mg/mL SDV 2 mL IVP (02:06)
[2025-01-07] MEDS: fluticasone nasal spray 16gm Btl 1 SPRAY NASAL ×2 (02:57→15:44)
[2025-01-07 03:10] LABS: Hematocrit 27.6 % (36-47); Hemoglobin 8.50 g/dL (11.27-16.99); Mean Corpuscular HGB Conc 30.8 g/dL (30-55); Mean Corpuscular Hemoglobin 24.6 pg (27-33); Mean Corpuscular Volume 80.0 fl (85-98); Nucleated Red Blood Cells % 0 %; Platelet Count 475 10^3/cmm (157-399); Red Blood Count 3.45 10^6/uL (3.85-5.65); White Blood Count 5.52 10^3/uL (3.29-11.43)
[2025-01-07 03:21] LABS: Glucose Urine UA Negative (Normal); Nitrate Urine Negative (Negative); Specific Gravity, Urine 1.011 (1.005-1.030)
[2025-01-07 03:26] LABS: Add Urine Microscopic? YES
[2025-01-07 03:29] LABS: Anion Gap 18.7 (5-19); Blood Urea Nitrogen 8 mg/dL (8-23); Calcium 8.4 mg/dL (8.5-10.5); Carbon Dioxide 30 mmol/L (22-29); Chloride 96 mmol/L (98-107); Creatinine Clr Calc Pharmacy 40.2250; Glucose 80 mg/dL (65-115); Magnesium 2.8 mg/dL (1.7-2.3); Osmolality Calculated 291 mOsm/kg (285-295); Sodium 142 mmol/L (136-145)
[2025-01-07 03:33] LABS: Urine Random Sodium 77 mmol/L
[2025-01-07 03:39] LABS: UA Slide Review UA Slide Review Perf
[2025-01-07 03:46] LABS: Potassium 2.7 mmol/L (3.5-5.1)
[2025-01-07 03:54] LABS: Urine Random Potassium 35 mmol/L
[2025-01-07] MEDS: meropenem 1,000 mg SDV 1000 MG IVP ×2 (04:30→15:21)
[2025-01-07] MEDS: lidocaine 1% 5 ML in potassium chloride premix 100 ML 26.25 ML IV (04:30)
--- OUTSIDE RECORDS SUMMARY | 2025-01-07 12:05 | XMS_ITS | Patient Health Record ---
Author Organization [facility] Address [address] [place] [address] Care Team Providers Care Muffler Hand Name Role Phone Brandon Sarkar Primary Care [...] W/U Status Risk Notes Problem Wernicke's encephalopathy (82873449) Wernicke's encephalopathy (E51.2) Active confirmed Problem Alcohol abuse wi th intoxication, unspecified (F10.129) Active confirmed Problem Gastro-esophageal reflux disease without esophagitis (066199826) Gastro-esophageal reflux disease without esophagitis (K21.9) Active confirmed Problem COPD - Chronic obstructive pulmonary disease (91030972) Chronic obstructive pulmonary disease, unspecified COPD type (J44.9) Active confirmed Problem Chronic hepatitis C (602963357) Chronic hepatitis C without hepatic coma (B18.2) Active confirmed Problem Osteoarthritis (588666284) Osteoarthritis, unspecified osteoarthritis type, unspecified site (M19.90) Active confirmed Problem Hypothyroidism (25801976) Hypothyroidism, unspecified type (E03.9) Active confirmed Problem Tobacco user (536753835) Nicotine dependence, uncomplicated, unspecified nicotine product type (F17.200) Active confirmed Problem Insomnia (553272840) Insomnia, unspecified type (G47.00) Active confirmed Problem Anxiety state (057940365) Anxiety disorder, unspecified type (F41.9) Active confirmed Problem Schizoaffective disorder (20346312) Schizoaffective disorder, unspecified type (F25.9) Active confirmed Plan Of Treatment No Information Insurance Providers Payer Name Payer Address Payer Phone Subscriber Number Group Number Insured Name Patient Relationship to Insured Coverage Start Date Coverage End Date [place] Medicare [employer] [address] [address] [place] [address] [phone] [id number] TOBY DUEÑAS Self - patient is the insured [place] Medicaid [address] [place] [address] [id number] TOBY DUEÑAS Self - patient is the insured
--- NOTE | 2025-01-07 12:10 | PC.PHAR ---
I verified medications with [facility]. Pharmacist states patient is very nice and Yesterday was acting out of character. Pharmacist states she was the one that spoke to the son about bringing her in to get help because she was threatening to kill herself. Pharmacist states patient is normally not like that and is very nice. Pharmacist states that Patients doctor , Dr. Cosme wants patient to find a Psych doctor. Pharmacist states Patient's psych medications have been all over the place and nothing consistent .Pharmacist states they do have an after hour number that can be used to call in prescriptions so they can deliver tothe patient . [facility] after hour number is [phone]. Pharmacy did deliver on 01/06/25 patients's potassium and Tetrabenazine. Pharmacist states all patients maintenance meds are having a hard time getting ok's from doctor and patient's insurance doesn't cover the Tetrabenazine,she is paying toure for as many as she can afford.
[2025-01-07] MEDS: pantoprazole 40 mg SDV IVP ×2 (12:40→22:56)
[2025-01-07 14:44] LABS: Anion Gap 19.8 (5-19); Blood Urea Nitrogen 7 mg/dL (8-23); Calcium 7.9 mg/dL (8.5-10.5); Carbon Dioxide 25 mmol/L (22-29); Chloride 92 mmol/L (98-107); Creatinine Clr Calc Pharmacy 44.6882; Glucose 63 mg/dL (65-115); Osmolality Calculated 274 mOsm/kg (285-295); Sodium 134 mmol/L (136-145)
[2025-01-07 14:53] LABS: Potassium 2.8 mmol/L (3.5-5.1)
[2025-01-07] MEDS: sodium chlor 0.9% + KCl 40 mEq 40 MEQ/1,000 ML BAG 100 MEQ IV (15:20)
[2025-01-07] MEDS: ondansetron 2 mg/ML SDV 2 mL 4 MG IVP ×2 (15:45→22:01)
--- NOTE | 2025-01-07 16:33 | P.PN_ITS ---
Subjective 2 Subjective: 69-year-old female admitted [facility] last evening for hypokalemia related to intractable nausea vomiting. She has history of schizoaffective disorder, hepatitis C, COPD, alcoholism and history of admissions for hypokalemia most recently December 03, 2024 Patient reported vomiting all the time for ever but then this morning wanted to eat and stated that she had no trouble eating at all. She was seen by speech therapy and found to have poor oral control of bolus due to tardive dyskinesia she had no overt signs or symptoms of aspiration with ice chips sips of water or bites of pudding vocal quality remained clear between swallows she did have trouble with oral control of very small diced peaches and then started burping and vomited small amounts of phlegm and pudding for approximately 5 minutes. Therapist recommended that the patient have clear liquid diet and stay upright for 30 minutes after very small trials of clear liquids until barium swallow is completed Patient tells me that she has never had hypokalemia until she got here but I pointed out to her that that she had it last month. Looking back she has had intermittent hypokalemia once in December 2021 once in September 2022 and once in June 2023 but other times potassium runs between 3.8 and 4.5 Patient tells me that she does not feel nauseated ever and that she does not have diarrhea but conversely has constipation not having bowel movements every day but more likely every 3 days and sometimes none for a week. She like to be on stool softeners. She states that potassium tablets are too big to swallow but she would do better with liquid Patient tells me that for the last 6 months or so when she eats food can get stuck if not chopped up small and this seems to be observed by the speech therapist with the vomiting and belching. Vitals/I&O/Wt Last Vital Signs Temp 98.1 F 01/07/25 11:55 Pulse 73 01/07/25 11:55 Resp 18 01/07/25 15:45 BP 144/78 01/07/25 11:55 Pulse Ox 99 01/07/25 11:55 O2 Del Method Room Air 01/07/25 11:55 01/07/25 01/07/25 01/07/25 06:59 14:59 22:59 Intake Total 655 / 655 990 / 990 Balance 655 / 655 990 / 990 Weight last 48 hrs Weight 46.522 kg Weight 46.539 kg Weight 48.988 kg Physical Exam 2 Narrative: General well-developed well-nourished female with obvious tardive dyskinesia CV regular rate and rhythm Lungs clear to auscultation minimal expiratory wheeze no crackles Abdomen positive bowel tones soft nontender Data 01/07/25 02:47 01/07/25 14:17 A&P Assessment and plan 1. Hypokalemia: Hypokalemia : Recurrent severe hypokalemia (2.2 mEq/L today) with prior episodes despite outpatient supplements and spironolactone. Attributable to recurrent vomiting and poor p.o. intake Oral potassium replacement ordered and every 6 hour BMP Admitting physician did send urine studies for urine anion gap (potassium, creatinine, chloride) and ABG to assess for renal tubular acidosis. Patient is not acidotic but not on RTA 1 can have less acidosis. I have curb sided Dr. Cao. Will replace potassium orally with liquid form that the patient can swallow wicho Cao to consult tomorrow 2. Nausea and vomiting: Intractable vomiting : Persistent vomiting for several days with inability to tolerate solids or liquids. - Per speech therapy evaluation patient will be on clear liquid diet until the barium swallow can be completed - Initiate anti-emetic therapy (e.g., Reglan). Zofran as needed -IV hydration, monitor for risk of fluid overload - Consider gastric emptying study for possible gastroparesis. - Requesting barium swallow; consider upper-GI endoscopy - If no structural abnormality, and not improving with treatment of gastritis, consider whether tetrabenazine may be causing recurrent nausea/vomiting. Will not increase dose at this time - With iron deficiency anemia check Hemoccult Patient with dysphagia and worsening iron deficiency 3. UTI (urinary tract infection): Has history of ESBL and was treated with Merrem for positive UA micro. Cultures are pending Patient denies dysuria or hematuria. Leukocyte esterase and nitrates negative but she did have 4+ bacteria and 21-50 white cells 4. Iron deficiency anemia: Patient has had low iron last month and this month but dropping further 11 from iron level 24 down to 11 and percent sat from 8.6 down to 3.9 we will give iron infusion continue with PPI patient will likely need EGD PDMP PDMP Reviewed: Not Reviewed Attestations 2 Medical Necessity Statement*: Patient remained in the hospital for expected greater than 2 midnights for dysphagia and severe hypokalemia Coding Level of Care Code 24244 Diagnoses Hypokalemia E87.6 Nausea and vomiting R11.2 UTI (urinary tract infection) N39.0 Iron deficiency anemia D50.9 Time Spent (min) 55
--- NOTE | 2025-01-07 17:12 | PC.NURSE ---
Non admit 2nd dose of PO potassium as pt is an aspiration risk and threw up after 1st dose of potassium. Dr. Phillips was notified that pt was unable to handle oral pills of potassium. No further orders given at this time.
[2025-01-07] MEDS: potassium chloride oral liq 20 mEq/15 mL UDC 40 MEQ PO (21:08)
[2025-01-07 23:40] LABS: Anion Gap 14.9 (5-19); Blood Urea Nitrogen 6 mg/dL (8-23); Calcium 7.2 mg/dL (8.5-10.5); Carbon Dioxide 22 mmol/L (22-29); Chloride 103 mmol/L (98-107); Creatinine Clr Calc Pharmacy 50.2742; Glucose 63 mg/dL (65-115); Osmolality Calculated 278 mOsm/kg (285-295); Potassium 3.9 mmol/L (3.5-5.1); Sodium 136 mmol/L (136-145)
[2025-01-08] VITALS (11 sets, daily range): BP systolic 105–160; BP diastolic 67–83; PULSE 63–82; RESP 16–20; TEMP 36.4–36.9; O2SAT 91–99
[2025-01-08] MEDS: sodium chlor 0.9% + KCl 40 mEq 40 MEQ/1,000 ML BAG 100 MEQ IV (01:37)
[2025-01-08] MEDS: potassium chloride oral liq 20 mEq/15 mL UDC 40 MEQ PO (01:37)
[2025-01-08 03:25] LABS: Anion Gap 16.4 (5-19); Blood Urea Nitrogen 6 mg/dL (8-23); Calcium 7.3 mg/dL (8.5-10.5); Carbon Dioxide 21 mmol/L (22-29); Chloride 108 mmol/L (98-107); Creatinine Clr Calc Pharmacy 44.6882; Glucose 78 mg/dL (65-115); Osmolality Calculated 286 mOsm/kg (285-295); Potassium 5.4 mmol/L (3.5-5.1); Sodium 140 mmol/L (136-145)
--- NOTE | 2025-01-08 04:33 | PC.NURSE ---
Patients potassium came back at 5.4. This nurse turned off fluids which were NS with 40meq potassium and contacted Dr. Renee to make him aware of potassium level.
[2025-01-08] MEDS: meropenem 1,000 mg SDV 1000 MG IVP ×2 (05:40→17:00)
[2025-01-08] MEDS: fluticasone nasal spray 16gm Btl 1 SPRAY NASAL ×2 (05:41→17:01)
[2025-01-08 07:43] LABS: Anion Gap 13.6 (5-19); Blood Urea Nitrogen 5 mg/dL (8-23); Calcium 7.5 mg/dL (8.5-10.5); Carbon Dioxide 22 mmol/L (22-29); Chloride 106 mmol/L (98-107); Creatinine Clr Calc Pharmacy 51.9117; Glucose 81 mg/dL (65-115); Osmolality Calculated 280 mOsm/kg (285-295); Potassium 4.6 mmol/L (3.5-5.1); Sodium 137 mmol/L (136-145)
[2025-01-08] MEDS: morphine 4 mg/mL SDV 1 mL 2 MG IVP ×4 (08:23→21:39)
[2025-01-08] MEDS: pantoprazole 40 mg SDV IVP (10:28)
[2025-01-08 12:18] LABS: Blood Urea Nitrogen 5 mg/dL (8-23); Calcium 7.6 mg/dL (8.5-10.5); Carbon Dioxide 21 mmol/L (22-29); Chloride 105 mmol/L (98-107); Creatinine Clr Calc Pharmacy 51.9117; Glucose 81 mg/dL (65-115); Osmolality Calculated 276 mOsm/kg (285-295); Sodium 135 mmol/L (136-145)
[2025-01-08 12:51] LABS: Anion Gap 13.4 (5-19); Potassium 4.4 mmol/L (3.5-5.1)
--- NOTE | 2025-01-08 13:30 | P.CONIM_ITS ---
Providers/Reason For Consult 2 Consulting Physician/Specialty*: yvette.\/Nephrology Reason for Consult*: Hypokalemia Attending Physician: Marlon Phillips MD Primary Care Provider: Cherrie Cosme MD History of Present Illness History of Present Illness Gilda Hodge is a 69 year old female 69-year-old patient with history of COPD hypothyroidism chronic back pain, hepatitis C, schizoaffective disorder was brought to the emergency department due to nausea vomiting and hypokalemia. Patient take oral potassium and spironolactone but despite that potassium was down to 2.2 and she was admitted for further management. Also has history of tardive dyskinesia . On review of prior labs patient does have intermittent hyponatremia and metabolic acidosis issues. Urine pH has been high in the 7-8 range. Urine potassium on a random sample is 35, (higher than normal) Review of Systems 2 Narrative: Negative Medications/Allergies Home Medications ?Medication ?Instructions ?Recorded ?Confirmed ?Last Taken ?Type shower chair #1 ea 11/21/22 01/07/25 Unkn own Rx Back brace #1 ea 12/16/23 01/07/25 Unkn own Rx trazodone 100 mg tablet See Rx Instructions .Route 0 10/23/24 01/07/25 12/02/24 Rx .COMPLEX #30 tabs albuterol sulfate 90 mcg/actuation 2 inh inhalation Q6 H PRN shortness 11/19/24 01/07/25 Unknown Rx aerosol inhaler (Ventolin HFA) of breath or wheezing # 6.7 grams levothyroxine 137 mcg tablet 137 mcg PO QAM #60 tabs 0 12/01/24 01/07/25 12/02/24 Rx amlodipine 10 mg tablet 10 mg PO DAILY #30 tabs 11/2001/07/25 Unknown Rx spironolactone 25 mg tablet 25 mg PO BID #60 tabs 11/2001/07/25 Unknown Rx tetrabenazine 25 mg tablet 25 mg PO BID 30 days #60 ta bs 01/04/25 01/07/25 Unknown Rx (Xenazine) potassium chloride 20 mEq 20 meq PO BID #60 tabs 01/0501/07/25 Unknown Rx tablet,extended release(part/cryst) (Klor-Con M) Allergies Allergy/AdvReac Type Severity Reaction Status Date / Time Penicillins Allergy Unknown Verified 01/05/25 06:22 Current Medications Generic Name Dose Route Start Last Admin Trade Name Freq PRN Reason Stop Dose Admin Enoxaparin Sodium 40 mg 01/06/25 23:00 01/07/25 22:56 Enoxaparin 40 Mg/0.4 Ml Syringe SUBCUT 40 mg Q24H WILLIAM Administration Fluticasone Propionate 1 spray 01/07/25 17:00 01/08/25 05:41 Fluticasone Nasal [place] 16gm Btl NASAL 1 spray 0500,1700 WILLIAM Administration Lidocaine 1 patch 01/07/25 09:00 01/08/25 08:11 Lidocaine 5% Patch TOPICAL 1 patch [id number] WILLIAM Administration Meropenem 1,000 mg 01/07/25 16:30 01/08/25 05:40 Meropenem 1,000 Mg Sdv IVP 1,000 mg Q12H WILLIAM Administration Protocol Metoclopramide HCl 5 mg 01/06/25 22:20 01/07/25 02:06 Metoclopramide 5 Mg/Ml Sdv 2 Ml IVP 5 mg Q6H PRN Administration NAUSEA AND VOMITING Morphine Sulfate 2 mg 01/06/25 22:49 01/08/25 12:46 Morphine 4 Mg/Ml Sdv 1 Ml IVP 2 mg Q4H PRN Administration SEVERE PAIN Nicotine 1 patch 01/06/25 22:10 01/08/25 08:12 Nicotine 21 Mg Patch TRANSDERMA 1 patch DAILY WILLIAM Administration Ondansetron HCl 4 mg 01/06/25 22:49 01/07/25 22:01 Ondansetron 2 Mg/Ml Sdv 2 Ml IVP 4 mg Q6H PRN Administration vomiting, or N/V if npo Pantoprazole Sodium 40 mg 01/06/25 23:00 01/08/25 10:28 Pantoprazole 40 Mg Sdv IVP 40 mg Q12H WILLIAM Administration Trazodone HCl 100 mg 01/06/25 23:45 01/07/25 21:09 Trazodone 100 Mg Tablet PO 100 mg BEDTIME WILLIAM Administration PFSH Acute 2 PFSH: Medical History (Updated 01/07/25 @ 18:21 by Marlon Phillips MD) Iron deficiency anemia Psychiatric care Schizoaffective disorder History of hepatitis C negative viral load following treatment Enrolled in chronic care management Psoriasis Hypoglycemia Skin tear of right upper extremity Alcohol intoxication Elevated lactic acid level Closed fracture of inferior pubic ramus Altered mental status High anion gap metabolic acidosis Chronic alcohol use Consumes vodka daily. Insomnia Anxiety Chronic obstructive pulmonary disease Schizoaffective disorder Chronic back pain DDD (degenerative disc disease) Hyperthyroidism Surgical History History of cataract extraction with lens replacement Family History Denies family history of Diabetes CAD (coronary artery disease) Cancer Stroke Social History Smoking and tobacco/nicotine status: current every day tobacco/nicotine user cigarettes Packs smoked per day: 1 Years cigarettes smoked: 55 Second hand smoke exposure: Yes Alcohol intake: former Year of sobriety/quit date alcohol: 2023 Substance/Drug Use: never Lives independently: Yes Household members: friend(s) Marital status: / Number of children: 0 Current occupational 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 gender identity: Female Special supa needs: No Agree to transfusion: Yes Vitals/I&O/Wt Last Vital Signs Temp 98.2 F 01/08/25 11:56 Pulse 63 01/08/25 11:56 Resp 17 01/08/25 12:46 BP 144/76 01/08/25 11:56 Pulse Ox 99 01/08/25 11:56 O2 Del Method Room Air 01/08/25 11:56 01/07/25 01/08/25 01/08/25 22:59 06:59 14:59 Intake Total 720 / 1710 2113.333 / 3823.333 840 / 840 Output Total 300 / 300 Balance 720 / 1710 2113.333 / 3823.333 540 / 540 Weight last 48 hrs Weight 50.485 kg Weight 46.522 kg Weight 46.539 kg Weight 48.988 kg Physical Exam 2 Narrative: awake , alert PEERLA [id number] per report Lungs clear per report Abd soft , non tender per report No edema Data 01/07/25 02:47 01/08/25 11:36 Micro: Microbiology 07/19/25 03:10 Urine Culture - Preliminary Urine,Clean Catch Gram Negative Rods A&P Assessment and plan 1. Acute hypokalemia: 1. Severe hypokalemia: Patient has intermittent hypokalemia-4 episodes in the past associated with mild metabolic acidosis. Etiology most likely nutritional with poor intake due to recurrent vomiting. Also given higher urinary pH and persistent hypokalemia and mild metabolic acidosis intermittently-could have type I (distal) RTA. Noted urine electrolytes, urine chloride pending. Urine potassium is slightly above normal range-suggesting possible renal wasting . Potassium is being repleted orally. Also this morning potassium was slightly high and all oral supplementation is stopped. He had a creatinine and Pete levels. -Await repeat potassium in the morning, would like to supplement potassium citrate Patient evaluated using audiovisual cart. Time spent 40 minutes. PDMP PDMP Reviewed: Not Reviewed Consult Attestations 2 Medical Necessity Statement: per ela Coding Level of Care Code Acute Code for [facility] Fwd Diagnoses Acute hypokalemia E87.6
--- NOTE | 2025-01-08 15:03 | P.PN_ITS ---
Subjective 2 Subjective: 69-year-old admitted with tard irvin dyskinesia states that she was taking medications for schizoaffective disorder and developed tardive dyskinesia about a year ago. She states the schizoaffective disorder did not cause her problems with relationship or legal issues. She did not hear voices. She states that the tetrabenazine does help her. She needs that medication restarted. Patient does not vomit volume but rather just feels full in the esophagus after eating and then retches. The actual volume is small. Notably she has iron deficiency anemia The working theory had been that she was vomiting causing her severe hypokalemia but her degree of vomiting on further history taking is minimal. She has had acidosis and hypokalemia over the years intermittently. I consulted Dr. Cao who has seen her and started her on potassium citrate. Notably her acidosis was not very severe here and her urine is not acidotic but still suspicious for a renal tubular acidosis as the underlying cause. Vitals/I&O/Wt Last Vital Signs Temp 98.2 F 01/08/25 11:56 Pulse 63 01/08/25 11:56 Resp 17 01/08/25 12:46 BP 144/76 01/08/25 11:56 Pulse Ox 99 01/08/25 11:56 O2 Del Method Room Air 01/08/25 11:56 01/08/25 01/08/25 01/08/25 06:59 14:59 22:59 Intake Total 2113.333 / 3823.333 840 / 840 Output Total 300 / 300 Balance 2113.333 / 3823.333 540 / 540 Weight last 48 hrs Weight 50.485 kg Weight 46.522 kg Weight 46.539 kg Weight 48.988 kg Physical Exam 2 Narrative: General well-developed well-nourished female with obvious tardive dyskinesia CV regular rate and rhythm Lungs clear to auscultation minimal expiratory wheeze no crackles Abdomen positive bowel tones soft nontender [id number] is intact. Patient has repetitive extraparametal gyrating movements of her mouth and jaw Data 01/07/25 02:47 01/08/25 11:36 Micro: Microbiology 01/07/25 03:10 Urine Culture - Preliminary Urine,Clean Catch Gram Negative Rods A&P Assessment and plan 1. Hypokalemia: Urine potassium was 35. Suspicious for some sort of RTA. Appreciate Dr. Cao's assistance in this matter. On double potassium replacement yesterday show patient did reach 5.4 potassium but now back down to 4.4. Continue on potassium citrate. I have discontinued the potassium chloride 2. Nausea and vomiting: Patient with dysphagia and iron deficiency anemia. Barium swallow pending tomorrow. I think she needs to have an EGD. Iron infusion was ordered yesterday 3. UTI (urinary tract infection): Has history of ESBL and was treated with Merrem for positive UA micro. Cultures are pending Patient denies dysuria or hematuria. Leukocyte esterase and nitrates negative but she did have 4+ bacteria and 21-50 white cells 4. Iron deficiency anemia: Patient has had low iron last month and this month but dropping further 11 from iron level 24 down to 11 and percent sat from 8.6 down to 3.9 we will give iron infusion continue with PPI patient will likely need EGD 5. Tardive dyskinesia: Restart her tetrabenazine. Discontinue Reglan. Although it is good for dysphagia it would potentially worsen EPS PDMP PDMP Reviewed: Not Reviewed Attestations 2 Medical Necessity Statement*: Patient will require additional 1-2 midnights in the hospital for stabilization of her potassium dose and clarification of her dysphagia with barium swallow and potentially surgery consult Coding Level of Care Code 66320 Diagnoses Hypokalemia E87.6 Nausea and vomiting R11.2 UTI (urinary tract infection) N39.0 Iron deficiency anemia D50.9 Tardive dyskinesia G24.01 Time Spent (min) 35
--- NOTE | 2025-01-08 15:21 | PC.NURSE ---
urine sample Dr ramirez for urine was unable to get because patient is incontent. DR Cao was called and I asked her if she needed me to straight cath.
[2025-01-08] MEDS: LORazepam 1 MG/0.5 ML injection 2 MG IVP (21:38)
[2025-01-09] VITALS (10 sets, daily range): BP systolic 114–151; BP diastolic 71–99; PULSE 70–98; RESP 16–20; TEMP 36.3–36.7; O2SAT 92–100
[2025-01-09] MEDS: pantoprazole 40 mg SDV IVP ×3 (00:16→23:43)
[2025-01-09 03:43] LABS: Alanine Aminotransferase 6 U/L (0-33); Albumin Level 2.8 g/dL (3.5-5.2); Alkaline Phosphatase 65 U/L (35-105); Anion Gap 12.7 (5-19); Aspartate Amino Transferase 12 U/L (0-32); Blood Urea Nitrogen 4 mg/dL (8-23); Calcium 8.1 mg/dL (8.5-10.5); Carbon Dioxide 23 mmol/L (22-29); Chloride 104 mmol/L (98-107); Creatinine Clr Calc Pharmacy 46.1437; Globulin 2.8 g/dL (1.3-4.6); Glucose 88 mg/dL (65-115); Osmolality Calculated 278 mOsm/kg (285-295); Potassium 3.7 mmol/L (3.5-5.1); Sodium 136 mmol/L (136-145); Total Protein 5.6 g/dL (6.6-8.7)
[2025-01-09 03:44] LABS: Hematocrit 25.7 % (36-47); Hemoglobin 7.50 g/dL (11.27-16.99); Mean Corpuscular HGB Conc 29.2 g/dL (30-55); Mean Corpuscular Hemoglobin 24.4 pg (27-33); Mean Corpuscular Volume 83.7 fl (85-98); Nucleated Red Blood Cells % 0 %; Platelet Count 356 10^3/cmm (157-399); Red Blood Count 3.07 10^6/uL (3.85-5.65); White Blood Count 3.72 10^3/uL (3.29-11.43)
[2025-01-09] MEDS: meropenem 1,000 mg SDV 1000 MG IVP ×2 (05:04→15:37)
[2025-01-09] MEDS: fluticasone nasal spray 16gm Btl 1 SPRAY NASAL ×2 (05:11→17:53)
[2025-01-09] MEDS: morphine 4 mg/mL SDV 1 mL 2 MG IVP ×4 (08:25→21:30)
--- NOTE | 2025-01-09 09:30 | FL_ITS ---
WS: [id number] ESOPHAGRAM TECHNIQUE: Double contrast examination was performed with thin and thick barium. Upright and ADAMES images were obtained. CLINICAL INFORMATION: can't keep any food down - comes right back up FINDINGS: Limited study due to patient's condition. Imaging performed supine in a semiupright position. Patient ingested a small amount of barium contrast. No visualized aspiration. High-grade stricture in the mid to distal esophagus extending to the GE junction. Only a very tiny lumen opacifies. Fluoroscopy performed on and off for 10 minutes and this area never distends. Findings suspicious for high-grade stricture due to chronic reflux and/or neoplasm. This can be further evaluated with endoscopy. Moderate to large esophageal hiatal hernia. Fluoroscopy time: 6min [id number] FL/FL barium swallow [id number] IMPRESSION: Limited study due to patient's condition 1. High-grade stricture involving the mid to distal esophagus extending to the GE junction. Only a tiny amount of contrast traverses this area. Findings comp atible with high grade stricture due to reflux and/or neoplasm. Recommend endos copy. 2. Moderate to large esophageal hiatal hernia.
--- NOTE | 2025-01-09 09:46 | P.PN_ITS ---
Subjective 2 Subjective: Patient currently n.p.o. due to awaiting barium swallow Medications: Reviewed: Yes Vitals/I&O/Wt Last Vital Signs Temp 98.1 F 01/09/25 07:37 Pulse 86 01/09/25 07:37 Resp 17 01/09/25 08:25 BP 141/90 01/09/25 07:37 Pulse Ox 98 01/09/25 07:37 O2 Del Method Room Air 01/09/25 07:37 01/08/25 01/09/25 01/09/25 22:59 06:59 14:59 Intake Total 360 / 1200 Balance 360 / 900 Weight last 48 hrs Weight 51.256 kg Weight 50.485 kg Physical Exam 2 Narrative: awake , alert PEERLA [id number] per report Lungs clear per report Abd soft , non tender per report No edema Data 01/09/25 03:01 01/09/25 03:01 Micro: Microbiology 01/07/25 03:10 Urine Culture - Final Urine,Clean Catch Escherichia coli A&P Assessment and plan 1. Acute hypokalemia: 1. Severe hypokalemia: Patient has intermittent hypokalemia-few episodes in the past associated with mild metabolic acidosis. Etiology most likely nutritional with poor intake due to recurrent vomiting. Also given higher urinary pH and persistent hypokalemia and mild metabolic acidosis intermittently-could have type I (distal) RTA. Noted urine electrolytes, urine chloride pending. Urine potassium is slightly above normal range-suggesting possible renal wasting . Potassium repleted orally and K went up to 5.4 and all supplementation stopped. Now noted that the potassium is trending down -so we will add potassium citrate 25 mEq twice daily 2. Dysphagia 3. Iron deficiency anemia 4. UTI Patient evaluated using audiovisual cart. Time spent 40 minutes. PDMP PDMP Reviewed: Not Reviewed Attestations 2 Medical Necessity Statement*: Per medicine team Coding Level of Care Code Acute Code for [facility] Fwd Diagnoses Acute hypokalemia E87.6
[2025-01-09] MEDS: TETRABENAZINE 25 MG 25 EACH PO ×2 (11:54→17:53)
--- NOTE | 2025-01-09 13:44 | P.PN_ITS ---
Subjective 2 Subjective: Hospital course, labs appreciated. Examination patient laying comfortably in bed, awake and alert. States she is finding difficult to speak as she has a mental illness. Patient states she would be better off . Denies any active suicidal ideation. Nursing staff she had mentioned suicidal ideation in the past during the admission. Patient denies any nausea, vomiting, headache, dysphagia, pain in her mouth. States she is finding it difficult to swallow. Vitals/I&O/Wt Last Vital Signs Temp 97.8 F 01/09/25 11:45 Pulse 98 01/09/25 11:45 Resp 16 01/09/25 11:45 BP 145/90 01/09/25 11:45 Pulse Ox 92 01/09/25 11:45 O2 Del Method Room Air 01/09/25 11:45 01/08/25 01/09/25 01/09/25 22:59 06:59 14:59 Intake Total 360 / 1200 Balance 360 / 900 Weight last 48 hrs Weight 51.256 kg Weight 50.485 kg Physical Exam 2 Narrative: General well-developed well-nourished female with obvious tardive dyskinesia CV regular rate and rhythm Lungs clear to auscultation minimal expiratory wheeze no crackles Abdomen positive bowel tones soft nontender [id number] is intact. Patient has repetitive extraparametal gyrating movements of her mouth and jaw Data 01/09/25 03:01 01/09/25 03:01 Micro: Microbiology 01/07/25 03:10 Urine Culture - Final Urine,Clean Catch Escherichia coli A&P Assessment and plan 1. Hypokalemia: Appreciate nephrology recommendations. Concern for type I RTA. Appreciate urine lites. Start on potassium citrate. 25 mg twice daily. Repeat BMP in afternoon. Target potassium around 4. 2. Nausea and vomiting: Patient with dysphagia and iron deficiency anemia. Appreciate barium swallow. Concern for possible esophageal stricture versus obstruction due to a mass. Will plan for possible EGD. Surgery consulted. Start on clear liquid diet. 3. UTI (urinary tract infection): Has history of ESBL and was treated with meropenem for positive UA micro. Cultures are pending Patient denies dysuria or hematuria. Cultures currently growing sensitive E. coli. For now we will continue with meropenem to finish a 3-day course. Chances of UTI currently very low given the UA. 4. Iron deficiency anemia: Along with possible esophageal mass versus stricture. Start on IV iron supplementation. Hemoglobin 7.5. Baseline hemoglobin seems to be around 9-8.5 earlier this year. Continue to monitor. Protonix twice daily. 5. Tardive dyskinesia: Restart her tetrabenazine. Discontinue Reglan. Although it is good for dysphagia it would potentially worsen EPS Plan: Suicidal ideation/patient has history of schizoaffective disorder: Denies any active ideation for now. Sitter at bedside. Will consult psychiatry team. Esophageal stricture: Most likely cause for chronic nausea and vomiting. Appreciate barium swallow. Surgery consult as above for EGD for further evaluation and management. DNR/DNI Start on clear liquid diet n.p.o. after midnight Protonix for PUD prophylaxis SCD for DVT prophylaxis. Hold off on Lovenox given mild anemia worsening. PDMP PDMP Reviewed: Not Reviewed Attestations 2 Medical Necessity Statement*: Requires further hospitalization while safe discharge planning is sought in a patient with concerns for chronic nausea and vomiting in setting of esophageal stricture, suicidal ideation in setting of schizoaffective disorder, significant hypokalemia Diagnoses Hypokalemia E87.6 Nausea and vomiting R11.2 UTI (urinary tract infection) N39.0 Iron deficiency anemia D50.9 Tardive dyskinesia G24.01
--- NOTE | 2025-01-09 15:28 | PC.SOCIAL ---
IMM Update pg 2 of IMM updated and reviewed w/ patient. Patient unable to sign due to unable to read/write. Copy provided. Copy dated, initialed and placed in chart.
[2025-01-09] MEDS: iron sucrose 200 MG in sodium chloride 0.9% (100 ml) 100 ML 220 MG IV (15:29)
--- NOTE | 2025-01-09 18:16 | PM.CONSULT ---
Providers/Reason For Consult Consulting Physician/Specialty*: dr ordaz gen surg Reason for Consult*: dysphagia, esophageal stricture Attending Physician: Cristi Wang MD Primary Care Provider: Cherrie Cosme MD History of Present Illness History of Present Illness Gilda Hodge is a 69 year old female whom surgery was consulted for possible distal esophageal stricture. UGI study consistent with this. Patient reports dysphagia to solids and liquids. Medications/Allergies Home Medications ?Medication ?Instructions ?Recorded ?Confirmed ?Last Taken ?Type shower chair #1 ea 11/21/22 01/07/25 Unknown Rx Back brace #1 ea 12/16/23 01/07/25 Unknown Rx trazodone 100 mg tablet See Rx Instructions .Route 10/23/24 01/07/25 12/02/24 Rx .COMPLEX #30 tabs albuterol sulfate 90 mcg/actuation 2 inh inhalation Q6H PRN shortness 11/19/24 01/07/25 Unknown Rx aerosol inhaler (Ventolin HFA) of breath or wheezing #6.7 grams levothyroxine 137 mcg tablet 137 mcg PO QAM #60 tabs 12/01/24 01/07/25 12/02/24 Rx amlodipine 10 mg tablet 10 mg PO DAILY #30 tabs 12/04/24 01/07/25 Unknown Rx spironolactone 25 mg tablet 25 mg PO BID #60 tabs 12/04/24 01/07/25 Unknown Rx tetrabenazine 25 mg tablet 25 mg PO BID 30 days #60 tabs 01/04/25 01/07/25 Unknown Rx (Xenazine) potassium chloride 20 mEq 20 meq PO BID #60 tabs 01/05/25 01/07/25 Unknown Rx tablet,extended release(part/cryst) (Klor-Con M) Allergies Allergy/AdvReac Type Severity Reaction Status Date / Time Penicillins Allergy Unknown Verified 01/05/25 06:22 Current Medications Generic Name Dose Route Start Last Admin Trade Name Freq PRN Reason Stop Dose Admin Fluticasone Propionate 1 spray 01/07/25 17:00 01/09/25 17:53 Fluticasone Nasal [place] 16gm Btl NASAL 1 spray 0500,1700 WILLIAM Administration Sodium Chloride 1,000 mls @ 50 mls/hr 01/09/25 14:15 01/09/25 14:45 Sodium Chloride 0.9% IV 50 mls/hr .Q20H WILLIAM Administration Iron Sucrose 200 mg/ Sodium 110 mls @ 220 mls/hr 01/09/25 15:00 01/09/25 16:42 Chloride IV 01/13/25 15:29 Infused Q24H WILLIAM Infusion Levothyroxine Sodium 137 mcg 01/09/25 06:00 01/09/25 05:04 Levothyroxine 137 Mcg Tablet PO 137 mcg QAM WILLIAM Administration Lidocaine 1 patch 01/07/25 09:00 01/09/25 08:13 Lidocaine 5% Patch TOPICAL 1 patch [id number] WILLIAM Administration Meropenem 1,000 mg 01/07/25 16:30 01/09/25 15:37 Meropenem 1,000 Mg Sdv IVP 01/10/25 16:29 1,000 mg Q12H WILLIAM Administration Protocol Morphine Sulfate 2 mg 01/06/25 22:49 01/09/25 18:07 Morphine 4 Mg/Ml Sdv 1 Ml IVP 2 mg Q4H PRN Administration SEVERE PAIN Nicotine 1 patch 01/06/25 22:10 01/09/25 08:14 Nicotine 21 Mg Patch TRANSDERMA 1 patch DAILY WILLIAM Administration Non-Formulary Medication 25 mg 01/09/25 11:45 01/09/25 17:53 Tetrabenazine [Xenazine] PO 25 mg BID@0500,1700 WILLIAM Administration Ondansetron HCl 4 mg 01/06/25 22:49 01/07/25 22:01 Ondansetron 2 Mg/Ml Sdv 2 Ml IVP 4 mg Q6H PRN Administration vomiting, or N/V if npo Pantoprazole Sodium 40 mg 01/06/25 23:00 01/09/25 10:39 Pantoprazole 40 Mg Sdv IVP 40 mg Q12H WILLIAM Administration Potassium Bicarbonate 25 meq 01/09/25 09:35 01/09/25 17:52 Potassium Bicarb 25 Meq Tablet PO 25 meq BID@0500,1700 WILLIAM Administration Scopolamine 1 patch 01/09/25 15:00 01/09/25 15:30 Scopolamine 1 Mg Patch TRANSDERMA 1 patch Q3D WILLIAM Administration Sodium Chloride 1 gm 01/08/25 17:00 01/09/25 17:52 Sodium Chloride 1 Gm Tablet PO 1 gm 0500,1700 WILLIAM Administration Spironolactone 25 mg 01/09/25 07:45 01/09/25 17:53 Spironolactone 25 Mg Tablet PO 25 mg BID@0500,1700 WILLIAM Administration Trazodone HCl 100 mg 01/06/25 23:45 01/08/25 21:39 Trazodone 100 Mg Tablet PO 100 mg BEDTIME WILLIAM Administration PFSH Acute PFSH: Medical History (Updated 01/10/25 @ 13:03 by Sal Ordaz MD) Iron deficiency anemia Psychiatric care Schizoaffective disorder History of hepatitis C negative viral load following treatment Enrolled in chronic care management Psoriasis Hypoglycemia Skin tear of right upper extremity Alcohol intoxication Elevated lactic acid level Closed fracture of inferior pubic ramus Altered mental status High anion gap metabolic acidosis Chronic alcohol use Consumes vodka daily. Insomnia Anxiety Chronic obstructive pulmonary disease Schizoaffective disorder Chronic back pain DDD (degenerative disc disease) Hyperthyroidism Surgical History History of cataract extraction with lens replacement Family History Denies family history of Diabetes CAD (coronary artery disease) Cancer Stroke Social History Smoking and tobacco/nicotine status: current every day tobacco/nicotine user cigarettes Packs smoked per day: 1 Years cigarettes smoked: 55 Second hand smoke exposure: Yes Alcohol intake: former Year of sobriety/quit date alcohol: 2023 Substance/Drug Use: never Lives independently: Yes Household members: friend(s) Marital status: / Number of children: 0 Current occupational 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 gender identity: Female Special supa needs: No Agree to transfusion: Yes Vitals/I&O/Wt Last Vital Signs Temp 97.4 F L 01/09/25 15:45 Pulse 74 01/09/25 15:45 Resp 17 01/09/25 18:07 BP 135/73 01/09/25 15:45 Pulse Ox 100 01/09/25 15:45 O2 Del Method Room Air 01/09/25 15:45 01/09/25 01/09/25 01/09/25 06:59 14:59 22:59 Intake Total 830 / 830 Balance 830 / 830 Weight last 48 hrs Weight 113 lb Weight 111 lb 4.8 oz Physical Exam Narrative: rrr unlabored breating ra abdomen soft, nt, nd Data 01/10/25 05:09 01/10/25 05:09 Micro: Microbiology 01/07/25 03:10 Urine Culture - Final Urine,Clean Catch Escherichia coli A&P Assessment and plan 1. Dysphagia: Plan: 69 yo female whom surgery was consulted for possible distal esophageal stricture. Possible malignancy. Discussed risks and benefits of EGD, possible biopsy/dilation with patient and her primary contact (friend). They both understand and agree to proceed. PDMP PDMP Reviewed: Not Reviewed Coding Level of Care Code 09035 Diagnoses Dysphagia R13.10
--- NOTE | 2025-01-09 18:23 | PM.MISC ---
Miscellaneous Note Note: Full consult note to follow Planning EGD tomorrow to workup for possible esphageal neoplasm. Had a discussion with patient and friend who is her primary contact. All questions answered.
[2025-01-10] VITALS (14 sets, daily range): BP systolic 115–176; BP diastolic 71–90; PULSE 62–90; RESP 16–20; TEMP 36.1–37.1; O2SAT 95–100
[2025-01-10] MEDS: meropenem 1,000 mg SDV 1000 MG IVP (04:22)
[2025-01-10 05:16] LABS: Hematocrit 25.8 % (36-47); Hemoglobin 7.50 g/dL (11.27-16.99); Mean Corpuscular HGB Conc 29.1 g/dL (30-55); Mean Corpuscular Hemoglobin 24.4 pg (27-33); Mean Corpuscular Volume 84.0 fl (85-98); Nucleated Red Blood Cells % 0 %; Platelet Count 332 10^3/cmm (157-399); Red Blood Count 3.07 10^6/uL (3.85-5.65); White Blood Count 3.03 10^3/uL (3.29-11.43)
[2025-01-10 05:33] LABS: Alanine Aminotransferase 7 U/L (0-33); Albumin Level 2.6 g/dL (3.5-5.2); Alkaline Phosphatase 60 U/L (35-105); Anion Gap 13.8 (5-19); Aspartate Amino Transferase 16 U/L (0-32); Blood Urea Nitrogen 3 mg/dL (8-23); Calcium 7.8 mg/dL (8.5-10.5); Carbon Dioxide 21 mmol/L (22-29); Chloride 106 mmol/L (98-107); Creatinine Clr Calc Pharmacy 46.4269; Globulin 2.6 g/dL (1.3-4.6); Glucose 83 mg/dL (65-115); Osmolality Calculated 280 mOsm/kg (285-295); Potassium 3.8 mmol/L (3.5-5.1); Sodium 137 mmol/L (136-145); Total Protein 5.2 g/dL (6.6-8.7)
[2025-01-10] MEDS: morphine 4 mg/mL SDV 1 mL 2 MG IVP ×3 (08:15→19:49)
[2025-01-10] MEDS: pantoprazole 40 mg SDV IVP (11:29)
--- NOTE | 2025-01-10 12:37 | P.PN_ITS ---
Subjective 2 Subjective: Persistent dysphagia Abdomen benign Vitals/I&O/Wt Last Vital Signs Temp 97.6 F 01/10/25 11:10 Pulse 71 01/10/25 11:10 Resp 19 H 01/10/25 11:10 BP 138/83 01/10/25 11:10 Pulse Ox 98 01/10/25 11:10 O2 Del Method Room Air 01/10/25 11:10 01/09/25 01/10/25 01/10/25 22:59 06:59 14:59 Intake Total 950 / 950 926.667 / 926.667 Balance 950 / 950 926.667 / 926.667 Weight last 48 hrs Weight 101 lb 9 oz Weight 113 lb Physical Exam 2 Narrative: rrr unlabored breathing ra abdomen soft, nt, nd Data 01/10/25 05:09 01/10/25 05:09 Micro: Microbiology 01/07/25 03:10 Urine Culture - Final Urine,Clean Catch Escherichia coli A&P Assessment and plan 1. Dysphagia: Plan: Discussed risks and benefits and patient agreed to proceed with EGD, possible biopsy, possible dilation. PDMP PDMP Reviewed: Not Reviewed Attestations 2 Medical Necessity Statement*: NA Coding Level of Care Code 52329 Diagnoses Dysphagia R13.10
--- NOTE | 2025-01-10 12:56 | P.PN_ITS ---
Subjective 2 Subjective: No acute events overnight. Today morning examination patient is a little more awake and alert. States she is hungry. Denies any nausea, vomiting. Discussed with her regarding need for EGD given concerns for esophageal stricture. She is agreeable. Medications: Reviewed: Yes Vitals/I&O/Wt Last Vital Signs Temp 97.6 F 01/10/25 11:10 Pulse 71 01/10/25 11:10 Resp 19 H 01/10/25 11:10 BP 138/83 01/10/25 11:10 Pulse Ox 98 01/10/25 11:10 O2 Del Method Room Air 01/10/25 11:10 01/09/25 01/10/25 01/10/25 22:59 06:59 14:59 Intake Total 950 / 950 926.667 / 926.667 Balance 950 / 950 926.667 / 926.667 Weight last 48 hrs Weight 46.068 kg Weight 51.256 kg Physical Exam 2 Narrative: General well-developed well-nourished female with obvious tardive dyskinesia CV regular rate and rhythm Lungs clear to auscultation minimal expiratory wheeze no crackles Abdomen positive bowel tones soft nontender [id number] is intact. Patient has repetitive extraparametal gyrating movements of her mouth and jaw Data 01/10/25 05:09 01/10/25 05:09 Micro: Microbiology 01/07/25 03:10 Urine Culture - Final Urine,Clean Catch Escherichia coli A&P Assessment and plan 1. Hypokalemia: Appreciate nephrology recommendations. Concern for type I RTA. Appreciate urine lites. Start on potassium citrate. 25 mg twice daily. Repeat BMP in afternoon. Target potassium around 4. 2. Nausea and vomiting: Patient with dysphagia and iron deficiency anemia. Appreciate barium swallow. Concern for possible esophageal stricture versus obstruction due to a mass. Will plan for possible EGD. Surgery consulted. Start on clear liquid diet. 3. UTI (urinary tract infection): Has history of ESBL and was treated with meropenem for positive UA micro. Cultures are pending Patient denies dysuria or hematuria. Cultures currently growing sensitive E. coli. For now we will continue with meropenem to finish a 3-day course. Chances of UTI currently very low given the UA. 4. Iron deficiency anemia: Along with possible esophageal mass versus stricture. Start on IV iron supplementation. Hemoglobin 7.5. Baseline hemoglobin seems to be around 9-8.5 earlier this year. Continue to monitor. Protonix twice daily. 5. Tardive dyskinesia: Restart her tetrabenazine. Discontinue Reglan. Although it is good for dysphagia it would potentially worsen EPS Plan: Suicidal ideation/patient has history of schizoaffective disorder: Denies any active ideation for now. Sitter at bedside. Will consult psychiatry team. Esophageal stricture: Most likely cause for chronic nausea and vomiting. Appreciate barium swallow. Surgery consult as above for EGD for further evaluation and management. DNR/DNI Start on clear liquid diet n.p.o. after midnight Protonix for PUD prophylaxis SCD for DVT prophylaxis. Hold off on Lovenox given mild anemia worsening. Plan for the day: Plan for EGD today for further evaluation of esophageal stricture versus mass. Hemoglobin so far stable. Continue with IV iron supplementation. Restart diet as per EGD evaluation. Awaiting psychiatric evaluation. Patient today declines the need or preference to go to [facility]. Continue with meropenem to finish a 5-day course. Chronic medications. Potassium level stable at 3.8. Continue with calcium citrate for now Discharge planning: Discussed in detail with patient and case management team. As per patient's DPOA/friend/neighbor patient lives by herself and in the past has been known to overmedicate specially on the medication for her tardive dyskinesia. Patient would benefit with possible transition to SNF versus home with home health if cleared by psychiatric team to be discharged not to [facility] PDMP PDMP Reviewed: Not Reviewed Attestations 2 Medical Necessity Statement*: Requires further hospitalization for further evaluation and management of dysphagia in setting of esophageal stricture versus mass as patient requires EGD, suicidal ideation while patient with psychiatric evaluation and safe discharge planning Diagnoses Hypokalemia E87.6 Nausea and vomiting R11.2 UTI (urinary tract infection) N39.0 Iron deficiency anemia D50.9 Tardive dyskinesia G24.01
--- NOTE | 2025-01-10 13:05 | P.ANESASSM_ITS ---
Pre-Anesthetic Assessment Height/Weight: Height 1.57 m Weight 46.068 kg Temp Pulse Resp BP Pulse Ox O2 Del Method 98.5 F 62 16 165/86 100 Room Air 01/10/25 12:56 01/10/25 12:56 01/10/25 12:56 01/10/25 12:56 01/10/25 12:56 01/10/25 12:56 Preop Diagnosis: Dysphagia Operation Date: 01/10/25 13:00 Proposed Procedures p EGD(Not Applicable) - Sal Ordaz MD Was Beta Rose Marie taken within 24 hours: N/A Was Clonidine taken within 24 hours: N/A Social Alcohol Exam alert, oriented x 3, clear to auscultation bilaterally and regular rate & rhythm Airway Submandibular: within normal limits Cervical ROM: within normal limits Mallampati: Class II Dentition: full History/ROS No significant history except as noted and No significant complaints Pulmonary Chronic Obstructive Pulmonary Disease CV/HEM None reported None reported Hepatic Hepatitis hep b GI Gastroesophageal Reflux Disease Metabolic None reported Musc/skel Lower Back Pain Neuropsych Anxiety and Depression Medications/Allergies Home Medications ?Medication ?Instructions ?Recorded ?Confirmed ?Last Taken ?Type shower chair #1 ea 11/21/22 01/07/25 Unkn own Rx Back brace #1 ea 12/16/23 01/07/25 Unkn own Rx trazodone 100 mg tablet See Rx Instructions .Route 0 10/23/24 01/07/25 12/02/24 Rx .COMPLEX #30 tabs albuterol sulfate 90 mcg/actuation 2 inh inhalation Q6 H PRN shortness 11/19/24 01/07/25 Unknown Rx aerosol inhaler (Ventolin HFA) of breath or wheezing # 6.7 grams levothyroxine 137 mcg tablet 137 mcg PO QAM #60 tabs 0 12/01/24 01/07/25 12/02/24 Rx amlodipine 10 mg tablet 10 mg PO DAILY #30 tabs 11/2001/07/25 Unknown Rx spironolactone 25 mg tablet 25 mg PO BID #60 tabs 11/2001/07/25 Unknown Rx tetrabenazine 25 mg tablet 25 mg PO BID 30 days #60 ta bs 01/04/25 01/07/25 Unknown Rx (Xenazine) potassium chloride 20 mEq 20 meq PO BID #60 tabs 07/17 /25 07/19/25 Unknown Rx tablet,extended release(part/cryst) ([place]ine-Con M) Allergies Allergy/AdvReac Type Severity Reaction Status Date / Time Penicillins Allergy Unknown Verified 01/05/25 06:22 Current Medications Generic Name Dose Route Start Last Admin Trade Name Freq PRN Reason Stop Dose Admin Fluticasone Propionate 1 spray 01/07/25 17:00 01/10/25 04:21 Fluticasone Nasal [place] 16gm Btl NASAL Not Given On Hold: 01/10/25 12:52 0500,1700 WILLIAM Comment: Order held by Process Transfer Sodium Chloride 1,000 mls @ 50 mls/hr 01/09/25 14:15 01/10/25 09:17 Sodium Chloride 0.9% IV 50 mls/hr On Hold: 01/10/25 12:52 .Q20H WILLIAM Administration Comment: Order held by Process Transfer Iron Sucrose 200 mg/ Sodium 110 mls @ 220 mls/hr 01/09/25 15:00 01/09/25 16:42 Chloride IV Infused On Hold: 01/10/25 12:52 Q24H WILLIAM Infusion Comment: Order held by Process Transfer Sodium Chloride 1,000 mls @ 15 mls/hr 01/10/25 12:56 01/10/25 13:01 Sodium Chloride 0.9% IV 01/11/25 12:55 15 mls/hr .Q24H PRN Administration COLONOSCOPY FLUIDS Levothyroxine Sodium 137 mcg 01/09/25 06:00 01/10/25 04:21 Levothyroxine 137 Mcg Tablet PO Not Given On Hold: 01/10/25 12:52 QAM WILLIAM Comment: Order held by Process Transfer Lidocaine 1 patch 01/07/25 09:00 01/10/25 08:14 Lidocaine 5% Patch TOPICAL 1 patch On Hold: 01/10/25 12:52 [id number] WILLIAM Administration Comment: Order held by Process Transfer Meropenem 1,000 mg 01/07/25 16:30 01/10/25 04:22 Meropenem 1,000 Mg Sdv IVP 01/10/25 16:29 1,000 mg On Hold: 01/10/25 12:52 Q12H WILLIAM Administration Comment: Order held by Process Protocol Transfer Morphine Sulfate 2 mg 01/06/25 22:49 01/10/25 08:15 Morphine 4 Mg/Ml Sdv 1 Ml IVP 2 mg On Hold: 01/10/25 12:52 Q4H PRN Administration Comment: Order held by Process SEVERE PAIN Transfer Nicotine 1 patch 01/06/25 22:10 01/10/25 08:14 Nicotine 21 Mg Patch TRANSDERMA 1 patch On Hold: 01/10/25 12:52 DAILY WILLIAM Administration Comment: Order held by Process Transfer Non-Formulary Medication 25 mg 01/09/25 11:45 01/10/25 04:21 Tetrabenazine [Xenazine] PO Not Given On Hold: 01/10/25 12:52 BID@0500,1700 [facility] Comment: Order held by Process Transfer Ondansetron HCl 4 mg 01/06/25 22:49 01/07/25 22:01 Ondansetron 2 Mg/Ml Sdv 2 Ml IVP 4 mg On Hold: 01/10/25 12:52 Q6H PRN Administration Comment: Order held by Process vomiting, or N/V if npo Transfer Pantoprazole Sodium 40 mg 01/06/25 23:00 01/10/25 11:29 Pantoprazole 40 Mg Sdv IVP 40 mg On Hold: 01/10/25 12:52 Q12H WILLIAM Administration Comment: Order held by Process Transfer Potassium Bicarbonate 25 meq 01/09/25 09:35 01/10/25 04:21 Potassium Bicarb 25 Meq Tablet PO Not Given On Hold: 01/10/25 12:52 BID@0500,1700 [facility] Comment: Order held by Process Transfer Scopolamine 1 patch 01/09/25 15:00 01/09/25 15:30 Scopolamine 1 Mg Patch TRANSDERMA 1 patch On Hold: 01/10/25 12:52 Q3D WILLIAM Administration Comment: Order held by Process Transfer Sodium Chloride 1 gm 01/08/25 17:00 01/10/25 04:21 Sodium Chloride 1 Gm Tablet PO Not Given On Hold: 01/10/25 12:52 0500,1700 [facility] Comment: Order held by Process Transfer Spironolactone 25 mg 01/09/25 07:45 01/10/25 04:21 Spironolactone 25 Mg Tablet PO Not Given On Hold: 01/10/25 12:52 BID@0500,1700 [facility] Comment: Order held by Process Transfer Trazodone HCl 100 mg 01/06/25 23:45 01/09/25 21:31 Trazodone 100 Mg Tablet PO 100 mg On Hold: 01/10/25 12:52 BEDTIME [facility] Administration Comment: Order held by Process Transfer [facility] Anesthesia Medical History (Updated 01/10/25 @ 13:03 by Sal Ordaz MD) Iron deficiency anemia Psychiatric care Schizoaffective disorder History of hepatitis C negative viral load following treatment Enrolled in chronic care management Psoriasis Hypoglycemia Skin tear of right upper extremity Alcohol intoxication Elevated lactic acid level Closed fracture of inferior pubic ramus Altered mental status High anion gap metabolic acidosis Chronic alcohol use Consumes vodka daily. Insomnia Anxiety Chronic obstructive pulmonary disease Schizoaffective disorder Chronic back pain DDD (degenerative disc disease) Hyperthyroidism Surgical History History of cataract extraction with lens replacement Family History Denies family history of Diabetes CAD (coronary artery disease) Cancer Stroke Social History Smoking and tobacco/nicotine status: current every day tobacco/nicotine user cigarettes Packs smoked per day: 1 Years cigarettes smoked: 55 Second hand smoke exposure: Yes Alcohol intake: former Year of sobriety/quit date alcohol: 2023 Substance/Drug Use: never Lives independently: Yes Household members: friend(s) Marital status: / Number of children: 0 Current occupational 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 gender identity: Female Special supa needs: No Agree to transfusion: Yes Data Anesthesia 01/10/25 05:09 01/10/25 05:09 Short CBC 01/09/25 01/10/25 Range/Units 03:01 05:09 WBC 3.72 3.03 L (3.29-11.43) 10^3/uL Hgb 7.50 L 7.50 L (11.27-16.99) g/dL Hct 25.7 L 25.8 L (36-47) % MCV 83.7 L 84.0 L (85-98) fl Plt Count 356 332 (157-399) 10^3/cmm Neut % (Auto) 50.9 55.7 % Neut # (Auto) 1.89 1.69 L (1.8-7.7) 10^3/uL BMP 01/09/25 01/10/25 03:01 05:09 Sodium 136 137 Potassium 3.7 3.8 Chloride 104 106 Carbon Dioxide 23 21 L BUN 4 L 3 L Creatinine 0.9 0.9 Glucose 88 83 Calcium 8.1 L 7.8 L Liver Function 01/09/25 01/10/25 Range/Units 03:01 05:09 Total Bilirubin 0.2 0.2 (0.15-1.2) mg/dL AST 12 16 (0-32) U/L ALT 6 7 (0-33) U/L Alkaline Phosphatase 65 60 (35-105) U/L Albumin 2.8 L 2.6 L (3.5-5.2) g/dL Microbiology 01/07/25 03:10 Urine Culture - Final Urine,Clean Catch Escherichia coli
--- NOTE | 2025-01-10 13:40 | PM.MISC ---
Miscellaneous Note Note: Friable distal esophageal stricture. Unable to pass scope. Biopsied. Not deemed safe for dilation. Recommend liquid diet. Referral for outpatient GI dilation using fluoroscopy.
--- NOTE | 2025-01-10 14:11 | P.PN_ITS ---
Subjective 2 Subjective: getting EGB today Medications: Reviewed: Yes Vitals/I&O/Wt Last Vital Signs Temp 97.0 F L 01/10/25 13:27 Pulse 71 01/10/25 14:00 Resp 16 01/10/25 14:00 BP 115/71 01/10/25 14:00 Pulse Ox 99 01/10/25 14:00 O2 Del Method Room Air 01/10/25 14:00 01/09/25 01/10/25 01/10/25 22:59 06:59 14:59 Intake Total 950 / 950 1326.667 / 1326.667 Balance 950 / 950 1326.667 / 1326.667 Weight last 48 hrs Weight 46.068 kg Weight 51.256 kg Physical Exam 2 Narrative: awake , alert PEERLA [id number] per report Lungs clear per report Abd soft , non tender per report No edema Data 01/10/25 05:09 01/10/25 05:09 Micro: Microbiology 01/07/25 03:10 Urine Culture - Final Urine,Clean Catch Escherichia coli A&P Assessment and plan 1. Acute hypokalemia: 1. Severe hypokalemia: Patient has intermittent hypokalemia-few episodes in the past associated with mild metabolic acidosis. Etiology most likely nutritional with poor intake due to recurrent vomiting. Also given higher urinary pH and persistent hypokalemia and mild metabolic acidosis intermittently-could have type I (distal) RTA. Noted urine electrolytes, urine chloride pending. Urine potassium is slightly above normal range-suggesting possible renal wasting . Potassium repleted orally and K went up to 5.4 and all supplementation stopped. Now noted that the potassium is trending down - added potassium citrate 25 mEq twice daily 2. Dysphagia, plan for EGD today 3. Iron deficiency anemia 4. UTI Patient evaluated using audiovisual cart. Time spent 40 minutes. PDMP PDMP Reviewed: Not Reviewed Attestations 2 Medical Necessity Statement*: per medicne Coding Level of Care Code Acute Code for Chg Fwd Diagnoses Acute hypokalemia E87.6
[2025-01-10] MEDS: iron sucrose 200 MG in sodium chloride 0.9% (100 ml) 100 ML 220 MG IV (15:13)
--- NOTE | 2025-01-10 16:06 | ANE.PACU2 ---
Inpatient post-anesthesia follow up: Airway intact: Yes Vital signs: Temperature 97.6 F Pulse Rate 71 Respiratory Rate 19 Blood Pressure 176/90 Pulse Oximetry 100 Oxygen Delivery Me thod Room Air Oxygen Flow Rate Fraction of Inspir ed Oxygen Hydration adequate: Yes Nausea and vomiting: No Pain level: 1 Mental status: Baseline
[2025-01-10] MEDS: fluticasone nasal spray 16gm Btl 1 SPRAY NASAL (16:56)
[2025-01-10] MEDS: TETRABENAZINE 25 MG 25 EACH PO (16:57)
--- NOTE | 2025-01-10 22:13 | P.TS_ITS ---
Transfer Summary Providers Date of Admission: 01/07/25 18:13 Date of Discharge/Transfer: 01/10/25 Attending Provider at Admission: Yousuf Renee Attending Provider at Transfer: Cristi Wang MD Consults: Telemetry nephrology Surgery: Dr. Ordaz Primary Care Provider: Cherrie Cosme MD Transfer Plans: Anticipated date of transfer: 01/10/25 . Receiving Facility: [facility] . Receiving Provider: Hospitalist team . Diagnoses at Discharge Discharge Diagnosis 1. Acute hypokalemia: Reason for Visit Reason for Visit Low Potassium Brief History: As per HPI: Gilda Hodge is a 69 year old patient with a history of schizoaffective disorder, COPD, hypothyroidism, chronic back pain/DDD, psoriasis, prior hepatitis C (treated), alcohol use disorder (sober since 2023 but admits occasional drinking) and nicotine dependence who presents from the ED for worsening hypokalemia and persistent vomiting. The patient was in the ED on 05 January with potassium depletion, received replacement, and returns today with a further drop to 2.2 mEq/L despite prescriptions for oral potassium and spironolactone. Has not been able to eat, anything she eats comes right up . Reports daily vomiting ?forever,? inability to tolerate food for six days, and recent naproxen (Aleve) use two nights ago. Denies diarrhea, GI bleeding, urinary symptoms, fevers, chills, cough, or rashes. Admits occasional alcohol use and current smoking. Medication adherence is uncertain; the patient is unsure about taking prescribed potassium or spironolactone and has home-health assistance. Tardive dyskinesia symptoms have worsened on tetrabenazine but improved with clonazepam in the ED. No known diabetes. Awaiting outpatient upper-GI endoscopy but not scheduled. Requests relief for hip/back pain and anxiety. Code status declared as no resuscitation. Hospital Course Hospital Course Patient was admitted to the hospital for evaluation and management of severe hypokalemia nausea and vomiting. Potassium was repleted. Given recurrent episodes of hypokalemia nephrology was consulted. She was started on treatment with concerns for type I RTA. Her potassium levels remained stable on potassium citrate. Given concerns for recurrent nausea and vomiting she underwent barium swallow which was concerning for significant esophageal distal stricture. As per patient's DPOA/neighbor patient had voiced some concerns for suicidal ideation as an outpatient for which psychiatry was consulted. Patient did not have any active suicidal ideation during hospitalization. Surgery was consulted and patient underwent EGD on 01/10 which was concerning for friable stricture which was not deemed stable to be dilated as per surgical team and recommended patient to be continued on liquid diet follow-up with GI for dilatation. Given poor social support case were discussed in detail with patient's DPOA who is her neighbor and patient and they are agreeable for transfer to a tertiary center where GI was available. Care were discussed in detail with hospitalist team at [facility] who accepted patient's care and has been transferred in hemodynamically stable condition. Physical Exam Narrative: General well-developed well-nourished female with obvious tardive dyskinesia CV regular rate and rhythm Lungs clear to auscultation minimal expiratory wheeze no crackles Abdomen positive bowel tones soft nontender [id number] is intact. Patient has repetitive extraparametal gyrating movements of her mouth and jaw TS Data Studies Completed and Pending Pending at discharge Category Date Time Status Aldosterone Routine Lab 01/08/25 15:04 Received RENIN [Plasma Renin Activity LC/MS/MS] Routine Lab 01/08/25 15:04 Received Pathology: Surgical [PTH] Routine Pth 01/10/25 13:31 Received Completed Studies During Hospitalization Category Date Time Status FL barium swallow [id number] Routine Exams 01/09/25 09:30 Completed Laboratory Last Values WBC 3.03 10^3/uL (3.29-11.43) L 01/10/25 05:09 RBC 3.07 10^6/uL (3.85-5.65) L 01/10/25 05:09 Hgb 7.50 g/dL (11.27-16.99) L 01/10/25 05:09 Hct 25.8 % (36-47) L 01/10/25 05:09 MCV 84.0 fl (85-98) L 01/10/25 05:09 MCH 24.4 pg (27-33) L 01/10/25 05:09 MCHC 29.1 g/dL (30-55) L 01/10/25 05:09 RDW 18.8 % (12.1-15.1) H 01/10/25 05:09 Plt Count 332 10^3/cmm (157-399) 01/10/25 05:09 MPV 9.4 fL (7.4-10.4) 01/10/25 05:09 Neut % (Auto) 55.7 % 01/10/25 05:09 Lymph % (Auto) 31.0 % 01/10/25 05:09 Drew % (Auto) 10.6 % 01/10/25 05:09 Eos % (Auto) 1.0 % 01/10/25 05:09 Baso % (Auto) 0.7 % 01/10/25 05:09 Neut # (Auto) 1.69 10^3/uL (1.8-7.7) L 01/10/25 05:09 Lymph # (Auto) 0.9 10^3/uL (0.8-4.8) 01/10/25 05:09 Drew # (Auto) 0.3 10^3/uL (0.2-0.9) 01/10/25 05:09 Eos # (Auto) 0.0 10^3/uL (0.0-0.8) 01/10/25 05:09 Baso # (Auto) 0.0 10^3/uL (0.0-0.1) 01/10/25 05:09 Nucleated RBC % (auto) 0 % 01/10/25 05:09 Nucleated RBCs # 0.0 /100WBC 01/10/25 05:09 Specimen Type Arterial 01/06/25 23:32 Sample Site Brachial, right 01/06/25 23:32 ABG pH 7.55 (7.35-7.45) H 01/06/25 23:32 ABG pCO2 38.0 mmHg (35-45) 01/06/25 23:32 ABG pO2 70.7 mmHg (80.0-100.0) L 01/06/25 23:32 ABG HCO3 33.2 mmol/L (22-26) H 01/06/25 23:32 ABG Base Excess 10.1 mmol/L (-2.0-2.0) H 01/06/25 23:32 Maximo Test Pos 01/06/25 23:32 Hematocrit 26.0 % (37-47) L 01/06/25 23:32 O2 Delivery Device Room air 01/06/25 23:32 Manufactured Buildings Supervisor ID [id number] 01/06/25 23:32 Sodium 137 mmol/L (136-145) 01/10/25 05:09 Potassium 3.8 mmol/L (3.5-5.1) 01/10/25 05:09 Chloride 106 mmol/L (98-107) 01/10/25 05:09 Carbon Dioxide 21 mmol/L (22-29) L 01/10/25 05:09 Anion Gap 13.8 (5-19) 01/10/25 05:09 BUN 3 mg/dL (8-23) L 01/10/25 05:09 Creatinine 0.9 mg/dL (0.5-0.9) 01/10/25 05:09 GFR Calculation 61.9 mL/min (90-130) L 01/10/25 05:09 Glucose 83 mg/dL (65-115) 01/10/25 05:09 Calculated Osmolality 280 mOsm/kg (285-295) L 01/10/25 05:09 Calcium 7.8 mg/dL (8.5-10.5) L 01/10/25 05:09 Phosphorus 2.1 mg/dL (2.5-4.5) L 01/07/25 14:17 Magnesium 2.8 mg/dL (1.7-2.3) H 01/07/25 02:47 Iron 11 ug/dL (37-145) L 01/06/25 19:17 TIBC 279 mcg/dl 01/06/25 19:17 % Saturation 3.9 % (20-50) L 01/06/25 19:17 Unsat Iron Binding 268 ug/dL (112-347) 01/06/25 19:17 Ferritin 16 ng/mL (15-150) 01/06/25 19:17 Total Bilirubin 0.2 mg/dL (0.15-1.2) 01/10/25 05:09 AST 16 U/L (0-32) 01/10/25 05:09 ALT 7 U/L (0-33) 01/10/25 05:09 Alkaline Phosphatase 60 U/L (35-105) 01/10/25 05:09 Total Protein 5.2 g/dL (6.6-8.7) L 01/10/25 05:09 Albumin 2.6 g/dL (3.5-5.2) L 01/10/25 05:09 Globulin 2.6 g/dL (1.3-4.6) 01/10/25 05:09 TSH 5.42 uIU/mL (0.27-4.20) H 01/06/25 19:17 Urine Color Yellow (Yellow) 01/07/25 03:10 Urine Appearance Turbid (CLEAR) A 01/07/25 03:10 Urine pH 8.0 (5-7) A 01/07/25 03:10 Ur Specific [place] 1.011 (1.005-1.030) 01/07/25 03:10 Urine Protein Negative (Negative) 01/07/25 03:10 Urine Glucose (UA) Negative (Normal) 01/07/25 03:10 Urine Ketones Negative (Negative) 01/07/25 03:10 Urine Blood Negative (Negative) 01/07/25 03:10 Urine Nitrate Negative (Negative) 01/07/25 03:10 Urine Bilirubin Negative (Negative) 01/07/25 03:10 Urine Urobilinogen 1.0 mg/dL (Negative) 01/07/25 03:10 Ur Leukocyte Esterase Trace (Negative) A 01/07/25 03:10 Urine RBC 0-2 /hpf (0-2) 01/07/25 03:10 Urine WBC 21-50 /hpf (0-5) H 01/07/25 03:10 Ur Squamous Epith Cells 0-5 /hpf (0-5) 01/07/25 03:10 Amorphous Sediment 3+ /hpf 01/07/25 03:10 Urine Bacteria 4+ /hpf (NONE) H 01/07/25 03:10 Hyaline Casts 18.18 /lpf 01/07/25 03:10 Ur Random Sodium 77 mmol/L 01/07/25 03:10 Ur Random Potassium 35 mmol/L 01/07/25 03:10 Urine Creatinine 92 mg/dL (28-217) 01/07/25 03:10 Radiology Impressions Barium Swallow X-Ray 01/09/25 09:30 IMPRESSION: Limited study due to patient's condition 1. High-grade stricture involving the mid to distal esophagus extending to the GE junction. Only a tiny amount of contrast traverses this area. Findings compatible with high grade stricture due to reflux and/or neoplasm. Recommend endoscopy. 2. Moderate to large esophageal hiatal hernia. Recent Clincial Data Last Vital Signs Temp 97.9 F 01/10/25 20:11 Pulse 90 01/10/25 20:11 Resp 19 H 01/10/25 20:11 BP 140/80 01/10/25 20:11 Pulse Ox 98 01/10/25 20:11 O2 Del Method Room Air 01/10/25 15:42 Vital Signs Temp Pulse Resp BP Pulse Ox O2 Del Method 01/10/25 20:11 97.9 F 90 19 H 140/80 98 01/10/25 19:49 17 01/10/25 15:42 97.6 F 71 19 H 176/90 100 Room Air 01/10/25 15:06 17 01/10/25 14:47 97.7 F 67 20 H 153/85 97 Room Air 01/10/25 14:15 97.7 F 66 19 H 157/88 97 Room Air 01/10/25 14:00 71 16 115/71 99 Room Air 01/10/25 13:27 97.0 F L 72 16 132/76 99 Room Air 01/10/25 12:56 98.5 F 62 16 165/86 100 Room Air 01/10/25 11:10 97.6 F 71 19 H 138/83 98 Room Air Intake & Output/Weight 01/08/25 01/09/25 01/10/25 01/11/25 06:59 06:59 06:59 06:59 Intake Total 3823.333 / 3823.333 1200 / 1200 950 / 950 1676.667 / 1676.667 Output Total 300 / 300 Balance 3823.333 / 3823.333 900 / 900 950 / 950 1676.667 / 1676.667 Weight 50.485 kg 51.256 kg 46.068 kg Vitals Last Vital Signs Temp 97.9 F 01/10/25 20:11 Pulse 90 01/10/25 20:11 Resp 19 H 01/10/25 20:11 BP 140/80 01/10/25 20:11 Pulse Ox 98 01/10/25 20:11 O2 Del Method Room Air 01/10/25 15:42 TS Medications Medications Discontinued Medications Acetaminophen (Acetaminophen 325 Mg Tablet) 650 mg PO Q6H PRN PRN Reason: Mild/Mod Pain Or Temp >/= 101 Clonazepam (Clonazepam 0.5 Mg Tablet) 1 mg PO ONCE ONE Stop: 01/06/25 19:03 Last Admin: 01/06/25 19:11 Dose: 1 mg Enoxaparin Sodium (Enoxaparin 40 Mg/0.4 Ml Syringe) 40 mg SUBCUT Q24H [facility] Last Admin: 01/09/25 00:15 Dose: 40 mg Fluticasone Propionate (Fluticasone Nasal [place] 16gm Btl) 1 spray NASAL BID [facility] Last Admin: 01/07/25 02:57 Dose: 1 spray Fluticasone Propionate (Fluticasone Nasal [place] 16gm Btl) 1 spray NASAL 0500,1700 [facility] Last Admin: 01/10/25 16:56 Dose: 1 spray Lidocaine HCl 5 ml/ Potassium (Chloride) 105 mls @ 26.25 mls/hr IV ONCE ONE Stop: 01/07/25 00:06 Last Infusion: 01/07/25 00:23 Dose: Infused Magnesium Sulfate (Magnesium Sulfate Premix) 2 gm in 50 mls @ 50 mls/hr IV ONCE ONE Stop: 01/06/25 23:40 Last Infusion: 01/07/25 00:23 Dose: Infused Lactated Ringer's (Lactated Ringers) 1,000 mls @ 75 mls/hr IV .[id number] [facility] Last Infusion: 01/07/25 13:59 Dose: Infused Lidocaine HCl 5 ml/ Potassium (Chloride) 105 mls @ 26.25 mls/hr IV ONCE ONE Stop: 01/07/25 07:47 Last Infusion: 01/07/25 08:30 Dose: Infused Potassium Chloride/Sodium Chloride (Sodium Chlor 0.9% + Kcl 40 Meq) 40 meq in 1,000 mls @ 100 mls/hr IV .Q10H [facility] Last Infusion: 01/08/25 04:21 Dose: 0 mls/hr Sodium Chloride (Sodium Chloride 0.9%) 1,000 mls @ 50 mls/hr IV .Q20H [facility] Last Admin: 01/10/25 09:17 Dose: 50 mls/hr Iron Sucrose 200 mg/ Sodium (Chloride) 110 mls @ 220 mls/hr IV Q24H [facility] Stop: 01/13/25 15:29 Last Infusion: 01/10/25 16:25 Dose: Infused Sodium Chloride (Sodium Chloride 0.9%) 1,000 mls @ 15 mls/hr IV .Q24H PRN PRN Reason: COLONOSCOPY FLUIDS Stop: 01/11/25 12:55 Last Infusion: 01/10/25 13:59 Dose: Infused Levothyroxine Sodium (Levothyroxine 137 Mcg Tablet) 137 mcg PO QAM [facility] Last Admin: 01/10/25 04:21 Dose: Not Given Lidocaine (Lidocaine 5% Patch) 1 patch TOPICAL [id number] [facility] Last Admin: 01/10/25 20:15 Dose: 1 patch Lidocaine HCl (Lidocaine 2% Viscous 15 Ml Udc) 1 ml TOPICAL PRN PRN PRN Reason: Anesthetic prior to IV start Lidocaine HCl (Lidocaine 1% Inj 20 Ml) 0.1 ml INTRADERMA PRN PRN PRN Reason: anesthetic prior to IV start Stop: 01/11/25 12:55 Lorazepam (Lorazepam 1 Mg/0.5 Ml Injection) 2 mg IVP Q8H PRN PRN Reason: Tardive dyskinesia Last Admin: 01/08/25 21:38 Dose: 2 mg Meropenem (Meropenem 1,000 Mg Sdv) 1,000 mg IVP Q12H [facility]; Protocol Stop: 01/10/25 16:29 Last Admin: 01/10/25 04:22 Dose: 1,000 mg Meropenem (Meropenem 1,000 Mg Sdv) 1,000 mg IVP ONCE ONE; Protocol Stop: 01/07/25 04:31 Last Admin: 01/07/25 04:30 Dose: 1,000 mg Metoclopramide HCl (Metoclopramide 5 Mg/Ml Sdv 2 Ml) 5 mg IVP Q6H PRN PRN Reason: NAUSEA AND VOMITING Last Admin: 01/07/25 02:06 Dose: 5 mg Midazolam HCl (Midazolam 1 Mg/Ml Inj 2 Ml) 2 mg IVP Q5M PRN PRN Reason: Preop Anxiety Morphine Sulfate (Morphine 4 Mg/Ml Sdv 1 Ml) 2 mg IVP Q4H PRN PRN Reason: SEVERE PAIN Last Admin: 01/10/25 19:49 Dose: 2 mg Morphine Sulfate (Morphine 4 Mg/Ml Sdv 1 Ml) 0 mg IVP Q5M PRN PRN Reason: Breakthrough Pain PACU PhaseII Nicotine (Nicotine 21 Mg Patch) 1 patch TRANSDERMA DAILY [facility] Last Admin: 01/10/25 08:14 Dose: 1 patch Non-Formulary Medication (Tetrabenazine [Xenazine]) 25 mg PO BID [facility] Last Admin: 01/09/25 09:31 Dose: Not Given Non-Formulary Medication (Tetrabenazine [Xenazine]) 25 mg PO BID@0500,1700 [facility] Non-Formulary Medication (Tetrabenazine [Xenazine]) 25 mg PO BID@0500,1700 [facility] Last Admin: 01/10/25 16:57 Dose: 25 mg Ondansetron HCl (Ondansetron 2 Mg/Ml Sdv 2 Ml) 4 mg IVP Q6H PRN PRN Reason: vomiting, or N/V if npo Last Admin: 01/07/25 22:01 Dose: 4 mg Ondansetron HCl (Ondansetron 2 Mg/Ml Sdv 2 Ml) 4 mg IVP Q15M PRN PRN Reason: Nausea/Vomiting PACU PHASE II Pantoprazole Sodium (Pantoprazole 40 Mg Sdv) 40 mg IVP Q12H [facility] Last Admin: 01/06/25 23:16 Dose: Not Given Pantoprazole Sodium (Pantoprazole 40 Mg Sdv) 40 mg IVP Q12H [facility] Last Admin: 01/10/25 11:29 Dose: 40 mg Potassium Bicarbonate (Potassium Bicarb 25 Meq Tablet) 25 meq PO BID [facility] Potassium Bicarbonate (Potassium Bicarb 25 Meq Tablet) 25 meq PO BID@0500,1700 [facility] Last Admin: 01/10/25 17:08 Dose: Not Given Potassium Chloride (Potassium Chloride Er 20 Meq Tablet) 40 meq PO ONCE ONE Stop: 01/06/25 20:08 Last Admin: 01/06/25 20:51 Dose: 40 meq Potassium Chloride (Potassium Chloride Er 20 Meq Tablet) 40 meq PO Q4H [facility] Stop: 01/08/25 01:31 Last Admin: 01/07/25 17:12 Dose: Not Given Potassium Chloride (Potassium Chloride Oral Liq 20 Meq/15 Ml Udc) 40 meq PO Q4H [facility] Last Admin: 01/08/25 01:37 Dose: 40 meq Propofol (Propofol 10 Mg/Ml Sdv 20 Ml) Confirm Administered Dose 200 mg .ROUTE .STK-MED ONE Stop: 01/10/25 13:07 Scopolamine (Scopolamine 1 Mg Patch) 1 patch TRANSDERMA Q3D [facility] Last Admin: 01/09/25 15:30 Dose: 1 patch Sodium Chloride (Sodium Chloride 1 Gm Tablet) 1 gm PO 0500,1700 [facility] Last Admin: 01/10/25 16:56 Dose: 1 gm Sodium Chloride (Sodium Chloride 0.9 % (Flush) Syringe 10 Ml) 2 ml IV DIRECTED PRN PRN Reason: EGD MEDICATION FLUSH Stop: 01/11/25 12:55 Spironolactone (Spironolactone 25 Mg Tablet) 25 mg PO BID [facility] Spironolactone (Spironolactone 25 Mg Tablet) 25 mg PO BID@0500,1700 [facility] Last Admin: 01/10/25 16:57 Dose: 25 mg Trazodone HCl (Trazodone 100 Mg Tablet) 100 mg PO BEDTIME [facility] Last Admin: 01/10/25 20:14 Dose: 100 mg Allergies Penicillins Allergy (Verified 01/05/25 06:22) Unknown She is unsure of reaction, reports happened in childhood. Home Medications shower chair #1 ea 11/21/22 [Rx Confirmed 01/07/25] Back brace #1 ea 12/16/23 [Rx Confirmed 01/07/25] trazodone 100 mg tablet See Rx Instructions .Route .COMPLEX #30 tabs 10/23/24 [Rx Confirmed 01/07/25] albuterol sulfate 90 mcg/actuation aerosol inhaler (Ventolin HFA) 2 inh inhalation Q6H PRN shortness of breath or wheezing #6.7 grams 11/19/24 [Rx Confirmed 01/07/25] levothyroxine 137 mcg tablet 137 mcg PO QAM #60 tabs 12/01/24 [Rx Confirmed 01/07/25] amlodipine 10 mg tablet 10 mg PO DAILY #30 tabs 12/04/24 [Rx Confirmed 01/07/25] spironolactone 25 mg tablet 25 mg PO BID #60 tabs 12/04/24 [Rx Confirmed 01/07/25] tetrabenazine 25 mg tablet (Xenazine) 25 mg PO BID 30 days #60 tabs 01/04/25 [Rx Confirmed 01/07/25] potassium chloride 20 mEq tablet,extended release(part/cryst) (Klor-Con M) 20 meq PO BID #60 tabs 01/05/25 [Rx Confirmed 01/07/25] Discharge Plan Discharge Patient Disposition: Xfer Short-Term Hosp Condition: Stable Prescriptions: No Action levothyroxine 137 mcg tablet 137 mcg PO QAM Qty: 60 3RF (DME) shower chair See Rx Instructions .Route .MEDSUPPLY Qty: 1 0RF Rx Instructions: As directed (DME) Back brace See Rx Instructions .Route .MEDSUPPLY Qty: 1 0RF Rx Instructions: As directed trazodone 100 mg tablet See Rx Instructions .ROUTE .COMPLEX Qty: 30 0RF Dose Instruction: TAKE ONE TABLET BY MOUTH DAILY Rx Instructions: TAKE ONE TABLET BY MOUTH DAILY albuterol sulfate [Ventolin HFA] 90 mcg/actuation HFA aerosol inhaler 2 inh inhalation Q6H PRN (Reason: shortness of breath or wheezing) Qty: 6.7 0RF spironolactone 25 mg tablet 25 mg PO BID Qty: 60 0RF amlodipine 10 mg tablet 10 mg PO DAILY Qty: 30 0RF tetrabenazine [Xenazine] 25 mg tablet 25 mg PO BID 30 Days Qty: 60 0RF potassium chloride [Klor-Con M20] 20 mEq tablet,ER particles/crystals 20 meq PO BID Qty: 60 0RF Referrals: Cherrie Cosme MD [Primary Care Provider, Family Practice] Patient Instructions: GI Post Discharge Instructions w/ Anesthesia, Opioid Safety, Patient Portal & Sid Instructions Transfer Attestations Time Spent in Transfer Care: greater than 30 min Status at Transfer: Cognitive status at transfer: mildly impaired cognition ; Behavioral status at transfer: cooperative ; Functional status at transfer: uses cane/walker ; Overall status at transfer: patient is not back to baseline Quality Metrics Clinical Quality Measures [ No reported AMI, CVA or VTE this stay] Coding Level of Care Code 96773 Total time (in minutes) for Discharge: 65 Diagnoses Acute hypokalemia E87.6
[2025-01-13 02:48] LABS: Plasma Renin Activity LC/MS/MS 0.11 ng/mL/h (0.25-5.82)
== END 2025-01-10 20:32 | disposition short-term general hospital (02) | DRG 392 ==
LOC: ER 21:15 → MEDSURG 22:14
PROVIDERS: Hospitalist; Internal Medicine; Student in an Organized Health Care Education/Training Program; Admitting Provider Internal Medicine; Emergency Provider Student in an Organized Health Care Education/Training Program; PCP Family Medicine; Visit Provider Student in an Organized Health Care Education/Training Program
PROC: 0DJ08ZZ Inspection of Upper Intestinal Tract, Via Natural or Artificial Opening Endoscopic (ICD-10-PCS; principal; 2025-01-10 13:00)
DX: K22.2 Esophageal obstruction (principal); N39.0 Urinary tract infection, site not specified; E87.6 Hypokalemia; F25.9 Schizoaffective disorder, unspecified; J44.9 Chronic obstructive pulmonary disease, unspecified; F10.20 Alcohol dependence, uncomplicated; E03.9 Hypothyroidism, unspecified; G24.01 Drug induced subacute dyskinesia; F41.9 Anxiety disorder, unspecified; Z66 Do not resuscitate; E05.90 Thyrotoxicosis, unspecified without thyrotoxic crisis or storm; F32.A Depression, unspecified; E83.42 Hypomagnesemia; M54.50 Low back pain, unspecified; K21.9 Gastro-esophageal reflux disease without esophagitis; F17.210 Nicotine dependence, cigarettes, uncomplicated; D50.9 Iron deficiency anemia, unspecified; B96.20 Unspecified Escherichia coli [E. coli] as the cause of diseases classified elsewhere; Z86.19 Personal history of other infectious and parasitic diseases; Z79.899 Other long term (current) drug therapy; Z88.0 Allergy status to penicillin; Z79.890 Hormone replacement therapy; Z79.1 Long term (current) use of non-steroidal anti-inflammatories (NSAID); T43.595A Adverse effect of other antipsychotics and neuroleptics, initial encounter; Z71.6 Tobacco abuse counseling
CPT/HCPCS: 36415; 36600; 43239; 51702; 74220; 80048; 80053; 81001; 82088; 82570; 82728; 82803; 83540; 83550; 83735; 84100; 84133; 84244; 84300; 84443; 85025; 87077; 87086; 87186; 88305; 92522; 92610; 93005; 96365; 96372; 99284; 99285; G0378; J1650; J1756; J2060; J2185; J2270; J2405; J2470; J2704; J2765; J3475; J3480; J7030; J7120; J9999; Q3014

== ENCOUNTER 2025-01-25 20:53 | Emergency (ER) | payer MEDICARE, MEDICAID, SELFPAY ==
--- OUTSIDE RECORDS SUMMARY | 2025-01-10 22:25 | XMS_ITS | Encounter Summary ---
Author Organization [email or web address] Address [address] [place] [address] Care Team Providers Care Interactive Media Specialist Name Role Phone Unavailable Primary Care Provider Unavailabl e Reason for Referral * Eval and Treat (Routine) - Closed Specialty Diagnoses / Procedures Referred By Judy price Referred To Contact Diagnoses Esophageal stenosis Procedures ME OFFICE/OUTPATIENT ESTABLISHED MOD MDM 30 MIN ME OFFICE/OUTPATIENT NEW MODERATE [place] [address] [place] [phone] Phone: tel: fax: Referral ID Status Reason Start Date Expiration Date Visits Re quested Visits Authorized [id number] Closed 01/19/2025 01/19/2026 1 1 * Eval and Treat (Routine) - Closed Specialty Diagnoses / Procedures Referred By Judy price Referred To Contact Diagnoses Esophageal stenosis Procedures ME OFFICE/OUTPATIENT ESTABLISHED MOD MDM 30 MIN ME OFFICE/OUTPATIENT NEW MODERATE MDM 45 MINUTES Charity Ritchie MD [address] [place] [address] Phone: tel: fax: Referral ID Status Reason Start Date Expiration Date Visits Re quested Visits Authorized [id number] Closed 01/19/2025 01/19/2026 1 1 * Outpatient Surgery (Routine) - Closed Specialty Diagnoses / Procedures Referred By Contact Referred To Contact Gastroenterology Diagnoses Esophageal stenosis Procedures EGD ME ESOPHAGOGASTRODUODENOSCOPY TRANSORAL DIAGNOSTIC ME EGD TRANSORAL BIOPSY SINGLE/MULTIPLE ME EGD BALLOON DILATION ESOPHAGUS <30 MM DIAM ME DILATION ESOPH UNGUIDED SOUND/BOUGIE 1/MULT PASS new request Brian Brand PA [address] [facility] [place] [phone] Phone: tel:[phone] fax:[phone] [facility] Gastroenterology - [place] [address] [facility] [address] [place] [address] Phone: tel:[phone] fax: Referral ID Status Reason Start Date Expiration Date Visits Requested Visits Authorized [id number] Closed Performing Department to Schedule 01/11/2025 02/11/2026 1 1 Reason for Visit * Auth/Cert (Routine) Specialty Diagnoses / Procedures Referred By Judy t Referred To Contact Internal Medicine Diagnoses difficulty swallowing Dennis Levine MD [address] [place] [phone] Phone: tel: fax: [facility] Medical Telemetry [address] [place] [phone] Phone: tel: fax: Referral ID Status Reason Start Date Expiration Date Visits Re quested Visits Authorized [id number] 1 1 Encounter Details Date Type Department Care Team (Latest Contact Info) Description 01/10/2025 10:25 PM CDT - 01/19/2025 10:44 AM CDT Hospital Encounter [facility] Medical Telemetry [address] [place] [phone] Betty Christian MD [address] [place] [phone] Dennis Levine MD [address] [place] [phone] Carson Briggs MD [address] [place] [address] Charity Ritchie MD [address] [place] [address] Dysphagia Discharge Disposition: Long Term Fac(SNF) with Medicare Certification in Anticipation of Skilled Care Social History Tobacco Use Types Packs/Day Years Used Date Smoking Tobacco: Former Cigarettes 1 5.6 S tarted: 2019 Tobacco Cessation:Counseling Given: Not Answered Comments Unknown Sex and Gender Information Value Date Recorded Sex Assigned at Not on file Legal Sex Female 2:20 PM CDT Gender Identity Not on file Sexual Orientation Not on file documented as of this encounter Last Filed Vital Signs Vital Sign Reading Time Taken Comments Blood Pressure 100/58 01/19/2025 8:09 AM CDT Pulse 66 01/19/2025 8:09 AM CDT Temperature 37.4 C (99.4 F) 01/19/2025 8:09 AM CDT Respiratory Rate 18 01/19/2025 4:51 AM CDT Oxygen Saturation 96% 01/19/2025 8:09 AM CDT Inhaled Oxygen Concentration - - Weight 50.8 kg (112 lb) 01/10/2025 11:31 PM CDT Height 157.5 cm (5' 2 ) 01/10/2025 11:31 PM CDT Body Mass Index 20.49 01/10/2025 11:31 PM CDT documented in this encounter Discharge Summaries * Charity Ritchie MD - 01/19/2025 8:42 AM CDT [facility] Discharge Summary Gilda Hodge 69 y.o. female 1955 CSN: [id number] Date of Admission: 01/10/2025 Date of Discharge: 01/19/2025 LOS: 9 days Discharging Physician: Charity Ritchie MD PCP: No primary care provider on file. Code Status at Discharge: NO CPR (In Event of Cardiopulmonary Arrest) Dispo: SNF Labs and studies from this hospitalization needing follow up: CBC and Comprehensive Metabolic Panel (CMP) in 1 week Abnormal Imaging: Follow up with PCP: Follow-up: You must follow up with No primary care provider on file. in 3-5 days Follow up with Consultants: With GI Discharge Condition: improved to baseline Primary Discharge Diagnosis: Dysphagia Other Active medical issues also addressed during this admission: Active Hospital Problems Diagnosis Protein-calorie malnutrition, moderate Schizoaffective disorder (CMS/HCC) COPD (chronic obstructive pulmonary disease) (CMS/HCC) Tobacco use GERD (gastroesophageal reflux disease) Anxiety and depression Hypothyroidism Essential hypertension History of hepatitis C Esophageal stenosis Dysphagia Resolved Hospital Problems No resolved problems to display. HOSPITAL COURSE: Please see H and P for full details on admission, symptoms and initial care. Gilda Hodge, a 69-year-old female with a medical history of essential hypertension, GERD, COPD, hypothyroidism, schizoaffective disorder, anxiety and depression, alcohol use disorder in remission,treated hepatitis C, and tobacco use, was admitted to [facility] for evaluation of dysphagia. The principal diagnosis was esophageal stricture, confirmed by MBS and EGD at an outside hospital, which showed a friable distal esophageal stricture extending to the GE junction. The EGD performed at the outside facility was unable to pass the scope, and no dilation was performed. Upon admission, she was hemodynamically stable, and her electrolyte disturbances were corrected. A repeat EGD on 01/11 reported LA grade D esophagitis with no bleeding and benign-appearing severe esophageal stenosis. GI recommended PEG tube placement for alternate nutrition, and a plan for repeat EGD in 6 weeks was made. An initial attempt at PEG tube placement by IR was unsuccessful due to an overlying colon, but it was successfully placed by surgery on 01/16. The patient was started on tube feeds on 01/17 and was titrated up to goal. During the hospitalization, the patient was also managed for schizoaffective disorder, anxiety, anddepression with sertraline and trazodone. Her COPD was stable, and she continued her outpatient bronchodilator inhalers. GERD was managed with PPI twice daily. Hypothyroidism was treated with levothyroxine, and essential hypertension was managed with amlodipine. The patient was also noted to have moderate protein-calorie malnutrition, which was addressed with nutritional support including PPN andlater tube feeding. The patient was anticipated to be discharged to a long-term facility for continued care. 01/19: Patient has no new complain, has some abdominal cramps but no diarrhea. Tolerating tube feedsso far. Patient accepted to SNF. Patient hemodynamic is stable for discharge to SNF PCP COMMUNICATION : No primary care provider on file. via [employer] communication MEDICATION CHANGES (significant): See below MEDICATION RECONCILIATION: Current and discharge medications reviewed and reconciled: Yes Consultants: IP CONSULT TO GI IP CONSULT TO IV TEAM IP CONSULT TO NUTRITION SERVICES IP CONSULT TO NUTRITION SERVICES IP CONSULT TO WOUND/SKIN CARE TEAM IP CONSULT TO WOUND/SKIN CARE TEAM IP CONSULT TO NUTRITION SERVICES Procedures performed: Procedure(s) (LRB): GASTROSTOMY TUBE PLACEMENT ROBOTIC XI (N/A) DISCHARGE MEDICATIONS: Medication List START taking these medications amLODIPine 10 mg tablet Commonly known as: NORVASC Take 1 Tablet (10 mg) by mouth daily. Signed by: Dr. Amanda Ritchie Refills: 0 dicyclomine 10 mg capsule Commonly known as: BENTYL Take 1 Capsule (10 mg) by mouth 4 times daily. Signed by: Dr. Amanda Ritchie Refills: 0 HYDROcodone-acetaminophen 5-325 mg tablet Commonly known as: NORCO Take 1 Tablet by mouth every 8 hours as needed for Pain. Max Daily Amount: 3 Tablets Signed by: Dr. Amanda Ritchie Refills: 0 hydrOXYzine HCL 50 mg tablet Commonly known as: ATARAX Take 1 Tablet (50 mg) by mouth one time only for 1 dose. Signed by: Dr. Amanda Ritchie Refills: 0 levothyroxine 137 mcg tablet Commonly known as: SYNTHROID Take 1 Tablet (137 mcg) by mouth daily in the morning. Signed by: Dr. Amanda Ritchie Refills: 0 nicotine 14 mg/24 hr patch Commonly known as: NICODERM CQ Apply 1 Patch to skin as directed daily. Signed by: Dr. Amanda Ritchie Refills: 0 ondansetron 4 mg Tablet, Rapid Dissolve Commonly known as: ZOFRAN ODT Take 1 Tablet (4 mg) by mouth every 8 hours as needed for Nausea/Emesis. Dissolve tablet on top of tongue, then swallow with saliva. Signed by: Dr. Amanda Ritchie Refills: 0 sertraline 100 mg tablet Commonly known as: ZOLOFT Take 1 Tablet (100 mg) by mouth daily. Signed by: Dr. Amanda Ritchie Refills: 0 traZODone 100 mg tablet Commonly known as: DESYREL Take 1 Tablet (100 mg) by mouth daily at bedtime. Signed by: Dr. Amanda Ritchie Refills: 0 CONTINUE taking these medications tetrabenazine 25 mg Tablet Commonly known as: XENAZINE Take 25 mg by mouth 2 times daily. 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 Last documented weight: Weight: 50.8 kg (112 lb) (01/10/25 2331) General: alert, in no distress Neurologic: Grossly normal HEENT: atraumatic, Normocephalic, without obvious abnormality Lungs: clear to auscultation bilaterally, normal respiratory effort Heart: normal rate, regular rhythm, normal S1, S2, no murmurs, rubs, clicks or gallops Abdomen: Soft, non-tender. Bowel sounds normal. No masses, no organomegaly. PEG tube in place-cleanand dry Extremities: extremities normal, atraumatic, no cyanosis or edema, intact distal pulses, moves all extremities equally, no edema, redness or tenderness in the calves or thighs, normal strength, normal tone Skin: negative Home Healthcare Is this patient being discharged with Home Health? No Total time spent on discharge services today including examining and educating the patient and available family members, writing prescriptions and reviewing the discharge medication list, documentingthis discharge summary and coordinating outpatient care and follow up required >30 minutes. documented in this encounter Discharge Instructions * Discharge Instructions* Yesi Palacios RN - 01/19/2025 9:15 AM CDT Alysa Discharge Instructions Discharge & Transfer patient to: Name of Facility: [facility] Transfer care to Attending Provider at [facility] Symptoms/Diagnosis: Dysphagia Procedures Performed, if any: Procedure(s) (LRB): GASTROSTOMY TUBE PLACEMENT ROBOTIC XI (N/A) Labs and studies from this hospitalization needing follow up: CBC and Comprehensive Metabolic Panel (CMP) in 1 week Follow up PCP Please schedule follow up appointment with facility physician or PCP/ No primary care provider on file., Please schedule follow up appointment in one week. Follow up consultants With GI If the office does not reach you to make a follow up appointment, please call [phone]. Additional problems: Active Hospital Problems Diagnosis Protein-calorie malnutrition, moderate Schizoaffective disorder (CMS/HCC) COPD (chronic obstructive pulmonary disease) (CMS/HCC) Tobacco use GERD (gastroesophageal reflux disease) Anxiety and depression Hypothyroidism Essential hypertension History of hepatitis C Esophageal stenosis Dysphagia Resolved Hospital Problems No resolved problems to display. Level of Care: [x] Skilled [] Maintenance [] Rehab Code Status: DNR Labs: No results for input(s): WBC , HGB , HCT , PLT in the last 72 hours. No results for input(s): NA , K , CL , CO2 , CA , BUN , CREAT , GLUCOSE in the last 72 hours. No results for input(s): TOTALPROTEIN , ALBUMIN , BILITOTAL , ALKPHOS , AST , ALT in the last 72 hours. No results for input(s): INR , PT in the last 72 hours. Invalid input(s): PTT Activity level: up as tolerated Clinical Care/Ancillary services: Physical therapy evaluate and treat: Yes Occupational therapy evaluate and treat: Yes Speech therapy evaluate and treat: No Respiratory Treatment/Oxygen: RA DIET: DIET NPO See Comments, DIET TUBE FEEDING Fiber 1.0,; G-tube; Feeding Method: Continuous; Initial Volume in mL/hour: 20; Goal Volume in mL/hour: 60; Feeding Advancement: 10 ml Q 6 hrs; Water Flush: 20 ml Q 3 hrs Follow up in the Emergency Room For any recurrence or worsening of admission concerns, chest pain, palpitations, shortness of breath, coughing blood, nausea, vomiting, diarrhea, pain, fever, chills, bleeding, bloody or tarry stools, change to urine or bowel output, Contact hospitalist office [phone] for questions if patients are discharged by [facility]. Contact [facility] Transfer Hub at [phone] if patient needs a direct admission. Tell us about the patient and how we can help them. If we can provide the service that is needed, we will do the rest of the work. Current Outpatient Medications Medication Instructions amLODIPine (NORVASC) 10 mg, Oral, DAILY dicyclomine (BENTYL) 10 mg, Oral, FOUR TIMES DAILY HYDROcodone-acetaminophen (NORCO) 5-325 mg tablet 1 Tablet, Oral, EVERY 8 HOURS PRN hydrOXYzine HCL (ATARAX) 50 mg, Oral, ONE TIME ONLY levothyroxine (SYNTHROID) 137 mcg, Oral, DAILY EARLY nicotine (NICODERM CQ) 14 mg/24 hr patch 1 Patch, Transdermal, DAILY ondansetron (ZOFRAN ODT) 4 mg, Oral, EVERY 8 HOURS PRN, Dissolve tablet on top of tongue, then swallow with saliva. sertraline (ZOLOFT) 100 mg, Oral, DAILY tetrabenazine (XENAZINE) 25 mg, TWO TIMES DAILY traZODone (DESYREL) 100 mg, Oral, DAILY AT BEDTIME * Attachments The following attachments cannot be sent through Care Everywhere. * Esophageal Stricture: General Info (Maldivian) * EGD (Upper Endoscopy): Post op (Maldivian) * Feeding Tube: General Info (Maldivian) * Tube Feeding: Home (Maldivian) * Dysphagia: General Info (Maldivian) documented in this encounter Medications at Time of Discharge amLODIPine (NORVASC) 10 mg tablet Take 1 Tablet (10 mg) by mouth daily. 01/19/2025 HYDROcodone-acet aminophen (NORCO) 5-325 mg tabletIndication s:Esophageal stenosis Take 1 Tablet by mouth every 8 hours as needed for Pain. Max Daily Amount: 3 Tablets 01/19/2025 levothyroxine 137 mcg tablet Take 1 Tablet (137 mcg) by mouth daily in the morning. 01/19/2025 sertraline (ZOLOFT) 100 mg tablet Take 1 Tablet (100 mg) by mouth daily. 01/19/2025 traZODone (DESYREL) 100 mg tablet Take 1 Tablet (100 mg) by mouth daily at bedtime. 01/19/2025 nicotine (NICODERM CQ) 14 mg/24 hr patch Apply 1 Patch to skin as directed daily. 01/19/2025 dicyclomine (BENTYL) 10 mg capsule Take 1 Capsule (10 mg) by mouth 4 times daily. 01/19/2025 ondansetron (ZOFRAN ODT) 4 mg Tablet, Rapid Dissolve Take 1 Tablet (4 mg) by mouth every 8 hours as needed for Nausea/Emesis. Dissolve tablet on top of tongue, then swallow with saliva. 01/19/2025 tetrabenazine (XENAZINE) 25 mg Tablet Take 25 mg by mouth 2 times daily. hydrOXYzine HCL (ATARAX) 50 mg tablet Take 1 Tablet (50 mg) by mouth one time only for 1 dose. 01/19/2025 01/19/2025 documented as of this encounter Progress Notes * Charity Ritchie MD - 01/18/2025 6:43 PM CDT Images from the original note were not included. [facility] Hospitalist/Internal Medicine Progress note Patient name: Gilda Hodge Date of : 1955 Room/Bed: [address] [place] [address] LOS: LOS: 8 days HOSPITAL COURSE SUMMARY: Brief Hospital course-see previous notes for full details Gilda Hodge, a 69-year-old female with a medical history of essential hypertension, GERD, COPD, hypothyroidism, schizoaffective disorder, anxiety and depression, alcohol use disorder in remission,treated hepatitis C, and tobacco use, was admitted to [facility] for evaluation of dysphagia. The principal diagnosis was esophageal stricture, confirmed by MBS and EGD at an outside hospital, which showed a friable distal esophageal stricture extending to the GE junction. The EGD performed at the outside facility was unable to pass the scope, and no dilation was performed. Upon admission, she was seen by GI, had a repeat EGD done on 01/11 reported with LA grade D esophagitis with no bleeding, benign-appearing severe esophageal stenosis. GI recommending PEG tube placement for alternate nutrition. Plan for repeat EGD in 6 weeks. IR attempted PEG tube placement but unsuccessful. Eventually placed by surgery on 01/16.. Patient started on tube feeds on 01/17. Assumed patient care 01/18: Patient is awake, alert, AO x 2 to 3, she has no complaints currently. G- tube noted in place,clean and dry. Tube feedings ongoing currently at 40 mL/h. Plan is to get to goal of 60 mL/h. Director Of Labor Relations on board. Possible DC tomorrow to SNF. CONSULTANTS: IP CONSULT TO GI IP CONSULT TO IV TEAM IP CONSULT TO NUTRITION SERVICES IP CONSULT TO NUTRITION SERVICES IP CONSULT TO WOUND/SKIN CARE TEAM IP CONSULT TO WOUND/SKIN CARE TEAM IP CONSULT TO NUTRITION SERVICES SUBJECTIVE: No new issues, patient reports no complaints ROS: All systems were reviewed and pertinent positive and negative mentioned above. OBJECTIVE: Temp (24hrs), Av.5 ??F (36.9 ??C), Min:97.1 ??F (36.2 ??C), Max:100 ??F (37.8 ??C) BP 106/55 (BP Location: Left arm, Patient Position (BP): Lying right side) Pulse 88 Temp 98.5 ??F (36.9 ??C) (Temporal) Resp 16 Ht 5' 2 (1.575 m) Wt 50.8 kg (112 lb) SpO2 97% BMI 20.49kg/m?? Intake/Output Summary (Last 24 hours) at 01/18/2025 1843 Last data filed at 01/18/2025 0310 Gross per 24 hour Intake 80 ml Output -- Net 80 ml Last documented weight: Weight: 50.8 kg (112 lb) (01/10/25 2331) EXAM: EXAM:01/18/2025, 6:43 PM- General : Alert oriented to time place and person. Not in distress Skin: warm and dry, no rash Head and Neck : pupil equally reactive to light, oral mucosa - moist, neck supple, noJVD Chest: symmetrical, unlabored,bilateral Clear to auscultation, No wheeze, rales or ronchii Cardiovascular : RRR, S1, S2 normal, No murmur, rubs or gallop Abdomen:soft , non tender, no rigidity, no rebound tenderness, no organomegaly. PEG tube in place-clean and dry Extremities : no pedal edema, cyanosis or clubbing. 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 Psych: Mode normal , behavior appropriate LABORATORY: No results for input(s): WBC , HGB , HCT , PLT in the last 72 hours. Recent Labs 01/16/25 0438 NA 140 K 4.1 CL 114* CO2 17* CA 8.3* BUN 3* CREAT 0.76 GLUCOSE 103* Diagnostic testing reviewed by me: Medications reviewed by me Facility-Administered Medications as of 01/18/2025 Medication Dose Frequency Provider Last Rate Last Admin potassium, sodium PHOSPHATES (PHOS-NaK) 280-160-250 mg oral powder 1 Packet 1 Packet ONE time only Dat Valladares DO [COMPLETED] ondansetron (ZOFRAN) 4 mg/2 mL injection 4 mg 4 mg post-proc one time PRN Brian Nayak MD 4 mg at 01/16/25 1621 [COMPLETED] potassium CHLORIDE 40 mEq in sodium chloride 0.9 % 250 mL IVPB 40 mEq every 4 hours Carson Briggs MD Stopped at 01/16/25 0110 [COMPLETED] potassium PHOSPHATE 15 mmol in sodium chloride 0.9 % 105 mL IVPB 15 mmol ONE time only Carson Briggs MD Stopped at 01/15/25 1618 [COMPLETED] potassium CHLORIDE 40 mEq in sodium chloride 0.9 % 250 mL IVPB 40 mEq every 4 hours Carson Briggs MD Stopped at 01/15/25 0234 [COMPLETED] magnesium SULFATE in water 2 gram/50 mL (4 %) IVPB 2 Gram 2 Gram ONE time only Carson Briggs MD Stopped at 01/14/25 1820 hydrOXYzine HCL (ATARAX) tablet 50 mg 50 mg ONE time only Dat Valladares DO [COMPLETED] iopamidoL (ISOVUE-300) 61% injection (drawn from multi-use bulk pack) 75 mL 75 mL intra-proc ONE time Carson Briggs MD 75 mL at 01/13/25 1010 sodium chloride flush injection 20 mL 20 mL see admin instructions Dat Valladares DO 20 mL at 01/13/25 1010 lidocaine PF 1% (XYLOCAINE MPF) injection 15 mL 150 mg ONE time only Yusuf Bah MD [COMPLETED] clindamycin (CLEOCIN) 600 mg in dextrose 5% 50 mL IVPB 600 mg ONE time only Yusuf Bah MD Stopped at 01/13/25 1450 [COMPLETED] glucagon HCL 1 mg/mL injection 1 mg 1 mg intra-proc ONE time Yusuf Bah MD 1 mg at 01/13/25 1444 [COMPLETED] midazolam (PF) (VERSED) injection 1 mg 1 mg intra-proc ONE time Yusuf Bah MD 1 mg at 01/13/25 1420 [COMPLETED] fentaNYL PF (SUBLIMAZE) 50 mcg/mL injection 25 mcg 25 mcg intra-proc ONE time Yusuf Bah MD 25 mcg at 01/13/25 1420 morphine 4 mg/mL injection 2 mg 2 mg every 4 hours PRN Dat Valladares DO 2 mg at 01/18/25 1827 nicotine (NICODERM CQ) 14 mg/24 hr transdermal patch 1 Patch 1 Patch daily Dat Valladares DO1 Patch at 01/18/25 1036 LORazepam (ATIVAN) 2 mg/mL injection 0.5 mg 0.5 mg every 12 hours PRN Dat Valladares DO 0.5 mg at 01/15/25 2110 pantoprazole (PROTONIX) 40 mg in sodium chloride 0.9% 10 mL injection 40 mg BID Dat Valladares DO 40 mg at 01/18/25 1038 tetrabenazine (XENAZINE) tablet 25 mg PATIENT HOME MED 25 mg BID Dat Valladares DO 25 mgat 01/18/25 1044 amLODIPine (NORVASC) tablet 10 mg 10 mg daily Dat Valladares DO 10 mg at 01/18/25 1037 levothyroxine (SYNTHROID) tablet 137 mcg 137 mcg daily EARLY Dat Valladares DO 137 mcg at 01/18/25 0532 traZODone (DESYREL) tablet 100 mg 100 mg daily BEDTIME aDt Valladares DO 100 mg at 01/17/250 sertraline (ZOLOFT) tablet 100 mg 100 mg daily Dat Valladares DO 100 mg at 01/18/25 1036 albuterol sulfate 90 mcg/Actuation inhaler 2 Puff 2 Puff resp, every 6 hours PRN Dat Valladares DO [COMPLETED] morphine 4 mg/mL injection 2 mg 2 mg every 4 hours PRN Carson Briggs MD 2 mg at 01/11/25 2118 sodium chloride flush injection 10 mL 10 mL every 12 hours (2 times daily) Dat Valladares DO10 mL at 01/18/25 1048 sodium chloride flush injection 10 mL 10 mL see admin instructions Dat Valladares DO sodium chloride 0.9 % flush bag 25 mL 25 mL see admin instructions Dat Valladares DO dextrose 5 % in water 250 mL flush bag 25 mL 25 mL see admin instructions Dat Valladares DO acetaminophen (TYLENOL) tablet 650 mg 650 mg every 6 hours PRN Dat Valladares DO [COMPLETED] morphine 4 mg/mL injection 2 mg 2 mg every 4 hours PRN Dennis Levine MD 2 mg at 01/11/25 0751 naloxone (NARCAN) 0.4 mg/mL injection 0.1-0.4 mg 0.1-0.4 mg see admin instructions Dat Valladares DO ondansetron (ZOFRAN) 4 mg/2 mL injection 4 mg 4 mg every 6 hours PRN Dat Valladares DO 4 mg at 01/16/25 1546 calcium as CARBONATE (TUMS) 500 mg (200 mg elemental) chewable tablet 400 mg 400 mg every 6 hours PRN Potter, Dat Quoc, DO [] sodium chloride 0.9 % infusion continuous Dennis Levine MD Stopped at 01/11/254 enoxaparin (LOVENOX) injection 40 mg 40 mg every 24 hours Carson Briggs MD 40 mg at 532 dextrose 5 % - sodium chloride 0.9 % infusion see admin instructions Dat Valladares, DO 40 mL/hr at 01/15/25 1535 New Bag at 01/15/25 1535 dextrose 50% (D50) syringe 12.5 Gram 12.5 Gram see admin instructions Dat Valladares, dextrose 50% (D50) syringe 25 Gram 25 Gram see admin instructions Dat Valladares, DO glucagon HCL 1 mg/mL injection 1 mg 1 mg see admin instructions Dat Valladares, DO ASSESSMENT AND PLAN: Principal Problem: Dysphagia Active Problems: Schizoaffective disorder (CMS/HCC) COPD (chronic obstructive pulmonary disease) (CMS/HCC) Tobacco use GERD (gastroesophageal reflux disease) Anxiety and depression Hypothyroidism Essential hypertension History of hepatitis C Esophageal stenosis Protein-calorie malnutrition, moderate Dysphagia and Esophageal Stenosis: LA grade D esophagitis The patient presented with persistent nausea, vomiting, and dysphagia, unable to tolerate oral intake for approximately one week. - MBS and EGD at an outside hospital revealed a mid to distal esophageal stricture extending to theGE junction, a friable distal esophageal stricture was found, and the scope could not be passed, preventing dilation. Repeat EGD done on on 01/11 reported with LA grade D esophagitis with no bleeding, benign-appearing severe esophageal stenosis. GI recommending PEG tube placement for alternate nutrition. Plan for repeat EGD in 6 weeks. PEG tube placed on 01/16 by surgery Director Of Labor Relations on board Continue tube feedings and get to goal Schizoaffective Disorder, Anxiety, and Depression - continue sertraline, trazodone. COPD - stable. - continue bronchodilator inhalers. GERD Continue PPI Hypothyroidism: -continue levothyroxine. Essential Hypertension: Continue amlodipine. Nutrition Status: Malnutrition Nutrition Diagnosis: Moderate protein-calorie malnutrition (visual) Provider Assessment/Plan: Symptoms/Signs/Physical Exam: Muscle Wasting and Subcutaneous Fat Loss Etiology: Chronic illness, Dysphagia, and Alteration in GI tract structure/function Nutrition Treatment Plan: - Current Diet and/or Nutritional Supplementation ordered: DIET NPO See Comments, DIET TUBE FEEDING Fiber 1.0,; G-tube; Feeding Method: Continuous; Initial Volume in mL/hour: 20; Goal Volume in mL/hour: 60; Feeding Advancement: 10 ml Q 6 hrs; Water Flush: 20 ml Q 3 hrs - Daily weights Impact of Malnutrition on patient condition and outcomes: Increased dysphagia, Decreased ability to perform activities, Decreased activity tolerance and reduced mobility , Poor wound healing, and Decreased bone health and healing DVT prevention: lovenox Anticipated Disposition -SNF Code status: NO CPR (In Event of Cardiopulmonary Arrest) Medical decision making complexity -moderate Charity Ritchie MD 01/18/2025, 6:43 PM Portions of this documentation may have been created by an artificial iron and steel work supervisor software. Effort has been done to assure accuracy of iron and steel work supervisor. Any obvious errors or omissions should be clarified with the author of the document. * Sr Rosetta Maria - 01/17/2025 1:08 PM CDT Reason for Visit: Priority Patient List Patient spiritual issues identified summary of patient???s most significant issue(s): Gilda said she was doing okay but hungry. She said she has not much support. She was little hard to talk. She was welcome to visit and pray for her. When I asked her what happen for her health she said I don't know. A prayer provided to support and comfort her. Spiritual interventions Utilized presence and active listening to explore feelings, stressors, perceptions, questions/concerns, and coping patterns of Gilda. Comfort/reassurance provided;Emotional support; Prayer provided Introduction of Spiritual Care 12/01. MARKET MASTER???S ASSESSMENT OF PATIENT???S LEVEL OF DISTRESS: mild Outcomes of Care Patient was feel comfort and very appreciated for visit and prayer Supply Service Worker Plan: Spiritual Care Services remain available for referral PRN. Recommendations for Healthcare Team As spiritual needs/distress arise, please contact Spiritual Care Services. We will follow up as needed. Thank you for this referral. Supply Service Worker . Rosetta Maria Spiritual Care Team [phone] * Carson Briggs MD - 01/17/2025 12:00 PM CDT Images from the original note were not included. [facility] Hospitalist/Internal Medicine Progress note Patient name: Gilda Hodge Date of : 1955 Room/Bed: [address] [place] [address] LOS: LOS: 7 days HOSPITAL COURSE SUMMARY: Gilda Hodge, a 69-year-old female with a medical history of essential hypertension, GERD, COPD, hypothyroidism, schizoaffective disorder, anxiety and depression, alcohol use disorder in remission,treated hepatitis C, and tobacco use, was admitted to [facility] for evaluation of dysphagia. The principal diagnosis was esophageal stricture, confirmed by MBS and EGD at an outside hospital, which showed a friable distal esophageal stricture extending to the GE junction. The EGD performed at the outside facility was unable to pass the scope, and no dilation was performed. Upon admission, she was hemodynamically stable, and her electrolyte disturbances were corrected. She was kept NPO, and plans were made for a potential EGD for dilation. 01/11- vital stable. GI planning EGD 01/12- severe stricture of esophagus . Per GI will need PEG and repeat egd later 01/13- planned for PEG tube 01/14- vitals stable. Consulted trauma surgery for PEG tube placement 01/15- planned for PEG tube today per surgery. 01/16-plan for PEG tube today as could not be done yesterday due to emergency OR scheduling 01/17- patient is s/p laparoscopic gastrostomy tube by surgery. Ok to use per surgery. Will consultnutritional service to start tube feeding. CONSULTANTS: IP CONSULT TO GI IP CONSULT TO IV TEAM IP CONSULT TO NUTRITION SERVICES IP CONSULT TO NUTRITION SERVICES IP CONSULT TO WOUND/SKIN CARE TEAM IP CONSULT TO WOUND/SKIN CARE TEAM IP CONSULT TO NUTRITION SERVICES SUBJECTIVE: No new issues ROS: All systems were reviewed and pertinent positive and negative mentioned above. OBJECTIVE: Temp (24hrs), Av.7 ??F (36.5 ??C), Min:97.3 ??F (36.3 ??C), Max:98.7 ??F (37.1 ??C) BP 126/70 (BP Location: Left arm, Patient Position (BP): Supine) Pulse 97 Temp 98.7 ??F (37.1 ??C) (Temporal) Resp 18 Ht 5' 2 (1.575 m) Wt 50.8 kg (112 lb) SpO2 99% BMI 20.49 kg/m?? Intake/Output Summary (Last 24 hours) at 01/17/2025 1200 Last data filed at 01/17/2025 0943 Gross per 24 hour Intake 900 ml Output 8 ml Net 892 ml Last documented weight: Weight: 50.8 kg (112 lb) (01/10/25 2331) EXAM: EXAM:01/17/2025, 12:00 PM- General : Alert oriented to time place and person. Not in distress Skin: warm and dry, no rash Head and Neck : pupil equally reactive to light, oral mucosa - moist, neck supple, noJVD Chest: symmetrical, unlabored,bilateral Clear to auscultation, No wheeze, rales or ronchii Cardiovascular : RRR, S1, S2 normal, No murmur, rubs or gallop Abdomen:soft , non tender, no rigidity, no rebound tenderness, no organomegaly. Extremities : no pedal edema, cyanosis or clubbing. 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 Psych: Mode normal , behavior appropriate LABORATORY: Recent Labs 01/15/25 1044 WBC 4.4* HGB 7.7* HCT 25.0* PLT 322 Recent Labs 01/14/25 1353 01/15/25 1044 01/16/25 0438 NA 143 142 140 K 3.0* 3.3* 4.1 CL 112* 116* 114* CO2 16* 15* 17* CA 8.3* 8.1* 8.3* BUN 4* 3* 3* CREAT 0.86 0.83 0.76 GLUCOSE 99 98 103* Recent Labs 01/14/25 1353 01/15/25 1044 TOTALPROTEIN 6.2* 5.9* ALBUMIN 3.1* 2.9* BILITOTAL 0.2 0.2 ALKPHOS 72 67 AST 14 14 ALT 5 7 No results for input(s): INR , PT in the last 72 hours. Invalid input(s): PTT No results for input(s): CPK , CKMB , TROPONIN in the last 72 hours. Diagnostic testing reviewed by me: Medications reviewed by me Facility-Administered Medications as of 01/17/2025 Medication Dose Frequency Provider Last Rate Last Admin potassium, sodium PHOSPHATES (PHOS-NaK) 280-160-250 mg oral powder 1 Packet 1 Packet ONE time only Dat Valladares DO [COMPLETED] ondansetron (ZOFRAN) 4 mg/2 mL injection 4 mg 4 mg post-proc one time PRN Brian Nayak MD 4 mg at 01/16/25 1621 [COMPLETED] potassium CHLORIDE 40 mEq in sodium chloride 0.9 % 250 mL IVPB 40 mEq every 4 hours Carson Briggs MD Stopped at 01/16/25 0110 [COMPLETED] potassium PHOSPHATE 15 mmol in sodium chloride 0.9 % 105 mL IVPB 15 mmol ONE time only Carson Briggs MD Stopped at 01/15/25 1618 fat emulsion 20% (CLINOLIPID) 50 Gram infusion 250 mL 50 Gram every 24 hours Dat Valladares DO Stopped at 01/17/25 0542 adult TPN - PERIPHERAL-Clinimix E every 24 hours Dat Valladares DO Stopped at 01/16/25 1759 [COMPLETED] potassium CHLORIDE 40 mEq in sodium chloride 0.9 % 250 mL IVPB 40 mEq every 4 hours Carson Briggs MD Stopped at 01/15/25 0234 [COMPLETED] magnesium SULFATE in water 2 gram/50 mL (4 %) IVPB 2 Gram 2 Gram ONE time only Carson Briggs MD Stopped at 01/14/25 1820 hydrOXYzine HCL (ATARAX) tablet 50 mg 50 mg ONE time only Dat Valladares DO [COMPLETED] iopamidoL (ISOVUE-300) 61% injection (drawn from multi-use bulk pack) 75 mL 75 mL intra-proc ONE time Carosn Briggs MD 75 mL at 01/13/25 1010 sodium chloride flush injection 20 mL 20 mL see admin instructions Dat Valladares DO 20 mL at 01/13/25 1010 lidocaine PF 1% (XYLOCAINE MPF) injection 15 mL 150 mg ONE time only Yusuf Bah MD [COMPLETED] clindamycin (CLEOCIN) 600 mg in dextrose 5% 50 mL IVPB 600 mg ONE time only Yusuf Bah MD Stopped at 01/13/25 1450 [COMPLETED] glucagon HCL 1 mg/mL injection 1 mg 1 mg intra-proc ONE time Yusuf Bah MD 1 mg at 01/13/25 1444 [COMPLETED] midazolam (PF) (VERSED) injection 1 mg 1 mg intra-proc ONE time Yusuf Bah MD 1 mg at 01/13/25 1420 [COMPLETED] fentaNYL PF (SUBLIMAZE) 50 mcg/mL injection 25 mcg 25 mcg intra-proc ONE time Yusuf Bah MD 25 mcg at 01/13/25 1420 morphine 4 mg/mL injection 2 mg 2 mg every 4 hours PRN Dat Valladares DO 2 mg at 01/17/25 0837 nicotine (NICODERM CQ) 14 mg/24 hr transdermal patch 1 Patch 1 Patch daily Dat Valladares DO1 Patch at 01/17/25 1000 LORazepam (ATIVAN) 2 mg/mL injection 0.5 mg 0.5 mg every 12 hours PRN Dat Valladares DO 0.5 mg at 01/15/25 2110 pantoprazole (PROTONIX) 40 mg in sodium chloride 0.9% 10 mL injection 40 mg BID Dat Valladares DO 40 mg at 01/17/25 0837 tetrabenazine (XENAZINE) tablet 25 mg PATIENT HOME MED 25 mg BID Dat Valladares DO 25 mgat 01/17/25 1000 amLODIPine (NORVASC) tablet 10 mg 10 mg daily Dat Valladares DO 10 mg at 01/17/25 0959 levothyroxine (SYNTHROID) tablet 137 mcg 137 mcg daily EARLY Dat Valladares DO 137 mcg at 01/11/25 0756 traZODone (DESYREL) tablet 100 mg 100 mg daily BEDTIME Dat Valladares DO 100 mg at 01/14/25 204 sertraline (ZOLOFT) tablet 100 mg 100 mg daily Dat Valladares DO 100 mg at 01/17/25 0959 albuterol sulfate 90 mcg/Actuation inhaler 2 Puff 2 Puff resp, every 6 hours PRN Dat Valladares DO [COMPLETED] morphine 4 mg/mL injection 2 mg 2 mg every 4 hours PRN Carson Briggs MD 2 mg at 01/11/25 2118 sodium chloride flush injection 10 mL 10 mL every 12 hours (2 times daily) Dat Valladares, DO10 mL at 01/17/25 1000 sodium chloride flush injection 10 mL 10 mL see admin instructions Dat Valladares DO sodium chloride 0.9 % flush bag 25 mL 25 mL see admin instructions Dat Valladares DO dextrose 5 % in water 250 mL flush bag 25 mL 25 mL see admin instructions Dat Valladares DO acetaminophen (TYLENOL) tablet 650 mg 650 mg every 6 hours PRN Dat Valladares DO [COMPLETED] morphine 4 mg/mL injection 2 mg 2 mg every 4 hours PRN Dennis Levine MD 2 mg at 01/11/25 0751 naloxone (NARCAN) 0.4 mg/mL injection 0.1-0.4 mg 0.1-0.4 mg see admin instructions Dat Valladares DO ondansetron (ZOFRAN) 4 mg/2 mL injection 4 mg 4 mg every 6 hours PRN Dat Valladares DO 4 mg at 01/16/25 1546 calcium as CARBONATE (TUMS) 500 mg (200 mg elemental) chewable tablet 400 mg 400 mg every 6 hours PRN Dat Valladares DO [] sodium chloride 0.9 % infusion continuous Dennis Levine MD Stopped at 01/11/25 2244 enoxaparin (LOVENOX) injection 40 mg 40 mg every 24 hours Carson Briggs MD 40 mg at 01/12/25 0533 dextrose 5 % - sodium chloride 0.9 % infusion see admin instructions Dat Valladares DO 40 mL/hr at 01/15/25 1535 New Bag at 01/15/25 1535 dextrose 50% (D50) syringe 12.5 Gram 12.5 Gram see admin instructions Dat Valladares DO dextrose 50% (D50) syringe 25 Gram 25 Gram see admin instructions Dat Valladares DO glucagon HCL 1 mg/mL injection 1 mg 1 mg see admin instructions Dat Valladares DO ASSESSMENT AND PLAN: Principal Problem: Dysphagia Active Problems: Schizoaffective disorder (CMS/HCC) COPD (chronic obstructive pulmonary disease) (CMS/HCC) Tobacco use GERD (gastroesophageal reflux disease) Anxiety and depression Hypothyroidism Essential hypertension History of hepatitis C Esophageal stenosis Protein-calorie malnutrition, moderate Plan Gilda Hodge is a 69-year-old female with a medical history significant for essential hypertension, GERD, COPD, hypothyroidism, schizoaffective disorder, anxiety and depression, alcohol use disorder in remission, history of hepatitis C, and tobacco use. She was admitted to [facility] for further evaluation and management of dysphagia. Dysphagia and Esophageal Stenosis: The patient presented with persistent nausea, vomiting, and dysphagia, unable to tolerate oral intake for approximately one week. - MBS and EGD at an outside hospital revealed a mid to distal esophageal stricture extending to theGE junction. - a friable distal esophageal stricture was found, and the scope could not be passed, preventing dilation. - EGD previewed - PEG tube ordered - pending Per IR _ IR can't placed PEG - start PPN- consulted nutritional services - Now s/p PEG - start tube feed, consulted nutritional services Schizoaffective Disorder, Anxiety, and Depression - schizoaffective disorder, anxiety, and depression. - continue her outpatient medications, including sertraline. COPD - stable. - continue her outpatient bronchodilator inhalers. GERD The patient has GERD and is receiving PPI IV twice daily. Hypothyroidism: -continue her outpatient levothyroxine. Essential Hypertension: - outpatient amlodipine. DVT prevention: lovenox Gastritis prevention: NA Anticipated Disposition - home vs SNF Code status: NO CPR (In Event of Cardiopulmonary Arrest) Medical decision making complexity - 2 Carson Briggs MD 01/17/2025, 12:00 PM Portions of this documentation may have been created by an artificial iron and steel work supervisor software. Effort has been done to assure accuracy of iron and steel work supervisor. Any obvious errors or omissions should be clarified with the author of the document. * Jr Cardenas, - 01/17/2025 8:55 AM CDT General Surgery Progress Note Gilda Hodge 1955 CSN: [id number] 01/17/2025 Admit Date: 01/10/2025 Hospital day: LOS: 7 days Subjective: This is a 69 y.o. female s/p robotic assisted laparoscopic gastrostomy tube placement . No postop events. Objective: BP 126/70 (BP Location: Left arm, Patient Position (BP): Supine) Pulse 97 Temp 98.7 ??F (37.1 ??C) (Temporal) Resp 18 Ht 5' 2 (1.575 m) Wt 50.8 kg (112 lb) SpO2 99% BMI 20.49 kg/m?? Temp (24hrs), Av.7 ??F (36.5 ??C), Min:97.3 ??F (36.3 ??C), Max:98.7 ??F (37.1 ??C) Intake/Output Summary (Last 24 hours) at 01/17/2025 0855 Last data filed at 01/16/2025 1559 Gross per 24 hour Intake 800 ml Output 6 ml Net 794 ml General appearance: No distress Lungs: clear to auscultation bilaterally, normal respiratory effort Heart: regular rate and rhythm, S1, S2 normal, no murmur, click, rub or gallop Abdomen: Soft, appropriately tender. G-tube intact, site clean, incisions clean Extremities: intact distal pulses Skin: Skin color, texture, turgor normal. No rashes or lesions Neurologic: Unchanged Data Review: CBC: Recent Labs 01/15/25 1044 WBC 4.4* HGB 7.7* HCT 25.0* PLT 322 MCV 82.2* BMP: Recent Labs 01/14/25 1353 01/15/25 1044 01/16/25 0438 GLUCOSE 99 98 103* BUN 4* 3* 3* CREAT 0.86 0.83 0.76 NA 143 142 140 K 3.0* 3.3* 4.1 CL 112* 116* 114* CO2 16* 15* 17* ANIONGAP 15 11 9 CA 8.3* 8.1* 8.3* PO4 2.9 1.8* 2.1* Assessment: Active Hospital Problems Diagnosis Protein-calorie malnutrition, moderate Schizoaffective disorder (CMS/HCC) COPD (chronic obstructive pulmonary disease) ([facility]/HCC) Tobacco use GERD (gastroesophageal reflux disease) Anxiety and depression Hypothyroidism Essential hypertension History of hepatitis C Esophageal stenosis Dysphagia Resolved Hospital Problems No resolved problems to display. Plan: S/P G-tube placement without apparent complication. -Cleared to start/resume feeds. -Will sign off. Please call with any questions or concerns. -Follow-up in office as needed for removal after 6-8 weeks from date of insertion. Medical management per primary service. Jr Cardenas DO * Angelito Barakat PHARMACIST - 01/16/2025 12:12 PM CDT PHARMACY ADULT PARENTERAL NUTRITION ELECTROLYTE REPLACEMENT PROGRESS NOTE Pursuant to the [facility] Electrolyte Replacement Protocol for Adult Patients on Parenteral Nutrition, the following electrolyte replacement has been ordered: POTASSIUM: none MAGNESIUM: none PHOSPHORUS: Brittanie-Nak x 1 CALCIUM: none CREATININE Date Value Ref Range Status 01/16/2025 0.76 0.51 - 0.95 mg/dL Final Comment: The GFR result is not clinically significant on patients <18 or >70 years of age. POTASSIUM Date Value Ref Range Status 01/16/2025 4.1 3.5 - 5.1 mmol/L Final MAGNESIUM Date Value Ref Range Status 01/16/2025 1.7 1.6 - 2.4 mg/dL Final PHOSPHORUS Date Value Ref Range Status 01/16/2025 2.1 (L) 2.5 - 4.5 mg/dL Final TIFFANY Olson Cosigned by Carson Briggs MD at 01/16/2025 6:12 PM CDT * Tia Landry Physical Therapist - 01/16/2025 11:43 AM CDT [facility] - Therapy Services [facility]. Acute Physical Therapy Evaluation 01/16/2025 Room: [address] [place] [address] Name: Gilda Naveen Age: 69 y.o. Date of : 1955 Insurance: Payor: MEDICARE / Plan: MEDICARE PART A AND B / Product Type: Medicare / Patient Class: Inpatient Onset of illness/injury or date of surgery: 01/10/2025 Subjective Information/History Subjective Information Provided By: Patient Prior level of Function: Patient stated she has caregiver assistance at home but was not able to provide the number of hours. She stated she uses a wheelchair at home but is not able to push it. She requires assist for toilet hygiene. She stated she does not walk due to history of back and left hippain. Patient stated she has not eaten in awhile. Patient reports falls in the past but not clear Home Environment: unknown Available Adaptive Equipment: Patient stated he has a wheelchair Assistance available: patient reports she has caregivers Patient/Family Goals Statement: none stated Pain: Refer to Doc Flowsheet for documented pain levels. Consent To Treatment Given By: Patient and Nurse Safety Awareness Orientation: Person, Place, and Date Command Following: good Safety Awareness: not assessed Precautions Patient Precautions: Fall Risk Bracing/Orthotics: bilateral kandi Ta boots Weight Bearing: No Restrictions Objective Information/Examination Muscle Tone: Not Tested Coordination: Not Tested Sensation: Intact to light touch to lower extremities ROM: Right UE: Active: WFL Left UE: Active: WFL Right LE: Active: WNL Left LE: Active: WNL Strength: Right UE: Generalized weakness noted: limiting functional mobility Left UE: Generalized weakness noted: limiting functional mobility Right LE: Generalized weakness noted: limiting functional mobility Left LE: Generalized weakness noted: limiting functional mobility Functional Mobility: Supine to /from sitting with supervision Sit to stand with minimal to supervision Gait Training: Held at this time Balance: Static sitting balance EOB with supervision times approximately 10 minutes Static standing with minimal assist Vitals Patient on room air [facility] AM-PAC Basic Mobility How much help from another person does the patient currently need? Score 1. Turning from your back to your side while in a flat bed without using bedrails? 4 - None (independent) 2. Moving from lying on your back to sitting on the side of a flat bed without using bedrails? 3 - A little (supervision to min assist) 3. Moving to and from a bed to a chair (including a wheelchair)? 3 - A little (supervision to min assist) 4. Standing up from a chair using your arms (e.g., wheelchair, or bedside chair)? 3 - A little (supervision to min assist) 5. Walking in hospital room? 3 - A little (supervision to min assist) 6. Climbing 3-5 steps with a railing? 1 - Total assist or cannot do at all Total score 17/24 0-16 - indicates likely facility discharge 17-24 indicates likely community discharge * scores determined based on patient report, observation or professional expertise Assessment/Plan Gilda Hodge is a 69 y.o. female is referred for physical therapy. Based on objective findings above, the patient presents with the following impairments: balance deficits, decreased activity tolerance, risk for falls, and safety concerns which impacts functional independence. Patient's prior level of function is unknown--she was challenged to report her history. PT to follow in the acute setting. Plan will include but is not limited to: Transfer Training, Patient/Family Education, and Functional Strengthening. Specific focus for next treatment session: functional mobility, LE strengthening. PT Evaluation: low complexity Recommendations During acute hospitalization, recommend low frequency treatment (1-3 times per week). Current plan of care to continue until goals met or patient discharges from facility Functional Prognosis: Based on prior level of function and deficits, anticipate good progress toward goals. Based on PT assessment of and/or progress with physical function, AM-PAC Basic Mobility score, tolerance for activity, and safety , anticipated discharge disposition, once medically ready: Home with assistance;Home with 24-hour supervision (patient not able to provide information about hours of caregiver help--) (01/16/25 5156). * The final discharge location is determined through physician, case management, and patient/caregiver input along with insurance authorization of skilled services when appropriate Plan of care and/or discharge recommendations shared with: Patient and Other Wood Processing Machine Operator PT Recommended DME: . None Daily activity recommendations: Up with 1 assist Recommendations for referral to another service: Care Management Education/Training Provided Additional education provided: functional mobility, plan of care, and safety Additional Training provided: Patient educated to call for assist when wanting to mobilize Learner, method of education, and response to learning listed in Education tab in Epic. Disposition At start of session, patient found lying in bed At end of session, patient left lying in bed, call light in reach, and bed alarm in place Current Diagnoses/Past Medical History Pertinent diagnoses and past medical history related to this hospital stay are present in physicianH&P and physician daily notes. Prior to PT session a thorough chart review was completed including prior PT notes as applicable. Further treatment notes and therapeutic goals can be found in Care Plan Notes. If the patient discharges from the facility before another therapy visit, this shall serve as the therapy discharge summary. Thank you for this referral, Tia Landry Physical Therapist Physician order authorization: I certify that this patient is under my care and requires all the above therapy services. Physician Signature/Electronic Facsimile : * Adam Ramos, RD - 01/16/2025 10:30 AM CDT Nutritional Status/Recommendations/Plan for Follow up: Patient receiving PPN @ goal. Labs reviewed, noted low Ca and Phos. Recommend electrolyte replacement PRN. Continue PPN. Progress diet when medically appropriate. Estimated Needs: Estimated Energy Target: 2689-6695 (01/14/25 1200) Estimated Protein Target: ~60-70 (01/14/25 1200) Estimated Fluid Target : 1550 (01/14/25 1200) Nutrition Energy Formula: Calories per kilogram (01/14/25 1200) Weight Used for Formula: Actual weight (01/14/25 1200) Current diet/nutrition support: DIET NPO Sips w/Meds, adult TPN - PERIPHERAL-Clinimix E Food/Meal: NPO (01/16/25 0110), Weight status/changes: Height: 5' 2 (157.5 cm) (01/10/252330) Weight: 50.8 kg (112 lb) (01/10/252330) Last seven weights (if available) from 12/19/24 1031 to 01/16/25 1030 (Last 7 readings): Weight Weight Method 01/10/252330 50.8 kg (112 lb) Stated 01/10/252329 50.8 kg (112 lb) -- 01/10/252250 50.8 kg (112 lb) -- Admission:Weight: 50.8 kg (112 lb) (01/10/252250)Weight Method: Stated (01/10/25 922) Body mass index is 20.49 kg/m??. Rumsey body weight: 50.1 kg (110 lb 7.2 oz) Adjusted ideal body weight: 50.4 kg (111 lb 1.1 oz) Nutrition Focused Exam Physical Findings- Summary: Malnutrition Nutrition Diagnosis: Moderate protein-calorie malnutrition (visual) (01/14/25 1200) Subcutaneous Fat Loss Assessment: Moderate fat loss (01/14/25 1200) Muscle Wasting Assessment: Moderate (01/14/25 1200) Edema: Trace or slight contour changes (mild) (01/14/25 1200) Hand Dairy Cattle Farm Manager: Unable to assess (01/14/25 1200) Percentage of Energy: Unable to assess (01/14/25 1200) Percentage of Weight Loss: Unable to assess (01/14/25 1200) Additional assessment indices: Jonny Score: 14 (01/15/25 1917) Last Bowel Movement (mm/dd/yyyy): 01/08/25 (01/12/25 0734) Allergies Allergies Allergen Reactions Penicillins Anaphylaxis 'I don't know,my mother just told me I am allergic to it' Labs: Lab Results Component Value Date/Time NA 140 01/16/2025 04:38 AM K 4.1 01/16/2025 04:38 AM CL 114 (H) 01/16/2025 04:38 AM CO2 17 (L) 01/16/2025 04:38 AM CA 8.3 (L) 01/16/2025 04:38 AM BUN 3 (L) 01/16/2025 04:38 AM CREAT 0.76 01/16/2025 04:38 AM GLUCOSE 103 (H) 01/16/2025 04:38 AM TOTALPROTEIN 5.9 (L) 01/15/2025 10:44 AM ALBUMIN 2.9 (L) 01/15/2025 10:44 AM BILITOTAL 0.2 01/15/2025 10:44 AM ALKPHOS 67 01/15/2025 10:44 AM AST 14 01/15/2025 10:44 AM ALT 7 01/15/2025 10:44 AM ANIONGAP 9 01/16/2025 04:38 AM No results found for: HGBA1C , [id number] Lab Results Component Value Date/Time RDW 19.6 (H) 01/15/2025 10:44 AM No results found for: CRP , CRPHS Lab Results Component Value Date/Time MG 1.7 01/16/2025 04:38 AM Lab Results Component Value Date/Time CA 8.3 (L) 01/16/2025 04:38 AM PO4 2.1 (L) 01/16/2025 04:38 AM * Adam Ramos RD - 01/16/2025 10:28 AM CDT The patient was evaluated by the dietitian and was found to have Malnutrition Nutrition Diagnosis: Moderate protein-calorie malnutrition (visual) (01/14/25 1200). The malnutrition pathway is recommended and the assessment via ASPEN criteria and nutrition recommendations from the dietitian are as follows: ASPEN Malnutrition Assessment and Findings Subcutaneous Fat Loss Assessment: Moderate fat loss (01/14/25 1200) Muscle Wasting Assessment: Moderate (01/14/25 1200) Edema: Trace or slight contour changes (mild) (01/14/25 1200) Hand Dairy Cattle Farm Manager: Unable to assess (01/14/25 1200) Percentage of Energy: Unable to assess (01/14/25 1200) Percentage of Weight Loss: Unable to assess (01/14/25 1200) Malnutrition Decision Malnutrition Nutrition Diagnosis: Moderate protein-calorie malnutrition (visual) (01/14/25 1200) BMI BMI (Calculated): 20.48 (01/10/25 2331) Malnutrition Recommendations Nutrition Interventions: Parenteral Nutrition (01/14/25 1200) Cosigned by Carson Briggs MD at 01/16/2025 6:12 PM CDT * Carson Briggs MD - 01/16/2025 9:07 AM CDT Images from the original note were not included. [facility] Hospitalist/Internal Medicine Progress note Patient name: Gilda Hodge Date of : 1955 Room/Bed: [address] [place] [address] LOS: LOS: 6 days HOSPITAL COURSE SUMMARY: Gilda Hodge, a 69-year-old female with a medical history of essential hypertension, GERD, COPD, hypothyroidism, schizoaffective disorder, anxiety and depression, alcohol use disorder in remission,treated hepatitis C, and tobacco use, was admitted to [facility] for evaluation of dysphagia. The principal diagnosis was esophageal stricture, confirmed by MBS and EGD at an outside hospital, which showed a friable distal esophageal stricture extending to the GE junction. The EGD performed at the outside facility was unable to pass the scope, and no dilation was performed. Upon admission, she was hemodynamically stable, and her electrolyte disturbances were corrected. She was kept NPO, and plans were made for a potential EGD for dilation. 01/11- vital stable. GI planning EGD 01/12- severe stricture of esophagus . Per GI will need PEG and repeat egd later 01/13- planned for PEG tube 01/14- vitals stable. Consulted trauma surgery for PEG tube placement 01/15- planned for PEG tube today per surgery. 01/16-plan for PEG tube today as could not be done yesterday due to emergency OR scheduling CONSULTANTS: IP CONSULT TO GI IP CONSULT TO IV TEAM IP CONSULT TO NUTRITION SERVICES IP CONSULT TO NUTRITION SERVICES IP CONSULT TO WOUND/SKIN CARE TEAM SUBJECTIVE: No new issues ROS: All systems were reviewed and pertinent positive and negative mentioned above. OBJECTIVE: Temp (24hrs), Av.7 ??F (36.5 ??C), Min:97.1 ??F (36.2 ??C), Max:98 ??F (36.7 ??C) BP (!) 171/93 (BP Location: Left arm, Patient Position (BP): Supine) Pulse 77 Temp 97.1 ??F (36.2 ??C) (Temporal) Resp 16 Ht 5' 2 (1.575 m) Wt 50.8 kg (112 lb) SpO2 99% BMI 20.49 kg/m?? No intake or output data in the 24 hours ending 01/16/25 09 Last documented weight: Weight: 50.8 kg (112 lb) (01/10/25 2331) EXAM: EXAM:01/16/2025, 9:07 AM- General : Alert oriented to time place and person. Not in distress Skin: warm and dry, no rash Head and Neck : pupil equally reactive to light, oral mucosa - moist, neck supple, noJVD Chest: symmetrical, unlabored,bilateral Clear to auscultation, No wheeze, rales or ronchii Cardiovascular : RRR, S1, S2 normal, No murmur, rubs or gallop Abdomen:soft , non tender, no rigidity, no rebound tenderness, no organomegaly. Extremities : no pedal edema, cyanosis or clubbing. 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 Psych: Mode normal , behavior appropriate LABORATORY: Recent Labs 01/15/25 1044 WBC 4.4* HGB 7.7* HCT 25.0* PLT 322 Recent Labs 01/14/25 1353 01/15/25 1044 01/16/25 0438 NA 143 142 140 K 3.0* 3.3* 4.1 CL 112* 116* 114* CO2 16* 15* 17* CA 8.3* 8.1* 8.3* BUN 4* 3* 3* CREAT 0.86 0.83 0.76 GLUCOSE 99 98 103* Recent Labs 01/14/25 1353 01/15/25 1044 TOTALPROTEIN 6.2* 5.9* ALBUMIN 3.1* 2.9* BILITOTAL 0.2 0.2 ALKPHOS 72 67 AST 14 14 ALT 5 7 No results for input(s): INR , PT in the last 72 hours. Invalid input(s): PTT No results for input(s): CPK , CKMB , TROPONIN in the last 72 hours. Diagnostic testing reviewed by me: Medications reviewed by me Facility-Administered Medications as of 01/16/2025 Medication Dose Frequency Provider Last Rate Last Admin [COMPLETED] potassium CHLORIDE 40 mEq in sodium chloride 0.9 % 250 mL IVPB 40 mEq every 4 hours Carson Briggs MD Stopped at 01/16/25 0110 [COMPLETED] potassium PHOSPHATE 15 mmol in sodium chloride 0.9 % 105 mL IVPB 15 mmol ONE time only Carson Briggs MD Stopped at 01/15/25 1618 fat emulsion 20% (CLINOLIPID) 50 Gram infusion 250 mL 50 Gram every 24 hours Carson Briggs MD 20.83 mL/hr at 01/16/25 0058 50 Gram at 01/16/25 0058 adult TPN - PERIPHERAL-Clinimix E every 24 hours Carson Briggs MD 60 mL/hr at 01/16/25 0059 New Bag at 01/16/25 0059 [COMPLETED] potassium CHLORIDE 40 mEq in sodium chloride 0.9 % 250 mL IVPB 40 mEq every 4 hours Carson Briggs MD Stopped at 01/15/25 0234 [COMPLETED] magnesium SULFATE in water 2 gram/50 mL (4 %) IVPB 2 Gram 2 Gram ONE time only Carson Briggs MD Stopped at 01/14/25 1820 hydrOXYzine HCL (ATARAX) tablet 50 mg 50 mg ONE time only Aydee Tyler, RN EXAMINER [COMPLETED] iopamidoL (ISOVUE-300) 61% injection (drawn from multi-use bulk pack) 75 mL 75 mL intra-proc ONE time Carson Briggs MD 75 mL at 01/13/25 1010 sodium chloride flush injection 20 mL 20 mL see admin instructions Carson Briggs MD 20 mL at01/13/25 1010 iopamidoL (ISOVUE-300) 61% injection (single-use vial) 30 mL 30 mL intra-proc ONE time Yusuf Bah MD lidocaine PF 1% (XYLOCAINE MPF) injection 15 mL 150 mg ONE time only Yusuf Bah MD [COMPLETED] clindamycin (CLEOCIN) 600 mg in dextrose 5% 50 mL IVPB 600 mg ONE time only Yusuf Bah MD Stopped at 01/13/25 1450 [COMPLETED] glucagon HCL 1 mg/mL injection 1 mg 1 mg intra-proc ONE time Yusuf Bah MD 1 mg at 01/13/25 1444 [COMPLETED] midazolam (PF) (VERSED) injection 1 mg 1 mg intra-proc ONE time Yusuf Bah MD 1 mg at 01/13/25 1420 [COMPLETED] fentaNYL PF (SUBLIMAZE) 50 mcg/mL injection 25 mcg 25 mcg intra-proc ONE time Yusuf Bah MD 25 mcg at 01/13/25 1420 morphine 4 mg/mL injection 2 mg 2 mg every 4 hours PRN Carson Briggs MD 2 mg at 01/16/25 0623 nicotine (NICODERM CQ) 14 mg/24 hr transdermal patch 1 Patch 1 Patch daily Carson Briggs MD 1 Patch at 01/16/25 0850 LORazepam (ATIVAN) 2 mg/mL injection 0.5 mg 0.5 mg every 12 hours PRN Carson Briggs MD 0.5 mg at 01/15/25 2110 pantoprazole (PROTONIX) 40 mg in sodium chloride 0.9% 10 mL injection 40 mg BID Dennis Levine MD 40 mg at 01/16/25 0849 tetrabenazine (XENAZINE) tablet 25 mg PATIENT HOME MED 25 mg BID Dennis Levine MD 25 mg at 01/16/25 0848 amLODIPine (NORVASC) tablet 10 mg 10 mg daily Dennis Levine MD 10 mg at 01/16/25 0849 levothyroxine (SYNTHROID) tablet 137 mcg 137 mcg daily EARLY Dennis Levine MD 137 mcg at 01/11/25 0756 traZODone (DESYREL) tablet 100 mg 100 mg daily BEDTIME Dennis Levine MD 100 mg at 01/14/25 2043 sertraline (ZOLOFT) tablet 100 mg 100 mg daily Dennis Levine MD 100 mg at 01/16/25 0849 albuterol sulfate 90 mcg/Actuation inhaler 2 Puff 2 Puff resp, every 6 hours PRN Dennis Levine MD [COMPLETED] morphine 4 mg/mL injection 2 mg 2 mg every 4 hours PRN Carson Briggs MD 2 mg at 01/11/25 2118 sodium chloride flush injection 10 mL 10 mL every 12 hours (2 times daily) Dennis Levine MD 10 mL at 01/16/25 0850 sodium chloride flush injection 10 mL 10 mL see admin instructions Dennis Levine MD sodium chloride 0.9 % flush bag 25 mL 25 mL see admin instructions Dennis Levine MD dextrose 5 % in water 250 mL flush bag 25 mL 25 mL see admin instructions Dennis Levine MD acetaminophen (TYLENOL) tablet 650 mg 650 mg every 6 hours PRN Dennis Levine MD [COMPLETED] morphine 4 mg/mL injection 2 mg 2 mg every 4 hours PRN Dennis Levine MD 2 mg at 01/11/25 0751 naloxone (NARCAN) 0.4 mg/mL injection 0.1-0.4 mg 0.1-0.4 mg see admin instructions Dennis Levine MD ondansetron (ZOFRAN) 4 mg/2 mL injection 4 mg 4 mg every 6 hours PRN Dennis Levine MD 4 mg at 01/16/25 0848 calcium as CARBONATE (TUMS) 500 mg (200 mg elemental) chewable tablet 400 mg 400 mg every 6 hours PRN Dennis Levine MD [] sodium chloride 0.9 % infusion continuous Dennis Levine MD Stopped at 01/11/25 2244 [Held by Provider] enoxaparin (LOVENOX) injection 40 mg 40 mg every 24 hours Dennis Levine MD 40 mg at 01/12/25 0533 dextrose 5 % - sodium chloride 0.9 % infusion see admin instructions Dennis Levine MD 40 mL/hr at 01/15/25 1535 New Bag at 01/15/25 1535 dextrose 50% (D50) syringe 12.5 Gram 12.5 Gram see admin instructions Dennis Levine MD dextrose 50% (D50) syringe 25 Gram 25 Gram see admin instructions Dennis Levine MD glucagon HCL 1 mg/mL injection 1 mg 1 mg see admin instructions Dennis Levine MD ASSESSMENT AND PLAN: Principal Problem: Dysphagia Active Problems: Schizoaffective disorder (CMS/HCC) COPD (chronic obstructive pulmonary disease) (CMS/HCC) Tobacco use GERD (gastroesophageal reflux disease) Anxiety and depression Hypothyroidism Essential hypertension History of hepatitis C Esophageal stenosis Plan Gilda Hodge is a 69-year-old female with a medical history significant for essential hypertension, GERD, COPD, hypothyroidism, schizoaffective disorder, anxiety and depression, alcohol use disorder in remission, history of hepatitis C, and tobacco use. She was admitted to [facility] for further evaluation and management of dysphagia. Dysphagia and Esophageal Stenosis: The patient presented with persistent nausea, vomiting, and dysphagia, unable to tolerate oral intake for approximately one week. - MBS and EGD at an outside hospital revealed a mid to distal esophageal stricture extending to theGE junction. - a friable distal esophageal stricture was found, and the scope could not be passed, preventing dilation. - EGD previewed - PEG tube ordered - pending Per IR _ IR can't placed PEG - start PPN- consulted nutritional services - Pending PEG tube placement today by surgery Schizoaffective Disorder, Anxiety, and Depression - schizoaffective disorder, anxiety, and depression. - continue her outpatient medications, including sertraline. COPD - stable. - continue her outpatient bronchodilator inhalers. GERD The patient has GERD and is receiving PPI IV twice daily. Hypothyroidism: -continue her outpatient levothyroxine. Essential Hypertension: - outpatient amlodipine. DVT prevention: lovenox Gastritis prevention: NA Anticipated Disposition - home vs SNF Code status: NO CPR (In Event of Cardiopulmonary Arrest) Medical decision making complexity - 2 Carson Briggs MD 01/16/2025, 9:07 AM Portions of this documentation may have been created by an artificial iron and steel work supervisor software. Effort has been done to assure accuracy of iron and steel work supervisor. Any obvious errors or omissions should be clarified with the author of the document. * Carson Briggs MD - 01/15/2025 9:00 AM CDT Images from the original note were not included. [facility] Hospitalist/Internal Medicine Progress note Patient name: Gilda Hodge Date of : 1955 Room/Bed: 7252/01 LOS: LOS: 5 days HOSPITAL COURSE SUMMARY: Gilda Hodge, a 69-year-old female with a medical history of essential hypertension, GERD, COPD, hypothyroidism, schizoaffective disorder, anxiety and depression, alcohol use disorder in remission,treated hepatitis C, and tobacco use, was admitted to [facility] for evaluation of dysphagia. The principal diagnosis was esophageal stricture, confirmed by MBS and EGD at an outside hospital, which showed a friable distal esophageal stricture extending to the GE junction. The EGD performed at the outside facility was unable to pass the scope, and no dilation was performed. Upon admission, she was hemodynamically stable, and her electrolyte disturbances were corrected. She was kept NPO, and plans were made for a potential EGD for dilation. 01/11- vital stable. GI planning EGD 01/12- severe stricture of esophagus . Per GI will need PEG and repeat egd later 01/13- planned for PEG tube 01/14- vitals stable. Consulted trauma surgery for PEG tube placement 01/15- planned for PEG tube today per surgery CONSULTANTS: IP CONSULT TO GI IP CONSULT TO IV TEAM IP CONSULT TO NUTRITION SERVICES IP CONSULT TO NUTRITION SERVICES IP CONSULT TO WOUND/SKIN CARE TEAM SUBJECTIVE: No new issues ROS: All systems were reviewed and pertinent positive and negative mentioned above. OBJECTIVE: Temp (24hrs), Av.3 ??F (36.8 ??C), Min:97.7 ??F (36.5 ??C), Max:98.8 ??F (37.1 ??C) BP (!) 148/76 (BP Location: Left arm, Patient Position (BP): Supine) Pulse 65 Temp 98.1 ??F (36.7 ??C) (Axillary) Resp 18 Ht 5' 2 (1.575 m) Wt 50.8 kg (112 lb) SpO2 100% BMI 20.49 kg/m?? No intake or output data in the 24 hours ending 01/15/25 1410 Last documented weight: Weight: 50.8 kg (112 lb) (01/10/25 2331) EXAM: EXAM:01/15/2025, 2:10 PM- General : Alert oriented to time place and person. Not in distress Skin: warm and dry, no rash Head and Neck : pupil equally reactive to light, oral mucosa - moist, neck supple, noJVD Chest: symmetrical, unlabored,bilateral Clear to auscultation, No wheeze, rales or ronchii Cardiovascular : RRR, S1, S2 normal, No murmur, rubs or gallop Abdomen:soft , non tender, no rigidity, no rebound tenderness, no organomegaly. Extremities : no pedal edema, cyanosis or clubbing. 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 Psych: Mode normal , behavior appropriate LABORATORY: Recent Labs 01/15/25 1044 WBC 4.4* HGB 7.7* HCT 25.0* PLT 322 Recent Labs 01/14/25 1353 01/15/25 1044 NA 143 142 K 3.0* 3.3* CL 112* 116* CO2 16* 15* CA 8.3* 8.1* BUN 4* 3* CREAT 0.86 0.83 GLUCOSE 99 98 Recent Labs 01/14/25 1353 01/15/25 1044 TOTALPROTEIN 6.2* 5.9* ALBUMIN 3.1* 2.9* BILITOTAL 0.2 0.2 ALKPHOS 72 67 AST 14 14 ALT 5 7 Recent Labs 01/13/25 0429 INR 1.0 PT 14.0 No results for input(s): CPK , CKMB , TROPONIN in the last 72 hours. Diagnostic testing reviewed by me: Medications reviewed by me Facility-Administered Medications as of 01/15/2025 Medication Dose Frequency Provider Last Rate Last Admin potassium CHLORIDE 40 mEq in sodium chloride 0.9 % 250 mL IVPB 40 mEq every 4 hours Debbie Briggs MD potassium PHOSPHATE 15 mmol in sodium chloride 0.9 % 105 mL IVPB 15 mmol ONE time only Carson Briggs MD 40 mL/hr at 01/15/25 1318 15 mmol at 01/15/25 1318 fat emulsion 20% (CLINOLIPID) 50 Gram infusion 250 mL 50 Gram every 24 hours Anastacio Wong MD adult TPN - PERIPHERAL-Clinimix E every 24 hours Anastacio Wong MD [COMPLETED] potassium CHLORIDE 40 mEq in sodium chloride 0.9 % 250 mL IVPB 40 mEq every 4 hours Carson Briggs MD Stopped at 01/15/25 0234 [COMPLETED] magnesium SULFATE in water 2 gram/50 mL (4 %) IVPB 2 Gram 2 Gram ONE time only Carson Briggs MD Stopped at 01/14/25 1820 hydrOXYzine HCL (ATARAX) tablet 50 mg 50 mg ONE time only Aydee Tyler, RN EXAMINER [COMPLETED] iopamidoL (ISOVUE-300) 61% injection (drawn from multi-use bulk pack) 75 mL 75 mL intra-proc ONE time Carson Briggs MD 75 mL at 01/13/25 1010 sodium chloride flush injection 20 mL 20 mL see admin instructions Carson Briggs MD 20 mL at01/13/25 1010 iopamidoL (ISOVUE-300) 61% injection (single-use vial) 30 mL 30 mL intra-proc ONE time Yusuf Bah MD lidocaine PF 1% (XYLOCAINE MPF) injection 15 mL 150 mg ONE time only Yusuf Bah MD [COMPLETED] clindamycin (CLEOCIN) 600 mg in dextrose 5% 50 mL IVPB 600 mg ONE time only Yusuf Bah MD Stopped at 01/13/25 1450 [COMPLETED] glucagon HCL 1 mg/mL injection 1 mg 1 mg intra-proc ONE time Yusuf Bah MD 1 mg at 01/13/25 1444 [COMPLETED] midazolam (PF) (VERSED) injection 1 mg 1 mg intra-proc ONE time Yusuf Bah MD 1 mg at 01/13/25 1420 [COMPLETED] fentaNYL PF (SUBLIMAZE) 50 mcg/mL injection 25 mcg 25 mcg intra-proc ONE time Yusuf Bah MD 25 mcg at 01/13/25 1420 morphine 4 mg/mL injection 2 mg 2 mg every 4 hours PRN Carson Briggs MD 2 mg at 01/15/25 1349 nicotine (NICODERM CQ) 14 mg/24 hr transdermal patch 1 Patch 1 Patch daily Carson Briggs MD 1 Patch at 01/15/25 0848 LORazepam (ATIVAN) 2 mg/mL injection 0.5 mg 0.5 mg every 12 hours PRN Carson Briggs MD 0.5 mg at 01/15/25 0227 pantoprazole (PROTONIX) 40 mg in sodium chloride 0.9% 10 mL injection 40 mg BID Dennis Levine MD 40 mg at 01/15/25 0847 tetrabenazine (XENAZINE) tablet 25 mg PATIENT HOME MED 25 mg BID Dennis Levine MD 25 mg at 01/15/25 0846 amLODIPine (NORVASC) tablet 10 mg 10 mg daily Dennis Levine MD 10 mg at 01/15/25 0847 levothyroxine (SYNTHROID) tablet 137 mcg 137 mcg daily EARLY Dennis Levine MD 137 mcg at 01/11/25 0756 traZODone (DESYREL) tablet 100 mg 100 mg daily BEDTIME Dennis Levine MD 100 mg at 01/14/25 2043 sertraline (ZOLOFT) tablet 100 mg 100 mg daily Dennis Levine MD 100 mg at 01/15/25 0847 albuterol sulfate 90 mcg/Actuation inhaler 2 Puff 2 Puff resp, every 6 hours PRN Dennis Levine MD [COMPLETED] morphine 4 mg/mL injection 2 mg 2 mg every 4 hours PRN Carson Briggs MD 2 mg at 01/11/25 2118 sodium chloride flush injection 10 mL 10 mL every 12 hours (2 times daily) Dennis Levine MD 10 mL at 01/15/25 0848 sodium chloride flush injection 10 mL 10 mL see admin instructions Dennis Levine MD sodium chloride 0.9 % flush bag 25 mL 25 mL see admin instructions Dennis Levine MD dextrose 5 % in water 250 mL flush bag 25 mL 25 mL see admin instructions Dennis Levine MD acetaminophen (TYLENOL) tablet 650 mg 650 mg every 6 hours PRN Dennis Levine MD [COMPLETED] morphine 4 mg/mL injection 2 mg 2 mg every 4 hours PRN Dennis Levine MD 2 mg at 01/11/25 0751 naloxone (NARCAN) 0.4 mg/mL injection 0.1-0.4 mg 0.1-0.4 mg see admin instructions Dennis Levine MD ondansetron (ZOFRAN) 4 mg/2 mL injection 4 mg 4 mg every 6 hours PRN Dennis Levine MD 4 mg at 01/11/25 0731 calcium as CARBONATE (TUMS) 500 mg (200 mg elemental) chewable tablet 400 mg 400 mg every 6 hours PRN Dennis Levine MD [] sodium chloride 0.9 % infusion continuous Dennis Levine MD Stopped at 01/11/25 2244 [Held by Provider] enoxaparin (LOVENOX) injection 40 mg 40 mg every 24 hours Dennis Levine MD 40 mg at 01/12/25 0533 dextrose 5 % - sodium chloride 0.9 % infusion see admin instructions Dennis Levine MD 40 mL/hr at 01/14/25 1621 New Bag at 01/14/25 1621 dextrose 50% (D50) syringe 12.5 Gram 12.5 Gram see admin instructions Dennis Levine MD dextrose 50% (D50) syringe 25 Gram 25 Gram see admin instructions Dennis Levine MD glucagon HCL 1 mg/mL injection 1 mg 1 mg see admin instructions Dennis Levine MD ASSESSMENT AND PLAN: Principal Problem: Dysphagia Active Problems: Schizoaffective disorder (CMS/HCC) COPD (chronic obstructive pulmonary disease) (CMS/HCC) Tobacco use GERD (gastroesophageal reflux disease) Anxiety and depression Hypothyroidism Essential hypertension History of hepatitis C Esophageal stenosis Plan Gilda Hodge is a 69-year-old female with a medical history significant for essential hypertension, GERD, COPD, hypothyroidism, schizoaffective disorder, anxiety and depression, alcohol use disorder in remission, history of hepatitis C, and tobacco use. She was admitted to [facility] for further evaluation and management of dysphagia. Dysphagia and Esophageal Stenosis: The patient presented with persistent nausea, vomiting, and dysphagia, unable to tolerate oral intake for approximately one week. - MBS and EGD at an outside hospital revealed a mid to distal esophageal stricture extending to theGE junction. - a friable distal esophageal stricture was found, and the scope could not be passed, preventing dilation. - EGD previewed - PEG tube ordered - pending Per IR _ IR can't placed PEG - consulted surgery - planned for PEG tube today - start PPN- consulted nutritional services Schizoaffective Disorder, Anxiety, and Depression - schizoaffective disorder, anxiety, and depression. - continue her outpatient medications, including sertraline. COPD - stable. - continue her outpatient bronchodilator inhalers. GERD The patient has GERD and is receiving PPI IV twice daily. Hypothyroidism: -continue her outpatient levothyroxine. Essential Hypertension: - outpatient amlodipine. DVT prevention: lovenox Gastritis prevention: NA Anticipated Disposition - home vs SNF Code status: NO CPR (In Event of Cardiopulmonary Arrest) Medical decision making complexity - 2 Carson Briggs MD 01/15/2025, 2:10 PM Portions of this documentation may have been created by an artificial iron and steel work supervisor software. Effort has been done to assure accuracy of iron and steel work supervisor. Any obvious errors or omissions should be clarified with the author of the document. * Cassandra Kat RN - 01/14/2025 3:53 PM CDT Per pharmacy- not able to start PPN tonight d/t low electrolytes, replacements ordered. * Jaime Castellanos, PHARMACIST - 01/14/2025 3:43 PM CDT PHARMACY ADULT PARENTERAL NUTRITION ELECTROLYTE REPLACEMENT PROGRESS NOTE Pursuant to the [facility] Electrolyte Replacement Protocol for Adult Patients on Parenteral Nutrition, the following electrolyte replacement has been ordered: POTASSIUM: 40meq IV times two doses MAGNESIUM: 2gm IV PHOSPHORUS: CALCIUM: CREATININE Date Value Ref Range Status 01/14/2025 0.86 0.51 - 0.95 mg/dL Final Comment: The GFR result is not clinically significant on patients <18 or >70 years of age. POTASSIUM Date Value Ref Range Status 01/14/2025 3.0 (L) 3.5 - 5.1 mmol/L Final MAGNESIUM Date Value Ref Range Status 01/14/2025 1.7 1.6 - 2.4 mg/dL Final PHOSPHORUS Date Value Ref Range Status 01/14/2025 2.9 2.5 - 4.5 mg/dL Final Jaime Castellanos, PHARMACIST Cosigned by Carson Briggs MD at 01/15/2025 3:34 PM CDT * Cassandra Kat RN - 01/14/2025 2:11 PM CDT Added Tereza [phone] to a PHI for patient (did not have a PHI prior)- done w/ verbal consent. * Jaime Castellanos, PHARMACIST - 01/14/2025 12:45 PM CDT PHARMACY ADULT PARENTERAL NUTRITION MONITORING/ELECTROLYTE REPLACEMENT ORDERS: A TPN/PPN order has been placed on this patient and can be found on the medication administration record (MAR). Per pharmacy policy this order authorizes pharmacy to manage the monitoring of consulted TPN/PPN as follows: Pharmacy will input the orders for TPN/PPN after assessment by a communication specialist or physician and will order any labs deemed clinically necessary to initiate TPN/PPN therapy. These initial orders will be signed ???Per Protocol?? under the name of the provider who placed the TPN/PPN order. Pharmacy will have the authority to order the labs listed below for the monitoring of TPN/PPN therapy on subsequent days as long as the TPN/PPN order remains active on the MAR. Orders for baseline and follow-up labs will be signed ???Per Protocol?? in [facility]. The name of the provider signed on the follow-up orders for cosignature will be assigned as follows: If the original ordering provider is no longer the attending physician for the patient, responsibility for cosignature of the follow-up labs will transfer from the original ordering provider to the current attending physician. Baseline labs to be ordered by pharmacy prior to TPN/PPN initiation if not obtained in the [id number] hours include: CBC with differential, CMP, Magnesium, Phosphorus, Triglycerides and PT/INR. Follow-up labs to be ordered by pharmacy include: BMP, Phosphorus, and Magnesium daily for 2 days upon initiation of TPN/PPN Weekly CBC with differential, CMP, Magnesium, Phosphorus, Triglycerides and PT/INR Daily labs as deemed appropriate based on assessment of laboratory levels (includes all labs above and ionized calcium) POC glucose will be ordered every 4 hours for first 3 days of TPN/PPN therapy if patient is not receiving sliding scale insulin or have POC glucose orders Pharmacy will also have the authority to order electrolyte replacement for potassium, magnesium, phosphorus, and calcium utilizing the ???SPR PHIN Electrolyte Replacement Protocol for Patients on Parenteral Nutrition.?? This protocol has been approved by the Medical Executive Committee ([facility]) and the [facility]acy and Therapeutics Committee. Cosigned by Carson Briggs MD at 01/15/2025 3:34 PM CDT * Carson Briggs MD - 01/14/2025 9:00 AM CDT Images from the original note were not included. [facility] Hospitalist/Internal Medicine Progress note Patient name: Gilda Hodge Date of : 1955 Room/Bed: [address] [place] [address] LOS: LOS: 4 days HOSPITAL COURSE SUMMARY: Gilda Hodge, a 69-year-old female with a medical history of essential hypertension, GERD, COPD, hypothyroidism, schizoaffective disorder, anxiety and depression, alcohol use disorder in remission,treated hepatitis C, and tobacco use, was admitted to [facility] for evaluation of dysphagia. The principal diagnosis was esophageal stricture, confirmed by MBS and EGD at an outside hospital, which showed a friable distal esophageal stricture extending to the GE junction. The EGD performed at the outside facility was unable to pass the scope, and no dilation was performed. Upon admission, she was hemodynamically stable, and her electrolyte disturbances were corrected. She was kept NPO, and plans were made for a potential EGD for dilation. 01/11- vital stable. GI planning EGD 01/12- severe stricture of esophagus . Per GI will need PEG and repeat egd later 01/13- planned for PEG tube 01/14- vitals stable. Consulted trauma surgery for PEG tube placement CONSULTANTS: IP CONSULT TO GI IP CONSULT TO IV TEAM IP CONSULT TO NUTRITION SERVICES IP CONSULT TO NUTRITION SERVICES SUBJECTIVE: No new issues Having lot of secretion . Suction PRN ROS: All systems were reviewed and pertinent positive and negative mentioned above. OBJECTIVE: Temp (24hrs), Av.3 ??F (36.8 ??C), Min:96.9 ??F (36.1 ??C), Max:99.3 ??F (37.4 ??C) BP (!) 138/95 (BP Location: Right arm, Patient Position (BP): Lying left side) Pulse 92 Temp 99.2 ??F (37.3 ??C) (Temporal) Resp 20 Ht 5' 2 (1.575 m) Wt 50.8 kg (112 lb) SpO2 100% BMI 20.49 kg/m?? No intake or output data in the 24 hours ending 01/14/25 1417 Last documented weight: Weight: 50.8 kg (112 lb) (01/10/25 2331) EXAM: EXAM:01/14/2025, 2:17 PM- General : Alert oriented to time place and person. Not in distress Skin: warm and dry, no rash Head and Neck : pupil equally reactive to light, oral mucosa - moist, neck supple, noJVD Chest: symmetrical, unlabored,bilateral Clear to auscultation, No wheeze, rales or ronchii Cardiovascular : RRR, S1, S2 normal, No murmur, rubs or gallop Abdomen:soft , non tender, no rigidity, no rebound tenderness, no organomegaly. Extremities : no pedal edema, cyanosis or clubbing. 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 Psych: Mode normal , behavior appropriate LABORATORY: No results for input(s): WBC , HGB , HCT , PLT in the last 72 hours. No results for input(s): NA , K , CL , CO2 , CA , BUN , CREAT , GLUCOSE in the last 72 hours. No results for input(s): TOTALPROTEIN , ALBUMIN , BILITOTAL , ALKPHOS , AST , ALT in the last 72 hours. Recent Labs 01/13/25 0429 INR 1.0 PT 14.0 No results for input(s): CPK , CKMB , TROPONIN in the last 72 hours. Diagnostic testing reviewed by me: Medications reviewed by me Facility-Administered Medications as of 01/14/2025 Medication Dose Frequency Provider Last Rate Last Admin [COMPLETED] iopamidoL (ISOVUE-300) 61% injection (drawn from multi-use bulk pack) 75 mL 75 mL intra-proc ONE time Carson Briggs MD 75 mL at 01/13/25 1010 sodium chloride flush injection 20 mL 20 mL see admin instructions Carson Briggs MD 20 mL at01/13/25 1010 iopamidoL (ISOVUE-300) 61% injection (single-use vial) 30 mL 30 mL intra-proc ONE time Yusuf Bah MD lidocaine PF 1% (XYLOCAINE MPF) injection 15 mL 150 mg ONE time only Yusuf Bah MD [COMPLETED] clindamycin (CLEOCIN) 600 mg in dextrose 5% 50 mL IVPB 600 mg ONE time only Yusuf Bah MD Stopped at 01/13/25 1450 [COMPLETED] glucagon HCL 1 mg/mL injection 1 mg 1 mg intra-proc ONE time Yusuf Bah MD 1 mg at 01/13/25 1444 [COMPLETED] midazolam (PF) (VERSED) injection 1 mg 1 mg intra-proc ONE time Yusuf Bah MD 1 mg at 01/13/25 1420 [COMPLETED] fentaNYL PF (SUBLIMAZE) 50 mcg/mL injection 25 mcg 25 mcg intra-proc ONE time Yusuf Bah MD 25 mcg at 01/13/25 1420 morphine 4 mg/mL injection 2 mg 2 mg every 4 hours PRN Carson Briggs MD 2 mg at 01/14/25 1217 nicotine (NICODERM CQ) 14 mg/24 hr transdermal patch 1 Patch 1 Patch daily Carson Briggs MD 1 Patch at 01/14/25 0740 LORazepam (ATIVAN) 2 mg/mL injection 0.5 mg 0.5 mg every 12 hours PRN Carson Briggs MD 0.5 mg at 01/14/25 1400 pantoprazole (PROTONIX) 40 mg in sodium chloride 0.9% 10 mL injection 40 mg BID Dennis Levine MD 40 mg at 01/14/25 0741 tetrabenazine (XENAZINE) tablet 25 mg PATIENT HOME MED 25 mg BID Dennis Levine MD amLODIPine (NORVASC) tablet 10 mg 10 mg daily Dennis Levine MD levothyroxine (SYNTHROID) tablet 137 mcg 137 mcg daily EARLY Dennis Levine MD 137 mcg at 01/11/25 0756 traZODone (DESYREL) tablet 100 mg 100 mg daily BEDTIME Dennis Levine MD sertraline (ZOLOFT) tablet 100 mg 100 mg daily Dennis Levine MD albuterol sulfate 90 mcg/Actuation inhaler 2 Puff 2 Puff resp, every 6 hours PRN Dennis Levine MD [COMPLETED] morphine 4 mg/mL injection 2 mg 2 mg every 4 hours PRN Carson Briggs MD 2 mg at 01/11/25 2118 sodium chloride flush injection 10 mL 10 mL every 12 hours (2 times daily) Dennis Levine MD 10 mL at 01/14/25 0742 sodium chloride flush injection 10 mL 10 mL see admin instructions Dennis Levine MD sodium chloride 0.9 % flush bag 25 mL 25 mL see admin instructions Dennis Levine MD dextrose 5 % in water 250 mL flush bag 25 mL 25 mL see admin instructions Dennis Levine MD acetaminophen (TYLENOL) tablet 650 mg 650 mg every 6 hours PRN Dennis Levine MD [COMPLETED] morphine 4 mg/mL injection 2 mg 2 mg every 4 hours PRN Dennis Levnie MD 2 mg at 01/11/25 0751 naloxone (NARCAN) 0.4 mg/mL injection 0.1-0.4 mg 0.1-0.4 mg see admin instructions Dennis Levine MD ondansetron (ZOFRAN) 4 mg/2 mL injection 4 mg 4 mg every 6 hours PRN Dennis Levine MD 4 mg at 01/11/25 0731 calcium as CARBONATE (TUMS) 500 mg (200 mg elemental) chewable tablet 400 mg 400 mg every 6 hours PRN Dennis Levine MD [] sodium chloride 0.9 % infusion continuous Dennis Levine MD Stopped at 01/11/25 2244 [Held by Provider] enoxaparin (LOVENOX) injection 40 mg 40 mg every 24 hours Dennis Levine MD 40 mg at 01/12/25 0533 dextrose 5 % - sodium chloride 0.9 % infusion see admin instructions Dennis Levine MD 40 mL/hr at 01/13/25 1743 Bag Switched at 01/13/25 1743 dextrose 50% (D50) syringe 12.5 Gram 12.5 Gram see admin instructions Dennis Levine MD dextrose 50% (D50) syringe 25 Gram 25 Gram see admin instructions Dennis Levine MD glucagon HCL 1 mg/mL injection 1 mg 1 mg see admin instructions Dennis Levine MD ASSESSMENT AND PLAN: Principal Problem: Dysphagia Active Problems: Schizoaffective disorder (CMS/HCC) COPD (chronic obstructive pulmonary disease) (CMS/HCC) Tobacco use GERD (gastroesophageal reflux disease) Anxiety and depression Hypothyroidism Essential hypertension History of hepatitis C Esophageal stenosis Plan Gilda Hodge is a 69-year-old female with a medical history significant for essential hypertension, GERD, COPD, hypothyroidism, schizoaffective disorder, anxiety and depression, alcohol use disorder in remission, history of hepatitis C, and tobacco use. She was admitted to [facility] for further evaluation and management of dysphagia. Dysphagia and Esophageal Stenosis: The patient presented with persistent nausea, vomiting, and dysphagia, unable to tolerate oral intake for approximately one week. - MBS and EGD at an outside hospital revealed a mid to distal esophageal stricture extending to theGE junction. - a friable distal esophageal stricture was found, and the scope could not be passed, preventing dilation. - EGD previewed - PEG tube ordered - pending Per IR _ IR can't placed PEG - consulted surgery - start PPN- consulted nutritional services Schizoaffective Disorder, Anxiety, and Depression - schizoaffective disorder, anxiety, and depression. - continue her outpatient medications, including sertraline. COPD - stable. - continue her outpatient bronchodilator inhalers. GERD The patient has GERD and is receiving PPI IV twice daily. Hypothyroidism: -continue her outpatient levothyroxine. Essential Hypertension: - outpatient amlodipine. DVT prevention: lovenox Gastritis prevention: NA Anticipated Disposition - home vs SNF Code status: NO CPR (In Event of Cardiopulmonary Arrest) Medical decision making complexity - 2 Carson Briggs MD 01/14/2025, 2:17 PM Portions of this documentation may have been created by an artificial iron and steel work supervisor software. Effort has been done to assure accuracy of iron and steel work supervisor. Any obvious errors or omissions should be clarified with the author of the document. * Av Livingston RN - 01/13/2025 2:54 PM CDT Imaging Nurse Post Procedure Note (left blank = NA) attempted Gastric tube placement Dressing (x by appropriate choice): tegaderm: Bandaid: Percustay: Gauze/tape: Dermabond: Steristrips: Sureseal: Other: Dressing location: none Cumulative Dose : plane A: 4 Plane B: (units in mGy) Dose Area Product (DAP) : plane A: 88.70 Plane B: (units in mGy-cm2) All interventional radiology devices/equipment that were utilized during this case were removed intact as reported per certified nuclear medicine technologist Sedation time: 28 (min) (may also be documented via sedation tracking in sedation navigator) Report: Called to nurse on floor/unit: Rashaun SWEET 7D Tolerated well: yes Other: unable to proceed related to Colon impeding placement Medications given: Clindamycin 600mg; Fentanyl 25mcg; Versed 1mg * Jaime Miller RT - 01/13/2025 1:21 PM CDT IMAGING SERVICES- CONTRAST, MEDICATION and FLUSH PROTOCOL [facility] Enter the protocol in the patient's electronic health record using smartphrase: .imagingcontrastprotocol Communication Orders: Initiate a peripheral IV, if not already in place, and discontinue IV prior to discharge Enter order if needed: Insert Peripheral IV Medication Orders: Lidocaine 4% (L.M.X.4)- applied topically ONE TIME prior to IV catheter insertion PRN (apply 15 minutes prior to procedure) Sodium chloride 0.9% (normal saline) flush- 10 mLs PRN for saline lock or medication administration Oxygen- For respiratory distress, initiate O2 to maintain saturation greater than 90% CAT SCAN CT IV CONTRAST PROTOCOLS FOR ADULTS Iopamidol Injection 61% (ISOVUE-300)- Double bolus with MD approval Routine exams dosed by weight: <150lbs- 75mL 151lbs to 220lbs- 100mL >220lbs- 125mL CT Angiography: 100mL Runoff and Triphasic Liver Protocols: 150mL Iopamidol Injection 76% (ISOVUE-370) Cardiac- 110mL TAVR- 160mL CT IV CONTRAST PROTOCOLS FOR PEDIATRICS Iopamidol Injection 61% (ISOVUE-300) - Routine exams: 1mL per pound and Pediatric- Head / Face: 1mL per pound up to 50 lbs Pediatric- Routine exams: 1mL per pound up to 75 lbs 75-150 lbs: 75mL 150-220 lbs: 100mL >220 lbs: 125mL CT ORAL CONTRAST PROTOCOLS FOR ADULTS Iohexol 300mg/mL (OMNIPAQUE) for CT scan unless patient has a documented allergy to contrast * 15ml added to 16 oz of clear liquid of patient's choice. Preferred route is oral. May use nasoenteric tube if needed. Administer 16 oz the diluted Omnipaque 300, orally 1st dose 30-60 minutes prior to scan and 2nd dose just before scan. * Barium Sulfate 2% w/v (READI-CAT2) for CT scan when patient has documented contrast allergy Administer 2 doses of 450mL of barium sulfate. First dose 30-60 min prior to exam and 2nd dose justbefore exam. Preferred route is oral. May use nasoenteric tube if needed. Barium Sulfate 0.1% w/v, 0.1% w/w (VOLUMEN) for Enterography and GI Bleed protocols Administer VoLumen- 3 doses of 450 mL. 1st dose must be completed within 20 minutes. 2nd dose must be completed in the next 30 minutes. 3rd dose is given at scan time. Preferred route is oral. May use nasoenteric tube if needed. CT ORAL CONTRAST PROTOCOLS FOR PEDIATRICS Preferred route is oral, may use nasoenteric tube if needed. to 3 months- Barium Sulfate 2%w/v (READI-CAT2) thinned with water to a consistency for typical bottle feeding 3 Months to 3 years- Iohexol 300mg/mL (OMNIPAQUE) 5mL diluted with 16oz clear fluid. 1 dose: 30min prior to exam 4 years to 10 years- Iohexol 300mg/mL (OMNIPAQUE) 8mL diluted with 16oz clear fluid. 1 dose: 30min prior to exam 10 years and up- Iohexol 300mg/mL (OMNIPAQUE) 15mL diluted with 16oz clear fluid. 2 doses: first dose 30min prior to exam and 2nd dose just before scan if tolerated CT CYSTOGRAM Iopamidol 61% Injection ([id number]): 25mL Dilute into 500mL bag of sterile NS administer up to 300mL retrograde via urinary catheter DIAGNOSTIC RADIOLOGY Enter the protocol in the patient's electronic health record using smartphrase: ADULTS PROCEDURE DOSAGE ARTHROGRAMS Plain ISOVUE 300 12mL MRI-(Ankle,Elbow,Hip,Wrist,Knee,Shoulder) ISOVUE 300 5mL / Prohance .2ml CT-(Ankle,Elbow,Hip,Wrist,Knee,Shoulder) ISOVUE 300 20mL BARIUM ENEMAS BARIUM ENEMA AIR CONTRAST LIQUID POLIBAR 1900ml BARIUM ENEMA/ GASTROGRAFIN B.E. LIQUID POLIBAR 800mL + 3200mL of water or GASTROGRAFIN 960mL + 3040mL of water. CYSTOGRAM CYSTOGRAFIN 1500mL ESOPHAGUS BARIUM SWALLOW E-Z-HD Barium Sulfate for Suspension 340g. and/or E-Z-PAQUE Barium Sulfate Oral Suspension 355mL OMNIPAQUE 350 50ml or GASTROGRAFIN 120mL Barium tablet 700mg (if indicated) MODIFIED BARIUM SWALLOW Barium tablet 700mg, Varibar paste 90g/Varibar thin 74g/ Varibar honey 125mL/ Varibar [place] 120mL HYSTEROSALPINGOGRAM ISOVUE 300 30ml IVP'S ISOVUE 300 100ml MYELOGRAMS: CERVICAL ISOVUE-M 300 10mL THORACIC ISOVUE-M 300 10mL LUMBAR ISOVUE-M 200 12mL SMALL BOWEL SERIES E-Z-PAQUE Barium Sulfate for Oral Suspension 710mL or GASTROGRAFIN 240mL LOOPOGRAM ISOVUE 300 60mL NEPHROSTOGRAM ISOVUE 300 60mL RETROGRADE URETHROGRAM Cystografin 300mL UPPER GI Upper GI E-Z-HD Barium Sulfate for Suspension: 340g. and/or E-Z-PAQUE Barium Sulfate for Oral Suspension: 355mL Upper GI Air Contrast Same as above EZ Gas crystals (if indicated) URETHROCYSTOGRAM VOIDING Cystografin 1500mL PORT CONTRAST INJECTION WITH Isovue 300 20mL [facility]ORO PEDIATRICS PROCEDURE CONTRAST DOSAGE Upper GI Under Age 5 Liquid E-Z-Paque (Thin Barium) 240mL Omnipaque 180 (hypaque) or 350 50mL Upper GI Above Age 5 EZ HD (Thick Barium) 340g Liquid E-Z Paque (Thin Barium) 240mL EZ Gas Packet 4g Omnipaque 350 (hypaque) 50mL Small Bowel Series Under Age 5 Liquid E-Z Paque (Thin Barium) 240mL Omnipaque 180 (hypaque) 50mL Small Bowel Series Above Age 5 Liquid E-Z Paque (Thin Barium) 480mL Omnipaque 350 50mL Barium Swallow Under Age 5 Liquid E-Z Paque (Thin Barium) 240mL Omnipaque 180 (hypaque) 50mL Barium Swallow Above Age 5 EZ HD (Thick Barium) 340g Liquid E-Z Paque (Thin Barium) 240mL Omnipaque 350 50mL Modified Barium Swallow >1 Varibar [id number]: 1 to 2 Varibar Thin74 Paste 90g (Video Swallow with Speech) <2 Varibar [id number], [id number], Honey 125mL, Paste 90g IVP Isovue 300 100mL/1mL per lb. Urethrocystogram Voiding Cystografin 500mL Barium Enema Liquid Polibar 400mL+1600 water 2000mL Barium Enema with Hypaque Gastrografin 1 bottle mixed 5 bottle water 720mL Over 5 Gastrografin 480mL+1520 water 2000mL Barium Enema Air Contrast Liquid Polibar 1900mL INTERVENTIONAL RADIOLOGY PROCEDURE DOSAGE IR ARTERIOGRAM VISIPAQUE 320 OR OMNIPAQUE 300 MAX DOSAGE 400mL IR BILIARY ISOVUE 200 MAX DOSAGE 300 mL IR FISTULOGRAM ISOVUE 200 OR VISIPAQUE 320 MAX DOSAGE 400mL IR IVC FILTER ISOVUE 200 OR VISIPAQUE MAX DOSAGE 400 mL IR TUBE PLACEMENT ISOVUE 200 MAX DOSAGE 300 mL IR VENOUS ABDOMINAL VISIPAQUE 320 OR ISOVUE 200 MAX DOSAGE 400 mL IR VENOUS ACCESS ISOVUE 200 MAX DOSAGE 300 mL IR VENOUS UPPER AND LOWER EXTREMITY VISIPAQUE 320 OR ISOVUE 200 MAX DOSAGE 400 mL IR SPINAL INTERVENTION ISOVUE 200 MAX DOSAGE 100mL (FOR BALLOON ONLY) MRI MRI IV CONTRAST PROTOCOLS FOR ADULTS Gadobenate Dimeglumine (MULTIHANCE) (0.1mmol/0.2mL)- Administer 0.1mmol/kg = 0.2mL/kg up to 30mL MAX, intravenously, one time only for routine MRI Gadoxetate (EOVIST) (2.5 mmol/10mL)- Administer 0.025mmol/kg = 0.1mL/kg up to 15mL MAX, intravenously, one time only when requested by radiologist for Liver protocol Gadoteridol (PROHANCE) (0.1mmol/0.2mL)- Administer 0.1mmol/kg = 0.2mL/kg up to 30mL MAX, intravenously, one time only when approved by radiologist for routine MRI MRI IV CONTRAST PROTOCOLS FOR PEDIATRICS Radiologist to determine the need for contrast Term neonates and older: Gadobenate Dimeglumine (MULTIHANCE) (0.1mmol/0.2mL) -Administer 0.1mmol/kg = 0.2mL/kg up 20mL MAX, intravenously, one time only MRI ORAL CONTRAST PROTOCOLS Barium Sulfate 0.1% w/v, 0.1% w/w (VOLUMEN) for Enterography Administer VoLumen- 3 doses of 450 mL. 1st dose must be completed within 20 minutes. 2nd dose must be completed in the next 30 minutes. 3rd dose is given at scan time. Preferred route is oral. May use nasoenteric tube if needed. Use half dose if patient is <100lb NUCLEAR MEDICINE Procedure: Abscess Localization Medications for Procedure: In-111 Leukocytes *Syringes prepped with 2000 units of Heparin added to 10ml of 6% Hetastarch- Approximately 45ml's patient's blood added to the above for labeling Adult Dose: 300-550uCi Pediatric Dose Calculation: .0075mCi/kg Pediatric Minimum: 50uCi Pediatric Maximum: 500uCi Reference: #3 Procedure: Abscess Localization Medications for Procedure: Tc-99m HMPAO Leukocytes *Syringes prepped with 2000 units of Heparin added to 10ml of 6% Hetastarch- Approximately 45ml's patient's blood added to the above for labeling Adult Dose: 15-30mCi Pediatric Dose Calculation: .15mCi/kg Pediatric Minimum: 500uCi Pediatric Maximum: 10.5mCi Reference: #3 Procedure: Abscess Localization Medications for Procedure: Ga-67 Citrate Adult Dose: Ga-67 Citrate Pediatric Dose Calculation: .05mCi/kg Pediatric Minimum: .05mCi/kg Pediatric Maximum: .05mCi/kg Reference: .05mCi/kg Procedure: Arthrogram Medications for Procedure: Tc-99m Sulfur Colloid Adult Dose: 1.0mCi Procedure: Blood Pool ([place]/Hepatic Hemangioma/GI Bleed) Medications for Procedure: Tc-99m Ultratag *Syringe prepped with Heparin Lock Flush(concentration of 100 units/ml) volume of ~.1ml used so dose is ~10 units of Heparin for each procedure Adult Dose: 30mCi Pediatric Dose Calculation: .25mCi/kg Pediatric Minimum: 2.5mCi Pediatric Maximum: 17.5mCi Reference: #1 Comments: Used .25mCi/kg for all exams in this category per Nuclear Medicine physicians Procedure: Bone Scan Medications for Procedure: Tc-99m HDP Adult Dose: 20mCi Pediatric Dose Calculation: .25mCi/kg Pediatric Minimum: 1.0mCi Pediatric Maximum: 17.5mCi Reference: #2 Procedure: Bone Scan Medications for Procedure: Tc-99m MDP Adult Dose: 20mCi Pediatric Dose Calculation: .25mCi/kg Pediatric Minimum: 1.0mCi Pediatric Maximum: 17.5mCi Reference: #2 Procedure: Bone Marrow Imaging Medications for Procedure: Tc-99m Sulfur Colloid Adult Dose: 10mCi Pediatric Dose Calculation: .14mCi/kg Pediatric Minimum: 1.0mCi Pediatric Maximum: 10.0mCi Reference: #1 Procedure: Bowel Imaging (Meckel's) Medications for Procedure: Tc-99m Pertechnetate Adult Dose: 10mCi Pediatric Dose Calculation: .05mCi/kg Pediatric Minimum: 250uCi Pediatric Maximum: 3.5mCi Reference: #2 Procedure: Brain (Cerebral flow) Medications for Procedure: Tc-99m Pertechnetate Adult Dose: 20mCi Pediatric Dose Calculation: .28mCi/kg Pediatric Minimum: 4mCi Pediatric Maximum: 20.0mCi Reference: #1 Procedure: Brain (SPECT) Medications for Procedure: Tc-99m HMPAO(Ceretec) Adult Dose: 30mCi Pediatric Dose Calculation: .35mCi/kg Pediatric Minimum: 3mCi Pediatric Maximum: 25.0mCi Reference: #1 Procedure: Brain (DaTscan) Medications for Procedure: Tc-99m Ioflupane (DaTscan) *120 mg Potassium Iodide in 8 Oz. given PO one hour prior to dosing for procedure Adult Dose: 5mCi Procedure: Cisternogram Medications for Procedure: In-111 DTPA Adult Dose: 2mCi Pediatric Dose Calculation: .007mCi/kg Pediatric Minimum: 100uCi Pediatric Maximum: 500uCi Reference: #1 Procedure: Cystogram Medications for Procedure: Tc-99m Sulfur Colloid or MAA Adult Dose: 1.0mCi Procedure: Gastric Empty (Solid) Medications for Procedure: Tc-99m Sulfur Colloid (eggs/oatmeal/formula) Adult Dose: 1.0mCi Pediatric Dose Calculation: NMIS weight based calculation Pediatric Minimum: 250uCi Pediatric Maximum: 1.0mCi Reference: #5 Procedure: Gastro-esophageal Reflux Medications for Procedure: Tc-99m Sulfur Colloid Adult Dose: 1.0mCi Pediatric Dose Calculation: NMIS weight based calculation Pediatric Minimum: 250uCi Pediatric Maximum: 1.0mCi Reference: #5 Procedure: Hepatobiliary With or without EF Medications for Procedure: Tc-99m Mebrofenin *If using CCK (Sincalide) for EF- dose is .02mcg/kg Sincalide prepared using 5 ml Sterile water added to 5 mcg vial of Sincalide Adult Dose: 5.0mCi Pediatric Dose Calculation: .05mCi/kg Pediatric Minimum: 500uCi Pediatric Maximum: 3.5mCi Reference: #2 Procedure: Hepatobiliary With or without EF Medications for Procedure: Tc-99m Mebrofenin *Bilirubin >1.5mg Adult Dose: 8.0mCi Pediatric Dose Calculation: N/A Pediatric Minimum: 1.0mCi * Pediatric Maximum: 1.0mCi * Reference: #2 Procedure: Hepatic Artery Angiography (Sphere Mapping) Medications for Procedure: Tc-99m MAA Adult Dose: 4.0mCi Pediatric Dose Calculation: N/A Procedure: LeVeen Shunt Patency Medications for Procedure: Tc-99m Sulfur Colloid or MAA Adult Dose: 3.0mCi Procedure: Liver/Spleen Imaging Medications for Procedure: Tc-99m Sulfur Colloid Adult Dose: 5.0mCi Pediatric Dose Calculation: .05mCi/kg Pediatric Minimum: 200uCi Pediatric Maximum: 3.5mCi Reference: #1 Procedure: Lymphoscintigraphy (Breast) Medications for Procedure: Tc-99m Sulfur Colloid (filtered) Adult Dose: 250-550uCi Pediatric Dose Calculation: N/A Procedure: Lymphoscintigraphy (Breast) Medications for Procedure: Tc-99m Tilmanocept (Lymphoseek) Adult Dose: 250-550uCi Pediatric Dose Calculation: N/A Procedure: Lymphoscintigraphy (Melanoma) Medications for Procedure: Tc-99m Sulfur Colloid (filtered) Adult Dose: 500uCi Pediatric Dose Calculation: N/A Procedure: Lymphoscintigraphy (Melanoma) Medications for Procedure: Tc-99m Tilmanocept (Lymphoseek) Adult Dose: 500uCi Pediatric Dose Calculation: N/A Procedure: Lymphoscintigraphy (Melanoma/Breast - 24 hr Injection) Medications for Procedure: Tc-99m Sulfur Colloid (filtered) Adult Dose: 1.8mCi Pediatric Dose Calculation: N/A Procedure: Lymphoscintigraphy (Melanoma/Breast - 24 hr Injection) Medications for Procedure: Tc-99m Tilmanocept (Lymphoseek) Adult Dose: 1.8mCi Pediatric Dose Calculation: N/A Procedure: Lymphoscintigraphy (Lymphedema) Medications for Procedure: Tc-99m Tilmanocept (Lymphoseek) *Apply Topical Lidocaine 30 minutes prior to injections using 4% Anesthetic cream to both feet between webbing of 1st and 2nd toes. Tube is 5 grams of 4% lidocaine Adult Dose: 1.0mCi Pediatric Dose Calculation: N/A Comments: Split dose in (2) 1ml syringes ~500uCi/.1ml each Procedure: Metabolic Tumor Imaging Medications for Procedure: FDG-18 Adult Dose: 10-14mCi Pediatric Dose Calculation: .12mCi/kg Pediatric Minimum: 1.0mCi Pediatric Maximum: 8.4mCi Reference: #2 Procedure: Metabolic Tumor Imaging Medications for Procedure: F-18 Na Flouride Adult Dose: 10-15mCi Pediatric Dose Calculation: .06mCi/kg Pediatric Minimum: .5mCi Pediatric Maximum: 4.2mCi Reference: #2 Procedure: Metabolic Tumor Imaging Medications for Procedure: F-18 fluciclovine(Axumin) Adult Dose: 10.0mCi Pediatric Dose Calculation: N/A Procedure: Metabolic Brain Imaging Medications for Procedure: FDG-18 Adult Dose: 6mCi Pediatric Dose Calculation: .10mCi/kg Pediatric Minimum: 1.0mCi Pediatric Maximum: 5.0mCi Reference: #2 Procedure: Myocardial Perfusion Imaging (Same Day Protocol) Medications for Procedure: Tc-99m Tetrofosmin or Sestamibi *Pharmacologic Stress testing using 0.4mg Lexiscan (regadenoson) for all Myocardial Perfusion protocols Adult Dose: 10mCi (Rest) 30mCi(Stress) *8.0mCi(Rest) *24.0mCi(Stress) Pediatric Dose Calculation: .07mCi/kg, .28mCi/kg Pediatric Minimum: ---, --- Pediatric Maximum: 6.0mCi, 24.0mCi Reference: #1 Comments: *Only used during periods of Tc 99m shortages Procedure: Myocardial Perfusion Imaging (2 day protocol) Day 1(Rest) Day 2(Stress) Medications for Procedure: Tc-99m Tetrofosmin or Sestamibi Adult Dose: 20mCi(Rest), 30mCi(Stress) Pediatric Dose Calculation: .07mCi/kg, .28mCi/kg Pediatric Minimum: ---, --- Pediatric Maximum: 6.0mCi, 24.0mCi Reference: #1 Procedure: Myocardial Perfusion Imaging (Same Day Weight Based Dosing) Medications for Procedure: Tc-99m Tetrofosmin or Sestamibi Adult Dose: Up to 220lbs 10mCi (Rest) 30mCi (Stress) 220-285lbs 13mCi (Rest) 39mCi (Stress) 286-351lbs 16mCi (Rest) 48mCi (Stress) 352lbs and > 19mCi (Rest) 57mCi (Stress) Pediatric Dose Calculation: N/A Procedure: Myocardial Perfusion Imaging (Same Day Weight Based Dosing) Medications for Procedure: Tl-201 Thallous Chloride Adult Dose: 3.25mCi Pediatric Dose Calculation: .035mCi/kg Pediatric Maximum: 2.5mCi Reference: #1 Procedure: Myocardial Infarction Imaging Medications for Procedure: Tc-99m Pyrophosphate Adult Dose: 25.0mCi Pediatric Dose Calculation: N/A Procedure: Parathyroid Imaging Medications for Procedure: Tc-99m Sestamibi Adult Dose: 20.0mCi Pediatric Dose Calculation: .28mCi/kg Pediatric Minimum: 2.0mCi Pediatric Maximum: 20.0mCi Reference: #1 Procedure: Pulmonary Perfusion Imaging Medications for Procedure: Tc-99m MAA Adult Dose: 6.0mCi Pediatric Dose Calculation: .03mCi/kg Pediatric Minimum: 400uCi Pediatric Maximum: 2.1mCi Reference: #2 Procedure: Pulmonary Perfusion Imaging (Pumlonary HTN or Right to Left Shunts) Medications for Procedure: Tc-99m MAA Adult Dose: 1-2.5mCi in max of .2ml volume Pediatric Dose Calculation: N/A Procedure: Pulmonary Perfusion Imaging ( Patients - All Trimesters) Medications for Procedure: Tc-99m MAA Adult Dose: 3.0mCi Pediatric Dose Calculation: N/A Procedure: Pulmonary Ventilation Imaging Medications for Procedure: Xe-133 Gas Adult Dose: 10-30mCi Pediatric Dose Calculation: Adult dose Procedure: Pulmonary Ventilation Imaging Medications for Procedure: Tc-99m DTPA Adult Dose: 35mCi Pediatric Dose Calculation: Adult dose Procedure: Renal Imaging (Cortical) Medications for Procedure: Tc-99m DMSA Adult Dose: 5mCi Pediatric Dose Calculation: .05mCi/kg Pediatric Minimum: 500uCi Pediatric Maximum: 3.5mCi Reference: #2 Procedure: Renal Imaging (Function/ Lasix) Medications for Procedure: Tc-99m MAG 3 *(Lasix IV) 0.5 mg/kg in the adult patient using a minimum of 40 mg and a maximum of 80 mg. The dose for infants (0-1yr. old) is 1mg/kg. The dose for a child (1-16yr. old) is 0.5mg/kg, without a minimum Adult Dose: 10mCi Pediatric Dose Calculation: .15mCi/kg Pediatric Minimum: 500uCi Pediatric Maximum: 10.0mCi Reference: #2 Procedure: Thyroid Uptake/Imaging Medications for Procedure: I-123 Sodium Iodide capsules or solution Adult Dose: 200-500uCi Pediatric Dose Calculation: 5uCi/kg Pediatric Minimum: 50uCi Pediatric Maximum: 250uCi Reference: #4 Procedure: Thyroid Uptake/Imaging Medications for Procedure: I-131 Sodium Iodide Solution (uptake only) Adult Dose: 5-10uCi Pediatric Dose Calculation: N/A Procedure: Thyroid Uptake/Imaging Medications for Procedure: Tc-99m Pertechnetate (scan only) Adult Dose: 10mCi Pediatric Dose Calculation: .14mCi/kg Pediatric Minimum: 1.0mCi Pediatric Maximum: 10.0mCi Reference: #1 Procedure: Tumor Localization Imaging Medications for Procedure: Ga-67 Citrate Adult Dose: 10mCi Pediatric Dose Calculation: .14mCi/kg Pediatric Maximum: 10.0mCi Reference: #1 Procedure: Tumor Localization Imaging Medications for Procedure: In-111 Capromab Pendetide(Prostascint) Adult Dose: 6.0mCi Pediatric Dose Calculation: N/A Procedure: Tumor Localization Imaging (MIBG Scans) Medications for Procedure: I-123 Metaiodobenzylguanidine (MIBG) *120 mg Potassium Iodide in 8 Oz. given PO one hour prior to dosing for procedure Adult Dose: 10mCi Pediatric Dose Calculation: .14mCi/kg Pediatric Minimum: 1.0mCi Pediatric Maximum: 10.0mCi Reference: #2 Procedure: Tumor Localization Imaging (MIBG Scans) Medications for Procedure: I-131Metaiodobenzylguanidine (MIBG) *120 mg Potassium Iodide in 8 Oz. given PO one hour prior to dosing for procedure Adult Dose: 1.0mCi Pediatric Dose Calculation: N/A Procedure: Tumor Localization Imaging Medications for Procedure: In-111 Pentetreotide (Octreoscan) Adult Dose: 6.0mCi Pediatric Dose Calculation: .08mCi/kg Pediatric Maximum: 6.0mCi Reference: #1 Procedure: Tumor Localization Imaging Medications for Procedure: I-131 Sodium Iodide Adult Dose: 5.0mCi Pediatric Dose Calculation: N/A Procedure: Tumor Localization Imaging Medications for Procedure: I-123 Sodium Iodide Adult Dose: 1.5-2.0mCi Pediatric Dose Calculation: .028mCi/kg Reference: No reference information Procedure: Venogram (Upper/Lower Extremities) Medications for Procedure: Tc-99m Ultratag *Syringe prepped with Heparin Lock Flush(concentration of 100 units/ml) volume of ~.1ml used so dose is ~10 units of Heparin for each procedure Adult Dose: 30mCi Pediatric Dose Calculation: N/A Procedure: Ventricular Shunt Imaging Medications for Procedure: Tc-99m DTPA Adult Dose: 1.0mCi Pediatric Dose Calculation: N/A References for Pediatric Administration: Nuclear Medicine Procedure Manual, Division of Nuclear Medicine, [facility] [place] [facility]; [email or web address] [place] Consensus Guidelines for Administered Radiopharmaceutical Activities in Children andAdolescents; http://interactive.snm.org/docs/Pediatric dose consensus guidelines Final 2010.pdf ACR-SNM-SPR Practice guideline for the performance of Scintigraphy for inflammation and infection; www/acr.org.guidelines. Revised 2009 9.1 Radha SUJEY, Ney WC, Nathanael RD. Nuclear Medicine Diagnosis and Therapy. [employer]1996. Chapter 37, page 930, Table 1. Pediatric weight/dose database file NMIS system: Pediatric Dose = Adult dose (mCi) x Dose Factor Range of Weight (lbs) Dose Factor (%) 0.00-5.00 10 5.01-10.00 10 10.01-15.00 16 15.01-20.00 21 20.01-25.00 25 25.01-30.00 30 30.01-40.00 34 40.01-50.00 41 50.01-60.00 48 60.01-70.00 54 70.01-80.00 61 80.01-90.00 67 90.01-100.00 72 100.01-110.00 78 110.01-120.00 83 120.01-130.00 88 130.01-140.00 94 140.01-142.00 99 142.01-150.00 100 Attention: Any exam, radiopharmaceutical or dosage not included on this list requires physician approval and a written prescription Approved by: Medical Executive Committee and Imaging Services * Winston Baptiste RN - 01/13/2025 10:29 AM CDT Pt moved from 7263-2 to 7264 with all belongings * Carson Briggs MD - 01/13/2025 8:41 AM CDT Images from the original note were not included. [facility] Hospitalist/Internal Medicine Progress note Patient name: Gilda Hodge Date of : 1955 Room/Bed: [facility]/ LOS: LOS: 3 days HOSPITAL COURSE SUMMARY: Gilda Hodge, a 69-year-old female with a medical history of essential hypertension, GERD, COPD, hypothyroidism, schizoaffective disorder, anxiety and depression, alcohol use disorder in remission,treated hepatitis C, and tobacco use, was admitted to [facility] for evaluation of dysphagia. The principal diagnosis was esophageal stricture, confirmed by MBS and EGD at an outside hospital, which showed a friable distal esophageal stricture extending to the GE junction. The EGD performed at the outside facility was unable to pass the scope, and no dilation was performed. Upon admission, she was hemodynamically stable, and her electrolyte disturbances were corrected. She was kept NPO, and plans were made for a potential EGD for dilation. 01/11- vital stable. GI planning EGD 01/12- severe stricture of esophagus . Per GI will need PEG and repeat egd later 01/13- planned for PEG tube CONSULTANTS: IP CONSULT TO GI IP CONSULT TO IV TEAM SUBJECTIVE: No new issues Having lot of secretion . Suction PRN ROS: All systems were reviewed and pertinent positive and negative mentioned above. OBJECTIVE: Temp (24hrs), Av.6 ??F (36.4 ??C), Min:97.1 ??F (36.2 ??C), Max:97.9 ??F (36.6 ??C) BP (!) 140/89 (BP Location: Left arm, Patient Position (BP): Supine) Pulse 68 Temp 97.8 ??F (36.6 ??C) (Temporal) Resp 22 Ht 5' 2 (1.575 m) Wt 50.8 kg (112 lb) SpO2 96% BMI 20.49 kg/m?? No intake or output data in the 24 hours ending 01/13/25840 Last documented weight: Weight: 50.8 kg (112 lb) (01/10/25 2331) EXAM: EXAM:01/13/2025, 8:41 AM- General : Alert oriented to time place and person. Not in distress Skin: warm and dry, no rash Head and Neck : pupil equally reactive to light, oral mucosa - moist, neck supple, noJVD Chest: symmetrical, unlabored,bilateral Clear to auscultation, No wheeze, rales or ronchii Cardiovascular : RRR, S1, S2 normal, No murmur, rubs or gallop Abdomen:soft , non tender, no rigidity, no rebound tenderness, no organomegaly. Extremities : no pedal edema, cyanosis or clubbing. 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 Psych: Mode normal , behavior appropriate LABORATORY: Recent Labs 01/11/25 0148 WBC 5.3 HGB 7.6* HCT 24.6* PLT 345 Recent Labs 01/11/25 0148 NA 135* K 3.9 CL 107 CO2 20* CA 8.1* BUN 3* CREAT 0.87 GLUCOSE 88 No results for input(s): TOTALPROTEIN , ALBUMIN , BILITOTAL , ALKPHOS , AST , ALT in the last 72 hours. Recent Labs 01/13/25 0429 INR 1.0 PT 14.0 No results for input(s): CPK , CKMB , TROPONIN in the last 72 hours. Diagnostic testing reviewed by me: Medications reviewed by me Facility-Administered Medications as of 01/13/2025 Medication Dose Frequency Provider Last Rate Last Admin morphine 4 mg/mL injection 2 mg 2 mg every 4 hours PRN Carson Birggs MD 2 mg at 01/13/25 0736 nicotine (NICODERM CQ) 14 mg/24 hr transdermal patch 1 Patch 1 Patch daily Carson Briggs MD 1 Patch at 01/12/25 1305 LORazepam (ATIVAN) 2 mg/mL injection 0.5 mg 0.5 mg every 12 hours PRN Carson Briggs MD pantoprazole (PROTONIX) 40 mg in sodium chloride 0.9% 10 mL injection 40 mg BID Dennis Levine MD 40 mg at 01/12/252043 tetrabenazine (XENAZINE) tablet 25 mg PATIENT HOME MED 25 mg BID Dennis Levine MD amLODIPine (NORVASC) tablet 10 mg 10 mg daily Dennis Levine MD levothyroxine (SYNTHROID) tablet 137 mcg 137 mcg daily EARLY Dennis Levine MD 137 mcg at 01/11/25 0756 traZODone (DESYREL) tablet 100 mg 100 mg daily BEDTIME Dennis Levine MD sertraline (ZOLOFT) tablet 100 mg 100 mg daily Dennis Levine MD albuterol sulfate 90 mcg/Actuation inhaler 2 Puff 2 Puff resp, every 6 hours PRN Dennis Levine MD [COMPLETED] morphine 4 mg/mL injection 2 mg 2 mg every 4 hours PRN Carson Briggs MD 2 mg at 01/11/25 211 sodium chloride flush injection 10 mL 10 mL every 12 hours (2 times daily) Dennis Levine MD 10 mL at 01/12/252043 sodium chloride flush injection 10 mL 10 mL see admin instructions Dennis Levine MD sodium chloride 0.9 % flush bag 25 mL 25 mL see admin instructions Dennis Levine MD dextrose 5 % in water 250 mL flush bag 25 mL 25 mL see admin instructions Dennis Levine MD acetaminophen (TYLENOL) tablet 650 mg 650 mg every 6 hours PRN Dennis Levine MD [COMPLETED] morphine 4 mg/mL injection 2 mg 2 mg every 4 hours PRN Dennis Levine MD 2 mg at 01/11/25 0751 naloxone (NARCAN) 0.4 mg/mL injection 0.1-0.4 mg 0.1-0.4 mg see admin instructions Dennis Levine MD ondansetron (ZOFRAN) 4 mg/2 mL injection 4 mg 4 mg every 6 hours PRN Dennis Levine MD 4 mg at 01/11/25 0731 calcium as CARBONATE (TUMS) 500 mg (200 mg elemental) chewable tablet 400 mg 400 mg every 6 hours PRN Dennis Levine MD [] sodium chloride 0.9 % infusion continuous Dennis Levine MD Stopped at 01/11/25 2244 [Held by Provider] enoxaparin (LOVENOX) injection 40 mg 40 mg every 24 hours Dennis Levine MD 40 mg at 01/12/25 0533 dextrose 5 % - sodium chloride 0.9 % infusion see admin instructions Dennis Levine MD 40 mL/hr at 01/12/25 1851 New Bag at 01/12/25 1851 dextrose 50% (D50) syringe 12.5 Gram 12.5 Gram see admin instructions Dennis Levine MD dextrose 50% (D50) syringe 25 Gram 25 Gram see admin instructions Dennis Levine MD glucagon HCL 1 mg/mL injection 1 mg 1 mg see admin instructions Dennis Levine MD ASSESSMENT AND PLAN: Principal Problem: Dysphagia Active Problems: Schizoaffective disorder (CMS/HCC) COPD (chronic obstructive pulmonary disease) (CMS/HCC) Tobacco use GERD (gastroesophageal reflux disease) Anxiety and depression Hypothyroidism Essential hypertension History of hepatitis C Esophageal stenosis Plan Gilda Hodge is a 69-year-old female with a medical history significant for essential hypertension, GERD, COPD, hypothyroidism, schizoaffective disorder, anxiety and depression, alcohol use disorder in remission, history of hepatitis C, and tobacco use. She was admitted to [facility] for further evaluation and management of dysphagia. Dysphagia and Esophageal Stenosis: The patient presented with persistent nausea, vomiting, and dysphagia, unable to tolerate oral intake for approximately one week. - MBS and EGD at an outside hospital revealed a mid to distal esophageal stricture extending to theGE junction. - a friable distal esophageal stricture was found, and the scope could not be passed, preventing dilation. - EGD previewed - PEG tube ordered - pending Per IR Schizoaffective Disorder, Anxiety, and Depression - schizoaffective disorder, anxiety, and depression. - continue her outpatient medications, including sertraline. COPD - stable. - continue her outpatient bronchodilator inhalers. GERD The patient has GERD and is receiving PPI IV twice daily. Hypothyroidism: -continue her outpatient levothyroxine. Essential Hypertension: - outpatient amlodipine. DVT prevention: lovenox Gastritis prevention: NA Anticipated Disposition - home vs SNF Code status: NO CPR (In Event of Cardiopulmonary Arrest) Medical decision making complexity - 2 Carson Briggs MD 01/13/2025, 8:41 AM Portions of this documentation may have been created by an artificial iron and steel work supervisor software. Effort has been done to assure accuracy of iron and steel work supervisor. Any obvious errors or omissions should be clarified with the author of the document. * Carson Briggs MD - 01/12/2025 1:54 PM CDT Images from the original note were not included. [facility] Hospitalist/Internal Medicine Progress note Patient name: Gilda Hodge Date of : 1955 Room/Bed: [facility] LOS: LOS: 2 days HOSPITAL COURSE SUMMARY: Gilda Hodge, a 69-year-old female with a medical history of essential hypertension, GERD, COPD, hypothyroidism, schizoaffective disorder, anxiety and depression, alcohol use disorder in remission,treated hepatitis C, and tobacco use, was admitted to [facility] for evaluation of dysphagia. The principal diagnosis was esophageal stricture, confirmed by MBS and EGD at an outside hospital, which showed a friable distal esophageal stricture extending to the GE junction. The EGD performed at the outside facility was unable to pass the scope, and no dilation was performed. Upon admission, she was hemodynamically stable, and her electrolyte disturbances were corrected. She was kept NPO, and plans were made for a potential EGD for dilation. 01/11- vital stable. GI planning EGD 01/12- severe stricture of esophagus . Per GI will need PEG and repeat egd later CONSULTANTS: IP CONSULT TO GI SUBJECTIVE: No new issues Having lot of secretion . Suction PRN ROS: All systems were reviewed and pertinent positive and negative mentioned above. OBJECTIVE: Temp (24hrs), Av.2 ??F (36.8 ??C), Min:97.4 ??F (36.3 ??C), Max:98.9 ??F (37.2 ??C) BP (!) 109/91 (BP Location: Right arm, Patient Position (BP): Supine) Pulse (!) 102 Temp 98 ??F(36.7 ??C) (Temporal) Resp 22 Ht 5' 2 (1.575 m) Wt 50.8 kg (112 lb) SpO2 100% BMI 20.49 kg/m?? Intake/Output Summary (Last 24 hours) at 01/12/2025 1355 Last data filed at 01/12/2025 0521 Gross per 24 hour Intake -- Output 150 ml Net -150 ml Last documented weight: Weight: 50.8 kg (112 lb) (01/10/25 2331) EXAM: EXAM:01/12/2025, 1:55 PM- General : Alert oriented to time place and person. Not in distress Skin: warm and dry, no rash Head and Neck : pupil equally reactive to light, oral mucosa - moist, neck supple, noJVD Chest: symmetrical, unlabored,bilateral Clear to auscultation, No wheeze, rales or ronchii Cardiovascular : RRR, S1, S2 normal, No murmur, rubs or gallop Abdomen:soft , non tender, no rigidity, no rebound tenderness, no organomegaly. Extremities : no pedal edema, cyanosis or clubbing. 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 Psych: Mode normal , behavior appropriate LABORATORY: Recent Labs 01/11/25 0148 WBC 5.3 HGB 7.6* HCT 24.6* PLT 345 Recent Labs 01/11/25 0148 NA 135* K 3.9 CL 107 CO2 20* CA 8.1* BUN 3* CREAT 0.87 GLUCOSE 88 No results for input(s): TOTALPROTEIN , ALBUMIN , BILITOTAL , ALKPHOS , AST , ALT in the last 72 hours. No results for input(s): INR , PT in the last 72 hours. Invalid input(s): PTT No results for input(s): CPK , CKMB , TROPONIN in the last 72 hours. Diagnostic testing reviewed by me: Medications reviewed by me Facility-Administered Medications as of 01/12/2025 Medication Dose Frequency Provider Last Rate Last Admin morphine 4 mg/mL injection 2 mg 2 mg every 4 hours PRN Carson Briggs MD 2 mg at 01/12/25 1107 nicotine (NICODERM CQ) 14 mg/24 hr transdermal patch 1 Patch 1 Patch daily Carson Briggs MD 1 Patch at 01/12/25 1305 pantoprazole (PROTONIX) 40 mg in sodium chloride 0.9% 10 mL injection 40 mg BID Dennis Levine MD 40 mg at 01/12/25 1108 tetrabenazine (XENAZINE) tablet 25 mg PATIENT HOME MED 25 mg BID Dennis Levine MD amLODIPine (NORVASC) tablet 10 mg 10 mg daily Dennis Levine MD levothyroxine (SYNTHROID) tablet 137 mcg 137 mcg daily EARLY Dennis Levine MD 137 mcg at 01/11/25 0756 traZODone (DESYREL) tablet 100 mg 100 mg daily BEDTIME Dennis Levine MD sertraline (ZOLOFT) tablet 100 mg 100 mg daily Dennis Levine MD albuterol sulfate 90 mcg/Actuation inhaler 2 Puff 2 Puff resp, every 6 hours PRN Dennis Levine MD [COMPLETED] morphine 4 mg/mL injection 2 mg 2 mg every 4 hours PRN Carson Briggs MD 2 mg at 01/11/25 2118 sodium chloride flush injection 10 mL 10 mL every 12 hours (2 times daily) Dennis Levine MD 10 mL at 01/12/25 1118 sodium chloride flush injection 10 mL 10 mL see admin instructions Dennis Levine MD sodium chloride 0.9 % flush bag 25 mL 25 mL see admin instructions Dennis Levine MD dextrose 5 % in water 250 mL flush bag 25 mL 25 mL see admin instructions Dennis Levine MD acetaminophen (TYLENOL) tablet 650 mg 650 mg every 6 hours PRN Dennis Levine MD [COMPLETED] morphine 4 mg/mL injection 2 mg 2 mg every 4 hours PRN Dennis Levine MD 2 mg at 01/11/25 0751 naloxone (NARCAN) 0.4 mg/mL injection 0.1-0.4 mg 0.1-0.4 mg see admin instructions Dennis Levine MD ondansetron (ZOFRAN) 4 mg/2 mL injection 4 mg 4 mg every 6 hours PRN Dennis Levine MD 4 mg at 01/11/25 0731 calcium as CARBONATE (TUMS) 500 mg (200 mg elemental) chewable tablet 400 mg 400 mg every 6 hours PRN Dennis Levine MD [] sodium chloride 0.9 % infusion continuous Dennsi Levine MD Stopped at 01/11/25 2244 [Held by Provider] enoxaparin (LOVENOX) injection 40 mg 40 mg every 24 hours Dennis Levnie MD 40 mg at 01/12/25 0533 dextrose 5 % - sodium chloride 0.9 % infusion see admin instructions Dennis Levine MD dextrose 50% (D50) syringe 12.5 Gram 12.5 Gram see admin instructions Dennis Levine MD dextrose 50% (D50) syringe 25 Gram 25 Gram see admin instructions Dennis Levine MD glucagon HCL 1 mg/mL injection 1 mg 1 mg see admin instructions Dennis Levine MD ASSESSMENT AND PLAN: Principal Problem: Dysphagia Active Problems: Schizoaffective disorder (CMS/HCC) COPD (chronic obstructive pulmonary disease) (CMS/HCC) Tobacco use GERD (gastroesophageal reflux disease) Anxiety and depression Hypothyroidism Essential hypertension History of hepatitis C Esophageal stenosis Plan Gilda Hodge is a 69-year-old female with a medical history significant for essential hypertension, GERD, COPD, hypothyroidism, schizoaffective disorder, anxiety and depression, alcohol use disorder in remission, history of hepatitis C, and tobacco use. She was admitted to [facility] for further evaluation and management of dysphagia. Dysphagia and Esophageal Stenosis: The patient presented with persistent nausea, vomiting, and dysphagia, unable to tolerate oral intake for approximately one week. - MBS and EGD at an outside hospital revealed a mid to distal esophageal stricture extending to theGE junction. - a friable distal esophageal stricture was found, and the scope could not be passed, preventing dilation. - EGD previewed - PEG tube ordered Schizoaffective Disorder, Anxiety, and Depression - schizoaffective disorder, anxiety, and depression. - continue her outpatient medications, including sertraline. COPD - stable. - continue her outpatient bronchodilator inhalers. GERD The patient has GERD and is receiving PPI IV twice daily. Hypothyroidism: -continue her outpatient levothyroxine. Essential Hypertension: - outpatient amlodipine. DVT prevention: lovenox Gastritis prevention: NA Anticipated Disposition - home vs SNF Code status: NO CPR (In Event of Cardiopulmonary Arrest) Medical decision making complexity - 2 Carson Briggs MD 01/12/2025, 1:55 PM Portions of this documentation may have been created by an artificial iron and steel work supervisor software. Effort has been done to assure accuracy of iron and steel work supervisor. Any obvious errors or omissions should be clarified with the author of the document. * Carson Briggs MD - 01/11/2025 10:10 AM CDT Images from the original note were not included. [facility] Hospitalist/Internal Medicine Progress note Patient name: Gilda Hodge Date of : 1955 Room/Bed: [facility] LOS: LOS: 1 day HOSPITAL COURSE SUMMARY: Gilda Hodge, a 69-year-old female with a medical history of essential hypertension, GERD, COPD, hypothyroidism, schizoaffective disorder, anxiety and depression, alcohol use disorder in remission,treated hepatitis C, and tobacco use, was admitted to [facility] for evaluation of dysphagia. The principal diagnosis was esophageal stricture, confirmed by MBS and EGD at an outside hospital, which showed a friable distal esophageal stricture extending to the GE junction. The EGD performed at the outside facility was unable to pass the scope, and no dilation was performed. Upon admission, she was hemodynamically stable, and her electrolyte disturbances were corrected. She was kept NPO, and plans were made for a potential EGD for dilation. 01/11- vital stable. GI planning EGD CONSULTANTS: IP CONSULT TO GI SUBJECTIVE: No new issues Having lot of secretion . Suction PRN ROS: All systems were reviewed and pertinent positive and negative mentioned above. OBJECTIVE: Temp (24hrs), Av.2 ??F (36.2 ??C), Min:97 ??F (36.1 ??C), Max:97.5 ??F (36.4 ??C) BP 115/67 (BP Location: Left arm, Patient Position (BP): Lying right side) Pulse 71 Temp 97.5 ??F (36.4 ??C) (Temporal) Resp 16 Ht 5' 2 (1.575 m) Wt 50.8 kg (112 lb) SpO2 99% BMI 20.49kg/m?? Intake/Output Summary (Last 24 hours) at 01/11/2025 1011 Last data filed at 01/11/2025 0400 Gross per 24 hour Intake -- Output 400 ml Net -400 ml Last documented weight: Weight: 50.8 kg (112 lb) (01/10/25 2331) EXAM: EXAM:01/11/2025, 10:11 AM- General : Alert oriented to time place and person. Not in distress Skin: warm and dry, no rash Head and Neck : pupil equally reactive to light, oral mucosa - moist, neck supple, noJVD Chest: symmetrical, unlabored,bilateral Clear to auscultation, No wheeze, rales or ronchii Cardiovascular : RRR, S1, S2 normal, No murmur, rubs or gallop Abdomen:soft , non tender, no rigidity, no rebound tenderness, no organomegaly. Extremities : no pedal edema, cyanosis or clubbing. 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 Psych: Mode normal , behavior appropriate LABORATORY: Recent Labs 01/11/25 0148 WBC 5.3 HGB 7.6* HCT 24.6* PLT 345 Recent Labs 01/11/25 0148 NA 135* K 3.9 CL 107 CO2 20* CA 8.1* BUN 3* CREAT 0.87 GLUCOSE 88 No results for input(s): TOTALPROTEIN , ALBUMIN , BILITOTAL , ALKPHOS , AST , ALT in the last 72 hours. No results for input(s): INR , PT in the last 72 hours. Invalid input(s): PTT No results for input(s): CPK , CKMB , TROPONIN in the last 72 hours. Diagnostic testing reviewed by me: Medications reviewed by me Facility-Administered Medications as of 01/11/2025 Medication Dose Frequency Provider Last Rate Last Admin pantoprazole (PROTONIX) 40 mg in sodium chloride 0.9% 10 mL injection 40 mg BID Abbas, Collins Khalid, MD tetrabenazine (XENAZINE) tablet 25 mg 25 mg BID Dennis Levine MD amLODIPine (NORVASC) tablet 10 mg 10 mg daily Dennis Levine MD levothyroxine (SYNTHROID) tablet 137 mcg 137 mcg daily EARLY Dennis Levine MD 137 mcg at 01/11/25 0756 traZODone (DESYREL) tablet 100 mg 100 mg daily BEDTIME Dennis Levine MD sertraline (ZOLOFT) tablet 100 mg 100 mg daily Dennis Levine MD albuterol sulfate 90 mcg/Actuation inhaler 2 Puff 2 Puff resp, every 6 hours PRN Dennis Levine MD sodium chloride flush injection 10 mL 10 mL every 12 hours (2 times daily) Dennis Levine MD 10 mL at 01/10/25 2354 sodium chloride flush injection 10 mL 10 mL see admin instructions Dennis Levine MD sodium chloride 0.9 % flush bag 25 mL 25 mL see admin instructions Dennis Levine MD dextrose 5 % in water 250 mL flush bag 25 mL 25 mL see admin instructions Dennis Levine MD acetaminophen (TYLENOL) tablet 650 mg 650 mg every 6 hours PRN Dennis Levine MD [COMPLETED] morphine 4 mg/mL injection 2 mg 2 mg every 4 hours PRN Dennis Levine MD 2 mg at 01/11/25 0751 naloxone (NARCAN) 0.4 mg/mL injection 0.1-0.4 mg 0.1-0.4 mg see admin instructions Dennis Levine MD ondansetron (ZOFRAN) 4 mg/2 mL injection 4 mg 4 mg every 6 hours PRN Dennis Levine MD 4 mg at 01/11/25 0731 calcium as CARBONATE (TUMS) 500 mg (200 mg elemental) chewable tablet 400 mg 400 mg every 6 hours PRN Dennis Levine MD sodium chloride 0.9 % infusion continuous Dennis Levine MD 75 mL/hr at 01/10/25 2245 New Bag at 01/10/25 2245 enoxaparin (LOVENOX) injection 40 mg 40 mg every 24 hours Dennis Levine MD 40 mg at 01/11/25 0616 dextrose 5 % - sodium chloride 0.9 % infusion see admin instructions Dennis Levine MD dextrose 50% (D50) syringe 12.5 Gram 12.5 Gram see admin instructions Dennis Levine MD dextrose 50% (D50) syringe 25 Gram 25 Gram see admin instructions Dennis Levine MD glucagon HCL 1 mg/mL injection 1 mg 1 mg see admin instructions Dennis Levine MD ASSESSMENT AND PLAN: Principal Problem: Dysphagia Active Problems: Schizoaffective disorder (CMS/HCC) COPD (chronic obstructive pulmonary disease) (CMS/[facility]) Tobacco use GERD (gastroesophageal reflux disease) Anxiety and depression Hypothyroidism Essential hypertension History of hepatitis C Esophageal stenosis Plan Gilda Hodge is a 69-year-old female with a medical history significant for essential hypertension, GERD, COPD, hypothyroidism, schizoaffective disorder, anxiety and depression, alcohol use disorder in remission, history of hepatitis C, and tobacco use. She was admitted to [facility] for further evaluation and management of dysphagia. Dysphagia and Esophageal Stenosis: The patient presented with persistent nausea, vomiting, and dysphagia, unable to tolerate oral intake for approximately one week. - MBS and EGD at an outside hospital revealed a mid to distal esophageal stricture extending to theGE junction. - a friable distal esophageal stricture was found, and the scope could not be passed, preventing dilation. - EGD pending Schizoaffective Disorder, Anxiety, and Depression - schizoaffective disorder, anxiety, and depression. - continue her outpatient medications, including sertraline. COPD - stable. - continue her outpatient bronchodilator inhalers. GERD The patient has GERD and is receiving PPI IV twice daily. Hypothyroidism: -continue her outpatient levothyroxine. Essential Hypertension: - outpatient amlodipine. DVT prevention: lovenox Gastritis prevention: NA Anticipated Disposition - home vs SNF Code status: NO CPR (In Event of Cardiopulmonary Arrest) Medical decision making complexity - 2 Carson Briggs MD 01/11/2025, 10:11 AM Portions of this documentation may have been created by an artificial iron and steel work supervisor software. Effort has been done to assure accuracy of iron and steel work supervisor. Any obvious errors or omissions should be clarified with the author of the document. documented in this encounter H&P Notes * Merlene Spencer, - 01/11/2025 1:45 PM CDT Endoscopy History and Physical This is a 69 y.o. female patient scheduled for EGD with possible dilation for dysphagia. Patient had risks and benefits discussed for EGD with OLEARY capsule, biopsies, dilation, banding orintervention for bleeding if necessary. The risks which include but are not limited to unexpected allergic reaction to the medication used, a tear in the lining of the esophagus, stomach or small intestine, bleeding which may require transfusions, failure to diagnose as this is not a perfect test, infection, swallowing of stomach contents into the lungs (aspiration) or problems with heart or lungfunction associated with the procedure or sedation. Patient was explained that certain co-morbidities may increase the risk of some complications. Alternatives were discussed such as other tests or procedures along with medication trials. Explained to patient that treatment of complications may require hospitalization, antibiotics, additional procedures, blood transfusions, surgery or other measures deemed advisable for health and well-being. No past medical history on file. No past surgical history on file. Allergies Allergen Reactions Penicillins Anaphylaxis 'I don't know,my mother just told me I am allergic to it' Social History Socioeconomic History Marital status: Not on file Spouse name: Not on file Number of children: Not on file Years of education: Not on file Highest education level: Not on file Occupational History Not on file Tobacco Use Smoking status: Not on file Smokeless tobacco: Not on file Substance and Sexual Activity Alcohol use: Not on file Drug use: Not on file Sexual activity: Not on file Other Topics Concern Not on file Social History Narrative Not on file Social Drivers of Health Food Insecurity: Not on file (01/10/2025) Transportation Needs: No Transportation Needs (01/10/2025) Transportation Needs Patient needs follow up regarding:: 1 Feeling Safe: Not At Risk (01/10/2025) Feeling Safe Patient has indicated abuse: : No Housing Stability: Not on file Medications Prior to Admission Medication Sig Dispense Refill Last Dose/Taking tetrabenazine (XENAZINE) 25 mg Tablet Take 25 mg by mouth 2 times daily. 01/11/2025 Morning No family history on file. Physical Exam: General appearance/mental status patient: alert and oriented in time place and person Neurological system within normal limits Mental Status: Alert Lungs: normal respiratory effort and no acute respiratory distress Heart: regular rate Abdomen: Soft, non-tender ASA Classification: ASA 3 - Patient with moderate systemic disease with functional limitations Assessment: dysphagia Plan: Will proceed with the above mentioned procedure as scheduled. * Dennis Levine MD - 01/10/2025 10:33 PM CDT [facility]-Dennis Levine MD History and physical- date of admission: 01/10/2025 Patient name: Gilda Hodge Date of : 1955 CSN number: [id number] PCP: No primary care provider on file. Chief Complaint: No chief complaint on file. History of present illness: Pt seen and examined at the bedside Gilda Hodge is a 69 y.o. female with PMH significant for essential HTN, GERD, COPD, hypothyroidism, schizoaffective disorder, anxiety and depression, alcohol use disorder -in remission, history ofhepatitis C (treated) and tobacco use who is being admitted for further evaluation of dysphagia. She initially presented to [facility] with persistent nausea, vomiting and dysphagia, found to have hypokalemia-K2.2, received potassium replacement, she was not able to keep anything down, has not been able to eat for 6 days. Reportedly endoscopy was scheduled as outpatient for chronic dysphagia. She was started on PPI IV twice daily, underwent MBS and EGD showing esophageal stricture, general surgery at outside facility recommended transfer to [facility] for further evaluation and management. Vital signs stable currently. Labs showed Hb 7.6, MCV 81.4, K3.9, blood glucose 91. She reports that she has caregiver at home. Reportedly she voiced some suicidal ideations/statements at outside hospital due to, sick of being sick . Past medical history: No past medical history on file. Active chronic medical issues that patient has been followed for as outpatient: Patient Active Problem List Diagnosis Code Dysphagia R13.10 Schizoaffective disorder ([facility]) F25.9 COPD (chronic obstructive pulmonary disease) ([facility]) J44.9 Tobacco use Z72.0 GERD (gastroesophageal reflux disease) K21.9 Anxiety and depression F41.9, F32.A Hypothyroidism E03.9 Essential hypertension I10 History of hepatitis C Z86.19 Past surgical history: No past surgical history on file. Current medications: None Allergies and intolerances: Allergies Allergen Reactions Penicillins Anaphylaxis 'I don't know,my mother just told me I am allergic to it' Social history: Social History Socioeconomic History Marital status: Not on file Spouse name: Not on file Number of children: Not on file Years of education: Not on file Highest education level: Not on file Occupational History Not on file Tobacco Use Smoking status: Not on file Smokeless tobacco: Not on file Substance and Sexual Activity Alcohol use: Not on file Drug use: Not on file Sexual activity: Not on file Other Topics Concern Not on file Social History Narrative Not on file Social Drivers of Health Food Insecurity: Not on file (01/10/2025) Transportation Needs: No Transportation Needs (01/10/2025) Transportation Needs Patient needs follow up regarding:: 1 Feeling Safe: Not At Risk (01/10/2025) Feeling Safe Patient has indicated abuse: : No Housing Stability: Not on file Family History: No family history on file. ROS: ROS negative except as mentioned above in HPI OBJECTIVE: Temp (24hrs), Av.2 ??F (36.2 ??C), Min:97 ??F (36.1 ??C), Max:97.5 ??F (36.4 ??C) BP 115/67 (BP Location: Left arm, Patient Position (BP): Lying right side) Pulse 71 Temp 97.5 ??F (36.4 ??C) (Temporal) Resp 16 Ht 5' 2 (1.575 m) Wt 50.8 kg (112 lb) SpO2 99% BMI 20.49kg/m?? Intake/Output Summary (Last 24 hours) at 01/11/2025 0729 Last data filed at 01/11/2025 0400 Gross per 24 hour Intake -- Output 400 ml Net -400 ml Last documented weight: Weight: 50.8 kg (112 lb) (01/10/25 2331) EXAM: General: Elderly female, awake, alert, in no acute distress Mental exam: A&Ox3 Neurologic: Grossly unremarkable with no acute focal deficits HEENT: NC/AT, EOMI, dry oral mucosa, inability tongue movements due to tardive dyskinesia noted Neck: Supple, no JVD Chest wall: Nontender Lungs: CTAB, No w/r/r Heart:RRR, Normal S1, S2, No m/r/g Abdomen: Soft, non-tender. Bowel sounds normal. No palpable masses Extremities: No BLE edema, No cyanosis. No calf tenderness. Peripheral pulses palpable. Skin: Intact, no new bruises or rashes on exposed skin. Lab Data: Recent Labs 01/11/25 0148 WBC 5.3 HGB 7.6* HCT 24.6* PLT 345 Recent Labs 01/11/25 0148 NA 135* K 3.9 CL 107 CO2 20* CA 8.1* BUN 3* CREAT 0.87 GLUCOSE 88 No results for input(s): TOTALPROTEIN , ALBUMIN , BILITOTAL , ALKPHOS , AST , ALT in the last 72 hours. No results for input(s): INR , PT in the last 72 hours. Invalid input(s): PTT No results for input(s): CPK , CKMB , TROPONIN in the last 72 hours. EKG: No results found for this or any previous visit. No image results found. Primary diagnosis: Dysphagia Other active medical issues Active Hospital Problems Diagnosis Schizoaffective disorder ([facility]) COPD (chronic obstructive pulmonary disease) ([facility]) Tobacco use GERD (gastroesophageal reflux disease) Anxiety and depression Hypothyroidism Essential hypertension History of hepatitis C Dysphagia Resolved Hospital Problems No resolved problems to display. ASSESSMENT AND PLAN: Dysphagia likely secondary to esophageal stricture Intractable nausea and vomiting, resolved Continue supportive care with IV fluids, pain control and antiemetics as needed Continue PPI IV twice daily Consulted GI Hypokalemia reported at outside hospital, resolved Monitor and replace as needed Tardive dyskinesia Continue ECHO TECHNOLOGIST tetrabenazine Anemia Hb 7.6, monitor H&H, transfuse as needed to keep Hb above 7 GI consulted Chronic co-morbidities Essential HTN, BP stable, resumed ECHO TECHNOLOGIST amlodipine, monitor GERD, continue PPI COPD, continue PT bronchodilator inhalers Schizoaffective disorder/anxiety/depression, continue ECHO TECHNOLOGIST sertraline Hypothyroidism, continue ECHO TECHNOLOGIST levothyroxine Insomnia, continue ECHO TECHNOLOGIST trazodone Tobacco use, recommend smoking cessation Alcohol use disorder-in remission History of hepatitis C-treated, recommend outpatient follow-up DVT Pharmacologic Prophylaxis: enoxaparin (LOVENOX) injection 40 mg [[id number]] Current diet : DIET NPO Sips w/Meds, Code status and goals of care was discussed with the patient, and code status was updated in the chart. Code Status: NO CPR (In Event of Cardiopulmonary Arrest) Admission status; inpatient I anticipate that the patient will be hospitalized for 2 midnights or greater, as outlined in my assessment and plan. MDM, Level 3 I have independently reviewed labs, imaging and pertinent data as above, discussed with ER physician/provider and counseled patient/family regarding plan of care. Dennis Levine MD Hospitalist documented in this encounter Procedure Notes * Barry Moore RN - 01/12/2025 9:00 PM CDTAssociated Order(s): INSERT PERIPHERAL IV VASCULAR ACCESS TEAM Peripheral IV insertion PATIENT NAME: Gilda Hogde DATE OF : 1955 CSN: [id number] DATE: 01/12/2025 Room: [facility] Admit Date: 01/10/2025 Hospital day: LOS: 2 days PERIPHERAL IV INSERTION Ultrasound assessment was performed to assess adequacy of vascular anatomy Adequate vessel was located Insertion site cleansed for 30 seconds with Chlora-prep. Allowed to dry before initial needle stick. A 20 Gauge 2 Inch peripheral IV was successfully placed using ultrasound guidance in the right, upper Arm Secure port adhesive used Yes 1 attempts 30 minutes required to complete procedure Positive blood return noted Neutral pressure cap applied Catheter Flushed with 5ml of Normal Saline Transparent dressing applied with date, time and initials of cowoker inserting. LDA documentation is contained in EMR flowsheet Patient tolerated well. Barry Moore RN * Merlene Spencer DO - 01/11/2025 2:31 PM CDTAssociated Order(s): UPPER ENDOSCOPY REPORT [facility] GI Patient Name: Gilda Hodge Procedure Date: 01/11/2025 Date of : 1955 Admit Type: Outpatient Age: 69 Attending MD: Merlene Garibay DO, Procedure: Upper GI endoscopy Indications: Dysphagia, esophageal stricture Providers: Merlene Garibay DO Referring MD: Medicines: Propofol per Anesthesia Complications: No immediate complications. Procedure: Pre-Anesthesia Assessment: - Prior to the procedure, a History and Physical was performed, and patient medications and allergies were reviewed. The patient's tolerance of previous anesthesia was also reviewed. The risks and benefits of the procedure and the sedation options and risks were discussed with the patient. All questions were answered, and informed consent was obtained. Prior Anticoagulants: The patient has taken no anticoagulant or antiplatelet agents. ASA Grade Assessment: III - A patient with severe systemic disease. After reviewing the risks and benefits, the patient was deemed in satisfactory condition to undergo the procedure. After obtaining informed consent, the endoscope was passed under direct vision. Throughout the procedure, the patient's blood pressure, pulse, and oxygen saturations were monitored continuously. The Endoscope was introduced through the mouth, and advanced to the upper third of esophagus. The upper GI endoscopy was accomplished without difficulty. The patient tolerated the procedure well. Estimated Blood Loss: Estimated blood loss was minimal. Findings: LA Grade D (one or more mucosal breaks involving at least 75% of esophageal circumference) esophagitis with no bleeding was found in the upper third of the esophagus. One benign-appearing, intrinsic severe (stenosis; an endoscope cannot pass) stenosis was found 28 cm from the incisors. This stenosis measured <5mm. The stenosis was not traversed. The scope was withdrawn and replaced with the endoscope to bypass the stricture but this scope also could not be advanced. Impression: - LA Grade D esophagitis with no bleeding. - Benign-appearing esophageal stenosis, severe. - No specimens collected. Recommendation: Patient needs BID PPI through the IV until PEG tube is placed for alternate nutrition then can be administered through feeding tube. EGD in 6 weeks for repeat dilation Will not tolerate much by mouth given severe stricture Merlene Garibay DO 01/11/2025 2:30:56 PM This report has been signed electronically. Number of Addenda: 0 Note Initiated On: 01/11/2025 1:50 PM Scope Withdrawal Time Scope In: Scope Out: Patient Profile: This is a 69 year old female. [address] [place] [address] documented in this encounter Consult Notes * Adali Pryor RN - 01/17/2025 2:29 PM CDTAssociated Order(s): IP CONSULT TO WOUND/SKIN CARE TEAM; IP CONSULT TO WOUND/SKIN CARE TEAM Skin/Wound/Ulcer/Pressure Injury Consult [facility] Patient Information Today's Date: 01/17/2025 Name: Gilda Hodge Age: 69 y.o. Date of : 1955 CSN: [id number] Date/time of admission: 01/10/2025 10:25 PM Hospital day: LOS: 7 days Room: [address] [place] [address] Physical Assessment Left heel Mattress/surface type: [place] 6000 Low Air Loss NOTES: Focused skin assessment per consult order. Left heel is pink, dry, & intact. Mepilex border dressings and TruVue heel protectors in place bilaterally. Nutrition BMI: Body mass index is 20.49 kg/m??. Current diet order: adult TPN - PERIPHERAL-Clinimix E DIET NPO See Comments, DIET TUBE FEEDING Fiber 1.0,; G-tube; Feeding Method: Continuous; Initial Volume in mL/hour: 20; Goal Volume in mL/hour: 60; Feeding Advancement: 10 ml Q 6 hrs; Water Flush: 20 ml Q 3 hrs Pressure Injury Prevention Recommendations Turn / reposition at minimum of every 2 hours or more frequently as determined by patient condition When in chair reposition at minimum every 1 hour or more frequently as determined by patient Condition Keep skin clean and free of excess moisture Frequent perineal care for excess moisture and with any soiling Protect and float heels when in bed --as condition allows HOB at lowest level tolerated by patient and medical condition. Do not massage bony prominences. Prevent shearing by utilizing lift sheets and appropriate lift equipment based on patient needs. Skin Assessment every shift ? Wound/Dressing Recommendations Recommendations: Continue pressure injury prevention measures. Skin team will not follow general wounds. Pressure injuries to be followed weekly unless otherwise specified. Will need to be re-consulted for new skin concerns. Total time spent: 15 min. Adali Pryor RN Skin/Wound/Ostomy Please call hospital cyanide furnace operator to have skin team paged with questions or needs. 82 * Adam Ramos, RD - 01/17/2025 12:22 PM CDTAssociated Order(s): IP CONSULT TO NUTRITION SERVICES Nutritional Status/Recommendations/Plan for Follow up: Received consult for TF. TF recommendations: Initiate Jevity 1.0 @ 20 ml/hr and advance by 10 ml Q 6 hrs until @ goal of 60 ml/hr with 20 ml free water flushes Q 3 hrs. -provides 1526.4 kcal, 63.792 g protein, and 1362.4 ml free water Once initial TF is tolerated, recommend tapering off PPN first to 30 ml/hr then d/c once TF is advanced to goal. [] NG / OG [] NJT, postpyloric tube [x] PEG / G-tube [] PEJ / J-tube Verified by: or note [] Gastro-Jejunostomy tube Date: 01/16/25 Estimated Needs: Estimated Energy Target: 1573-8904 (01/14/25 1200) Estimated Protein Target: ~60-70 (01/14/25 1200) Estimated Fluid Target : 1550 (01/14/25 1200) Nutrition Energy Formula: Calories per kilogram (01/14/25 1200) Weight Used for Formula: Actual weight (01/14/251199) Current diet/nutrition support: adult TPN - PERIPHERAL-Clinimix E DIET NPO See Comments, Food/Meal: NPO (01/16/25 1100), Weight status/changes: Height: 5' 2 (157.5 cm) (01/10/252330) Weight: 50.8 kg (112 lb) (01/10/252330) Last seven weights (if available) from 12/20/24 1224 to 01/17/25 1223 (Last 7 readings): Weight Weight Method 01/10/252330 50.8 kg (112 lb) Stated 01/10/252329 50.8 kg (112 lb) -- 01/10/252250 50.8 kg (112 lb) -- Admission:Weight: 50.8 kg (112 lb) (01/10/252250)Weight Method: Stated (01/10/252330) Body mass index is 20.49 kg/m??. Rumsey body weight: 50.1 kg (110 lb 7.2 oz) Adjusted ideal body weight: 50.4 kg (111 lb 1.1 oz) Nutrition Focused Exam Physical Findings- Summary: Malnutrition Nutrition Diagnosis: Moderate protein-calorie malnutrition (visual) (01/14/25 1200) Subcutaneous Fat Loss Assessment: Moderate fat loss (01/14/25 1200) Muscle Wasting Assessment: Moderate (01/14/25 1200) Edema: Trace or slight contour changes (mild) (01/14/25 1200) Hand Dairy Cattle Farm Manager: Unable to assess (01/14/25 1200) Percentage of Energy: Unable to assess (01/14/25 1200) Percentage of Weight Loss: Unable to assess (01/14/251199) Additional assessment indices: Jonny Score: 16 (01/16/25 1905) Last Bowel Movement (mm/dd/yyyy): 01/17/25 (01/17/25 0943) Stool Consistency - Reference [place] Stool Chart: liquid - (type 7) (01/17/25 0943) Allergies Allergies Allergen Reactions Penicillins Anaphylaxis 'I don't know,my mother just told me I am allergic to it' Labs: Lab Results Component Value Date/Time NA 140 01/16/2025 04:38 AM K 4.1 01/16/2025 04:38 AM CL 114 (H) 01/16/2025 04:38 AM CO2 17 (L) 01/16/2025 04:38 AM CA 8.3 (L) 01/16/2025 04:38 AM BUN 3 (L) 01/16/2025 04:38 AM CREAT 0.76 01/16/2025 04:38 AM GLUCOSE 103 (H) 01/16/2025 04:38 AM TOTALPROTEIN 5.9 (L) 01/15/2025 10:44 AM ALBUMIN 2.9 (L) 01/15/2025 10:44 AM BILITOTAL 0.2 01/15/2025 10:44 AM ALKPHOS 67 01/15/2025 10:44 AM AST 14 01/15/2025 10:44 AM ALT 7 01/15/2025 10:44 AM ANIONGAP 9 01/16/2025 04:38 AM No results found for: HGBA1C , [id number] Lab Results Component Value Date/Time RDW 19.6 (H) 01/15/2025 10:44 AM No results found for: CRP , CRPHS Lab Results Component Value Date/Time MG 1.7 01/16/2025 04:38 AM Lab Results Component Value Date/Time CA 8.3 (L) 01/16/2025 04:38 AM PO4 2.1 (L) 01/16/2025 04:38 AM * Chioma Davalos RN - 01/16/2025 2:51 PM CDT Pt off floor for procedure; skin team will attempt consult again later today or tomorrow. Chioma Davalos RN, BSN Skin/Burn/Ostomy Ph #[phone], page Skin Team * Lizz Bennett RD - 01/14/2025 12:18 PM CDTAssociated Order(s): IP CONSULT TO NUTRITION SERVICES; IP CONSULT TO NUTRITION SERVICES Today's labs have been ordered and pending. ADULT PARENTERAL NUTRITION CONSULT PERIPHERAL ACCESS _X__Amino Acid 4.25% Dextrose 5% (*- Must meet approved P & T Committee Guidelines for exception from utilization of standardized solution content) RATE: _60___ ml/hr X 24 hr + 50 ml = _1490____ TOTAL VOLUME Electrolyte Content (mEq/L) Sodium 35 Potassium 30 Magnesium 5 Calcium 4.5 (2.2 mmol/l) Acetate 70 Chloride 39 Phosphorus 30 (15 mmol/l) OTHER ADDITIVES: ____ Zinc mg/liter ____ Vitamin C mg/liter ___ mg/L LIPIDS: ____ Do not administer IV lipids at this time ____ Lipid 50 grams (20% 250 ml/Day) Given 3x/week on Thursday, Thursday and Thursday : Continuous infusion of 250 ml over 12 hours __X__ Lipid 50 grams (20% 250 ml/Day) Given Daily: continuous infusion of 250 ml over 12 hours Do NOT administer Adult MVI and MTE at this time due to shortage (for the first 7 days of PPN/TPN) Give multivitamin and multitrace elements 3x per week (MWF) XXX Give multivitamin and multitrace elements daily (or as available per pharmacy) ROUTINE DAILY TRACE ELEMENTS AND ADULT MULTIVITAMINS INCLUDE TRACE ELEMENTS: 1 ml/day (as Tralement): 3 mg/ml zinc, 0.3 mg/ml copper, 0.55 mg/ml manganese, 60 mcg/ml selenium. ADULT MULTIVITAMIN: 10 mL/day (as Infuvite Adult) provides Ascorbic Acid 200 mg, Vitamin A 3300 International Units, Vitamin D3 200 International Units, Thiamine 6 mg, Riboflavin 3.6 mg, Pyridoxine 6mg, Niacinamide 40 mg, Dexpanthenol 15 mg, Vitamin E 10 International Units, Vitamin K 150 mcg, Vitamin B12 5 mcg, Folic Acid 600 mcg, Biotin 60 mcg Per written order: Dr Carson Briggs MD /Lizz Bennett RD, 01/14/2025 12:31 PM Reason For Nutrition Assessment: PN, Nutrition Diagnosis Malnutrition Nutrition Diagnosis: Moderate protein-calorie malnutrition (visual) (01/14/251199) In the context of: Acute Illness/Injury and Chronic Illness Problem: Swallowing difficulty (01/14/251199) Etiology: Acute illness;Chronic illness (01/14/251199) Signs/Symptoms: Swallow evaluation results (01/14/251199) Malnutrition Impact: Reduced oral intake and Increased hospitalization length Interventions/Recommendations: PEG planned soon but must be placed by surgery. Consult received for PPN Start PPN @ 60 ml/hr (4.25% AA, 5% dextrose) with 250 ml of 20% lipids given daily will provide ~1008 kcal, 61 g protein, 72 g dextrose per day. Labs to start and labs following --protocol IVF per physician. Nutrition Interventions: Parenteral Nutrition (01/14/251199) Goals: TPN to meet assessed needs Monitoring/Evaluation: labs, weights Nutrition Discharge Plan: TBD See below for full assessment Assessment 69 y.o.female admitted with Dysphagia. Esophageal stricture. Subjective: medical history of essential hypertension, GERD, COPD, hypothyroidism, schizoaffective disorder, anxiety and depression, alcohol use disorder in remission, treated hepatitis C, and tobacco use, was admitted to [facility] for evaluation of dysphagia Food and Nutrition Related History: dysphagia, reduced po intake. Seen by speech and Gi recently. Weight changes: unknown; from outside facility. Nutrition Focused Exam Physical Findings- Summary: Malnutrition Nutrition Diagnosis: Moderate protein-calorie malnutrition (visual) (01/14/25 1200) Orbital: Slightly dark circles, somewhat hollow (moderate) (01/14/25 1200) Facial cheeks (buccal pads): Flat (moderate) (01/14/251199) Biceps and triceps: Some space between fingers (moderate) (01/14/251199) Ribs - lower back, mid axillary line: Unable to assess (01/14/251199) Subcutaneous Fat Loss Assessment: Moderate fat loss (01/14/251199) Temporal: Slight depression or shadowing (mild) (01/14/25 1200) Clavicle: Some protrusion (moderate) (01/14/251199) Shoulder (deltoid muscle): Shoulders not square, acromion process visible (moderate) (01/14/251199) Scapula: Unable to assess (07/26/25 1200) Interosseous: Unable to assess (01/14/251199) Thigh (quadriceps muscle): Unable to assess (01/14/251199) Knee: Knee bone is noticeable, little muscle mass around it (moderate) (01/14/251199) Calf (gastrocnemius muscle): Slight flattening to muscle but remains firm (mild) (01/14/251199) Muscle Wasting Assessment: Moderate (01/14/251199) Edema: Trace or slight contour changes (mild) (01/14/251199) [employer]: Unable to assess (01/14/251199) Percentage of Energy: Unable to assess (01/14/251199) Percentage of Weight Loss: Unable to assess (01/14/251199) Estimated Needs: Estimated Energy Target: 1096-3673 (01/14/251199) Estimated Protein Target: ~60-70 (01/14/251199) Estimated Fluid Target : 1550 (01/14/251199) Nutrition Energy Formula: Calories per kilogram (01/14/251199) Weight Used for Formula: Actual weight (01/14/251199) Clinical Data: Height: 5' 2 (157.5 cm) (01/10/252330) Rumsey body weight: 50.1 kg (110 lb 7.2 oz) Adjusted ideal body weight: 50.4 kg (111 lb 1.1 oz) Body mass index is 20.49 kg/m??. Admission:Weight: 50.8 kg (112 lb) (01/10/252250) Weight Method: Stated (01/10/252330) Current:Weight: 50.8 kg (112 lb) (01/10/252330) Wt Readings from Last 8 Encounters: 01/10/25 50.8 kg (112 lb) Labs No results for input(s): GLUCOSE , BUN , CREAT , GFR , NA , K , CO2 , ANIONGAP , CA , MG , PO4 , ALBUMIN , ALKPHOS , ALT , AST , BILITOTAL , TRIGLYCERIDE , AMYLASE , LIPASE , HGBA1C , [id number] in the last 72 hours. Invalid input(s): CI , CALONIZED No results found for: PO4 , HGBA1C , [id number] , MG Current Diet and Intake: DIET NPO Sips w/Meds, , , Skin: Jonny Score: 14 (01/14/25 0740) Gastrointestinal: Last Bowel Movement (mm/dd/yyyy): 01/08/25 (01/12/25 0734) Allergies: Allergies Allergen Reactions Penicillins Anaphylaxis 'I don't know,my mother just told me I am allergic to it' No past medical history on file. Time spent:Consultation Time (mins): 30 mins (01/14/25 1200) CLINICAL NUTRITION SERVICES CONSULT FOR NUTRITION SUPPORT PROTOCOL: A CONSULT TO NUTRITION SERVICES order referencing a request for either enteral or parenteral nutrition, has been placed on this patient and can be found on the [facility] Order Management chart section. Per Nutrition Services policy this order authorizes the Registered Dietitian to order parenteral or enteral nutrition (as specified by the ordering medical provider as a part of their consult request) and monitoring of above specified therapy as detailed below: Regarding parenteral nutrition (either TPN or PPN), Nutrition Services will: Assess nutritional status of patient; determine appropriate TPN solution, rate of administration and total daily volume, with documentation in EHR. Via communication with pharmacy (per current departmental policy), ensure TPN/PPN prescription, including lipids when ordered, are entered into the EHR MAR. Initiate monitoring lab work in EHR (unless already ordered by physicians, other health care providers, ordered per currently initiated pathways, or if not applicable to current patient status). These initial orders will be signed 'per protocol' under the name of the provider who placed the consultorder as well as monitoring lab work: Initiation: Comprehensive metabolic panel (CMP) Complete blood count with differential (CBC with diff) Triglyceride and/or lipid panel POC Glucose routine every 6 hours for 3 days or per currently initiated [facility] order set for parenteral feeding. Serum Vitamin or mineral levels specifically including magnesium and phosphorus, in addition to anyother vitamin or mineral level as determined potentially inadequate or deficient as documented in the RDs nutrient intake assessment. Hemoglobin A1C (Hgb-A1C) in documented uncontrolled diabetics or patients with extended and difficult to manage hyperglycemia. C - reactive protein (C-RP), transferrin or prealbumin levels if potential interference from inflammatory conditions is suspected. Initial and daily or serial weights Indirect Calorimetry testing when available and appropriate to patient status to determine adequacyand utilization of nutritional therapy on PRN basis. Day two of therapy: Phosphorus Magnesium Day three of therapy: BMP Basic metabolic panel (BMP), Phosphorus Magnesium Weekly Basic metabolic panel (BMP) Complete blood count with differential (CBC with diff) Magnesium Phosphorus Other vitamin or mineral levels previously determined as potentially inadequate or deficient AND supplementary treatment has been initiated plus sufficient time has elapsed for absorption/utilizationto be achieved, on PRN basis. Indirect Calorimetry testing when available and appropriate to patient status to determine adequacyand utilization of nutritional therapy on PRN basis. C - reactive protein (C-RP), transferrin or prealbumin levels if potential interference from inflammatory conditions is suspected on PRN basis. Triglyceride and/or lipid panel lay up worker nutritional status of patient per department policy with documentation in EHR, recommendingadjustments to the ordering medical provider for the parenteral feeding as appropriate to patient status. Regarding enteral nutrition therapy (tube feeding), Nutrition Services will: Assess nutritional status of patient, determine appropriate enteral feeding product, rate of administration and total daily volume, with documentation in EHR. Enter appropriate tube feeding diet order in EHR. These initial orders will be signed 'per protocol' under the name of the provider who placed the consult order as well as monitoring lab work. Initiate monitoring lab work in EHR (unless already ordered by physicians, other health care providers, ordered per currently initiated pathways, or if not applicable to current patient status).Theseinitial orders will be signed 'per protocol' under the name of the provider who placed the consult order as well as monitoring lab work: Initiation: Comprehensive metabolic panel (CMP) Complete blood count with differential (CBC with diff) Triglyceride and/or lipid panel POC Glucose routine every 8 hours for 2 days or per currently initiated [facility] order set for parenteral feeding. Serum Vitamin or mineral levels specifically including magnesium and phosphorus, in addition to anyother vitamin or mineral level as determined potentially inadequate or deficient as documented in the RDs nutrient intake assessment. Hemoglobin A1C (Hgb-A1C) in documented uncontrolled diabetics or patients with extended and difficult to manage hyperglycemia. C - reactive protein (C-RP), transferrin or prealbumin levels if potential interference from inflammatory conditions is suspected. Initial and daily or serial weights Weekly: Basic metabolic panel (BMP) Complete blood count with differential (CBC with diff) Indirect Calorimetry testing when available and appropriate to patient status to determine adequacyand utilization of nutritional therapy on PRN basis. C - reactive protein (C-RP), transferrin or prealbumin levels if potential interference from inflammatory conditions is suspected on PRN basis. Other vitamin or mineral levels previously determined as potentially inadequate or deficient AND supplementary treatment has been initiated plus sufficient time has elapsed for absorption/utilizationto be achieved, on PRN basis. Triglyceride and/or lipid panel lay up worker nutritional status of patient per department policy with documentation in EHR, recommendingadjustments as needed to the ordering provider for the enteral feeding as appropriate to patient status. This protocol originally approved May 2007 by the Medication Education Policy Subcommittee of the Pharmaceutical and Therapeutics Committee. Revised December 2017 by IP Malnutrition Task Force and Approved by [facility] Executive Committee January 2018 * Anastacio Wong MD - 01/14/2025 9:28 AM CDT General Surgery Consult Note Gilda Hodge 1955 CSN: [id number] 01/14/2025 Subjective: Consult for: gastrostomy tube placement This is a 69 y.o. female with PMH significant for essential HTN, GERD, COPD, hypothyroidism, schizoaffective disorder, anxiety and depression, alcohol use disorder -in remission, history of hepatitisC (treated) and tobacco. Patient presented to OSH for persistent nausea and emesis was found to have an esophageal stricture. Transferred to [facility] for higher level of care. EGD performed 01/11, stricture unable to be traversedeven with scope. Per GI note stricture appeared benign and no biopsies were taken. IR attempted Gtube placement 01/13 but unable to due to overlying colon. GI plans for a dilation in 6 weeks. If this is not effective patient may require esophageal resection and anastomosis Literature comparing Gtube or Jtube in the setting of possible esophageal resection reviewed. Multiple studies have found no difference in outcomes in resection after Gtube placement. We will therefore plan for open Gtube placement 01/15 pending OR availability PMH essential HTN, GERD, COPD, hypothyroidism, schizoaffective disorder, anxiety and depression, alcohol use disorder -in remission, history of hepatitis C (treated) and tobacco Past Surgical History: Procedure Laterality Date HX ESOPHAGOGASTRODUODENOSCOPY N/A 01/11/2025 ESOPHAGOGASTRODUODENOSCOPY performed by Merlene Spencer DO at [facility] Current Facility-Administered Medications Medication Dose Route Frequency Provider Last Rate Last Admin [COMPLETED] iopamidoL (ISOVUE-300) 61% injection (drawn from multi-use bulk pack) 75 mL 75 mL IV intra-proc ONE time Carson Briggs MD 75 mL at 01/13/25 1010 sodium chloride flush injection 20 mL 20 mL IV see admin instructions Carson Briggs MD 20 mLat 01/13/25 1010 iopamidoL (ISOVUE-300) 61% injection (single-use vial) 30 mL 30 mL See Admin Instructions intra-proc ONE time Yusuf Bah MD lidocaine PF 1% (XYLOCAINE MPF) injection 15 mL 150 mg Infiltration ONE time only Yusuf Bah MD [COMPLETED] clindamycin (CLEOCIN) 600 mg in dextrose 5% 50 mL IVPB 600 mg IV ONE time only Yusuf Bah MD Stopped at 01/13/25 1450 [COMPLETED] glucagon HCL 1 mg/mL injection 1 mg 1 mg IV intra-proc ONE time Yusuf Bah MD 1 mg at 01/13/25 1444 [COMPLETED] midazolam (PF) (VERSED) injection 1 mg 1 mg IV intra-proc ONE time Yusuf Bah MD 1 mg at 01/13/25 1420 [COMPLETED] fentaNYL PF (SUBLIMAZE) 50 mcg/mL injection 25 mcg 25 mcg IV intra- proc ONE time Yusuf Bah MD 25 mcg at 01/13/25 1420 morphine 4 mg/mL injection 2 mg 2 mg IV every 4 hours PRN Carson Briggs MD 2 mg at 01/14/25 0739 nicotine (NICODERM CQ) 14 mg/24 hr transdermal patch 1 Patch 1 Patch Transdermal daily Carson Briggs MD 1 Patch at 01/14/25 0740 LORazepam (ATIVAN) 2 mg/mL injection 0.5 mg 0.5 mg IV every 12 hours PRN Carson Briggs MD 0.5 mg at 01/13/25 0853 pantoprazole (PROTONIX) 40 mg in sodium chloride 0.9% 10 mL injection 40 mg IV BID Dennis Levine MD 40 mg at 01/14/25 0741 tetrabenazine (XENAZINE) tablet 25 mg PATIENT HOME MED 25 mg Oral BID Dennis Levine MD amLODIPine (NORVASC) tablet 10 mg 10 mg Oral daily Dennis Levine MD levothyroxine (SYNTHROID) tablet 137 mcg 137 mcg Oral daily EARLY Dennis Levine MD 137 mcg at 01/11/25 0756 traZODone (DESYREL) tablet 100 mg 100 mg Oral daily BEDTIME Dennis Levine MD sertraline (ZOLOFT) tablet 100 mg 100 mg Oral daily Dennis Levine MD albuterol sulfate 90 mcg/Actuation inhaler 2 Puff 2 Puff Inhalation resp, every 6 hours PRN Dennis Levine MD sodium chloride flush injection 10 mL 10 mL IV every 12 hours (2 times daily) Dennis Levine MD 10 mL at 01/14/25 0742 sodium chloride flush injection 10 mL 10 mL IV see admin instructions Dennis Levine MD sodium chloride 0.9 % flush bag 25 mL 25 mL IV see admin instructions Dennis Levine MD dextrose 5 % in water 250 mL flush bag 25 mL 25 mL IV see admin instructions Dennis Levine MD acetaminophen (TYLENOL) tablet 650 mg 650 mg Oral every 6 hours PRN Dennis Levine MD naloxone (NARCAN) 0.4 mg/mL injection 0.1-0.4 mg 0.1-0.4 mg IV see admin instructions Dennis Levine MD ondansetron (ZOFRAN) 4 mg/2 mL injection 4 mg 4 mg IV every 6 hours PRN Dennis Levine MD 4 mg at 01/11/25 0731 calcium as CARBONATE (TUMS) 500 mg (200 mg elemental) chewable tablet 400 mg 400 mg Oral every 6 hours PRN Dennis Levine MD [Held by Provider] enoxaparin (LOVENOX) injection 40 mg 40 mg subCUT every 24 hours Anup Levine MD 40 mg at 01/12/25 0533 dextrose 5 % - sodium chloride 0.9 % infusion IV see admin instructions Dennis Levine MD 40 mL/hr at 01/13/25 1743 Bag Switched at 01/13/25 1743 dextrose 50% (D50) syringe 12.5 Gram 12.5 Gram IV see admin instructions Dennis Levine MD dextrose 50% (D50) syringe 25 Gram 25 Gram IV see admin instructions Dennis Levine MD glucagon HCL 1 mg/mL injection 1 mg 1 mg IM see admin instructions Dennis Levine MD Allergies Allergen Reactions Penicillins Anaphylaxis 'I don't know,my mother just told me I am allergic to it' Social History Tobacco Use Smoking status: Not on file Smokeless tobacco: Not on file Substance Use Topics Alcohol use: Not on file No family history on file. Review of Systems Except as listed above, all other systems were reviewed and are negative. Objective: BP (!) 138/95 (BP Location: Right arm, Patient Position (BP): Lying left side) Pulse 92 Temp 99.2 ??F (37.3 ??C) (Temporal) Resp 20 Ht 5' 2 (1.575 m) Wt 50.8 kg (112 lb) SpO2 100% BMI 20.49 kg/m?? General appearance: alert, in no distress Neck: supple, symmetrical, trachea midline Lungs: normal respiratory effort Heart: regular rate Abdomen: soft, nontender, nondistended, no surgical scars Extremities: extremities normal, atraumatic, no cyanosis or edema, moves all extremities equally Skin: Skin color, texture, turgor normal. No rashes or lesions Neurologic: Grossly normal Data Review: CBC: No results for input(s): WBC , HGB , HCT , PLT , MCV in the last 72 hours. BMP:No results for input(s): GLUCOSE , BUN , CREAT , NA , K , CL , CO2 , ANIONGAP , CAIONIZED , MG , PO4 in the last 72 hours. LFTs:No results for input(s): ALKPHOS , ALT , AST , BILITOTAL , ALBUMIN , AMYLASE , LIPASE in the last 72 hours. Coagulation: Recent Labs 01/13/25 0429 PT 14.0 INR 1.0 ABGs: No results for input(s): PH , PCO2 , PO2 , HCO3 , BASEEXCESS , SO2 in the last 72 hours. Imaging studies personally reviewed. Labs personally reviewed. Assessment: Principal Problem: Dysphagia Active Problems: Schizoaffective disorder (CMS/HCC) COPD (chronic obstructive pulmonary disease) (CMS/HCC) Tobacco use GERD (gastroesophageal reflux disease) Anxiety and depression Hypothyroidism Essential hypertension History of hepatitis C Esophageal stenosis Plan: 69 year old woman with inability to tolerate PO secondary to esophageal stricture. EGD unable to traverse area and IR unable to place Gtube secondary to overlying colon. General surgery will place anopen Gtube tomorrow. Literature reviewed regarding outcomes of Gtube vs Jtube placement in the setting of esophagectomy in case it is required. No difference in outcomes in multiple papers. Keep NPO for surgery, no need to hold DVT ppx. MDM3 Highly complex patient with numerous medical comorbidities and a complex surgical issue requiring the review of current literature as well as reviewing imaging and other specialty's procedure notes to determine optimal treatment paradigm Anastacio Wong MD * Barry Moore RN - 01/12/2025 8:45 PM CDTAssociated Order(s): IP CONSULT TO IV TEAM VASCULAR ACCESS CONSULT PATIENT NAME: Gilda Hodge DATE OF : 1955 CSN: [id number] DATE: 01/12/2025 Room: [address] [place] [address] Admit Date: 01/10/2025 Hospital day: LOS: 2 days INDICATION: Pain with infusion/keep occluding and alarming pump EXCLUSIONS/CONSIDERATIONS: none noted in chart LAST RECORDED TEMP: Temp: 97.1 ??F (36.2 ??C) (01/12/252033)] Assessment Allergies Allergen Reactions Penicillins Anaphylaxis 'I don't know,my mother just told me I am allergic to it' Lab Results Component Value Date/Time CREAT 0.87 01/11/2025 01:48 AM BUN 3 (L) 01/11/2025 01:48 AM NA 135 (L) 01/11/2025 01:48 AM K 3.9 01/11/2025 01:48 AM CL 107 01/11/2025 01:48 AM CO2 20 (L) 01/11/2025 01:48 AM GFR >60 01/11/2025 01:48 AM Lab Results Component Value Date/Time WBC 5.3 01/11/2025 01:48 AM HGB 7.6 (L) 01/11/2025 01:48 AM HCT 24.6 (L) 01/11/2025 01:48 AM PLT 345 01/11/2025 01:48 AM MCV 81.5 (L) 01/11/2025 01:48 AM No results found for: INR , PT , PROTIMEPOC No past medical history on file. Past Surgical History: Procedure Laterality Date HX ESOPHAGOGASTRODUODENOSCOPY N/A 01/11/2025 ESOPHAGOGASTRODUODENOSCOPY performed by Merlene Spencer DO at [facility] Current Facility-Administered Medications: morphine 4 mg/mL injection 2 mg, 2 mg, IV, every 4 hours PRN, Carson Briggs MD, 2 mg at 01/12/252043 nicotine (NICODERM CQ) 14 mg/24 hr transdermal patch 1 Patch, 1 Patch, Transdermal, daily, Carson Briggs MD, 1 Patch at 01/12/25 1305 LORazepam (ATIVAN) 2 mg/mL injection 0.5 mg, 0.5 mg, IV, every 12 hours PRN, Carson Briggs MD [DISCONTINUED] hydrOXYzine HCL (ATARAX) tablet 10 mg, 10 mg, Oral, at bedtime PRN, Carson Briggs MD pantoprazole (PROTONIX) 40 mg in sodium chloride 0.9% 10 mL injection, 40 mg, IV, BID, Dennis Levine MD, 40 mg at 01/12/252043 tetrabenazine (XENAZINE) tablet 25 mg PATIENT HOME MED, 25 mg, Oral, BID, Dennis Levine MD amLODIPine (NORVASC) tablet 10 mg, 10 mg, Oral, daily, Dennis Levine MD levothyroxine (SYNTHROID) tablet 137 mcg, 137 mcg, Oral, daily EARLY, Dennis Levine MD, 137 mcg at 01/11/25 0756 traZODone (DESYREL) tablet 100 mg, 100 mg, Oral, daily BEDTIME, Dennis Levine MD sertraline (ZOLOFT) tablet 100 mg, 100 mg, Oral, daily, Dennis Levine MD albuterol sulfate 90 mcg/Actuation inhaler 2 Puff, 2 Puff, Inhalation, resp, every 6 hours PRN, Dennis Levine MD [COMPLETED] morphine 4 mg/mL injection 2 mg, 2 mg, IV, every 4 hours PRN, Carson Briggs MD, 2 mg at 01/11/252117 sodium chloride flush injection 10 mL, 10 mL, IV, every 12 hours (2 times daily), Dennis Levine MD, 10 mL at 01/12/252043 sodium chloride flush injection 10 mL, 10 mL, IV, see admin instructions, Dennis Levine MD sodium chloride 0.9 % flush bag 25 mL, 25 mL, IV, see admin instructions, Dennis Levine MD dextrose 5 % in water 250 mL flush bag 25 mL, 25 mL, IV, see admin instructions, Dennis Levine MD acetaminophen (TYLENOL) tablet 650 mg, 650 mg, Oral, every 6 hours PRN, Dennis Levine MD naloxone (NARCAN) 0.4 mg/mL injection 0.1-0.4 mg, 0.1-0.4 mg, IV, see admin instructions, Dennis Levine MD ondansetron (ZOFRAN) 4 mg/2 mL injection 4 mg, 4 mg, IV, every 6 hours PRN, Dennis Levine MD, 4 mg at 01/11/25 0731 calcium as CARBONATE (TUMS) 500 mg (200 mg elemental) chewable tablet 400 mg, 400 mg, Oral, every 6hours PRN, Dennis Levine MD [] sodium chloride 0.9 % infusion, , IV, continuous, Dennis Levine MD, Stopped at 07/23/25 2244 [Held by Provider] enoxaparin (LOVENOX) injection 40 mg, 40 mg, subCUT, every 24 hours, Dennis Levine MD, 40 mg at 01/12/25 0533 dextrose 5 % - sodium chloride 0.9 % infusion, , IV, see admin instructions, Dennis Levine MD, Last Rate: 40 mL/hr at 01/12/251850, New Bag at 01/12/251850 dextrose 50% (D50) syringe 12.5 Gram, 12.5 Gram, IV, see admin instructions, Dennis Levine MD dextrose 50% (D50) syringe 25 Gram, 25 Gram, IV, see admin instructions, Dennis Levine MD glucagon HCL 1 mg/mL injection 1 mg, 1 mg, IM, see admin instructions, Dennis Levine MD PLAN Insert PIV Barry Moore RN * Brian Brand PA - 01/11/2025 7:52 AM CDT GI CONSULTATION PATIENT NAME: Gilda Hodge : 1955 CSN: [id number] CONSULTATION DATE: 01/11/2025 REQUESTING PROVIDER: Carson Briggs MD PRIMARY CARE PROVIDER: No primary care provider on file. COLLABORATING PHYSICIAN: Dr. Estrada IDENTIFYING DATA: Gilda Hodge is a 69 y.o. female seen in gastroenterologic consultation for dysphagia/esophageal stricture HISTORY OF PRESENT ILLNESS: Gilda Hodge is a 69 y.o. female with PMH significant for essential HTN, GERD, COPD, hypothyroidism, schizoaffective disorder, anxiety and depression, alcohol use disorder -in remission, history ofhepatitis C (treated) and tobacco use who is being admitted for further evaluation of dysphagia. She initially presented to outside hospital for nausea, vomiting and inability to tolerate p.o. intake for roughly 1 week. She underwent MBS and EGD at outside hospital showing esophageal stricture. Outside facility recommended transferred to [place] for further evaluation and management. Since arrival to [facility] she is hemodynamically stable. Most recent labs show stable microcytic anemia Hgb 7.6 and hyponatremia 135. Outside records indicate MBS revealed a mid to distal esophageal stricture extending to the GE junction. A brief note from general surgery notes a friable distal esophageal stricture was found during EGD. They were unable to pass the scope. No dilation was performed. On exam, patient is sitting upright in bed and reports difficulty handling her secretions. She reports that this has been an ongoing issue for the last 7 days and she has been unable to tolerate any solid or liquid oral intake. She reports an associated 25 pound weight loss in the last 6 months. She is a daily smoker and typically drinks 2-3 mixed drinks a day. She does not use illicit substances. She cannot recall any previous endoscopy. She denies any personal/familial history of GI malignancy. PAST MEDICAL HISTORY: No past medical history on file. PAST SURGICAL HISTORY: No past surgical history on file. CURRENT MEDS: Outpatient Medications Marked as Taking for the 01/10/25 encounter (Hospital Encounter) Medication Sig Dispense Refill tetrabenazine (XENAZINE) 25 mg Tablet Take 25 mg by mouth 2 times daily. ALLERGIES: Allergies Allergen Reactions Penicillins Anaphylaxis 'I don't know,my mother just told me I am allergic to it' SOCIAL HISTORY / HABITS: Social History Socioeconomic History Marital status: Not on file Spouse name: Not on file Number of children: Not on file Years of education: Not on file Highest education level: Not on file Occupational History Not on file Tobacco Use Smoking status: Not on file Smokeless tobacco: Not on file Substance and Sexual Activity Alcohol use: Not on file Drug use: Not on file Sexual activity: Not on file Other Topics Concern Not on file Social History Narrative Not on file Social Drivers of Health Food Insecurity: Not on file (01/10/2025) Transportation Needs: No Transportation Needs (01/10/2025) Transportation Needs Patient needs follow up regarding:: 1 Feeling Safe: Not At Risk (01/10/2025) Feeling Safe Patient has indicated abuse: : No Housing Stability: Not on file FAMILY HISTORY: No family history on file. REVIEW OF SYSTEMS: General ROS: Negative for - chills, fever, night sweats or weight loss. HEENT ROS: Negative for - acute vision loss, acute hearing loss, sore throat, nasal congestion. Respiratory ROS: Negative for - cough or shortness of breath. Cardiovascular ROS: Negative for - chest pain or palpitations. Gastrointestinal ROS: As per the history of present illness. Genito-Urinary ROS: Negative for - dysuria, hematuria, or frequency. Hematologic ROS: Negative for - easy bruisability. Musculoskeletal ROS: Negative for - joint pain, erythema, or swelling. Dermatological ROS: Negative for - rash or skin lesions. Neurological ROS: Negative for - unilateral motor or sensory loss, dementia. Behavioral/Psych ROS: Negative for - severe depression, suicidal ideation. PHYSICAL EXAM: VITALS: BP 115/67 (BP Location: Left arm, Patient Position (BP): Lying right side) Pulse 71 Temp 97.5 ??F (36.4 ??C) (Temporal) Resp 16 Ht 5' 2 (1.575 m) Wt 50.8 kg (112 lb) SpO2 99% BMI 20.49 kg/m?? GEN: Gilda Hodge is a 69 y.o. female in no acute distress. HEENT: Mucous membranes pink and moist. Sclera anicteric. Difficulty handling secretions. NECK: Neck supple without lymphadenopathy or thyromegaly. LUNGS: Clear to auscultation posteriorly. HEART: Regular rate and rhythm. S1 and S2 normal. No murmurs, gallops, or rubs noted. ABD: Soft with normoactive BS. No palpable abnormalities or masses. No organomegaly noted. No appreciable tenderness. RECTAL: Not done at this time. EXT: Without cyanosis, deformity or pitting edema. SKIN: [place], warm, dry. NEURO: Grossly intact, A/OR. Tardive dyskinesia. LABS: Recent Labs 01/11/25 0148 WBC 5.3 HGB 7.6* HCT 24.6* PLT 345 MCV 81.5* Recent Labs 01/11/25 0148 GLUCOSE 88 BUN 3* CREAT 0.87 NA 135* K 3.9 CL 107 CO2 20* ANIONGAP 8* CA 8.1* No results found for: INR , PT , PROTIMEPOC No results found for: ALT , AST , GGT , ALKPHOS No results found for: BILIDIRECT , BILIINDIRECT , BILITOTAL , BILINEO DIAGNOSTICS: Transfer paperwork notes a high-grade stricture involving the mid to distal esophagus extending to the GE junction. There is a brief EGD op report that reports friable distal esophageal stricture. Unable to pass scope. Biopsied. Not deemed safe for dilation. Recommend liquid diet. Referral to outpatient GI dilation using fluoroscopy . IMPRESSION and PLAN: 69-year-old female with an esophageal stricture Hemodynamically stable. Electrolyte disturbance has been corrected. Keep n.p.o. for now. Plan for EGD later today for potential dilation. Biopsies were obtained at the outside hospital but I cannot find these during my review of the chart. Other problems being addressed during this hospitalization: Patient Active Problem List Diagnosis Code Dysphagia R13.10 Schizoaffective disorder ([facility]) F25.9 COPD (chronic obstructive pulmonary disease) ([facility]) J44.9 Tobacco use Z72.0 GERD (gastroesophageal reflux disease) K21.9 Anxiety and depression F41.9, F32.A Hypothyroidism E03.9 Essential hypertension I10 History of hepatitis C Z86.19 Plan of care discussed and developed in collaboration with Dr. Natalie Brand PA-C Gastroeneterology MDM complexity: moderate On the day of this visit I spent 50 minutes providing care to this patient including Preparing to see the patient, Obtaining and/or reviewing separately obtained history, Coordinating with bedside members of the care team, Counseling and educating the patient/family/caregiver, Ordering medications,tests or procedures, Documenting clinical information in the medical record, Referring and communication with other health personal caregiver (not separately reported), Independently interpreting results and communicating results to the patient/family/caregiver (not separately reported), and Care coordination (not separately reported) Cosigned by Merlene Spencer DO at 01/11/2025 1:46 PM CDT Associated attestation - Merlene Spencer DO - 01/11/2025 1:46 PM CDT I have personally seen and examined the patient and the plan of care was set under my direction. 69-year-old female with history as noted below who we have been asked to evaluate for esophageal stricture. Patient provides very little to no history. Per review of outside records and reports the patient was found to have esophageal stricture per EGD completed by general surgery at outside facility. They were unable to pass adult gastroscope and no dilation was performed so she was transferred here for further evaluation. I will proceed with EGD today to further evaluate and dilate if able. Physical Exam: General: Vital signs reviewed as above, NAD, well-developed Head: AT/NC Eyes: sclerae anicteric, eyelids normal Ears: External ears normal. Nose/Mouth: External nose normal. Neck: Symmetrical. No tracheal deviation. Gastrointestinal: Soft, NT/ND. +BS. Neurologic: No focal deficits. Psych: Affect normal. Oriented ??3 Assessment and Plan: EGD today Diet recs following endoscopy Merlene Estrada DO Gastroenterology documented in this encounter OR Notes * Operative Report - Dat Valladares DO - 01/16/2025 4:04 PM CDT OPERATIVE REPORT Procedure: Robotic assisted laparoscopic gastrostomy tube placement Pre-operative Diagnosis: Severe distal esophageal stricture unable to be traversed endoscopically (< 5 mm) Need for durable enteral access Post-operative Diagnosis: Same Surgeon: Anastacio Wong MD Negative Restorer(s): Rik Valladares DO, PGY-5 Anesthesia Provider(s): Anesthesiologist: Brian Nayak MD ARMAMENT MECHANIC: Magdalene Zamudio CRNA Estimated Blood Loss: 5 cc Fluids: see anesthesia record Urine: Not measured Specimens: None Implants: Implant Name Type Inv. Item Serial No. Analytics Intern Lot No. LRB No. Used Action TUBE FEEDING ADRIEN GASTRO 20FR 0100-20 - [id number] Feeding Device TUBE FEEDING ADRIEN GASTRO 20FR 0100-20 [facility] [id number] N/A 1 Implanted Staff: Retail Account Executive: Janeth Smith RN; Lauren Parikh RN; Unique Caldera RN Scrub: May Mcdonald ST Resident: Dat Valladares DO Indications for Operation: Gilda Hodge is a 69 y.o. female who presents to [facility] with severe esophageal stricture. She underwent esophagoscopy with GI which revealed a reportedly benign appearing severe stricture < 5 mm, which was unable to be traversed endoscopically. Given the severity of the stricture and potential need for future foregut surgery, including possible future esophagectomy,literature was reviewed to determine whether gastrostomy tube or jejunostomy tube was more appropriate. No difference in outcomes in esophagogastric resection were noted. Therefore, surgical gastrostomy tube was selected. Findings: No intra-abdominal pathology was identified upon general survey The anterior wall of the stomach stretched easily to the anterior wall without tension Description of Procedure: The patient was seen in the pre-operative holding area where the procedure, risks, benefits, and alternatives were discussed with there in detail. All questions were sought and answered to her satisfaction. The patient agreed to proceed with the procedure as discussed. A signed copy of the informedconsent was obtained and placed in the medical chart. The patient was taken to operating room #6 and placed in the supine position. Appropriate anesthesia was obtained by the anesthesiology team without complication. All padding and monitoring devices were applied appropriately. An orogastric tube was not placed due to the severe esophagogastric stricture. The patient was then prepped and draped in sterile fashion. Pre-operative antibiotic prophylaxis was initiated with cefazolin. A timeout was performed indicating the correct patient and procedure. All in attendance verbalized agreement. A small transverse incision was created in the left upper quadrant at Pickett's point. A Veress needle was placed into the abdomen and connected to insufflation. After low opening pressures were visualized, the abdomen was insufflated to approximately 15 mmHg. The patient tolerated this well. The pat ient's right abdomen was marked in the midclavicular line. An 8 mm transverse incision was created lateral to the umbilicus and an 8 mm optically guided robotic port was placed into the abdomen through the incision. A general survey of the abdomen was performed. No initial pathology was identified.Two additional 8 mm working ports were placed in the midclavicular line in the right upper and right lower quadrants. The patient was then placed in slight reverse Trendelenburg with her right side down. The [employer] Xi robotic platform was then brought to the sterile field and the camera port was docked. The laparoscope was introduced and the appropriate anatomy was targeted in the left upper quadrant. Robotic instruments were then introduced under direct visualization. A site on the anterior abdominal wall was then selected for the gastrotomy. The stomach easily reached to the anterior abdominalwall without tension. A 2-0 silk suture was utilized to create a purse- string around the proposed gastrotomy site. Utilizing monopolar endoshears, the gastrotomy was created. A transverse incision was then created in the left upper quadrant and a 20 Fr gastrostomy tube was introduced into the abdomen. The balloon was again tested to ensure no damage upon abdominal entry. The gastrostomy tube was placed into the abdomen and the balloon was inflated. The purse-string suture was then tied and the stomach was pexied to the anterior abdominal wall in three places with 2-0 silk suture. The suture needles were then removed, the robotic instruments were removed and the robot was undocked. Pneumoperitoneum was released. The port sites were closed with interrupted subcuticular 4-0 Monocryl suture. All remaining local anesthetic was utilized. The skin was then cleaned and dried. Skin glue was applied. This completed the procedure. The patient tolerated all aspects of the procedure well and without complication. All sponge, needle, and instrument counts were correct at the end of the case. Condition: Transported to recovery in stable condition. Complications: None Completed by: Rik Valladares D.O., M.S.H.AHeather General Surgery PGY-5 [facility] 01/16/2025 4:26 PM Cosigned by Anastacio Wong MD at 01/17/2025 1:01 PM CDT Associated attestation - Anastacio Wong MD - 01/17/2025 1:01 PM CDT I was present for the procedure and performed the critical portions personally. * Operative Report - Yusuf Bah MD - 01/13/2025 2:53 PM CDT Post Procedure Vascular/Interventional Radiology Note Pre-Radiology Procedure Diagnosis: Gastric access for nutrition Technical Procedure: Unable to place G-tube due to overlying colon. Specimens removed: N/A Estimated Blood Loss: 0 mL Findings: Unable to place G-tube due to overlying colon. Medications: Conscious sedation was performed. Please see separate nursing documentation for dosages. Post-Radiology Procedure Diagnosis: Unable to place G-tube due to overlying colon. Yusuf Bah MD 01/13/25 2:53 PM * Noreen-OP - Yusuf Bah MD - 01/13/2025 2:15 PM CDT Pre-Sedation Conscious(Moderate) Record Procedure scheduled: G-tube placement Procedure appropriate history and physical on chart: reviewed Risks, benefits and options of conscious/moderate sedation discussed with patient (and family when appropriate), previous anesthesia experiences reviewed, informed consent obtained: from patient NPO status per policy: npo PROCEDURE CONSENT: The procedure including the purpose and benefits was discussed in detail with the patient and/or healthcare decision maker. The risks were all discussed in detail to include, but not limited to, bleeding, infection, injury to adjacent structures, inability to complete the procedure, and need for additional interventions. All questions were answered, and the decision was made to proceed with the procedure. Airway assessment: Short/fat neck: no Short chin: no Protruding upper teeth: no Neck full ROM: yes Mouth opens>2 fingers: yes History of any airway problems (sleep apnea, appliance/equipment used, airway obstruction, other iedrugs, tobacco: no Allergies Allergies Allergen Reactions Penicillins Anaphylaxis 'I don't know,my mother just told me I am allergic to it' ASA Classification: ASA 3 - Patient with moderate systemic disease with functional limitations Physical Exam: Lungs: No respiratory distress. Heart: Regular rate and rhythm. No pallor or cyanosis. Mental status: A&O x3, NAD Pre-Induction Reassessment: No change since pre-sedation assessment. Changes are as follows: Not Applicable Yusuf Bah MD 01/13/25 2:15 PM documented in this encounter Miscellaneous Notes * Care Plan - Lucy Funez RN - 01/19/2025 10:20 AM CDT Problem: Discharge Planning Goal: Identify discharge needs upon admission and through discharge Description: Outcome: Progressing Other Wood Processing Machine Operator Discharge Planning 01/19/25 1025 Final Discharge Arrangements Final Discharge Disposition SNF Care Facility Name [facility] [phone] Transportation Provider [employer] Transportation Provider Date Of Pick-Up 01/19/25 Time Of Pick-Up 1030 Copy of this transfer form will be sent with patient along with: Demographic sheet;Pertinent Medical Records;AVS;Transfer Consent;Transition of Care Report Expected Discharge Date Jan 19, 2025 Plan Discharge To: Long Term Facility;Intermediate care facility/assisted living (01/18/25 1343) Plan Discharge To - Alternate: Long Term Facility (01/18/25 1343) Referrals Status: Facility Referrals - Accepted and Selected Destination - Admitted Since 01/10/2025 Service Provider Services Address Phone Fax Patient Preferred [facility] [address] [address] [phone] -- Internal Comment last updated by Estelle Galo RN 01/17/2025 1122 01/17 Did not receive referral through [employer] and is requesting hard fax to [phone] 01/17 Facility did not receive referral - Resent Preferred Pharmacy: [facility] [place] Patient / Family Communications Resources Provided Transportation Plan: Transportation Provider: [employer] (01/19/25 1025) Transportation Provider (01/19/25 1025) Date Of Pick-Up: 01/19/25 (01/19/25 1025) Time Of Pick-Up: 1030 (01/19/25 1025) Follow Up Appointments Scheduled Lucy Funez RN * Care Plan - Camilla Montes RN - 01/19/2025 5:21 AM CDT Shift Summary Morphine was administered for pain, and relief was verbalized afterward. Safety precautions, including fall risk identification, were maintained throughout the shift. Greater than 2-person assist was needed for activity. Positioning was adjusted multiple times to promote skin integrity. Overall, no falls or injuries were reported during the shift. Verbalizes/displays acceptable comfort level or baseline comfort level: Pain was initially denied but later reported as 7/10 at rest and during activity. Morphine was administered, and verbalized relief was noted afterward. Safety/Fall: Absence of fall, injury, harm during hospitalization: Safety precautions, including bleeding precautions and fall risk identification, were maintained throughout the shift. No falls or injuries were reported. Maintain skin integrity and/or promote wound healing by discharge: Skin was occasionally moist, andecchymosis was observed.. Patient was noted to have blanchable heels and coccyx. Positioning was adjusted multiple times to promote skin integrity * Care Plan - Lucy Funez RN - 01/18/2025 9:38 AM CDT Problem: Discharge Planning Goal: Identify discharge needs upon admission and through discharge Description: Outcome: Progressing Other Wood Processing Machine Operator Discharge Planning CM has sent referrals for SNF Vs LTC. Awaiting accepting facilities. Pt has no children or a spouse. She lives with a roommate who can help with cooking and cleaning, however he has poor vision and would not be able to do tube feeding. Pt will need SNF VS LTC upon discharge. ADD 1344 [facility] able to accept pt on 01/19 if pt is medically stable for discharge. ADD 1350 [id number] code- [id number] Expected Discharge Date Jan 17, 2025 Plan Discharge To: Medicaid certified nursing facility;Intermediate care facility/assisted living;Long Term Facility (01/16/25 1307) Plan Discharge To - Alternate: Medicaid certified nursing facility (01/16/25 1307) Referrals Status: Facility Referrals - Pending Preferred Pharmacy: [facility] [place] Patient / Family Communications Resources Provided Transportation Plan Follow Up Appointments Scheduled Lucy Funez RN * Care Plan - Santos Manuel RN - 01/17/2025 6:38 PM CDT Shift Summary Pain was managed effectively with morphine, leading to verbalized relief. Aspiration precautions and high fall risk interventions were maintained throughout the shift. Morphine was administered multiple times for pain management. Magnesium and phosphorus levels were checked during the shift. Overall, the patient remained stable with no falls or injuries reported. Verbalizes/displays acceptable comfort level or baseline comfort level: Pain was initially reportedat a level of 7, but after administration of morphine, relief was verbalized. Safety/Fall: Absence of fall, injury, harm during hospitalization: Aspiration precautions and high fall risk interventions were maintained throughout the shift, with no falls or injuries reported. * Care Plan - Lucy Funez RN - 01/17/2025 3:14 PM CDT Problem: Discharge Planning Goal: Identify discharge needs upon admission and through discharge Description: Outcome: Progressing Other Wood Processing Machine Operator Discharge Planning CM has sent referrals for SNF Vs LTC. Awaiting accepting facilities. Expected Discharge Date Jan 17, 2025 Plan Discharge To: Medicaid certified nursing facility;Intermediate care facility/assisted living;Long Term Facility (01/16/25 1307) Plan Discharge To - Alternate: Medicaid certified nursing facility (01/16/25 1307) Referrals Status: Facility Referrals - Pending Preferred Pharmacy: [facility] Patient / Family Communications Resources Provided Transportation Plan Follow Up Appointments Scheduled Lucy Funez RN * Care Plan - Yimi Bacon RN - 01/17/2025 5:13 AM CDT Shift Summary Morphine was administered for pain, leading to a relaxed state. No falls or injuries were reported during the shift. No contact with family or caregivers was noted. No risk of suicide was identified. Overall, the patient was resting quietly and displayed a relaxed state after pain management. Verbalizes/displays acceptable comfort level or baseline comfort level: Pain was initially denied but later reported as generalized with a rating of 6; morphine was administered, leading to a relaxedstate. Safety/Fall: Absence of fall, injury, harm during hospitalization: No falls or injuries were reported during the shift, and the patient was chairfast with slightly limited mobility. Identify discharge needs upon admission and through discharge: No contact with family or caregiverswas noted, and the plan of care was discussed with the patient. Mcc: Recognizes substance abuse/dependence and establishes plan for recovery by discharge.: No risk of suicide was identified, and no thoughts of self-harm were reported. * Care Plan - Zoe Rosenthal RN - 01/16/2025 1:50 PM CDT Shift Summary Blood pressure was recorded as 171/93 in the morning. Ondansetron was administered for nausea/emesis. Hygiene care was provided with a CHG bath, and the perineal area was cleansed. Morphine was administered for pain. Overall, the patient remained stable with no significant changes in condition. Verbalizes/displays acceptable comfort level or baseline comfort level: No pain or discomfort was reported throughout the shift, and no interventions for pain were required. Safety/Fall: Absence of fall, injury, harm during hospitalization: Safety checks were completed, and fall risk was acknowledged with no incidents reported. * Care Plan - Lucy Funez RN - 01/16/2025 12:44 PM CDT Problem: Discharge Planning Goal: Identify discharge needs upon admission and through discharge Description: 01/16/2025 1301 by Lucy Funez, KEE Outcome: Progressing Other Wood Processing Machine Operator Discharge Planning CM spoke with pt's neighbor and JUAN Lucas Tereza Anderson [phone] (Home Phone) . Pt lives with a roommate/caregiver he is able to cook and clean howeverhe does not drive nor does he have good eye sight. Pt has no children and may need LTC. Tereza would like pt to be sent to SNF closer to her home if able. Referrals sent to [facility] [facility] and [place]. Expected Discharge Date Jan 17, 2025 Plan Discharge To: Home with family assist;Home Health Services;Long Term Facility (01/16/25 0938) Plan Discharge To - Alternate: Home Health Services (01/16/25 0938) Referrals Status: Facility Referrals - Pending Preferred Pharmacy: [facility] Patient / Family Communications Resources Provided Transportation Plan Follow Up Appointments Scheduled Lucy Funez RN * Care Plan - Lucy Funez RN - 01/16/2025 9:35 AM CDT Problem: Discharge Planning Goal: Identify discharge needs upon admission and through discharge Description: Outcome: Progressing Other Wood Processing Machine Operator Discharge Planning Pt has medicare coverage and would qualify for SNF OR HH. Awaiting Pt eval and treat for discharge recommendations. Expected Discharge Date Jan 17, 2025 Plan Discharge To: Home or Self Care;Home with family assist (01/13/25 0959) Plan Discharge To - Alternate: Home with family assist (01/13/25 0959) Referrals Status: Preferred Pharmacy: [facility] Patient / Family Communications Resources Provided Transportation Plan Follow Up Appointments Scheduled Lucy Funez RN * Care Plan - Simone Butterfield RN - 01/16/2025 4:26 AM CDT Shift Summary Morphine was administered twice during the shift for pain management. LORazepam was administered for anxiety. A POC glucose test was conducted with a result of 81 mg/dL. High fall risk interventions were completed, and safety checks were conducted. The patient remained stable with no incidents of falls or injuries reported. Verbalizes/displays acceptable comfort level or baseline comfort level: Pain was consistently denied throughout the shift, and morphine was administered twice for pain management. Safety/Fall: Absence of fall, injury, harm during hospitalization: High fall risk interventions were completed, and safety checks were conducted with no incidents reported. * Care Plan - Zoe Rosenthal RN - 01/15/2025 5:04 PM CDT Shift Summary Potassium chloride injection was administered at 04:16 PM to address electrolyte balance. Overall status remains focused on maintaining baseline functions and addressing dysphagia. * Care Plan - Simone Butterfield RN - 01/15/2025 3:54 AM CDT Shift Summary Morphine was administered to manage pain, resulting in no reported pain by the end of the shift. traZODone was administered during the shift. LORazepam was administered for anxiety. Glucose levels were stable with readings of 83 mg/dL and 95 mg/dL. The patient remained free from falls or injuries, with high fall risk interventions in place. Verbalizes/displays acceptable comfort level or baseline comfort level: Pain was initially denied and later managed with morphine administration, resulting in no reported pain by the end of the shift. Safety/Fall: Absence of fall, injury, harm during hospitalization: High fall risk interventions were completed, and no falls or injuries were reported during the shift. * Care Plan - Cassandra Kat RN - 01/14/2025 6:19 PM CDT Shift Summary Pain management was a focus, with morphine administered multiple times to address discomfort in theleft hip and back. Respiratory function was stable with consistent SpO2 levels on room air. Anxiety was managed with LORazepam administration. Overall, comfort levels fluctuated, but respiratory and gastrointestinal functions were maintained. Verbalizes/displays acceptable comfort level or baseline comfort level: Pain in the left hip and back decreased from a rating of 9 to 5 after administration of morphine and repositioning, but increased to 8 later in the shift. Achieve optimal respiratory function by discharge and/or maintain baseline function: Respiratory rate increased slightly from 20 to 22, but SpO2 remained at 100% on room air throughout the shift. Achieve optimal gastrointestinal function by discharge or maintain baseline function: Constipation was noted, and magnesium sulfate was administered later in the shift. * Care Plan - Pietro Nash RN - 01/14/2025 5:26 AM CDT Shift Summary Morphine was administered for pain relief, resulting in verbalized relief and a relaxed state. High fall risk interventions were implemented, including a low low bed, with no falls or injuries reported. Glucose level was checked with a result of 107 mg/dL. Blood pressure was recorded at 141/74 during the shift. Overall, pain was managed effectively, and safety precautions were maintained. Verbalizes/displays acceptable comfort level or baseline comfort level: Pain in the left hip was initially rated at 8, but after administering morphine, verbalized relief and appeared content and relaxed. Safety/Fall: Absence of fall, injury, harm during hospitalization: High fall risk interventions were completed, including the use of a low low bed, and no falls or injuries were reported during the shift. * Care Plan - Barry Moore RN - 01/12/2025 9:09 PM CDT Problem: Infection, Risk/Actual (Adult) Goal: Infection, Risk/Actual: Infection Prevention/Resolution/Control Description: Patient will demonstrate the desired outcomes. Note: Gilda 's peripheral IV will remain free from infection. * Care Plan - Queenie Strickland RN - 01/12/2025 6:17 PM CDT Shift Summary Morphine was administered twice during the shift to manage pain. The patient was able to stand and be up in the room by the end of the shift. The Jonny score improved, indicating better skin integrity. Safety checks were completed, and aspiration precautions were maintained throughout the shift. Overall, the patient's status showed improvement in mobility and skin integrity, but pain management remained a challenge. Verbalizes/displays acceptable comfort level or baseline comfort level: Pain remained constant at alevel of 8 throughout the shift, despite the administration of morphine at 11:07 AM and 03:31 PM. Safety/Fall: Absence of fall, injury, harm during hospitalization: Safety checks were completed at the beginning and end of the shift, and aspiration precautions were maintained. Identify discharge needs upon admission and through discharge: The plan of care was reviewed multiple times with the patient and healthcare team, indicating ongoing assessment of discharge needs. Maintain skin integrity and/or promote wound healing by discharge: Skin integrity was maintained with interventions such as turning and repositioning, and the Jonny score improved from 17 to 19. * Care Plan - Cora Rios RN - 01/12/2025 5:39 AM CDT Shift Summary Blood pressure and pulse remained abnormal later in the shift. Patient refused tetrabenazine and traZODone. Morphine was administered PRN for pain. Severe sepsis score increased to 7 during the shift. Maintain skin integrity and/or promote wound healing by discharge: Skin assessments remained withindefined limits throughout the shift, indicating no changes in skin integrity. Achieve optimal peripheral neurovascular function by discharge or maintain baseline function: Peripheral neurovascular assessments consistently showed exceptions, with no changes noted during the shift. Achieve optimal musculoskeletal function by discharge or maintain baseline function: Musculoskeletal assessments consistently showed exceptions, with no changes noted during the shift. Achieve optimal genitourinary and renal function by discharge or maintain baseline function: Genitourinary assessments consistently showed exceptions, with no changes noted during the shift. * Care Plan - Queenie Strickland RN - 01/11/2025 6:57 PM CDT Shift Summary Morphine was administered for pain relief, but pain levels remained high throughout the shift. Pantoprazole was administered in the afternoon. Glycopyrrolate and Propofol were administered in [facility]. Discharge criteria were met, and plans were made for discharge to an inpatient rehab facility or home with family assistance. Overall, the patient maintained skin integrity and met discharge criteria. Verbalizes/displays acceptable comfort level or baseline comfort level: Pain remained consistent berna high level throughout the shift, with a slight increase noted in the afternoon despite administration of morphine for pain relief. Infection Risk/Actual: Infection prevention, control, or resolution by discharge: Sepsis scores remained at zero throughout the shift, and skin assessments indicated pink, warm, and dry skin. Safety/Fall: Absence of fall, injury, harm during hospitalization: Safety measures were implementedpost-op, including siderails up and brakes secured, with no reported falls or injuries. Identify discharge needs upon admission and through discharge: Discharge criteria were met, and plans were made for discharge to an inpatient rehab facility or home with family assistance. Maintain skin integrity and/or promote wound healing by discharge: Skin integrity was maintained with hygiene care using Chlorhexidine Gluconate and consistent skin assessments showing pink, warm, and dry skin. * Care Plan - Lucy Funez RN - 01/11/2025 9:46 AM CDT Problem: Discharge Planning Goal: Identify discharge needs upon admission and through discharge Description: Outcome: Progressing Care Management Initial Assessment Initial Discharge Planning Assessment completed. Discussed Care Management's role and Discharge planning. Plan Discharge To: Inpatient Rehab Facility;Home with family assist Plan Discharge To - Alternate: Home with family assist Does the patient have family and/or a caregiver that is willing, able and available to assist if needed? Yes - Name/Relation:has a stock worker and deliverer - Don Comments: Cm spoke with pt at bedside. Pt's payor source is Medicaid not Medicare. Pt does not qualify for SNF or HH services. Pt states she has a stock worker and deliverer who she pays named Dwayne. She does not have his number to contact him. Plan upon discharge is home self care with help of her caregiver. Pt statesshe can walk, she just does very little. Patient Discharge Planning Goal: return home Patient will potentially discharge to a SNF/NH? No Care Management visited with: patient via in person. Prior to admission, patient resides at: own home. Patient resides in a single story home with 3 stairs to enter. Patient's bedroom and bathroom are located on the 1st floor. Prior to admission, living arrangements: lives alone. Prior to admission, patient's functional level:requires assistance; uses wheeled walker and wheelchair for mobility; needs assistance with iADLs: meal preparation, transportation, shopping, running errands, medication management, housekeeping, and managing finances Community Ambulator: no Prior to admission, the patient has the following DME? Yes wheeled walker and wheelchair Services in the home/community: Private Duty Receives hemodialysis? No Emergency contact(s): No emergency contact information on file. Prescription coverage: yes Preferred Pharmacy verified: [facility] Insurance coverage verified: Payor: MEDICAID / Plan: [place]ICAID [place] / Product Type: Medicaid / Secondary Insurance:N/A Medicaid Status: no spend down Has VA Benefits: no Employment Status: retired PCP verified as: No primary care provider on file. Patient has not had a stay at an acute care hospital in the last 30 days. Recent Falls?: Last Known Fall: Within the last month Plan for transportation at discharge: wheel chair van Care Management contact information provided. Care Management will continue to follow and assist asneeded. documented in this encounter Plan of Treatment Upcoming Encounters Date Type Department Care Team (Latest Contact Info) Description 02/06/2025 12:30 PM CDT Office Visit [facility] General and Trauma Surgery-[address] [phone] Gin Klein NP [address] [place] [phone] 02/24/2025 2:20 PM CDT Hospital Encounter [facility] Endoscopy [address] [place] [address] Merlene Spencer, DO [address] [address] 02/24/2025 2:20 PM CDT - 02/24/2025 2:40 PM CDT Surgery [facility] Endoscopy [address] [place] [address] Merlene Spencer, DO [address] [address] ESOPHAGOGASTRODUODENOSCOPY Scheduled Orders Name Type Priority Associated Diagnoses Orde r Schedule EGD GI Routine Esophageal stenosis Expected: 03/20/2025 (Approximate), Expires: 06/18/2025 CBC WITH DIFFERENTIAL Lab Routine Esophageal stenosis Expected: 01/26/2025, Expires: 01/19/2026 COMPREHENSIVE METABOLIC PANEL Lab Routine Esophageal stenosis Expected: 01/26/2025, Expires: 01/19/2026 Scheduled Procedures Name Priority Associated Diagnoses Date/Ti or ESOPHAGOGASTRODUODENOSCOPY EGD in 6 weeks for esophageal stricture- hospital only 02/24/2025 2:20 PM CDT Scheduled Referrals Name Type Priority Associated Diagnoses Order Schedule AMB REFERRAL TO FAMILY PRACTICE Outpatient Referral Routine Esophageal stenosis Ordered: 01/19/2025 AMB REFERRAL TO GASTROENTEROLOGY Outpatient Referral Routine Esophageal stenosis Ordered: 01/19/2025 documented as of this encounter Procedures Procedure Name Priority Date/Time Associated Diagnosis Comments TELEMETRY REPORT 01/20/2025 2:28 AM CDT POC GLUCOSE Routine 01/19/2025 7:43 AM CDT POC GLUCOSE Routine 01/18/2025 6:27 PM CDT POC GLUCOSE Routine 01/18/2025 5:28 AM CDT POC GLUCOSE Routine 01/17/2025 8:56 PM CDT PHOSPHORUS Routine 01/17/2025 12:49 PM CDT MAGNESIUM LEVEL Routine 01/17/2025 12:49 PM CDT POC GLUCOSE Routine 01/17/2025 8:28 AM CDT POC GLUCOSE Routine 01/16/2025 8:40 PM CDT POC GLUCOSE Routine 01/16/2025 5:06 PM CDT POC GLUCOSE Routine 01/16/2025 4:08 PM CDT TYPE AND SCREEN Routine 01/16/2025 3:35 PM CDT GASTROJEJUNOSTOMY ROBOTIC XI 10:47 AM CDT VERIFICATION BLOOD GROUP Routine 025 7:30 AM CDT PHOSPHORUS Routine 01/16/2025 4:38 AM CDT MAGNESIUM LEVEL Routine 01/16/2025 4:38 AM CDT BASIC METABOLIC PANEL Timed Study 01/16/2025 4:38 AM CDT POC GLUCOSE Routine 01/15/2025 9:14 PM CDT POC GLUCOSE Routine 01/15/2025 12:06 PM CDT CBC WITH DIFFERENTIAL Routine 01/15/2025 10:44 AM CDT TRIGLYCERIDE Routine 01/15/2025 10:44 AM CDT PHOSPHORUS Routine 01/15/2025 10:44 AM CDT MAGNESIUM LEVEL Routine 01/15/2025 10:44 AM CDT COMPREHENSIVE METABOLIC PANEL Stat 10:44 AM CDT POC GLUCOSE Routine 01/15/2025 7:34 AM CDT POC GLUCOSE Routine 01/15/2025 3:01 AM CDT POC GLUCOSE Routine 01/14/2025 8:51 PM CDT POC GLUCOSE Routine 01/14/2025 6:05 PM CDT TRIGLYCERIDE Routine 01/14/2025 1:53 PM CDT PHOSPHORUS Routine 01/14/2025 1:53 PM CDT MAGNESIUM LEVEL Routine 01/14/2025 1:53 PM CDT COMPREHENSIVE METABOLIC PANEL Stat 1:53 PM CDT POC GLUCOSE Routine 01/14/2025 12:19 PM CDT POC GLUCOSE Routine 01/14/2025 5:43 AM CDT POC GLUCOSE Routine 01/13/2025 7:39 PM CDT POC GLUCOSE Routine 01/13/2025 5:32 PM CDT IR TUBE PLACEMENT Pending Discharge 01/13/2025 2:48 PM CDT POC GLUCOSE Routine 01/13/2025 12:[address] ABDOMEN PELVIS W CONTRAST Routine 10:10 AM CDT POC GLUCOSE Routine 01/13/2025 4:57 AM CDT PROTIME-INR Routine 01/13/2025 4:29 AM CDT POC GLUCOSE Routine 01/13/2025 3:11 AM CDT POC GLUCOSE Routine 01/12/2025 9:44 PM CDT INSERT PERIPHERAL IV Routine 01/12/2025 9:00 PM CDT POC GLUCOSE Routine 01/12/2025 6:25 PM CDT POC GLUCOSE Routine 01/12/2025 11:15 AM CDT POC GLUCOSE Routine 01/12/2025 7:43 AM CDT POC GLUCOSE Routine 01/12/2025 5:32 AM CDT POC GLUCOSE Routine 01/11/2025 6:12 PM CDT UPPER ENDOSCOPY REPORT 2:31 PM CDT ESOPHAGOGASTRODUODENOSCOPY 01/11 12:30 PM CDT POC GLUCOSE Routine 01/11/2025 12:09 PM CDT POC GLUCOSE Routine 01/11/2025 6:17 AM CDT CBC WITH DIFFERENTIAL Routine 01/11/2025 1:48 AM CDT BASIC METABOLIC PANEL Routine 01/11/2025 1:48 AM CDT documented in this encounter Results * TELEMETRY REPORT (01/20/2025 2:28 AM CDT) us Provider Scanning ECG ORDERABLES Final Result * (ABNORMAL) POC GLUCOSE (01/19/2025 7:43 AM CDT) GLUCOSE POC 116(H) 74 - 99 mg/dL 01/19/2025 7:43 AM CDT [facility] SPECIMEN SOURCE, GLUCOSE POC Capillary 01/19/2025 7:43 AM CDT [facility] Blood, whole 01/19/2025 7:43 AM CDT 01/19/2025 8:17 AM CDT Charity Ritchie MD POINT OF CARE TESTING Final Res ult [facility] CLIA # [id number] [address] [place] [address] [place] [address] * (ABNORMAL) POC GLUCOSE (01/18/2025 6:27 PM CDT) GLUCOSE POC 102(H) 74 - 99 mg/dL 01/18/2025 6:27 PM CDT [facility] SPECIMEN SOURCE, GLUCOSE POC Capillary 01/18/2025 6:27 PM CDT [facility] Blood, whole 01/18/2025 6:27 PM CDT 01/18/2025 6:36 PM CDT Charity Ritchie MD POINT OF CARE TESTING Final Res ult [facility] CLIA # [id number] [address] [place] [address] * (ABNORMAL) POC GLUCOSE (01/18/2025 5:28 AM CDT) GLUCOSE POC 120(H) 74 - 99 mg/dL 01/18/2025 5:28 AM CDT [facility] SPECIMEN SOURCE, GLUCOSE POC Capillary 01/18/2025 5:28 AM CDT [facility] Blood, whole 01/18/2025 5:28 AM CDT 01/18/2025 5:36 AM CDT Carson Briggs MD POINT OF CARE TESTING Diana l Result Performing Organization Address [facility] Co de Phone Number [facility] CLIA # [id number] [address] [address] * (ABNORMAL) POC GLUCOSE (01/17/2025 8:56 PM CDT) GLUCOSE POC 102(H) 74 - 99 mg/dL 01/17/2025 8:56 PM CDT [facility] SPECIMEN SOURCE, GLUCOSE POC Capillary 01/17/2025 8:56 PM CDT [facility] Blood, whole 01/17/2025 8:56 PM CDT 01/17/2025 10:35 PM CDT Carson Briggs MD POINT OF CARE TESTING Diana l Result Performing Organization Address City/[facility]/ZIP Co de Phone Number [facility] CLIA # [id number] [id number] [place] [address] * PHOSPHORUS (01/17/2025 12:49 PM CDT) [facility] PHOSPHORUS 3.0 2.5 - 4.5 mg/dL 01/17/2025 1:55 PM CDT [facility] Blood Venipuncture / Unknown 01/17/2025 12:49 PM CDT 01/17/2025 1:23 PM CDT Carson Briggs MD CHEMISTRY ORDERABLES Final Result Performing Organization Address City/[facility]/ZIP Co de Phone Number [facility] CLIA # [id number] [address] [address] * MAGNESIUM LEVEL (01/17/2025 12:49 PM CDT) [facility] MAGNESIUM 1.6 1.6 - 2.4 mg/dL 01/17/2025 1:55 PM CDT [facility] Blood Venipuncture / Unknown 01/17/2025 12:49 PM CDT 01/17/2025 1:23 PM CDT Carson Briggs MD CHEMISTRY ORDERABLES Final Result [facility] CLIA # [id number] [address] [facility] [place] [address] * (ABNORMAL) POC GLUCOSE (01/17/2025 8:28 AM CDT) [facility] GLUCOSE POC 112(H) 74 - 99 mg/dL 01/17/2025 8:28 AM CDT [facility] SPECIMEN SOURCE, GLUCOSE POC Capillary 01/17/2025 8:28 AM CDT [facility] Blood, whole 01/17/2025 8:28 AM CDT 01/17/2025 8:36 AM CDT Carson Briggs MD POINT OF CARE TESTING Diana l Result [facility] CLIA # [id number] [address] [address] * (ABNORMAL) POC GLUCOSE (01/16/2025 8:40 PM CDT) GLUCOSE POC 114(H) 74 - 99 mg/dL 01/16/2025 8:40 PM CDT [facility] SPECIMEN SOURCE, GLUCOSE POC Capillary 01/16/2025 8:40 PM CDT [facility] Blood, whole 01/16/2025 8:40 PM CDT 01/16/2025 8:59 PM CDT Carson Briggs MD POINT OF CARE TESTING Diana l Result Performing Organization Address [facility] Co de Phone Number [facility] CLIA # [id number] [address] [address] * (ABNORMAL) POC GLUCOSE (01/16/2025 5:06 PM CDT) GLUCOSE POC 111(H) 74 - 99 mg/dL 01/16/2025 5:06 PM CDT [facility] SPECIMEN SOURCE, GLUCOSE POC Capillary 01/16/2025 5:06 PM CDT [facility] Blood, whole 01/16/2025 5:06 PM CDT 01/16/2025 5:16 PM CDT Carson Briggs MD POINT OF CARE TESTING Diana l Result [facility] [place] [facility] CLIA # [id number] [address] [facility] [place] [address] * (ABNORMAL) POC GLUCOSE (01/16/2025 4:08 PM CDT) [facility] GLUCOSE POC 114(H) 74 - 99 mg/dL 01/16/2025 4:08 PM CDT [facility] SPECIMEN SOURCE, GLUCOSE POC Capillary 01/16/2025 4:08 PM CDT [facility] Blood, whole 01/16/2025 4:08 PM CDT 01/16/2025 4:17 PM CDT Carson Briggs MD POINT OF CARE TESTING Diana l Result Performing Organization Address [facility]/ZIP Co de Phone Number [facility] CLIA # [id number] [address] [address] * TYPE AND SCREEN (01/16/2025 3:35 PM CDT) [facility] ABO GROUP O 01/16/2025 4:38 PM CDT [facility] RH (D) TYPE Positive 01/16/2025 4:38 PM CDT [facility] ANTIBODY SCREEN Negative 01/16/2025 4:38 PM CDT [facility] Blood BLOOD SPECIMEN / Unknown Venipuncture / Unknown 01/16/2025 3:35 PM CDT 01/16/2025 3:43 PM CDT Anastacio Wong MD BLOOD BANK ORDERABLES Rajan tom Result - Final [facility] CLIA#[id number] [address] [place] [address], * VERIFICATION BLOOD GROUP (01/16/2025 7:30 AM CDT) ABO GROUP O 01/16/2025 4:31 PM CDT [facility] RH (D) TYPE Positive 01/16/2025 4:31 PM CDT [facility] Blood BLOOD SPECIMEN / Unknown Venipuncture / Unknown 01/16/2025 7:30 AM CDT 01/16/2025 3:43 PM CDT Anastacio Wong MD BLOOD BANK ORDERABLES Fin al Result Performing Organization Address [facility]/ZIP Co de Phone Number [phone] CLIA#[id number] [facility] [phone] * MAGNESIUM LEVEL (01/16/2025 4:38 AM CDT) Pathologist [facility] MAGNESIUM 1.7 1.6 - 2.4 mg/dL 01/16/2025 5:29 AM CDT [facility] Blood Venipuncture / Unknown 01/16/2025 4:38 AM CDT 01/16/2025 4:50 AM CDT Anastacio Wong MD CHEMISTRY ORDERABLES Diana l Result Performing Organization Address City/[facility]/ZIP Co de Phone Number [facility] CLIA # [id number] [address] [place] [address] * (ABNORMAL) BASIC METABOLIC PANEL (01/16/2025 4:38 AM CDT) Pathologist [facility] SODIUM 140 136 - 145 mmol/L 01/16/2025 5:29 AM CDT [facility] POTASSIUM 4.1 3.5 - 5.1 mmol/L 01/16/2025 5:29 AM CDT [facility] CHLORIDE 114(H) 98 - 107 mmol/L 01/16/2025 5:29 AM CDT [facility] CO2 17(L) 22 - 29 mmol/L 01/16/2025 5:29 AM CDT [facility] CALCIUM 8.3(L) 8.8 - 10.2 mg/dL 01/16/2025 5:29 AM T [facility] BUN 3(L) 8 - 23 mg/dL 01/16/2025 5:29 AM T [facility] CREATININE 0.76 0.51 - 0.95 mg/dL 01/16/2025 5:29 AM T [facility] Comment:The GFR result is no t clinically significant on patients <18 or >70 years of age. GLUCOSE 103(H) 74 - 99 mg/dL 01/16/2025 5:29 AM T [facility] GFR >60 mL/min/1.7 3 sq meter 01/16/2025 5:29 AM T [facility] Comment:eGFR calculated with 2020 CKD-EPI equation. Vegetarian diet, extremely high or low muscle mass, and may affect results. Cystatin C with Glomerular Filtration Rate is a suitable alternative for these patients. ANION GAP 9 9 - 20 mmol/L 01/16/2025 5:29 AM T [facility] Blood Venipuncture / Unknown 01/16/2025 4:38 AM CDT 01/16/2025 4:50 AM CDT Anastacio Wong MD CHEMISTRY ORDERABLES Diana rae Result [facility] CLIA # [id number] [address] [place] [address] * (ABNORMAL) PHOSPHORUS (01/16/2025 4:38 AM CDT) [facility] PHOSPHORUS 2.1(L) 2.5 - 4.5 mg/dL 01/16/2025 5:29 AM T [facility] Blood Venipuncture / Unknown 01/16/2025 4:38 AM CDT 01/16/2025 4:50 AM CDT Carson Briggs MD CHEMISTRY ORDERABLES Final Result [facility] CLIA # [id number] [address] [place] [address] * POC GLUCOSE (01/15/2025 9:14 PM CDT) GLUCOSE POC 81 74 - 99 mg/dL 01/15/2025 9:14 PM CDT [facility] SPECIMEN SOURCE, GLUCOSE POC Capillary 01/15/2025 9:14 PM CDT [facility] Blood, whole 01/15/2025 9:14 PM CDT 01/15/2025 9:24 PM CDT Carson Briggs MD POINT OF CARE TESTING Diana l Result Performing Organization Address [facility] Co de Phone Number [facility] CLIA # [id number] [address] [facility] [place], [place] [address] * POC GLUCOSE (01/15/2025 12:06 PM CDT) GLUCOSE POC 98 74 - 99 mg/dL 01/15/2025 12:06 PM CDT [facility] SPECIMEN SOURCE, GLUCOSE POC Capillary 01/15/2025 12:06 PM CDT [facility] Blood, whole 01/15/2025 12:0 6 PM CDT 01/15/2025 12:18 PM CDT Carson Briggs MD POINT OF CARE TESTING Diana l Result Performing Organization Address City/[facility]/ZIP Co de Phone Number [facility] CLIA # [id number] [address] [place] [address] * (ABNORMAL) COMPREHENSIVE METABOLIC PANEL (01/15/2025 10:44 AM CDT) [facility] Signature SODIUM 142 136 - 145 mmol/L 01/15/2025 12:05 PM [facility] POTASSIUM 3.3(L) 3.5 - 5.1 mmol/L 01/15/2025 12:05 PM [facility] CHLORIDE 116(H) 98 - 107 mmol/L 01/15/2025 12:05 PM [facility] CO2 15(L) 22 - 29 mmol/L 01/15/2025 12:05 PM [facility] CALCIUM 8.1(L) 8.8 - 10.2 mg/dL 01/15/2025 12:05 PM [facility] BUN 3(L) 8 - 23 mg/dL 01/15/2025 12:05 PM [facility] CREATININE 0.83 0.51 - 0.95 mg/dL 01/15/2025 12:05 PM [facility] Comment:The GFR result is no t clinically significant on patients <18 or >70 years of age. GLUCOSE 98 74 - 99 mg/dL 01/15/2025 12:05 PM [facility] TOTAL PROTEIN 5.9(L) 6.4 - 8.3 g/dL 01/15/2025 12:05 PM [facility] ALBUMIN 2.9(L) 3.5 - 5.2 g/dL 01/15/2025 12:05 PM [facility] BILIRUBIN TOTAL 0.2 0.0 - 1.0 mg/dL 01/15/2025 12:05 PM [facility] ALKALINE PHOSPHATASE 67 35 - 104 U/L 01/15/2025 12:05 PM [facility] AST 14 10 - 35 U/L 01/15/2025 12:05 PM [facility] ALT 7 <=35 U/L 01/15/2025 12:05 PM [facility] GFR >60 mL/min/1.7 3 sq meter 01/15/2025 12:05 PM CDT [facility] Comment:eGFR calculated with 2020 CKD-EPI equation. Vegetarian diet, extremely high or low muscle mass, and may affect results. Cystatin C with Glomerular Filtration Rate is a suitable alternative for these patients. ANION GAP 11 9 - 20 mmol/L 01/15/2025 12:05 PM T [facility] Blood Venipuncture / Unknown 01/15/2025 10:44 AM CDT 01/15/2025 11:32 AM CDT Carson Briggs MD CHEMISTRY ORDERABLES Final Result [facility] CLIA # [id number] [address] [place] [address] * (ABNORMAL) CBC WITH DIFFERENTIAL (01/15/2025 10:44 AM CDT) WBC 4.4(L) 4.8 - 10.8 K/uL 01/15/2025 11:40 AM [facility] RBC 3.04(L) 4.20 - 5.40 M/uL 01/15/2025 11:40 AM T [facility] HEMOGLOBIN 7.7(L) 12.0 - 16.0 g/dL 01/15/2025 11:40 AM T [facility] HEMATOCRIT 25.0(L) 36.0 - 46.0 % 01/15/2025 11:40 AM T [facility] MCV 82.2(L) 84.0 - 103.0 fL 01/15/2025 11:40 AM CDT [facility] MCH 25.3(L) 27.0 - 34.0 pg 01/15/2025 11:40 AM T [facility] MCHC 30.8 30.0 - 35.0 g/dL 01/15/2025 11:40 AM CDT [facility] CHANG PLATELETS 322 140 - 440 K/uL 01/15/2025 11:40 AM [facility] MPV 10.2 8.9 - 12.8 fL 01/15/2025 11:40 AM [facility] RDW 19.6(H) 11.0 - 14.5 % 01/15/2025 11:40 AM [facility] [place] [facility] RDW-STDEV 56.9(H) 37.0 - 54.0 fL 01/15/2025 11:40 AM [facility] [place] [facility] NEUTROPHILS 65 42 - 75 % 01/15/2025 11:40 AM [facility] LYMPHOCYTES 26 24 - 44 % 01/15/2025 11:40 AM [facility] [place] [facility] MONOCYTES 8 2 - 10 % 01/15/2025 11:40 AM [facility] [place] [facility] EOSINOPHILS 0 0 - 7 % 01/15/2025 11:40 AM [facility] [place] [facility] BASOPHILS 1 0 - 1 % 01/15/2025 11:40 AM [facility] IMMATURE GRANULOCYTES 1 0 - 2 % 01/15/2025 11:40 AM [facility] NEUTROPHIL ABSOLUTE 2.85 2.00 - 8.00 K/uL 01/15/2025 11:40 AM [facility] LYMPHOCYTE ABSOLUTE 1.16(L) 1.20 - 4.00 K/uL 01/15/2025 11:40 AM [facility] MONOCYTE ABSOLUTE 0.34 0.10 - 0.60 K/uL 01/15/2025 11:40 AM [facility] EOSINOPHIL ABSOLUTE 0.01 0.00 - 0.70 K/uL 01/15/2025 11:40 AM [facility] BASOPHILS ABSOLUTE 0.03 0.00 - 0.20 K/uL 01/15/2025 11:40 AM [facility] IMMATURE GRANULOCYTES ABSOLUTE 0.03 0.00 - 0.10 K/uL 01/15/2025 11:40 AM [facility] [place] [facility] SMEAR REVIEWED: NN - No Action Needed 01/15/2025 11:40 AM CDT [facility] Blood Venipuncture / Unknown 01/15/2025 10:44 AM CDT 01/15/2025 11:32 AM CDT Carson Briggs MD HEMATOLOGY ORDERABLES Diana l Result Performing Organization Address [facility] de Phone Number [facility] CLIA # [id number] [address] [place] [address] * TRIGLYCERIDE (01/15/2025 10:44 AM CDT) TRIGLYCERIDE 144 <150 mg/dL 01/15/2025 12:05 PM CDT [facility] Blood Venipuncture / Unknown 01/15/2025 10:44 AM CDT 01/15/2025 11:32 AM CDT Narrative [facility] - 01/15/2025 12:05 PM CDT TRIGLYCERIDES mg/dL Normal < 150 Borderline High 150 - 199 High 200 - 499 Very High >= 500 Based on AHA/NCEP Guidelines. Carson Briggs MD CHEMISTRY ORDERABLES Final Result Performing Organization Address [facility] Phone Number [facility] CLIA # [id number] [address] [address] * MAGNESIUM LEVEL (01/15/2025 10:44 AM CDT) MAGNESIUM 2.0 1.6 - 2.4 mg/dL 01/15/2025 12:05 PM CDT [facility] Blood Venipuncture / Unknown 01/15/2025 10:44 AM CDT 01/15/2025 11:32 AM CDT Carson Briggs MD CHEMISTRY ORDERABLES Final Result Performing Organization Address [facility] Co de Phone Number [facility] CLIA # [id number] [address] [address] * (ABNORMAL) PHOSPHORUS (01/15/2025 10:44 AM CDT) PHOSPHORUS 1.8(L) 2.5 - 4.5 mg/dL 01/15/2025 12:05 PM CDT [facility] Blood Venipuncture / Unknown 01/15/2025 10:44 AM CDT 01/15/2025 11:32 AM CDT Carson Briggs MD CHEMISTRY ORDERABLES Final Result Performing Organization Address [facility] de Phone Number [facility] CLIA # [id number] [address] [id number] * POC GLUCOSE (01/15/2025 7:34 AM CDT) GLUCOSE POC 93 74 - 99 mg/dL 01/15/2025 7:34 AM CDT [facility] SPECIMEN SOURCE, GLUCOSE POC Capillary 01/15/2025 7:34 AM CDT [facility] Blood, whole 01/15/2025 7:34 AM CDT 01/15/2025 7:47 AM CDT Carson Briggs MD POINT OF CARE TESTING Diana l Result Performing Organization Address [facility] Co de Phone Number [facility] CLIA # [id number] [address] [address] * POC GLUCOSE (01/15/2025 3:01 AM CDT) GLUCOSE POC 95 74 - 99 mg/dL 01/15/2025 3:01 AM CDT [facility] SPECIMEN SOURCE, GLUCOSE POC Capillary 01/15/2025 3:01 AM CDT [facility] Blood, whole 01/15/2025 3:01 AM CDT 01/15/2025 3:10 AM CDT Carson Briggs MD POINT OF CARE TESTING Diana l Result Performing Organization Address [facility] Co de Phone Number [facility] CLIA # [id number] [address] [address] * POC GLUCOSE (01/14/2025 8:51 PM CDT) GLUCOSE POC 83 74 - 99 mg/dL 01/14/2025 8:51 PM CDT [facility] SPECIMEN SOURCE, GLUCOSE POC Capillary 01/14/2025 8:51 PM CDT [facility] Blood, whole 01/14/2025 8:51 PM CDT 01/14/2025 9:00 PM CDT Carson Briggs MD POINT OF CARE TESTING Diana l Result Performing Organization Address [facility] Co de Phone Number [facility] CLIA # [id number] [address] [address] * POC GLUCOSE (01/14/2025 6:05 PM CDT) GLUCOSE POC 90 74 - 99 mg/dL 01/14/2025 6:05 PM CDT [facility] SPECIMEN SOURCE, GLUCOSE POC Capillary 01/14/2025 6:05 PM CDT [facility] Blood, whole 01/14/2025 6:05 PM CDT 01/14/2025 6:17 PM CDT us Carson Briggs MD POINT OF CARE TESTING Diana rae Result [facility] DAVIDA # [id number] [address] [facility] [facility] [address] * (ABNORMAL) COMPREHENSIVE METABOLIC PANEL (01/14/2025 1:53 PM CDT) [facility] SODIUM 143 136 - 145 mmol/L 01/14/2025 2:38 PM CDT [facility] POTASSIUM 3.0(L) 3.5 - 5.1 mmol/L 01/14/2025 2:38 PM CDT [facility] CHLORIDE 112(H) 98 - 107 mmol/L 01/14/2025 2:38 PM CDT [facility] CO2 16(L) 22 - 29 mmol/L 01/14/2025 2:38 PM CDT [facility] CALCIUM 8.3(L) 8.8 - 10.2 mg/dL 01/14/2025 2:38 PM CDT [facility] BUN 4(L) 8 - 23 mg/dL 01/14/2025 2:38 PM CDT [facility] CREATININE 0.86 0.51 - 0.95 mg/dL 01/14/2025 2:38 PM CDT [facility] Comment:The GFR result is no t clinically significant on patients <18 or >70 years of age. GLUCOSE 99 74 - 99 mg/dL 01/14/2025 2:38 PM CDT [facility] TOTAL PROTEIN 6.2(L) 6.4 - 8.3 g/dL 01/14/2025 2:38 PM CDT [facility] ALBUMIN 3.1(L) 3.5 - 5.2 g/dL 01/14/2025 2:38 PM CDT [facility] BILIRUBIN TOTAL 0.2 0.0 - 1.0 mg/dL 01/14/2025 2:38 PM CDT [facility] ALKALINE PHOSPHATASE 72 35 - 104 U/L 01/14/2025 2:38 PM CDT [facility] AST 14 10 - 35 U/L 01/14/2025 2:38 PM CDT [facility] ALT 5 <=35 U/L 01/14/2025 2:38 PM CDT [facility] GFR >60 mL/min/1.7 3 sq meter 01/14/2025 2:38 PM CDT [facility] Comment:eGFR calculated with 2020 CKD-EPI equation. Vegetarian diet, extremely high or low muscle mass, and may affect results. Cystatin C with Glomerular Filtration Rate is a suitable alternative for these patients. ANION GAP 15 9 - 20 mmol/L 01/14/2025 2:38 PM CDT [facility] Blood Venipuncture / Unknown 01/14/2025 1:53 PM CDT 01/14/2025 2:06 PM CDT us Anastacio Wong MD CHEMISTRY ORDERABLES Diana l Result [facility] CLIA # [id number] [address] [place] [address] * TRIGLYCERIDE (01/14/2025 1:53 PM CDT) TRIGLYCERIDE 113 <150 mg/dL 01/14/2025 2:38 PM CDT [facility] Blood Venipuncture / Unknown 01/14/2025 1:53 PM CDT 01/14/2025 2:06 PM CDT Narrative [facility] - 01/14/2025 2:38 PM CDT TRIGLYCERIDES mg/dL Normal < 150 Borderline High 150 - 199 High 200 - 499 Very High >= 500 Based on AHA/NCEP Guidelines. Carson Briggs MD CHEMISTRY ORDERABLES Final Result Performing Organization Address City/[facility]/ZIP Co de Phone Number [facility] CLIA # [id number] [address] [facility] [place], [place] [address] * MAGNESIUM LEVEL (01/14/2025 1:53 PM CDT) [facility] MAGNESIUM 1.7 1.6 - 2.4 mg/dL 01/14/2025 2:38 PM CDT [facility] Blood Venipuncture / Unknown 01/14/2025 1:53 PM CDT 01/14/2025 2:06 PM CDT Carson Briggs MD CHEMISTRY ORDERABLES Final Result [facility] CLIA # [id number] [address] [place], [place] [address] * PHOSPHORUS (01/14/2025 1:53 PM CDT) [facility] PHOSPHORUS 2.9 2.5 - 4.5 mg/dL 01/14/2025 2:38 PM CDT [facility] Blood Venipuncture / Unknown 01/14/2025 1:53 PM CDT 01/14/2025 2:06 PM CDT Carson Briggs MD CHEMISTRY ORDERABLES Final Result [facility] CLIA # [id number] [address] [facility] [place], [place] [address] * (ABNORMAL) POC GLUCOSE (01/14/2025 12:19 PM CDT) [facility] GLUCOSE POC 100(H) 74 - 99 mg/dL 01/14/2025 12:19 PM CDT [facility] SPECIMEN SOURCE, GLUCOSE POC Capillary 01/14/2025 12:19 PM CDT [facility] Blood, whole 01/14/2025 12:1 9 PM CDT 01/14/2025 12:54 PM CDT Carson Briggs MD POINT OF CARE TESTING Diana l Result Performing Organization Address [facility]/ZIP Co de Phone Number [facility] CLIA # [id number] [address] [address] [place] [address] * (ABNORMAL) POC GLUCOSE (01/14/2025 5:43 AM CDT) GLUCOSE POC 116(H) 74 - 99 mg/dL 01/14/2025 5:43 AM CDT [facility] [place] [facility] SPECIMEN SOURCE, GLUCOSE POC Capillary 01/14/2025 5:43 AM CDT [facility] [place] [facility] Blood, whole 01/14/2025 5:43 AM CDT 01/14/2025 5:51 AM CDT Carson Briggs MD POINT OF CARE TESTING Diana l Result Performing Organization Address [facility] de Phone Number [facility] CLIA # [id number] [address] [address] * (ABNORMAL) POC GLUCOSE (01/13/2025 7:39 PM CDT) GLUCOSE POC 107(H) 74 - 99 mg/dL 01/13/2025 7:39 PM CDT [facility] [place] [facility] SPECIMEN SOURCE, GLUCOSE POC Capillary 01/13/2025 7:39 PM CDT [facility] [place] [facility] Blood, whole 01/13/2025 7:39 PM CDT 01/13/2025 7:46 PM CDT Carson Briggs MD POINT OF CARE TESTING Diana l Result [facility] CLIA # [id number] [address] [address] [place] [address] * (ABNORMAL) POC GLUCOSE (01/13/2025 5:32 PM CDT) GLUCOSE POC 118(H) 74 - 99 mg/dL 01/13/2025 5:32 PM CDT [facility] SPECIMEN SOURCE, GLUCOSE POC Capillary 01/13/2025 5:32 PM CDT [facility] Blood, whole 01/13/2025 5:32 PM CDT 01/13/2025 6:14 PM CDT Carson Briggs MD POINT OF CARE TESTING Diana rae Result Performing Organization Address City/[facility] Co de Phone Number [facility] CLIA # [id number] [address] [address] * IR TUBE PLACEMENT (01/13/2025 2:48 PM CDT) Anatomical Region Laterality Modality X-Ray Angiograph y 01/13/2025 2:55 PM CDT Impressions 01/13/2025 3:15 PM CDT IMPRESSION: Unable to place gastrostomy tube, no safe window for access. I, Dr. Yusuf Bah, certify that I was present for the entire procedure. Narrative 01/13/2025 3:15 PM CDT PROCEDURES: Unable to place gastrostomy tube. Moderate conscious sedation. HISTORY: Gastric access for nutrition OPERATORS: Dr. Yusuf Bah BARRIER PRECAUTIONS: Maximum sterile barrier with operators fully gowned with mask, gowns and gloves. A full sterile drape was placed on the patient. Hand hygiene was performed with alcohol-based and rub antiseptic. CONSENT: The procedures as well as their risks, benefits, and alternatives were discussed in detail with the patient, and the patient given the opportunity to ask any questions. Written informed consent was then obtained. ESTIMATED BLOOD LOSS: 0 mL PROCEDURE DETAILS: Preprocedural timeout was performed. Versed and fentanyl were given IV by a radiology nurse who is a trained independent observer dedicated to patient monitoring during moderate sedation under my supervision. The 4 [place]uran multipurpose catheter was advanced from the nose into the proximal stomach with fluoroscopic assistance. Patient's liver was identified with ultrasound and the lower margin was marked on the skin surface. Patient's upper abdomen was then prepped and draped in usual sterile fashion with 2% chlorhexidine. Glucagon was given IV and following this, air was instilled via the nasogastric catheter placed into the stomach. The stomach was completely overlapped with colon. Further inflation of the stomach cause reflux into the esophageal hiatal hernia and air passed into the small bowel further. No gastrostomy tube was placed. The patient tolerated the procedure well, with no immediate complications and was in stable condition at the completion of the procedure. Procedure Note Yusuf Bah MD - 01/13/2025 PROCEDURES: Unable to place gastrostomy tube. Moderate conscious sedation. HISTORY: Gastric access for nutrition OPERATORS: Dr. Yusuf Bah BARRIER PRECAUTIONS: Maximum sterile barrier with operators fully gowned with mask, gowns and gloves. A full sterile drape was placed on the patient. Hand hygiene was performed with alcohol-based and rub antiseptic. CONSENT: The procedures as well as their risks, benefits, and alternatives were discussed in detail with the patient, and the patient given the opportunity to ask any questions. Written informed consent was then obtained. ESTIMATED BLOOD LOSS: 0 mL PROCEDURE DETAILS: Preprocedural timeout was performed. Versed and fentanyl were given IV by a radiology nurse who is a trained independent observer dedicated to patient monitoring during moderate sedation under my supervision. The 4 [place]uran multipurpose catheter was advanced from the nose into the proximal stomach with fluoroscopic assistance. Patient's liver was identified with ultrasound and the lower margin was marked on the skin surface. Patient's upper abdomen was then prepped and draped in usual sterile fashion with 2% chlorhexidine. Glucagon was given IV and following this, air was instilled via the nasogastric catheter placed into the stomach. The stomach was completely overlapped with colon. Further inflation of the stomach cause reflux into the esophageal hiatal hernia and air passed into the small bowel further. No gastrostomy tube was placed. The patient tolerated the procedure well, with no immediate complications and was in stable condition at the completion of the procedure. IMPRESSION: Unable to place gastrostomy tube, no safe window for access. I, Dr. Yusuf Bah, certify that I was present for the entire procedure. Carson Briggs MD IR ORDERABLES Final Resu lt * (ABNORMAL) POC GLUCOSE (01/13/2025 12:34 PM CDT) GLUCOSE POC 100(H) 74 - 99 mg/dL 01/13/2025 12:34 PM CDT [facility] SPECIMEN SOURCE, GLUCOSE POC Capillary 01/13/2025 12:34 PM CDT [facility] Blood, whole 01/13/2025 12:3 4 PM CDT 01/13/2025 12:43 PM CDT Carson Briggs MD POINT OF CARE TESTING Diana l Result Performing Organization Address City/State/[facility] Co de Phone Number [facility] CLIA # [id number] [address] [place] [address] * CT ABDOMEN PELVIS W CONTRAST (01/13/2025 10:10 AM CDT) Anatomical Region Laterality Modality Abdomen Computed Tomogra phy 01/13/2025 9:48 AM CDT Impressions 01/13/2025 10:49 AM CDT IMPRESSION: 1. Thickening of the wall of the distal esophagus. Moderate hiatal hernia with possible wall thickening. 2. Mildly dilated common bile duct measuring 9 mm. This is of uncertain etiology. 3. Mild to moderate gaseous distention of the transverse colon. 4. Right renal cortical scarring. 5. 1.7 cm right ovarian cyst. 6. Multiple mild to severe compression deformities of the lower thoracic spine and lumbar spine as described of uncertain age. Narrative 01/13/2025 10:49 AM CDT Exam: CT ABDOMEN PELVIS W CONTRAST Date/Time of Exam: 01/13/2025 10:10 AM Reason For Exam: PEG Tube. Diagnosis: Esophageal stenosis. Technique: CT of the abdomen was performed following the administration of intravenous contrast. Contrast: 80 mL Isovue 300 Findings: There are no comparisons. There is mild bibasilar scarring. Heart size is within normal limits. There is thickening of the wall of the distal esophagus. There is a moderate hiatal hernia with possible wall thickening.. No significant abnormality of the liver, spleen, pancreas or gallbladder is noted. The common bile duct is mildly dilated measuring 9 mm. No abnormality of the adrenal glands is noted. There is right renal cortical scarring. The left kidney is unremarkable. There is intermittent contrast in the colon. The stomach is unremarkable. There are no abnormally dilated loops of small bowel. There is mild to moderate gaseous distention of the transverse colon. There is no evidence for appendicitis. No pericolonic inflammatory change is noted. There is thickening of the wall of the sigmoid colon versus inadequate distention. I favor inadequate distention. No free air or free fluid is noted. The urinary bladder is unremarkable. There is a probable 1.7 cm right ovarian cyst. The gynecologic organs are otherwise unremarkable. No pathologic adenopathy is noted. There is moderate atherosclerotic change of the aortoiliac arteries. The bones are osteopenic. No significant abnormality of the bony pelvis is noted. There is a mild compression deformity of T11. There is a severe compression deformity of T12. There is a mild compression deformity of L2. There is a moderate compression deformity of L3. There are mild compression deformities of L4 and L5. These compression deformities are of uncertain age. Procedure Note Martha Soler MD - 01/13/2025 Exam: CT ABDOMEN PELVIS W CONTRAST Date/Time of Exam: 01/13/2025 10:10 AM Reason For Exam: PEG Tube. Diagnosis: Esophageal stenosis. Technique: CT of the abdomen was performed following the administration of intravenous contrast. Contrast: 80 mL Isovue 300 Findings: There are no comparisons. There is mild bibasilar scarring. Heart size is within normal limits. There is thickening of the wall of the distal esophagus. There is a moderate hiatal hernia with possible wall thickening.. No significant abnormality of the liver, spleen, pancreas or gallbladder is noted. The common bile duct is mildly dilated measuring 9 mm. No abnormality of the adrenal glands is noted. There is right renal cortical scarring. The left kidney is unremarkable. There is intermittent contrast in the colon. The stomach is unremarkable. There are no abnormally dilated loops of small bowel. There is mild to moderate gaseous distention of the transverse colon. There is no evidence for appendicitis. No pericolonic inflammatory change is noted. There is thickening of the wall of the sigmoid colon versus inadequate distention. I favor inadequate distention. No free air or free fluid is noted. The urinary bladder is unremarkable. There is a probable 1.7 cm right ovarian cyst. The gynecologic organs are otherwise unremarkable. No pathologic adenopathy is noted. There is moderate atherosclerotic change of the aortoiliac arteries. The bones are osteopenic. No significant abnormality of the bony pelvis is noted. There is a mild compression deformity of T11. There is a severe compression deformity of T12. There is a mild compression deformity of L2. There is a moderate compression deformity of L3. There are mild compression deformities of L4 and L5. These compression deformities are of uncertain age. IMPRESSION: 1. Thickening of the wall of the distal esophagus. Moderate hiatal hernia with possible wall thickening. 2. Mildly dilated common bile duct measuring 9 mm. This is of uncertain etiology. 3. Mild to moderate gaseous distention of the transverse colon. 4. Right renal cortical scarring. 5. 1.7 cm right ovarian cyst. 6. Multiple mild to severe compression deformities of the lower thoracic spine and lumbar spine as described of uncertain age. Carson Briggs MD CT ORDERABLES Final Resu lt * (ABNORMAL) POC GLUCOSE (01/13/2025 4:57 AM CDT) GLUCOSE POC 100(H) 74 - 99 mg/dL 01/13/2025 4:57 AM CDT [facility] [place] [facility] SPECIMEN SOURCE, GLUCOSE POC Capillary 01/13/2025 4:57 AM CDT [facility] [place] [facility] Blood, whole 01/13/2025 4:57 AM CDT 01/13/2025 5:11 AM CDT Carson Briggs MD POINT OF CARE TESTING Diana l Result [facility] [place] [facility] CLIA # [id number] [address] [address] * PROTIME-INR (01/13/2025 4:29 AM CDT) [facility] PROTIME 14.0 12.7 - 14.9 Seconds 01/13/2025 5:38 AM CDT [facility] INR 1.0 0.8 - 1.2 01/13/2025 5:38 AM CDT [facility] Blood Venipuncture / Unknown 01/13/2025 4:29 AM CDT 01/13/2025 5:[address] [facility] - 01/13/2025 5:38 AM CDT Expected Values for INR: DVT/PE Goal INR 2.5; range 2.0 - 3.0 Valve Replacement Tissue Goal INR 2.5; range 2.0 - 3.0 Valve Replacement Mechanical Goal INR 3.0; range 2.5 - 3.5 POST-NE Goal INR 2.5; range 2.0 - 3.0 or Goal INR 3.0; range 2.5 - 3.5 Atrial Fibrillation Goal INR 2.5; range 2.0 - 3.0 Ischemic Stroke Goal INR 2.5; range 2.0 - 3.0 us Carson Briggs MD HEMATOLOGY ORDERABLES Diana butch Result [facility] CLIA # [id number] [facility] [address] [address] * POC GLUCOSE (01/13/2025 3:11 AM CDT) [facility] GLUCOSE POC 91 74 - 99 mg/dL 01/13/2025 3:11 AM CDT [facility] SPECIMEN SOURCE, GLUCOSE POC Capillary 01/13/2025 3:11 AM CDT [facility] Blood, whole 01/13/2025 3:11 AM CDT 01/13/2025 3:18 AM CDT Carson Briggs MD POINT OF CARE TESTING Diana l Result Performing Organization Address [facility] Co de Phone Number [facility] [place] [facility] CLIA # [id number] [address] [id number] * POC GLUCOSE (01/12/2025 9:44 PM CDT) [facility] GLUCOSE POC 78 74 - 99 mg/dL 01/12/2025 9:44 PM CDT [facility] SPECIMEN SOURCE, GLUCOSE POC Capillary 01/12/2025 9:44 PM CDT [facility] Blood, whole 01/12/2025 9:44 PM CDT 01/12/2025 9:52 PM CDT Carson Briggs MD POINT OF CARE TESTING Diana l Result Performing Organization Address [facility] Co de Phone Number [facility] CLIA # [id number] [address] [address] * INSERT PERIPHERAL IV (01/12/2025 9:00 PM CDT) Narrative Barry Moore RN - 01/12/2025 9:00 PM CDT Barry Moore RN 01/12/2025 9:09 PM VASCULAR ACCESS TEAM Peripheral IV insertion PATIENT NAME: Gilda Hodge DATE OF : 1955 CSN: [id number] DATE: 01/12/2025 Room: [address] [place] [address] Admit Date: 01/10/2025 Hospital day: LOS: 2 days PERIPHERAL IV INSERTION Ultrasound assessment was performed to assess adequacy of vascular anatomy Adequate vessel was located Insertion site cleansed for 30 seconds with Chlora-prep. Allowed to dry before initial needle stick. A 20 Gauge 2 Inch peripheral IV was successfully placed using ultrasound guidance in the right, upper Arm Secure port adhesive used Yes 1 attempts 30 minutes required to complete procedure Positive blood return noted Neutral pressure cap applied Catheter Flushed with 5ml of Normal Saline Transparent dressing applied with date, time and initials of cowoker inserting. LDA documentation is contained in EMR flowsheet Patient tolerated well. Barry Moore, KEE Dennis Levine MD IV THERAPY ORDERABLES F inal Result * POC GLUCOSE (01/12/2025 6:25 PM CDT) GLUCOSE POC 76 74 - 99 mg/dL 01/12/2025 6:25 PM CDT [facility] SPECIMEN SOURCE, GLUCOSE POC Capillary 01/12/2025 6:25 PM CDT [facility] Blood, whole 01/12/2025 6:25 PM CDT 01/12/2025 6:33 PM CDT Carson Briggs MD POINT OF CARE TESTING Diana l Result Performing Organization Address City/[facility]/ZIP Co de Phone Number [facility] CLIA # [id number] [address] [address] * POC GLUCOSE (01/12/2025 11:15 AM CDT) GLUCOSE POC 81 74 - 99 mg/dL 01/12/2025 11:15 AM CDT [facility] SPECIMEN SOURCE, GLUCOSE POC Capillary 01/12/2025 11:15 AM CDT [facility] Blood, whole 01/12/2025 11:1 5 AM CDT 01/12/2025 2:36 PM CDT Carson Briggs MD POINT OF CARE TESTING Diana l Result [facility] CLIA # [id number] [id number] [place] [address] * POC GLUCOSE (01/12/2025 7:43 AM CDT) GLUCOSE POC 89 74 - 99 mg/dL 01/12/2025 7:43 AM CDT [facility] SPECIMEN SOURCE, GLUCOSE POC Capillary 01/12/2025 7:43 AM CDT [facility] Blood, whole 01/12/2025 7:43 AM CDT 01/12/2025 8:15 AM CDT Carson Briggs MD POINT OF CARE TESTING Diana l Result [facility] CLIA # [id number] [address] [address] [place], [place] [address] * POC GLUCOSE (01/12/2025 5:32 AM CDT) GLUCOSE POC 88 74 - 99 mg/dL 01/12/2025 5:32 AM CDT [facility] SPECIMEN SOURCE, GLUCOSE POC Capillary 01/12/2025 5:32 AM CDT [facility] Blood, whole 01/12/2025 5:32 AM CDT 01/12/2025 5:42 AM CDT Carson Briggs MD POINT OF CARE TESTING Diana l Result [facility] CLIA # [id number] [address] [address] * POC GLUCOSE (01/11/2025 6:12 PM CDT) GLUCOSE POC 86 74 - 99 mg/dL 01/11/2025 6:12 PM CDT [facility] SPECIMEN SOURCE, GLUCOSE POC Capillary 01/11/2025 6:12 PM CDT [facility] Blood, whole 01/11/2025 6:12 PM CDT 01/11/2025 6:21 PM CDT Carson Briggs MD POINT OF CARE TESTING Diana rae Result [id number] [address] [place] [address] [place] [address] * UPPER ENDOSCOPY REPORT (01/11/2025 2:31 PM CDT) Narrative Procedure Note Merlene Spencer DO - 01/11/2025 2:31 PM CDT [facility] GI Patient Name: Gilda Hodge Procedure Date: 01/11/2025 Date of : 1955 Admit Type: Outpatient Age: 69 Attending MD: Merlene Garibay DO, Procedure: Upper GI endoscopy Indications: Dysphagia, esophageal stricture Providers: Merlene Garibay DO Referring MD: Medicines: Propofol per Anesthesia Complications: No immediate complications. Procedure: Pre-Anesthesia Assessment: - Prior to the procedure, a History and Physical was performed, and patient medications and allergies were reviewed. The patient's tolerance of previous anesthesia was also reviewed. The risks and benefits of the procedure and the sedation options and risks were discussed with the patient. All questions were answered, and informed consent was obtained. Prior Anticoagulants: The patient has taken no anticoagulant or antiplatelet agents. ASA Grade Assessment: III - A patient with severe systemic disease. After reviewing the risks and benefits, the patient was deemed in satisfactory condition to undergo the procedure. After obtaining informed consent, the endoscope was passed under direct vision. Throughout the procedure, the patient's blood pressure, pulse, and oxygen saturations were monitored continuously. The Endoscope was introduced through the mouth, and advanced to the upper third of esophagus. The upper GI endoscopy was accomplished without difficulty. The patient tolerated the procedure well. Estimated Blood Loss: Estimated blood loss was minimal. Findings: LA Grade D (one or more mucosal breaks involving at least 75% of esophageal circumference) esophagitis with no bleeding was found in the upper third of the esophagus. One benign-appearing, intrinsic severe (stenosis; an endoscope cannot pass) stenosis was found 28 cm from the incisors. This stenosis measured <5mm. The stenosis was not traversed. The scope was withdrawn and replaced with the endoscope to bypass the stricture but this scope also could not be advanced. Impression: - LA Grade D esophagitis with no bleeding. - Benign-appearing esophageal stenosis, severe. - No specimens collected. Recommendation: Patient needs BID PPI through the IV until PEG tube is placed for alternate nutrition then can be administered through feeding tube. EGD in 6 weeks for repeat dilation Will not tolerate much by mouth given severe stricture Merlene Garibay DO 01/11/2025 2:30:56 PM This report has been signed electronically. Number of Addenda: 0 Note Initiated On: 01/11/2025 1:50 PM Scope Withdrawal Time Scope In: Scope Out: Patient Profile: This is a 69 year old female. [facility] [place], [place] Merlene Garibay DO GI PROCEDURE ORDERABLE S Final Result * POC GLUCOSE (01/11/2025 12:09 PM CDT) [facility] GLUCOSE POC 90 74 - 99 mg/dL 01/11/2025 12:09 PM CDT [facility] SPECIMEN SOURCE, GLUCOSE POC Capillary 01/11/2025 12:09 PM CDT [facility] Blood, whole 01/11/2025 12:0 9 PM CDT 01/11/2025 12:50 PM CDT Carson Briggs MD POINT OF CARE TESTING Diana l Result [facility] CLIA # [id number] [address] [place] [address] * POC GLUCOSE (01/11/2025 6:17 AM CDT) GLUCOSE POC 91 74 - 99 mg/dL 01/11/2025 6:17 AM CDT [facility] SPECIMEN SOURCE, GLUCOSE POC Capillary 01/11/2025 6:17 AM CDT [facility] Blood, whole 01/11/2025 6:17 AM CDT 01/11/2025 6:25 AM CDT Dennis Levine MD POINT OF CARE TESTING F inal Result [facility] # [id number] [address] [place] [address] * (ABNORMAL) BASIC METABOLIC PANEL (01/11/2025 1:48 AM CDT) Pathologist [facility] SODIUM 135(L) 136 - 145 mmol/L 01/11/2025 3:17 AM T [facility] POTASSIUM 3.9 3.5 - 5.1 mmol/L 01/11/2025 3:17 AM T [facility] CHLORIDE 107 98 - 107 mmol/L 01/11/2025 3:17 AM T [facility] CO2 20(L) 22 - 29 mmol/L 01/11/2025 3:17 AM T [facility] CALCIUM 8.1(L) 8.8 - 10.2 mg/dL 01/11/2025 3:17 AM T [facility] BUN 3(L) 8 - 23 mg/dL 01/11/2025 3:17 AM T [facility] CREATININE 0.87 0.51 - 0.95 mg/dL 01/11/2025 3:17 AM T [facility] Comment:The GFR result is no t clinically significant on patients <18 or >70 years of age. GLUCOSE 88 74 - 99 mg/dL 01/11/2025 3:17 AM T [facility] GFR >60 mL/min/1.7 3 sq meter 01/11/2025 3:17 AM CDT [facility] Comment:eGFR calculated with 2020 CKD-EPI equation. Vegetarian diet, extremely high or low muscle mass, and may affect results. Cystatin C with Glomerular Filtration Rate is a suitable alternative for these patients. ANION GAP 8(L) 9 - 20 mmol/L 01/11/2025 3:17 AM CDT [facility] Blood Venipuncture / Unknown 01/11/2025 1:48 AM CDT 01/11/2025 2:40 AM CDT Dennis Levine MD CHEMISTRY ORDERABLES nal Result [facility] CLIA # [id number] [facility] [address] * (ABNORMAL) CBC WITH DIFFERENTIAL (01/11/2025 1:48 AM CDT) Pathologist [facility] WBC 5.3 4.8 - 10.8 K/uL 01/11/2025 2:47 AM CDT [facility] RBC 3.02(L) 4.20 - 5.40 M/uL 01/11/2025 2:47 AM CDT [facility] HEMOGLOBIN 7.6(L) 12.0 - 16.0 g/dL 01/11/2025 2:47 AM CDT [facility] HEMATOCRIT 24.6(L) 36.0 - 46.0 % 01/11/2025 2:47 AM T [facility] MCV 81.5(L) 84.0 - 103.0 fL 01/11/2025 2:47 AM CDT [facility] MCH 25.2(L) 27.0 - 34.0 pg 01/11/2025 2:47 AM CDT [facility] MCHC 30.9 30.0 - 35.0 g/dL 01/11/2025 2:47 AM CDT [facility] PLATELETS 345 140 - 440 K/uL 01/11/2025 2:47 AM T [facility] [place] [facility] MPV 9.7 8.9 - 12.8 fL 01/11/2025 2:47 AM [facility] [place] [facility] RDW 18.6(H) 11.0 - 14.5 % 01/11/2025 2:47 AM [facility] [place] [facility] RDW-STDEV 55.5(H) 37.0 - 54.0 fL 01/11/2025 2:47 AM [facility] [place] [facility] NEUTROPHILS 51 42 - 75 % 01/11/2025 2:47 AM [facility] [place] [facility] LYMPHOCYTES 36 24 - 44 % 01/11/2025 2:47 AM [facility] [place] [facility] MONOCYTES 11(H) 2 - 10 % 01/11/2025 2:47 AM [facility] [place] [facility] EOSINOPHILS 1 0 - 7 % 01/11/2025 2:47 AM [facility] [place] [facility] BASOPHILS 1 0 - 1 % 01/11/2025 2:47 AM [facility] [place] [facility] IMMATURE GRANULOCYTES 1 0 - 2 % 01/11/2025 2:47 AM [facility] [place] [facility] NEUTROPHIL ABSOLUTE 2.70 2.00 - 8.00 K/uL 01/11/2025 2:47 AM [facility] [place] [facility] LYMPHOCYTE ABSOLUTE 1.90 1.20 - 4.00 K/uL 01/11/2025 2:47 AM [facility] [place] [facility] MONOCYTE ABSOLUTE 0.59 0.10 - 0.60 K/uL 01/11/2025 2:47 AM [facility] [place] [facility] EOSINOPHIL ABSOLUTE 0.04 0.00 - 0.70 K/uL 01/11/2025 2:47 AM [facility] [place] [facility] BASOPHILS ABSOLUTE 0.03 0.00 - 0.20 K/uL 01/11/2025 2:47 AM [facility] [place] [facility] IMMATURE GRANULOCYTES ABSOLUTE 0.05 0.00 - 0.10 K/uL 01/11/2025 2:47 AM [facility] [place] [facility] SMEAR REVIEWED: NA - Not Applicable 01/11/2025 2:47 AM CDT [facility] [place] [facility] Blood Venipuncture / Unknown 01/11/2025 1:48 AM CDT 01/11/2025 2:40 AM CDT Dennis Levine MD HEMATOLOGY ORDERABLES F inal Result [facility] # [id number] [address] [place] [address] [place] [address] documented in this encounter Visit Diagnoses Diagnosis Dysphagia- Primary Dysphagia, unspecified Esophageal stenosis Stricture and stenosis of esophagus Schizoaffective disorder (CMS/HCC) Schizoaffective disorder, unspecified condition COPD (chronic obstructive pulmonary disease) (CMS/HCC) Chronic airway obstruction, not elsewhere classified Tobacco use Tobacco use disorder GERD (gastroesophageal reflux disease) Esophageal reflux Anxiety and depression Dysthymic disorder Hypothyroidism Unspecified hypothyroidism Essential hypertension Unspecified essential hypertension History of hepatitis C Personal history of other infectious and parasitic disease Esophageal stenosis Stricture and stenosis of esophagus Protein-calorie malnutrition, moderate Malnutrition of moderate degree documented in this encounter Administered Medications Inactive Administered Medications - up to 3 most recent administrations Medication Order MAR Action Action Date Dose Rate Site acetaminophen (TYLENOL) tablet 650 mg 650 mg, Oral, EVERY 6 HOURS PRN, Starting on Thu01/10/25 at 2231, Until Thu01/19/25 at 1249, Other (See Comment), See admin instructions, Routine adult TPN - PERIPHERAL-Clinimix E IV, at 60 mL/hr, EVERY 24 HOURS, First dose (after last modification) on Thu01/15/25 at 2300, Until Discontinued, Administer over 24 Hours New Bag 01/16/2025 5:41 PM CDT 60 mL/ hr New Bag 01/16/2025 12:59 AM CDT 60 mL/hr amLODIPine (NORVASC) tablet 10 mg 10 mg, Oral, DAILY, First dose on Thu01/11/25 at 0900, Until Discontinued, Routine Given 01/19/2025 10:21 AM CDT 10 mg Given 01/18/2025 10:37 AM CDT 10 mg Given 01/17/2025 9:59 AM CDT 10 mg calcium as CARBONATE (TUMS) 500 mg (200 mg elemental) chewable tablet 400 mg 400 mg, Oral, EVERY 6 HOURS PRN, 2 doses, Starting on Thu01/10/25 at 2231, Until Thu01/19/25 at 1249, Dyspepsia, Routine clindamycin (CLEOCIN) 600 mg in dextrose 5% 50 mL IVPB 600 mg, IV, ONE TIME ONLY, 1 dose, On Thu01/13/25 at 1415, Routine, IntraProcedure (IR), Antibiotic Indication: Surgical prophylaxis New Bag 01/13/2025 2:20 PM CDT 600 mg 100 mL/hr dextrose 5 % - sodium chloride 0.9 % infusion IV, at 40 mL/hr, SEE ADMIN INSTRUCTIONS, Starting on Thu01/10/25 at 2233, Until Thu01/19/25 at 1249, Routine New Bag 01/15/2025 3:35 PM CDT 40 mL/hr New Bag 01/14/2025 4:21 PM CDT 40 mL/hr Bag Switched 01/13/2025 5:43 PM CDT 40 mL/hr dextrose 5 % in water 250 mL flush bag 25 mL 25 mL, IV, SEE ADMIN INSTRUCTIONS, Starting on Thu01/10/25 at 2231, Until Thu01/19/25 at 1249, Routine dextrose 50% (D50) syringe 12.5 Gram 12.5 Gram, IV, SEE ADMIN INSTRUCTIONS, Starting on Thu01/10/25 at 2233, Until Arlen 01/19/25 at 1249, Routine dextrose 50% (D50) syringe 25 Gram 25 Gram, IV, SEE ADMIN INSTRUCTIONS, Starting on Thu01/10/25 at 2233, Until Thu01/19/25 at 1249, Routine enoxaparin (LOVENOX) injection 40 mg 40 mg, subCUT, EVERY 24 HOURS, First dose on Thu01/11/25 at 0615, Until Discontinued, Routine, Indication: Prophylaxis of VTE, Dose to be adjusted per facility protocol? Yes Given 01/19/2025 4:47 AM CDT 40 mg Abdom inal Tissue Given 01/18/2025 5:32 AM CDT 40 mg Ab domen, Right Lower Quadrant Given 01/12/2025 5:33 AM CDT 40 mg Ab domen, Left Lower Quadrant fat emulsion 20% (CLINOLIPID) 50 Gram infusion 250 mL 50 Gram, IV, at 20.83 mL/hr, EVERY 24 HOURS, First dose (after last modification) on Thu01/15/25 at 2300, Until Discontinued New Bag 01/16/2025 5:42 PM CDT 50 Grams 20.83 mL/hr New Bag 01/16/2025 12:58 AM CDT 50 Grams 20.83 mL/hr fentaNYL PF (SUBLIMAZE) 50 mcg/mL injection 25 mcg 25 mcg, IV, INTRA-PROCEDURE ONCE, 1 dose, Starting on Thu01/13/25 at 1458, Until Thu01/13/25 at 1420, Routine Given 01/13/2025 2:20 PM CDT 25 mcg glucagon HCL 1 mg/mL injection 1 mg 1 mg, IM, SEE ADMIN INSTRUCTIONS, Starting on Thu01/10/25 at 2233, Until Thu01/19/25 at 1249, Routine glucagon HCL 1 mg/mL injection 1 mg 1 mg, IV, INTRA-PROCEDURE ONCE, 1 dose, Starting on Thu01/13/25 at 1409, Until Thu01/13/25 at 1444, RoutineIndications:For PEG tube placement Given 01/13/2025 2:44 PM CDT 1 mg HYDROcodone-acetaminophen (NORCO) 5-325 mg per tablet 1 Tablet 1 Tablet, Oral, EVERY 8 HOURS PRN, Starting on Thu01/19/25 at 0753, Until Thu01/19/25 at 1249, Pain (See admin instructions), Routine HYDROmorphone (PF) (DILAUDID) injection 0.5 mg 0.5 mg, IV, POST-PROCEDURE Q 5 MINUTES PRN, 5 doses, Starting on Thu01/16/25 at 1443, Until Thu01/16/25 at 1638, Pain, Pain, Moderate, VAS >5, Routine, PACU Given 01/16/2025 4:21 PM CDT 0.5 mg Given 01/16/2025 4:16 PM CDT 0.5 mg iopamidoL (ISOVUE-300) 61% injection (drawn from multi-use bulk pack) 75 mL 75 mL, IV, INTRA-PROCEDURE ONCE, 1 dose, Starting on Thu01/13/25 at 0934, Until Thu01/13/25 at 1010, Routine Contrast Given 01/13/2025 10:10 AM CDT 75 mL levothyroxine (SYNTHROID) tablet 137 mcg 137 mcg, Oral, DAILY EARLY, First dose on Thu01/11/25 at 0745, Until Discontinued, Routine Given 01/19/2025 4:47 AM CDT 137 mcg Given 01/18/2025 5:32 AM CDT 137 mcg Given 01/11/2025 7:56 AM CDT 137 mcg LORazepam (ATIVAN) 2 mg/mL injection 0.5 mg 0.5 mg, IV, EVERY 12 HOURS PRN, Starting on Arlen 01/12/25 at 1830, Until Arlen 01/19/25 at 1249, Anxiety, Routine Given 01/15/2025 9:10 PM CDT 0.5 mg Given 01/15/2025 2:27 AM CDT 0.5 mg Given 01/14/2025 2:00 PM CDT 0.5 mg magnesium SULFATE in water 2 gram/50 mL (4 %) IVPB 2 Gram 2 Gram, IV, ONE TIME ONLY, 1 dose, On 01/14/25 at 1600, Routine New Bag 01/14/2025 4:20 PM CDT 2 Grams 25 mL/hr midazolam (PF) (VERSED) injection 1 mg 1 mg, IV, INTRA-PROCEDURE ONCE, 1 dose, Starting on Thu01/13/25 at 1458, Until Thu01/13/25 at 1420, Routine Given 01/13/2025 2:20 PM CDT 1 mg morphine 4 mg/mL injection 2 mg 2 mg, IV, EVERY 4 HOURS PRN, 2 doses, Starting on Thu01/10/25 at 2231, Until Thu01/11/25 at 0751, Pain (See admin instructions), Routine Given 01/11/2025 7:51 AM CDT 2 mg Given 01/10/2025 11:51 PM CDT 2 mg morphine 4 mg/mL injection 2 mg 2 mg, IV, EVERY 4 HOURS PRN, 2 doses, Starting on Thu01/11/25 at 1548, Until Thu01/11/25 at 2118, Pain (See admin instructions), Routine Given 01/11/2025 9:18 PM CDT 2 mg Given 01/11/2025 5:01 PM CDT 2 mg morphine 4 mg/mL injection 2 mg 2 mg, IV, EVERY 4 HOURS PRN, Starting on Thu01/12/25 at 1015, Until Thu01/19/25 at 0753, Pain (See admin instructions), Routine Given 01/18/2025 10:56 PM CDT 2 mg Given 01/18/2025 6:27 PM CDT 2 mg Given 01/18/2025 10:55 AM CDT 2 mg naloxone (NARCAN) 0.4 mg/mL injection 0.1-0.4 mg 0.1-0.4 mg, IV, SEE ADMIN INSTRUCTIONS, Starting on Thu01/10/25 at 2231, Until Thu01/19/25 at 1249, Routine nicotine (NICODERM CQ) 14 mg/24 hr transdermal patch 1 Patch 1 Patch, Transdermal, DAILY, First dose on Thu01/12/25 at 1200, Until Discontinued, Routine Applied 01/19/2025 10:22 AM CDT 1 Patch Abdomen, Left Lower Quadrant Applied 01/18/2025 10:36 AM CDT 1 Patch A rm, Right Applied 01/17/2025 10:00 AM CDT 1 Patch B ack, Left ondansetron (ZOFRAN) 4 mg/2 mL injection 4 mg 4 mg, IV, EVERY 6 HOURS PRN, Starting on Thu01/10/25 at 2231, Until Thu01/19/25 at 1249, Nausea/Emesis, Routine Feeding Started 01/19/2025 9:47 AM CDT 4 mg Given 01/16/2025 3:46 PM CDT 4 mg Given 01/16/2025 8:48 AM CDT 4 mg ondansetron (ZOFRAN) 4 mg/2 mL injection 4 mg 4 mg, IV, POST-PROCEDURE ONCE PRN, 1 dose, Starting on Thu01/16/25 at 1443, Until Thu01/16/25 at 1621, Nausea/Emesis, Routine, PACU Given 01/16/2025 4:21 PM CDT 4 mg pantoprazole (PROTONIX) 40 mg in sodium chloride 0.9% 10 mL injection 40 mg, IV, TWO TIMES DAILY, First dose on Thu01/11/25 at 0900, Until Discontinued, Routine, For vial+diluent: 10 mL NS is needed to reconstitute pantoprazole vial. For doses less than 40 mg Epic may default less than 10 mL NS. Pharmacist to change NS dispense amount to 10 mL., Indication: Erosive esophagitis Given 01/19/2025 10:21 AM CDT 40 mg Given 01/18/2025 8:26 PM CDT 40 mg Given 01/18/2025 10:38 AM CDT 40 mg potassium CHLORIDE 40 mEq in sodium chloride 0.9 % 250 mL IVPB 40 mEq, IV, EVERY 4 HOURS, 2 doses, First dose on Thu01/14/25 at 1800, Last dose on Thu01/14/25 at 2200, at 76.25 mL/hr, Administer over 4 Hours, Routine, -- DO NOT use this record to make a fluid order; instead use [id number] POTASSIUM CHLORIDE CUSTOM INFUSION (RX MIX) -- New Bag 01/14/2025 10:34 PM CDT 40 mEq 76.25 mL/hr New Bag 01/14/2025 6:04 PM CDT 40 mEq 76.25 mL/hr potassium CHLORIDE 40 mEq in sodium chloride 0.9 % 250 mL IVPB 40 mEq, IV, EVERY 4 HOURS, 2 doses, First dose on Thu01/15/25 at 1600, Last dose on Thu01/15/25 at 2000, at 76.25 mL/hr, Administer over 4 Hours, Routine, -- DO NOT use this record to make a fluid order; instead use [id number] POTASSIUM CHLORIDE CUSTOM INFUSION (RX MIX) -- New Bag 01/15/2025 9:10 PM CDT 40 mEq 76.25 mL/h r New Bag 01/15/2025 4:16 PM CDT 40 mEq 76.25 mL/hr potassium PHOSPHATE 15 mmol in sodium chloride 0.9 % 105 mL IVPB 15 mmol, IV, ONE TIME ONLY, 1 dose, On Thu01/15/25 at 1300, Routine New Bag 01/15/2025 1:18 PM CDT 15 mmol 40 mL/hr sertraline (ZOLOFT) tablet 100 mg 100 mg, Oral, DAILY, First dose on Thu01/11/25 at 0900, Until Discontinued, Routine Given 01/19/2025 10:21 AM CDT 100 mg Given 01/18/2025 10:36 AM CDT 100 mg Given 01/17/2025 9:59 AM CDT 100 mg sodium chloride 0.9 % flush bag 25 mL 25 mL, IV, SEE ADMIN INSTRUCTIONS, Starting on Thu01/10/25 at 2231, Until Thu01/19/25 at 1249, Routine sodium chloride 0.9 % infusion IV, at 75 mL/hr, CONTINUOUS, Starting on Thu01/10/25 at 2245, Until Thu01/11/25 at 2244, Routine Continue from Pre-Op 01/11/2025 1:54 PM CDT 300 mL/hr New Bag 01/10/2025 10:45 PM CDT 75 mL/hr sodium chloride flush injection 10 mL 10 mL, IV, EVERY 12 HOURS (BlD), First dose on Thu01/10/25 at 2245, Until Discontinued, Routine Given 01/19/2025 10:22 AM CDT 10 mL Given 01/18/2025 10:48 AM CDT 10 mL Given 01/17/2025 8:52 PM CDT 10 mL sodium chloride flush injection 10 mL 10 mL, IV, SEE ADMIN INSTRUCTIONS, Starting on Thu01/10/25 at 2231, Until Thu01/19/25 at 1249, Routine sodium chloride flush injection 20 mL 20 mL, IV, SEE ADMIN INSTRUCTIONS, Starting on Thu01/13/25 at 0934, Until Thu01/19/25 at 1249, Routine Given 01/13/2025 10:10 AM CDT 20 mL tetrabenazine (XENAZINE) tablet 25 mg PATIENT HOME MED 25 mg, Oral, TWO TIMES DAILY, First dose on Thu01/11/25 at 2100, Until Discontinued, Routine, Previous Med: tetrabenazine (XENAZINE) 25 mg Tablet - Orig Sig - Take 25 mg by mouth 2 times daily. Given 01/19/2025 10:21 AM CDT 25 mg Given 01/18/2025 10:44 AM CDT 25 mg Given 01/17/2025 8:58 PM CDT 25 mg traZODone (DESYREL) tablet 100 mg 100 mg, Oral, DAILY AT BEDTIME, First dose on Thu01/11/25 at 2100, Until Discontinued, Routine Given 01/18/2025 8:26 PM CDT 100 mg Given 01/17/2025 8:50 PM CDT 100 mg Given 01/14/2025 8:43 PM CDT 100 mg documented in this encounter Active and Recently Administered Medications Times are shown in CDT. Scheduled Medication Order 01/17/2025 01/18/2025 01/19/2025 amLODIPine (NORVASC) tablet 10 mg 10 mg, Oral, DAILY, First dose on Thu01/11/25 at 0900, Until Discontinued, Routine 0959 (Given - Provider: Santos Manuel, RN) 1037 (Given - Provider: Santos Manuel RN) 1021 (Given - Provider: Rajesh Loza RN) dextrose 5 % - sodium chloride 0.9 % infusion IV, at 40 mL/hr, SEE ADMIN INSTRUCTIONS, Starting on Thu01/10/25 at 2233, Until Thu01/19/25 at 1249, Routine dextrose 5 % in water 250 mL flush bag 25 mL 25 mL, IV, SEE ADMIN INSTRUCTIONS, Starting on Thu01/10/25 at 2231, Until Arlen 01/19/25 at 1249, Routine dextrose 50% (D50) syringe 12.5 Gram 12.5 Gram, IV, SEE ADMIN INSTRUCTIONS, Starting on Thu01/10/25 at 2233, Until Arlen 01/19/25 at 1249, Routine dextrose 50% (D50) syringe 25 Gram 25 Gram, IV, SEE ADMIN INSTRUCTIONS, Starting on Thu01/10/25 at 2233, Until Thu01/19/25 at 1249, Routine dicyclomine (BENTYL) injection 20 mg 20 mg, IM, ONE TIME ONLY, 1 dose, On Thu01/19/25 at 0845, Routine 0845 (Due) enoxaparin (LOVENOX) injection 40 mg 40 mg, subCUT, EVERY 24 HOURS, First dose on Thu01/11/25 at 0615, Until Discontinued, Routine, Indication: Prophylaxis of VTE, Dose to be adjusted per facility protocol? Yes 0615 (Automatically Held - Provider: Carson Briggs MD)1140 (Order Unhold - Provider: Carson Briggs MD) 0532 (Given - Provider: Lois Garcia RN) 0447 (Given - Provider: Camilla Montes, KEE)0615 (Canceled Entry - Provider: Camilla Montes RN) glucagon HCL 1 mg/mL injection 1 mg 1 mg, IM, SEE ADMIN INSTRUCTIONS, Starting on Thu01/10/25 at 2233, Until Thu01/19/25 at 1249, Routine hydrOXYzine HCL (ATARAX) tablet 50 mg 50 mg, Oral, ONE TIME ONLY, 1 dose, On Thu01/14/25 at 2345, Routine levothyroxine (SYNTHROID) tablet 137 mcg 137 mcg, Oral, DAILY EARLY, First dose on Thu01/11/25 at 0745, Until Discontinued, Routine 0600 (Refused - Provider: Yimi Bacon RN) 0532 (Given - Provider: Lois Garcia RN) 0447 (Given - Provider: Camilla Montes, KEE)0600 (Canceled Entry - Provider: Camilla Montes RN) lidocaine PF 1% (XYLOCAINE MPF) injection 15 mL 15 mL (150 mg), Infiltration, ONE TIME ONLY, 1 dose, On Thu01/13/25 at 1415, Routine, IntraProcedure (IR) naloxone (NARCAN) 0.4 mg/mL injection 0.1-0.4 mg 0.1-0.4 mg, IV, SEE ADMIN INSTRUCTIONS, Starting on Thu01/10/25 at 2231, Until Thu01/19/25 at 1249, Routine nicotine (NICODERM CQ) 14 mg/24 hr transdermal patch 1 Patch 1 Patch, Transdermal, DAILY, First dose on Thu01/12/25 at 1200, Until Discontinued, Routine 0850 (Removed - Provider: Santos Manuel RN)1000 (Applied - Provider: Santos Manuel RN) 1036 (Applied - Provider: Santos Manuel RN)1037 (Removed - Provider: Santos Manuel RN) 1021 (Removed - Provider: Rajesh Loza, KEE)1022 (Applied - Provider: Rajesh Loza, KEE)1023 (Removed - Provider: Rajesh Loza RN) pantoprazole (PROTONIX) 40 mg in sodium chloride 0.9% 10 mL injection 40 mg, IV, TWO TIMES DAILY, First dose on Thu01/11/25 at 0900, Until Discontinued, Routine, For vial+diluent: 10 mL NS is needed to reconstitute pantoprazole vial. For doses less than 40 mg Epic may default less than 10 mL NS. Pharmacist to change NS dispense amount to 10 mL., Indication: Erosive esophagitis 0837 (Given - Provider: Santos Manuel, KEE)2049 (Given - Provider: Lois Garcia RN) 1038 (Given - Provider: Santos Manuel RN)2025 (Given - Provider: Camilla Montes, KEE) 1021 (Given - Provider: Rajesh Loza, RN) sertraline (ZOLOFT) tablet 100 mg 100 mg, Oral, DAILY, First dose on Thu01/11/25 at 0900, Until Discontinued, Routine 0959 (Given - Provider: Santos Manuel RN) 1036 (Given - Provider: Santos Manuel, KEE) 1021 (Given - Provider: Rajesh Loza, KEE) sodium chloride 0.9 % flush bag 25 mL 25 mL, IV, SEE ADMIN INSTRUCTIONS, Starting on Thu01/10/25 at 2231, Until Thu01/19/25 at 1249, Routine sodium chloride flush injection 10 mL 10 mL, IV, EVERY 12 HOURS (BlD), First dose on Thu01/10/25 at 2245, Until Discontinued, Routine 1000 (Given - Provider: Santos Manuel RN)2051 (Given - Provider: Lois Garcia, KEE) 1048 (Given - Provider: Santos Manuel RN)2100 (Canceled Entry - Provider: Camilla Montes, KEE) 102 (Given - Provider: Rajesh Loza, KEE) sodium chloride flush injection 10 mL 10 mL, IV, SEE ADMIN INSTRUCTIONS, Starting on Thu01/10/25 at 2231, Until Thu01/19/25 at 1249, Routine sodium chloride flush injection 20 mL 20 mL, IV, SEE ADMIN INSTRUCTIONS, Starting on Thu01/13/25 at 0934, Until Thu01/19/25 at 1249, Routine tetrabenazine (XENAZINE) tablet 25 mg PATIENT HOME MED 25 mg, Oral, TWO TIMES DAILY, First dose on Thu01/11/25 at 2100, Until Discontinued, Routine, Previous Med: tetrabenazine (XENAZINE) 25 mg Tablet - Orig Sig - Take 25 mg by mouth 2 times daily. 1000 (Given - Provider: Santos Manuel RN)2057 (Given - Provider: Lois Garcia, KEE) 1044 (Given - Provider: Santos Manuel, KEE)2100 (Canceled Entry - Provider: Camilla Montes, KEE) 102 (Given - Provider: Rajesh Loza RN) traZODone (DESYREL) tablet 100 mg 100 mg, Oral, DAILY AT BEDTIME, First dose on Thu01/11/25 at 2100, Until Discontinued, Routine 2049 (Given - Provider: Lois Garcia RN) 2025 (Given - Provider: Camilla Montes RN) PRN Medication Order 01/17/2025 01/18/2025 01/19/2025 acetaminophen (TYLENOL) tablet 650 mg 650 mg, Oral, EVERY 6 HOURS PRN, Starting on Thu01/10/25 at 2231, Until Thu01/19/25 at 1249, Other (See Comment), See admin instructions, Routine albuterol sulfate 90 mcg/Actuation inhaler 2 Puff 2 Puff, Inhalation, EVERY 6 HOURS PRN RESPIRATORY, Starting on Thu01/11/25 at 0730, Until Thu01/19/25 at 1249, Shortness of Breath, Routine calcium as CARBONATE (TUMS) 500 mg (200 mg elemental) chewable tablet 400 mg 400 mg, Oral, EVERY 6 HOURS PRN, 2 doses, Starting on Thu01/10/25 at 2231, Until Thu01/19/25 at 1249, Dyspepsia, Routine HYDROcodone-acetaminop hen (NORCO) 5-325 mg per tablet 1 Tablet 1 Tablet, Oral, EVERY 8 HOURS PRN, Starting on Thu01/19/25 at 0753, Until Thu01/19/25 at 1249, Pain (See admin instructions), Routine LORazepam (ATIVAN) 2 mg/mL injection 0.5 mg 0.5 mg, IV, EVERY 12 HOURS PRN, Starting on Thu01/12/25 at 1830, Until Thu01/19/25 at 1249, Anxiety, Routine morphine 4 mg/mL injection 2 mg (CANCELED) 2 mg, IV, EVERY 4 HOURS PRN, Starting on Thu01/12/25 at 1015, Until Thu01/19/25 at 0753, Pain (See admin instructions), Routine 0343 (Given - Provider: Yimi Bacon RN)0837 (Given - Provider: Santos Manuel, RN)1219 (Given - Provider: Santos Manuel, RN)1644 (Given - Provider: Santos Manuel, KEE)2051 (Given - Provider: Lois Garcia, KEE) 1055 (Given - Provider: Santos Manuel, RN)1827 (Given - Provider: Rajesh Loza, KEE)2256 (Given - Provider: Camilla Montes RN) ondansetron (ZOFRAN) 4 mg/2 mL injection 4 mg 4 mg, IV, EVERY 6 HOURS PRN, Starting on Thu01/10/25 at 2231, Until Thu01/19/25 at 1249, Nausea/Emesis, Routine 0947 (Feeding Starte d - Provider: Rajesh Loza, KEE) documented in this encounter Additional Health Concerns Assessment Noted Time PHQ-9 Depression Total Score: 2 01/11/20 25 11:02 PM CDT documented as of this encounter
--- OUTSIDE RECORDS SUMMARY | 2025-01-19 03:00 | XMS_ITS ---
Author Organization [facility] Address [address] [place] [address] Care Team Providers Care Floor Associate Name Role Phone Brandon Sarkar Primary Care Provider REASON FOR VISIT admit Encounters Encounter Location Date Provider Diagnosis [facility] [address] [place] [address] 01/19/2025 Brandon Sarkar Plan Of Treatment No Information Progress Notes * JENA DUEÑASENDOB: (69 yo F)Acc No.[id number]:01/19/2025 Patient: Chrissy TOBY FLOWERS Provider: Chrissy Sarkar MD :1955 A ge:69 Y S ex:Female Date:01/19/2025 Address:[address] [facility] [id number] Subjective: * Chief Complaints: * A dmit * Electronic signature of Aidan Sarkar MD on 01/25/2025 at 09:07 PM CDT Sign off status: Pending * Provider: Chrissy Sarkar MD Date: 01/19/2025 Generated for Madelinei peyton/Chon/eTransmitting on: 01/25/2025 09:07 PM CDT
--- OUTSIDE RECORDS SUMMARY | 2025-01-20 03:20 | XMS_ITS ---
Author Organization [facility] Address [address] [place] [address] Care Team Providers Care Smog Technician Name Role Phone Branodn Sarkar Primary Care Provider [phone] REASON FOR VISIT Detention Rounds Encounters Encounter Location Date Provider Diagnosis [facility] [address] [facility] [place] [address] 01/20/2025 Brandon Sarkar Plan Of Treatment No Information Progress Notes * JENA DUEÑASENDOB: (69 yo F)Acc No.[id number]:01/20/2025 Patient: Chrissy TOBY FLOWERS Provider: Chrissy Sarkar MD :1955 A ge:69 Y S ex:Female Date:01/20/2025 Address[place] [facility] [place] Subjective: * Chief Complaints: * N ursing Home Rounds * Electronic signature of Aidan Sarkar MD on 01/25/2025 at 09:07 PM CDT Sign off status: Pending * Provider: Chrissy Sarkar MD Date: 01/20/2025 Generated for Santy todd/Chon/eTransmitting on: 01/25/2025 09:07 PM CDT
[2025-01-25 20:54] VITALS: BP 110/67; PULSE 99; RESP 16; TEMP 36.9; O2SAT 99; BMI 19.0
--- OUTSIDE RECORDS SUMMARY | 2025-01-25 21:07 | XMS_ITS | Clinical Summary ---
Author Organization [facility] Address [address] [place] [address] Phone Care Team Providers Care Ambulatory Nurse Name Role Phone Unavailable Primary Care Provider Unavailabl e Allergies Active Allergy Reactions Criticality Noted Date Comments Penicillins Anaphylaxis High 01/10/2025 'I don't know,my mother just told me I am allergic to it' Medications tetrabenazine (XENAZINE) 25 mg Tablet Take 25 mg by mouth 2 times daily. Active amLODIPine (NORVASC) 10 mg tablet Take 1 Tablet (10 mg) by mouth daily. 5 Active HYDROcodone-lakeisha taminophen (NORCO) 5-325 mg tabletIndicatio ns:Esophageal stenosis Take 1 Tablet by mouth every 8 hours as needed for Pain. Max Daily Amount: 3 Tablets 5 Active levothyroxine 137 mcg tablet Take 1 Tablet (137 mcg) by mouth daily in the morning. 5 Active sertraline (ZOLOFT) 100 mg tablet Take 1 Tablet (100 mg) by mouth daily. 5 Active traZODone (DESYREL) 100 mg tablet Take 1 Tablet (100 mg) by mouth daily at bedtime. 5 Active nicotine (NICODERM CQ) 14 mg/24 hr patch Apply 1 Patch to skin as directed daily. 5 Active dicyclomine (BENTYL) 10 mg capsule Take 1 Capsule (10 mg) by mouth 4 times daily. 5 Active ondansetron (ZOFRAN ODT) 4 mg Tablet, Rapid Dissolve Take 1 Tablet (4 mg) by mouth every 8 hours as needed for Nausea/Emesis . Dissolve tablet on top of tongue, then swallow with saliva. Active hydrOXYzine HCL (ATARAX) 50 mg tablet Take 1 Tablet (50 mg) by mouth one time only for 1 dose. 5 01/20/20 Active Problems Problem Noted Date Diagnosed Date Protein-calorie malnutrition, moderate Schizoaffective disorder 01/11/2025 COPD (chronic obstructive pulmonary disease) Tobacco use 01/11/2025 GERD (gastroesophageal reflux disease) Anxiety and depression 01/11/2025 Hypothyroidism 01/11/2025 Essential hypertension 01/11/2025 History of hepatitis C 01/11/2025 Esophageal stenosis 01/11/2025 Dysphagia 01/10/2025 Encounters Date Type Department Care Team Description 01/20/2025 Orders Only [facility] [address] [place] [address] Scanning, Provider 01/19/2025 Telephone [facility] Gastroenterology [address] [place] [address] Merlene Spencer, Needs Appointment 01/17/2025 External Device Data ST[facility] ABSTRACTION Provider, Abstract 01/17/2025 External Device Data [facility] ABSTRACTION Provider, Abstract 01/17/2025 External Device Data [place] ABSTRACTION Provider, Abstract 01/17/2025 Travel 01/16/2025 2:57 PM CDT Anesthesia Event [facility] Operating Room [address] [place] [address] Brian Nayak MD 01/16/2025 10:47 AM CDT - 01/16/2025 12:52 PM CDT Surgery [facility] Operating Room [address] [place] [address] Anastacio oWng MD GASTROSTOMY TUBE PLACEMENT ROBOTIC XI 01/16/2025 7:20 AM CDT - 01/16/2025 9:31 AM CDT Surgery [facility] Operating Room [address] [place] [phone] Sandy Anderson DO GASTROSTOMY TUBE PLACEMENT 01/12/2025 Telephone [facility] Gastroenterology - [place] [address] [place] [address] Merlene Spencer, Repeat EGD 01/11/2025 1:54 PM CDT Anesthesia Event [facility] Endoscopy [address] [place] [phone] Jeremy Diaz MD 01/11/2025 12:30 PM CDT - 01/11/2025 12:50 PM CDT Surgery [facility] Endoscopy [address] [place] [phone] Merlene Spencer, DO ESOPHAGOGASTRODUODENOSCOPY 01/10/2025 10:25 PM CDT - 01/19/2025 10:44 AM CDT Hospital Encounter [facility] Medical Telemetry [address] [place] [phone] Betty Christian MD Abbas, MD Brigitte Reid, MD Chau Yang, MD Charity Dysphagia Discharge Disposition: Assisted Fac(SNF) with Medicare Certification in Anticipation of Skilled Care from Last 3 Months Social History Tobacco Use Types Packs/Day Years Used Date Smoking Tobacco: Former Cigarettes 1 5.6 S tarted: 2020 Tobacco Cessation:Counseling Given: Not Answered Comments Unknown Sex and Gender Information Value Date Recorded Sex Assigned at Not on file Legal Sex Female 2:20 PM CDT Gender Identity Not on file Sexual Orientation Not on file Last Filed Vital Signs Vital Sign Reading [...] Mass Index 20.49 01/10/2025 11:31 PM CDT Plan of Treatment Upcoming Encounters Date Type Department Care Team (Latest Contact Info) Description 02/06/2025 12:30 PM CDT Office Visit [facility] General and Trauma Surgery-[address] [place] [address] Gin Klein NP [address] [facility] [address] [place] [address] 02/24/2025 2:20 PM CDT Hospital Encounter [facility] Endoscopy [address] [place] [address] Merlene Spencer, DO [address] [address] 02/24/2025 2:20 PM CDT - 02/24/2025 2:40 PM CDT Surgery [facility] Endoscopy [address] [place] [address] Merlene Spencer, DO [address] [address] ESOPHAGOGASTRODUODENOSCOPY Scheduled Procedures Name Priority Associated Diagnoses Date/Ti me ESOPHAGOGASTRODUODENOSCOPY EGD in 6 weeks for esophageal stricture- hospital only 02/24/2025 2:20 PM CDT Health Maintenance Due Date Last Done Comments DTAP/TDAP/TD VACCINES (1 - Tdap) 1973 PNEUMOCOCCAL VACCINE 50+ YEA RS (1 of 2 - PCV) 1973 Traditional Medicare (ACO) A nnual Wellness Visit 1973 BREAST CANCER SCREENING 1994 COLORECTAL SCREENING 1999 Colorectal Cancer Screening 1999 FIT-DNA Q 3 years 1999 FIT/FOBT Q 1 year 1999 Flex Sig/CT Colonography Q 5 years 1999 ZOSTER VACCINE (1 of 2) 02/27/2004 RSV VACCINE (60+ or ) (1 - Risk 60-74 years 1-dose series) 2014 OSTEOPOROSIS SCREENING 2019 COVID-19 Vaccine (5 - 2023-2 5 season) 2024 08/17/2023, 04/15/2021, 09/26/2020, Additional history exists INFLUENZA VACCINE (#1) 2025 Goals Goal Patient Goal Type Associated Problems Recent Progress Patient-Stated? Author Autogenerat ed Goal Care Plan Autogenerated Problem No Mindy Jorgensen LPN Medical Devices Implanted Type Area Shaper Machine Hand Device Identifier Shelf Expiration Date Model / Serial / Lot Tube Feeding Jah Gastro 20fr 0100-20 - [id number] Implanted:Qty: 1 on 01/16/2025 by Anastacio Wong MD at [facility] Feeding Device N/A: Abdomen [employer] HAL[employer]ARD 11/16/2027 0100-20 / / [id number] Procedures Procedure Name Priority Date/Time Associated Diagnosis [...] AND SCREEN Routine 01/16/2025 3:35 PM CDT ND ANES INSERT ENDOTRACHEAL AIRWAY Routine 01/16/2025 3:20 PM CDT GASTROJEJUNOSTOMY ROBOTIC XI 10:47 AM CDT VERIFICATION BLOOD GROUP Routine 025 7:30 AM CDT MAGNESIUM LEVEL Routine 01/16/2025 4:38 AM CDT BASIC METABOLIC PANEL Timed Study 01/16/2025 4:38 AM CDT PHOSPHORUS Routine 01/16/2025 4:38 AM CDT POC GLUCOSE Routine 01/15/2025 9:14 PM CDT POC GLUCOSE Routine 01/15/2025 12:06 PM CDT COMPREHENSIVE METABOLIC PANEL Stat 10:44 AM CDT CBC WITH DIFFERENTIAL Routine 01/15/2025 10:44 AM CDT TRIGLYCERIDE Routine 01/15/2025 10:44 AM CDT PHOSPHORUS Routine 01/15/2025 10:44 AM CDT MAGNESIUM LEVEL Routine 01/15/2025 10:44 AM CDT POC GLUCOSE Routine 01/15/2025 7:34 AM CDT POC GLUCOSE Routine 01/15/2025 3:01 AM CDT POC GLUCOSE Routine 01/14/2025 8:51 PM CDT POC GLUCOSE Routine 01/14/2025 6:05 PM CDT COMPREHENSIVE METABOLIC PANEL Stat 1:53 PM CDT TRIGLYCERIDE Routine 01/14/2025 1:53 PM CDT MAGNESIUM LEVEL Routine 01/14/2025 1:53 PM CDT PHOSPHORUS Routine 01/14/2025 1:53 PM CDT POC GLUCOSE Routine 01/14/2025 [...] POC GLUCOSE Routine 01/11/2025 6:17 AM CDT BASIC METABOLIC PANEL Routine 01/11/2025 1:48 AM CDT CBC WITH DIFFERENTIAL Routine 01/11/2025 1:48 AM CDT COMPREHENSIVE METABOLIC PANEL Routine 12:07 PM CDT COMPREHENSIVE METABOLIC PANEL Routine 12:09 PM CDT BASIC METABOLIC PANEL Routine 01/08/2025 12:11 PM CDT BASIC METABOLIC PANEL Routine 01/08/2025 12:10 PM CDT BASIC METABOLIC PANEL Routine 01/07/2025 12:13 PM CDT BASIC METABOLIC PANEL Routine 01/07/2025 12:12 PM CDT BASIC METABOLIC PANEL Routine 01/07/2025 12:11 PM CDT COMPREHENSIVE METABOLIC PANEL Routine 12:14 PM CDT COMPREHENSIVE METABOLIC PANEL Routine 12:06 PM CDT from Last 3 Months Results * TELEMETRY REPORT (01/20/2025 2:28 AM CDT) Provider Scanning ECG ORDERABLES Final Result * (ABNORMAL) POC GLUCOSE (01/19/2025 7:43 AM CDT) Only the most recent of29 resultswithin the time period is included. GLUCOSE POC 116(H) 74 - 99 mg/dL 01/19/2025 7:43 AM CDT [facility] SPECIMEN SOURCE, GLUCOSE POC Capillary 01/19/2025 7:43 AM CDT [facility] Blood, whole 01/19/2025 7:43 AM CDT 01/19/2025 8:17 AM CDT Charity Ritchie MD POINT OF CARE TESTING Final Res ult Performing Organization Address [facility]/ZIP Co de Phone Number [facility] CLIA # [id number] [address] [address] * PHOSPHORUS (01/17/2025 12:49 PM CDT) Only the most recent of4 resultswithin the time period is included. Pathologist [facility] PHOSPHORUS 3.0 2.5 - 4.5 mg/dL 01/17/2025 1:55 PM CDT [facility] Blood Venipuncture / Unknown 01/17/2025 12:49 PM CDT 01/17/2025 1:23 PM CDT Carson Briggs MD CHEMISTRY ORDERABLES Final Result Performing Organization Address City/[facility]/ZIP Co de Phone Number [facility] CLIA # [id number] [address] [address] [place], [place] [address] * MAGNESIUM LEVEL (01/17/2025 12:49 PM CDT) Only the most recent of4 resultswithin the time period is included. Pathologist [facility] MAGNESIUM 1.6 1.6 - 2.4 mg/dL 01/17/2025 1:55 PM CDT [facility] Blood Venipuncture / Unknown 01/17/2025 12:49 PM CDT 01/17/2025 1:23 PM CDT Carson Briggs MD CHEMISTRY ORDERABLES Final Result Performing Organization Address [facility]/ZIP Co de Phone Number [facility] CLIA # [id number] [facility] [address] * TYPE AND SCREEN (01/16/2025 3:35 PM CDT) Pathologist [facility] ABO GROUP O 01/16/2025 4:38 PM CDT [facility] [place] RH (D) TYPE Positive 01/16/2025 4:38 PM CDT [facility] ANTIBODY SCREEN Negative 01/16/2025 4:38 PM CDT [facility] [place] Blood BLOOD SPECIMEN / Unknown Venipuncture / Unknown 01/16/2025 3:35 PM CDT 01/16/2025 3:43 PM CDT Anastacio Wong MD BLOOD BANK ORDERABLES Rajan tom Result - Final Performing Organization Address City/[facility]/ZIP Co de Phone Number [facility] CLIA#[id number] [facility] [place] [address], * ND ANES INSERT ENDOTRACHEAL AIRWAY (01/16/2025 3:20 PM CDT) Narrative Magdalene Zamudio CRNA - 01/16/2025 3:20 PM CDT Magdalene Zamudio CRNA 01/16/2025 3:20 PM Airway Date/Time: 01/16/2025 3:20 PM Location: OR Plan: elective intubation Patient Identity Confirmed by: Verbally with patient and armband Airway: not difficult Staffing Performed: BRAKE DRUM LATHE OPERATOR/CAA Authorized by: Brian Nayak MD Performed by: Magdalene Zamudio CRNA Indications and Patient Condition: Indications for Airway Management: Anesthesia Sedation Level: general anesthesia Preoxygenated: yes Patient position: neutral neck. Mask Difficulty Assessment: 1 - vent by mask Plan to extubate at end of case: Yes Final Airway Details: Final Airway Type: Endotracheal airway ETT Cuffed: Yes Cuff Volume (mL): 10 Technique Used for Successful ETT Placement: Direct laryngoscopy Devices/Methods Used in Placement: Intubating stylet Blade Type: curved blade Blade Size: 3 Insertion Site: Oral ETT Size (mm): 7.0 Measured from: Lips ETT to Lips (cm): 21 Tube secured with: Tape Placement Verified by: auscultation, end tidal CO2 and chest rise Cormack-Lehane Classification: Grade I - full view of glottis Number of Attempts at Approach: 1 Additional Procedure Information: atraumatic and dentition unchanged Brian Nayak MD PROCEDURE/MINOR SURGICAL ORD ERABLES Final Result * VERIFICATION BLOOD GROUP (01/16/2025 7:30 AM CDT) ABO GROUP O 01/16/2025 4:31 PM CDT [facility] [place] RH (D) TYPE Positive 01/16/2025 4:31 PM CDT [facility] [place] Blood BLOOD SPECIMEN / Unknown Venipuncture / Unknown 01/16/2025 7:30 AM CDT 01/16/2025 3:43 PM CDT Anastacio Wong MD BLOOD BANK ORDERABLES Fin al Result [facility] [place] CLIA#[id number] [address] [place] [address], [place] [phone] * (ABNORMAL) BASIC METABOLIC PANEL (01/16/2025 4:38 AM CDT) Only the most recent of7 resultswithin the time period is included. SODIUM 140 136 - 145 mmol/L 01/16/2025 5:29 AM T [facility] POTASSIUM 4.1 3.5 - 5.1 mmol/L 01/16/2025 5:29 AM T [facility] CHLORIDE 114(H) 98 - 107 mmol/L 01/16/2025 5:29 AM T [facility] CO2 17(L) 22 - 29 mmol/L 01/16/2025 5:29 AM [facility] CALCIUM 8.3(L) 8.8 - 10.2 mg/dL 01/16/2025 5:29 AM T [facility] BUN 3(L) 8 - 23 mg/dL 01/16/2025 5:29 AM [facility] CREATININE 0.76 0.51 - 0.95 mg/dL 01/16/2025 5:29 AM T [facility] Comment:The GFR result is no t clinically significant on patients <18 or >70 years of age. GLUCOSE 103(H) 74 - 99 mg/dL 01/16/2025 5:29 AM [facility] GFR >60 mL/min/1.7 3 sq meter 01/16/2025 5:29 AM [facility] Comment:eGFR calculated with 2020 CKD-EPI equation. Vegetarian diet, extremely high or low muscle mass, and may affect results. Cystatin C with Glomerular Filtration Rate is a suitable alternative for these patients. ANION GAP 9 9 - 20 mmol/L 01/16/2025 5:29 AM [facility] Blood Venipuncture / Unknown 01/16/2025 4:38 AM CDT 01/16/2025 4:50 AM CDT Anastacio Wong MD CHEMISTRY ORDERABLES Diana l Result [facility] CLIA # [id number] [address] [address] [place] [address] * (ABNORMAL) CBC WITH DIFFERENTIAL (01/15/2025 10:44 AM CDT) Only the most recent of2 resultswithin the time period is included. [facility] WBC 4.4(L) 4.8 - 10.8 K/uL 01/15/2025 11:40 AM [facility] RBC 3.04(L) 4.20 - 5.40 M/uL 01/15/2025 11:40 AM [facility] HEMOGLOBIN 7.7(L) 12.0 - 16.0 g/dL 01/15/2025 11:40 AM [facility] HEMATOCRIT 25.0(L) 36.0 - 46.0 % 01/15/2025 11:40 AM [facility] MCV 82.2(L) 84.0 - 103.0 fL 01/15/2025 11:40 AM [facility] MCH 25.3(L) 27.0 - 34.0 pg 01/15/2025 11:40 AM [facility] MCHC 30.8 30.0 - 35.0 g/dL 01/15/2025 11:40 AM [facility] PLATELETS 322 140 - 440 K/uL 01/15/2025 11:40 AM [facility] MPV 10.2 8.9 - 12.8 fL 01/15/2025 11:40 AM [facility] RDW 19.6(H) 11.0 - 14.5 % 01/15/2025 11:40 AM [facility] RDW-STDEV 56.9(H) 37.0 - 54.0 fL 01/15/2025 11:40 AM [facility] NEUTROPHILS 65 42 - 75 % 01/15/2025 11:40 AM [facility] LYMPHOCYTES 26 24 - 44 % 01/15/2025 11:40 AM CDT [facility] MONOCYTES 8 2 - 10 % 01/15/2025 11:40 AM CDT [facility] EOSINOPHILS 0 0 - 7 % 01/15/2025 11:40 AM CDT [facility] BASOPHILS 1 0 - 1 % 01/15/2025 11:40 AM CDT [facility] IMMATURE GRANULOCYTES 1 0 - 2 % 01/15/2025 11:40 AM CDT [facility] NEUTROPHIL ABSOLUTE 2.85 2.00 - 8.00 K/uL 01/15/2025 11:40 AM CDT [facility] LYMPHOCYTE ABSOLUTE 1.16(L) 1.20 - 4.00 K/uL 01/15/2025 11:40 AM CDT [facility] MONOCYTE ABSOLUTE 0.34 0.10 - 0.60 K/uL 01/15/2025 11:40 AM CDT [facility] EOSINOPHIL ABSOLUTE 0.01 0.00 - 0.70 K/uL 01/15/2025 11:40 AM CDT [facility] BASOPHILS ABSOLUTE 0.03 0.00 - 0.20 K/uL 01/15/2025 11:40 AM CDT [facility] IMMATURE GRANULOCYTES ABSOLUTE 0.03 0.00 - 0.10 K/uL 01/15/2025 11:40 AM CDT [facility] SMEAR REVIEWED: NN - No Action Needed 01/15/2025 11:40 AM T [facility] Blood Venipuncture / Unknown 01/15/2025 10:44 AM CDT 01/15/2025 11:32 AM CDT us Carson Briggs MD HEMATOLOGY ORDERABLES Diana rae Result [facility] CLIA # [id number] [address] [address] [place] [address] * TRIGLYCERIDE (01/15/2025 10:44 AM CDT) Only the most recent of2 resultswithin the time period is included. TRIGLYCERIDE 144 <150 mg/dL 01/15/2025 12:05 PM [facility] Blood Venipuncture / Unknown 01/15/2025 10:44 AM CDT 01/15/2025 11:32 AM CDT Narrative [facility] - 01/15/2025 12:05 PM CDT TRIGLYCERIDES mg/dL Normal < 150 Borderline High 150 - 199 High 200 - 499 Very High >= 500 Based on AHA/NCEP Guidelines. Carson Briggs MD CHEMISTRY ORDERABLES Final Result [facility] CLIA # [id number] [facility] [address] * (ABNORMAL) COMPREHENSIVE METABOLIC PANEL (01/15/2025 10:44 AM CDT) Only the most recent of6 resultswithin the time period is included. Pathologist [facility] SODIUM 142 136 - 145 mmol/L 01/15/2025 12:05 PM [facility] POTASSIUM 3.3(L) 3.5 - 5.1 mmol/L 01/15/2025 12:05 PM [facility] CHLORIDE 116(H) 98 - 107 mmol/L 01/15/2025 12:05 PM [facility] CO2 15(L) 22 - 29 mmol/L 01/15/2025 12:05 PM [facility] CALCIUM 8.1(L) 8.8 - 10.2 mg/dL 01/15/2025 12:05 PM [facility] BUN 3(L) 8 - 23 mg/dL 01/15/2025 12:05 PM [facility] CREATININE 0.83 0.51 - 0.95 mg/dL 01/15/2025 12:05 PM [facility] Comment:The GFR result is no t clinically significant on patients <18 or >70 years of age. GLUCOSE 98 74 - 99 mg/dL 01/15/2025 12:05 PM T [facility] TOTAL PROTEIN 5.9(L) 6.4 - 8.3 g/dL 01/15/2025 12:05 PM T [facility] ALBUMIN 2.9(L) 3.5 - 5.2 g/dL 01/15/2025 12:05 PM T [facility] BILIRUBIN TOTAL 0.2 0.0 - 1.0 mg/dL 01/15/2025 12:05 PM CDT [facility] ALKALINE PHOSPHATASE 67 35 - 104 U/L 01/15/2025 12:05 PM T [facility] AST 14 10 - 35 U/L 01/15/2025 12:05 PM T [facility] ALT 7 <=35 U/L 01/15/2025 12:05 PM T [facility] GFR >60 mL/min/1.7 3 sq meter 01/15/2025 12:05 PM T [facility] Comment:eGFR calculated with 2020 CKD-EPI equation. Vegetarian diet, extremely high or low muscle mass, and may affect results. Cystatin C with Glomerular Filtration Rate is a suitable alternative for these patients. ANION GAP 11 9 - 20 mmol/L 01/15/2025 12:05 PM CDT [facility] Blood Venipuncture / Unknown 01/15/2025 10:44 AM CDT 01/15/2025 11:32 AM CDT us Carson Briggs MD CHEMISTRY ORDERABLES Final Result [facility] CLIA # [id number] [address] [place] [address] * IR TUBE PLACEMENT (01/13/2025 2:48 PM [...] moderate sedation under my supervision. The 4 Belarusian multipurpose catheter was advanced from the nose [...] moderate sedation under my supervision. The 4 Belarusian multipurpose catheter was advanced from the nose [...] I was present for the entire procedure. us Carson Briggs MD IR ORDERABLES Final Resu lt * CT ABDOMEN PELVIS W CONTRAST (01/13/2025 [...] lumbar spine as described of uncertain age. us Carson Briggs MD CT ORDERABLES Final Resu lt * PROTIME-INR (01/13/2025 4:29 AM CDT) PROTIME 14.0 12.7 - 14.9 Seconds 01/13/2025 5:38 AM CDT [facility] [employer] [facility] INR 1.0 0.8 - 1.2 01/13/2025 5:38 AM CDT [facility] [employer] [facility] Blood Venipuncture / Unknown 01/13/2025 4:29 AM CDT 01/13/2025 5:23 AM CDT [facility] [employer] [facility] - 01/13/2025 5:38 AM CDT Expected Values for INR: DVT/PE Goal INR 2.5; range 2.0 - 3.0 Valve Replacement Tissue Goal INR 2.5; range 2.0 - 3.0 Valve Replacement Mechanical Goal INR 3.0; range 2.5 - 3.5 POST-WA Goal INR 2.5; range 2.0 - 3.0 or Goal INR 3.0; range 2.5 - 3.5 Atrial Fibrillation Goal INR 2.5; range 2.0 - 3.0 Ischemic Stroke Goal INR 2.5; range 2.0 - 3.0 Carson Briggs MD HEMATOLOGY ORDERABLES Diana rae Result [facility] # [id number] [address] [address] * INSERT PERIPHERAL IV (01/12/2025 9:00 PM CDT) Narrative Barry Moore RN - 01/12/2025 9:00 PM CDT Barry Moore RN 01/12/2025 9:09 PM VASCULAR ACCESS TEAM Peripheral IV insertion PATIENT NAME: Gilda Hodge DATE OF : 1955 CSN: [id number] DATE: 01/12/2025 Room: [address] [place] [address] Admit Date: 01/10/2025 Hospital day: LOS: 2 [...] flowsheet Patient tolerated well. Barry Moore RN Dennis Levine MD IV THERAPY ORDERABLES F inal Result * UPPER ENDOSCOPY REPORT (01/11/2025 2:31 PM CDT) Narrative Procedure Note Merlene Spencer DO - 01/11/2025 2:31 PM CDT [facility] GI Patient Name: Gilda Hodge Procedure [...] This is a 69 year old female. [address] [place], [place] Merlene Garibay DO GI PROCEDURE ORDERABLE S Final Result from Last 3 Months Additional Health Concerns Active Problems Noted Date Diagnosed Date Autogenerated Problem 01/19/2025 Insurance MEDICAID [place] MEDICARE PART A AND B Advance Directives For more information, please contact: [phone] * NO CPR (In Event of Cardiopulmonary Arrest) (Latest Code Status on File) Date Activated Date Inactivated Comments 01/11/2025 2:57 AM 01/19/2025 12:54 PM Question Answer Comments Mechanical Ventilation (for respiratory distress) - Invasive (i.e. intubation): No Mechanical Ventilation (for respiratory distress) - Non-Invasive (i.e. BiPAP, CPAP): Yes * Full Code Date Activated Date Inactivated Comments 01/10/2025 10:32 PM 01/11/2025 2:57 AM
--- OUTSIDE RECORDS SUMMARY | 2025-01-25 21:07 | XMS_ITS | Encounter Summary ---
Author Organization [facility] Address [address] [place] [address] Care Team Providers Care Senior Test Engineer Name Role Phone Unavailable Primary Care Provider Unavailabl e Reason for Visit * Reason Onset Date Comments Repeat EGD 01/12/2025 Encounter Details Date Type Department Care Team (Late st Contact Info) Description 01/12/2025 Telephone [facility] Gastroenterology- [place] [facility] [facility] [address] [place] [address] Merlene Spencer [address] [facility] [address] [place] [address] Repeat EGD Social History Tobacco Use Types Packs/Day Years Used Date Smoking Tobacco: Never Assessed Comments Unknown Sex and Gender Information Value Date Recorded Sex Assigned at Not on file Legal Sex Female 2:20 PM CDT Gender Identity Not on file Sexual Orientation Not on file documented as of this encounter Miscellaneous Notes * Telephone Encounter - Jose Pickett RN - 01/12/2025 11:29 AM CDT 01/18/2025- PT still in hospital to be discharged to Facility. Pt does not have spouse or kids. Planaccording to notes was to be discharged 01/16 but had a gastrostomy tube placed that day instead andis still admitted. Due to patients continued medical issues and current admission, We will call when she is out of hosp. - LA Grade D esophagitis with no bleeding. - Benign-appearing esophageal stenosis, severe. ----- Message from Nurse Jose Pickett sent at 01/12/2025 11:26 AM CDT ----- Regarding: FW: repeat EGD Still in hosp ----- Message ----- From: Brian Brand PA Sent: 01/11/2025 2:19 PM CDT To: Ada Tejeda CMA; [facility] Gastroenterolog# Subject: repeat EGD Repeat EGD and attempt at dilation in 6 weeks documented in this encounter Plan of Treatment Upcoming Encounters Date Type Department Care Team (Latest Contact Info) Description 02/06/2025 12:30 PM CDT Office Visit [facility] General and Trauma Surgery[address] [address] Gin Klein NP [address] [place] [address] 02/24/2025 2:20 PM CDT Hospital Encounter [facility] Endoscopy [address] [place] [address] Merlene Spencer, DO [address] [address] 02/24/2025 2:20 PM CDT - 02/24/2025 2:40 PM CDT Surgery [facility] [address] [place] [address] Merlene Spencer, DO [address] [address] ESOPHAGOGASTRODUODENOSCOPY Scheduled Procedures Name Priority Associated Diagnoses Date/Ti sc ESOPHAGOGASTRODUODENOSCOPY EGD in 6 weeks for esophageal stricture- hospital only 02/24/2025 2:20 PM CDT documented as of this encounter Goals Goal Patient Goal Type Associated Problems Recent Progress Patient-Stated? Author Autogenerat ed Goal Care Plan Autogenerated Problem No Mindy Jorgensen, VOYAGE MANAGEMENT SYSTEM OPERATOR documented as of this encounter Visit Diagnoses Diagnosis Esophageal stenosis- Primary Stricture and stenosis of esophagus Esophagitis Esophagitis, unspecified documented in this encounter Additional Health Concerns Active Problems Noted Date Diagnosed Date Autogenerated Problem 01/19/2025 Assessment Noted Time PHQ-9 Depression Total Score: 2 01/11/20 25 11:02 PM CDT documented as of this encounter
--- OUTSIDE RECORDS SUMMARY | 2025-01-25 21:07 | XMS_ITS | Patient Health Record ---
Author Organization [facility] Address [address] [place] [address] Care Team Providers Care Quality Assurance Associate Name Role Phone Brandon Sarkar Primary [...] W/U Status Risk Notes Problem Wernicke's encephalopathy (92618885) Wernicke's encephalopathy (E51.2) Active confirmed Problem Alcohol abuse wi th intoxication, unspecified (F10.129) Active confirmed Problem Gastro-esophageal reflux disease without esophagitis (750143853) Gastro-esophageal reflux disease without esophagitis (K21.9) Active confirmed Problem COPD - Chronic obstructive pulmonary disease (73808074) Chronic obstructive pulmonary disease, unspecified COPD type (J44.9) Active confirmed Problem Chronic hepatitis C (643112336) Chronic hepatitis C without hepatic coma (B18.2) Active confirmed Problem Osteoarthritis (008297593) Osteoarthritis, unspecified osteoarthritis type, unspecified site (M19.90) Active confirmed Problem Hypothyroidism (13515783) Hypothyroidism, unspecified type (E03.9) Active confirmed Problem Tobacco user (694168854) Nicotine dependence, uncomplicated, unspecified nicotine product type (F17.200) Active confirmed Problem Insomnia (712614129) Insomnia, unspecified type (G47.00) Active confirmed Problem Anxiety state (170047282) Anxiety disorder, unspecified type (F41.9) Active confirmed Problem Schizoaffective disorder (83612755) Schizoaffective disorder, unspecified type (F25.9) Active confirmed Encounters Encounter Location Date Provider Diagnosis [facility] [address] [facility] [place] [address] 01/19/2025 Brandon Sarkar [facility] [address] [place] [facility] [address] [place] [address] 01/20/2025 Brandon Sarkar Plan Of Treatment No Information Insurance Providers Payer Name Payer Address Payer Phone Subscriber Number Group Number Insured Name Patient Relationship to Insured Coverage Start Date Coverage End Date [place] [address] [address] [place] [address] [id number] TOBY DUEÑAS Self - patient is the insured [place] [address] [place] [address] [id number] TOBY DUEÑAS Self - patient is the insured
--- OUTSIDE RECORDS SUMMARY | 2025-01-25 21:07 | XMS_ITS | Encounter Summary ---
Author Organization [facility] Address [address] [place] [address] Care Team Providers Care Jukebox Coin Collector Name Role Phone Unavailable Primary Care Provider Unavailabl e Encounter Details Date Type Department Care Team (Late st Contact Info) Description 01/17/2025 External Device Data [facility] ABSTRACTION Provider, Abstract NO ADDRESS ON FILE Social History Tobacco Use Types Packs/Day Years Used Date Smoking Tobacco: Former Cigarettes 1 5.6 S tarted: 2020 Comments Unknown Sex and Gender Information Value Date Recorded Sex Assigned at Not on file Legal Sex Female 2:20 PM CDT Gender Identity Not on file Sexual Orientation Not on file documented as of this encounter Plan of Treatment Upcoming Encounters Date Type Department Care Team (Latest Contact Info) Description 02/06/2025 12:30 PM CDT Office Visit [facility] General and Trauma Surgery-[address] [place] [address] Gin Klein, MCEHELLE [address] [facility] [address] [place] [address] 02/24/2025 2:20 PM CDT Hospital Encounter [facility] Endoscopy [address] [place] [address] Merlene Spencer DO [address] [facility] [address] [place] [address] 02/24/2025 2:20 PM CDT - 02/24/2025 2:40 PM CDT Surgery [facility] Endoscopy [address] [place] [address] Gustavo Spencerela, DO [address] [facility] [address] [address] ESOPHAGOGASTRODUODENOSCOPY Scheduled Procedures Name Priority Associated Diagnoses Date/Ti me ESOPHAGOGASTRODUODENOSCOPY EGD in 6 weeks for esophageal stricture- hospital only 02/24/2025 2:20 PM CDT documented as of this encounter Visit Diagnoses Not on filedocumented in this encounter Additional Health Concerns Assessment Noted Time PHQ-9 Depression Total Score: 2 01/11/20 25 11:02 PM CDT documented as of this encounter
--- OUTSIDE RECORDS SUMMARY | 2025-01-25 21:07 | XMS_ITS | Encounter Summary ---
Author Organization [facility] Address [address] [place] [address] Care Team Providers Care Substitute Nurse Name Role Phone Unavailable Primary Care Provider Unavailabl e Reason for Visit * Reason Onset Date Comments Needs Appointment 01/19/2025 Encounter Details Date Type Department Care Team (Late st Contact Info) Description 01/19/2025 Telephone [facility] Gastroenterology- [place] [address] [facility] [address] [place] [address] Merlene Spencer DO [address] [facility] [address] [place] [address] Needs Appointment Social History Tobacco Use Types Packs/Day Years Used Date Smoking Tobacco: Former Cigarettes 1 5.6 S tarted: 2020 Comments Unknown Sex and Gender Information Value Date Recorded Sex Assigned at Not on file Legal Sex Female 2:20 PM CDT Gender Identity Not on file Sexual Orientation Not on file documented as of this encounter Miscellaneous Notes * Telephone Encounter - Mindy Jorgensen LPN - 01/19/2025 11:37 AM CDT Scheduled 02/24/25, currently at [facility] [phone], letter faxed [phone] ----- Message from Nurse Mindy Jorgensen sent at 01/12/2025 3:38 PM CDT ----- Regarding: FW: Follow up post procedure ----- Message ----- From: Merlene Spencer DO Sent: 01/11/2025 2:36 PM CDT To: Ada Tejeda CMA Subject: Follow up post procedure Hi, Patient had procedure done today - EGD Follow up needed: 1. EGD in 6 weeks for esophageal stricture- hospital only Thank you! Dr. Patel documented in this encounter Plan of Treatment Upcoming Encounters Date Type Department Care Team (Latest Contact Info) Description 02/06/2025 12:30 PM CDT Office Visit [facility] General and Trauma Surgery-[address] [place] [address] Gin lKein NP [address] [place] [address] [address] [place] [address] 02/24/2025 2:20 PM CDT Hospital Encounter [facility] Endoscopy [address] [place] [address] NatalieMerlene Romo, DO [address] [facility] [address] [place] [address] 02/24/2025 2:20 PM CDT - 02/24/2025 2:40 PM CDT Surgery [facility] Endoscopy [address] [place] [address] NatalieGustavo Romoela, DO [address] [facility] [address] [place] [address] ESOPHAGOGASTRODUODENOSCOPY Scheduled Procedures Name Priority Associated Diagnoses Date/Ti ca ESOPHAGOGASTRODUODENOSCOPY EGD in 6 weeks for esophageal stricture- hospital only 02/24/2025 2:20 PM CDT documented as of this encounter Goals Goal Patient Goal Type Associated Problems Recent Progress Patient-Stated? Author Autogenerat ed Goal Care Plan Autogenerated Problem No Mindy Jorgensen LPN documented as of this encounter Visit Diagnoses Diagnosis Esophageal stenosis- Primary Stricture and stenosis of esophagus documented in this encounter Additional Health Concerns Active Problems Noted Date Diagnosed Date Autogenerated Problem 01/19/2025 Assessment Noted Time PHQ-9 Depression Total Score: 2 01/11/20 25 11:02 PM CDT documented as of this encounter
--- OUTSIDE RECORDS SUMMARY | 2025-01-25 21:07 | XMS_ITS | Encounter Summary ---
Author Organization [facility] Address [address] [place] [address] Care Team Providers Care Odd Shoe Examiner Name Role Phone Unavailable Primary Care Provider Unavailabl e Encounter Details Date Type Department Care Team (Late st Contact Info) Description 01/20/2025 Orders Only [facility] HIM [address] [place] [address] Scanning, Provider Social History Tobacco Use Types Packs/Day Years [...] CDT Office Visit [facility] General and Trauma Surgery-[address] [place] [address] Gin Klein, MECHELLE [address] [place] [address] [address] [place] [address] 02/24/2025 2:20 PM CDT Hospital Encounter [facility] Endoscopy [address] [place] [address] Merlene Spencer DO [address] [facility] [address] [place] [address] 02/24/2025 2:20 PM CDT - 02/24/2025 2:40 PM CDT Surgery [facility] Endoscopy [address] [place] [address] Merlene Spencer, DO [address] [place] [address] ESOPHAGOGASTRODUODENOSCOPY Scheduled Procedures Name Priority Associated Diagnoses Date/Ti me ESOPHAGOGASTRODUODENOSCOPY EGD in 6 weeks for esophageal stricture- [facility] only 02/24/2025 2:20 PM CDT documented as of this encounter Goals Goal Patient Goal Type Associated Problems Recent Progress Patient-Stated? Author Autogenerat ed Goal Care Plan Autogenerated Problem No Mindy Jorgensen LPN documented as of this encounter Procedures Procedure Name Priority Date/Time Associated Diagnosis Comments COMPREHENSIVE METABOLIC PANEL Routine 01/10/2025 12:07 PM CDT COMPREHENSIVE METABOLIC PANEL Routine 01/09/2025 12:09 PM CDT BASIC METABOLIC PANEL Routine 01/08/2025 12:11 PM CDT BASIC METABOLIC PANEL Routine 01/08/2025 12:10 PM CDT BASIC METABOLIC PANEL Routine 01/07/2025 12:13 PM CDT BASIC METABOLIC PANEL Routine 01/07/2025 12:12 PM CDT BASIC METABOLIC PANEL Routine 01/07/2025 12:11 PM CDT COMPREHENSIVE METABOLIC PANEL Routine 01/06/2025 12:14 PM CDT COMPREHENSIVE METABOLIC PANEL Routine 01/06/2025 12:06 PM CDT documented in this encounter Results * COMPREHENSIVE METABOLIC PANEL (01/10/2025 12:07 PM CDT) Blood us Provider Scanning CHEMISTRY ORDERABLES Final Res ult * COMPREHENSIVE METABOLIC PANEL (01/09/2025 12:09 PM CDT) Blood Result [facility] Provider Scanning CHEMISTRY ORDERABLES Final Res ult * BASIC METABOLIC PANEL (01/08/2025 12:11 PM CDT) Blood Result [facility] Provider Scanning CHEMISTRY ORDERABLES Final Res ult * BASIC METABOLIC PANEL (01/08/2025 12:10 PM CDT) Blood Result [facility] Provider Scanning CHEMISTRY ORDERABLES Final Res ult * BASIC METABOLIC PANEL (01/07/2025 12:13 PM CDT) Blood Result [facility] Provider Scanning CHEMISTRY ORDERABLES Final Res ult * BASIC METABOLIC PANEL (01/07/2025 12:12 PM CDT) Blood Result [facility] Provider Scanning CHEMISTRY ORDERABLES Final Res ult * BASIC METABOLIC PANEL (01/07/2025 12:11 PM CDT) Blood Result [facility] Provider Scanning CHEMISTRY ORDERABLES Final Res ult * COMPREHENSIVE METABOLIC PANEL (01/06/2025 12:14 PM CDT) Blood Result [facility] Provider Scanning CHEMISTRY ORDERABLES Final Res ult * COMPREHENSIVE METABOLIC PANEL (01/06/2025 12:06 PM CDT) Blood us Provider Scanning CHEMISTRY ORDERABLES Final Res ult documented in this encounter Visit Diagnoses Not on filedocumented in this encounter Additional Health Concerns Active Problems Noted Date Diagnosed Date Autogenerated Problem 01/19/2025 Assessment Noted Time PHQ-9 Depression Total Score: 2 01/11/20 25 11:02 PM CDT documented as of this encounter
--- NOTE | 2025-01-25 21:17 | ED_ITS ---
HPI - GI Bleed 2 General: Chief complaint: GI Bleed Stated complaint: abdomen patric, n/v Time Seen by Provider: 01/25/25 21:09 Source: patient History of Present Illness: Patient reportedly had 60 mL of coffee-ground output from the G-tube. It was placed recently. She also reports he is having pain 8 out of 10 in her chest. On exam patient has a nontender abdomen nontender chest wall. Heart sounds are normal. This pain started this evening. Related Data Previous Rx's ?Medication ?Instructions ?Recorded shower chair #1 ea 11/21/22 Back brace #1 ea 12/16/23 trazodone 100 mg tablet See Rx Instructions .Route 0 10/23/24 .COMPLEX #30 tabs albuterol sulfate 90 mcg/actuation 2 inh inhalation Q6 H PRN shortness 11/19/24 aerosol inhaler (Ventolin HFA) of breath or wheezing # 6.7 grams levothyroxine 137 mcg tablet 137 mcg PO QAM #60 tabs 0 12/01/24 amlodipine 10 mg tablet 10 mg PO DAILY #30 tabs 11/20 11/13 spironolactone 25 mg tablet 25 mg PO BID #60 tabs 11/20 11/13 tetrabenazine 25 mg tablet 25 mg PO BID 30 days #60 ta bs 01/04/25 (Xenazine) potassium chloride 20 mEq 20 meq PO BID #60 tabs 01/05 tablet,extended release(part/cryst) (Klor-Con M) pantoprazole 40 mg tablet,delayed 40 mg PO DAILY 6 wee ks #30 tabs 01/26/25 release Allergies Allergy/AdvReac Type Severity Reaction Status Date / Time Penicillins Allergy Unknown Verified 01/25/25 21:01 Review of Systems 2 General: Reports: 10 or more systems reviewed and unremarkable except in HPI and below PFSH ED 2 PFSH: Medical History (Updated 01/26/25 @ 02:41 by Bobo Whyte MD) Iron deficiency anemia Psychiatric care Schizoaffective disorder History of hepatitis C negative viral load following treatment Enrolled in chronic care management Psoriasis Hypoglycemia Skin tear of right upper extremity Alcohol intoxication Elevated lactic acid level Closed fracture of inferior pubic ramus Altered mental status High anion gap metabolic acidosis Chronic alcohol use Consumes vodka daily. Insomnia Anxiety Chronic obstructive pulmonary disease Schizoaffective disorder Chronic back pain DDD (degenerative disc disease) Hyperthyroidism Surgical History History of cataract extraction with lens replacement Family History Denies family history of Diabetes CAD (coronary artery disease) Cancer Stroke Social History Smoking and tobacco/nicotine status: current every day tobacco/nicotine user cigarettes Packs smoked per day: 1 Years cigarettes smoked: 55 Second hand smoke exposure: Yes Alcohol intake: former Year of sobriety/quit date alcohol: 2023 Substance/Drug Use: never Lives independently: Yes Household members: friend(s) Marital status: / Number of children: 0 Current occupational 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 gender identity: Female Special supa needs: No Agree to transfusion: Yes Physical Exam 2 Const: COMMON NORMALS: no acute distress, average body habitus, patient oriented x3, healthy appearing, alert and well nourished GENERAL APPEARANCE: well kempt and well developed HENMT: COMMON NORMALS: normocephalic, atraumatic, external ears normal and moist oral mucous membranes HEAD & SCALP: normocephalic and atraumatic E XTERNAL EAR: Yes external ears normal Eye: COMMON NORMALS: Equal, round and reactive pupils present, EOMs intact bilaterally and conjunctivae normal CONJUNCTIVA: Yes conjunctivae normal P UPIL: Yes Equal, round and reactive pupils present Neck/C-Spine: COMMON NORMALS: full ROM, no lymphadenopathy and supple Chest: CHEST: Yes Symmetrical chest wall rise and No Surgical scars present (Chest) Resp: COMMON NORMALS: normal respiratory effort, No retractions, No use of accessory muscles and clear to auscultation bilaterally AUSCULTATION: clear to auscultation bilaterally Cardio: COMMON NORMALS: regular rate, regular rhythm, S1 normal heart sound present, S2 normal heart sound present, No gallops present (Cardio), No clicks present (Cardio), No murmurs present (Cardio) and No rub (Cardio) RATE: r egular rate RHYTHM: regular rhythm HEART SOUNDS: S1 normal heart sound present, S2 normal heart sound present and no murmurs PERIPHERAL PULSES: o ther (Radial pulses 2+ and symmetric) GI: COMMON NORMALS: Soft to palpation, non-tender and no masses INSPECTION: No abdominal distension PALPATION: Yes Soft to palpation, No Guarding due to palpation present (GI) and No Rebound tenderness present OTHER: Well-healed incisions with glue still on them on the abdomen from laparoscopy. G-tube in place in left upper quadrant with normal site, no signs of infection or discharge. : COMMON NORMALS: Yes no CVA tenderness BLADDER/KIDNEY EXAM: Yes no CVA tenderness Back/Pelvis: COMMON NORMALS: no CVA tenderness Extremity: COMMON NORMALS: normal to inspection, full ROM, capillary refill normal and no clubbing, cyanosis or edema Neuro: COMMON NORMALS: patient oriented x3 SENSORIUM/ORIENTATION: Yes alert Psych: APPEARANCE: Yes well kempt Skin: COMMON NORMALS: no rashes or lesions noted, no wounds, turgor normal and no jaundice GENERAL SKIN EXAM: no rashes or lesions noted and turgor normal Course 2 Vital Signs: Vital signs: Vital Signs Temperature 98.5 F 01/25/25 20:54 Pulse Rate 89 01/26/25 01:00 Respiratory Rate 21 H 01/26/25 01:00 Blood Pressure 131/78 01/26/25 01:00 Pulse Oximetry 97 01/26/25 01:00 Oxygen Delivery Me thod Room Air 01/25/25 21:23 MDM - GI Bleed Medical Decision Making Patient reported hematemesis. None here in the ER observed for several hours. Chest pain has resolved troponin is negative. Patiently placed on Protonix and discharged back to long term. EKG shows sinus rate of 92 with normal MI interval, QTc of 394 and normal axis. Reviewed at 1:40 AM Differential Diagnosis Likely Upper gastrointestinal hemorrhage, Lower gastrointestinal hemorrhage and hematochezia Medical Records I reviewed the patient's medical records. Lab Data I reviewed the patient's lab results. 01/25/25 21:05 01/25/25 21:05 Laboratory Results WBC 15.99 10^3/uL (3.29-11.43) H 01/25/25 21:05 RBC 2.76 10^6/uL (3.85-5.65) L 01/25/25 21:05 Hgb 7.20 g/dL (11.27-16.99) L 01/25/25 21:05 Hct 23.3 % (36-47) L 01/25/25 21:05 MCV 84.4 fl (85-98) L 01/25/25 21:05 MCH 26.1 pg (27-33) L 01/25/25 21:05 MCHC 30.9 g/dL (30-55) 01/25/25 21:05 RDW 21.2 % (12.1-15.1) H 01/25/25 21:05 Plt Count 338 10^3/cmm (157-399) 01/25/25 21:05 MPV 10.9 fL (7.4-10.4) H 01/25/25 21:05 Neut % (Auto) 85.7 % 01/25/25 21:05 Lymph % (Auto) 8.4 % 01/25/25 21:05 [place] % (Auto) 4.5 % 01/25/25 21:05 Eos % (Auto) 0.1 % 01/25/25 21:05 Baso % (Auto) 0.1 % 01/25/25 21:05 Neut # (Auto) 13.69 10^3/uL (1.8-7.7) H 01/25/25 21:05 Lymph # (Auto) 1.4 10^3/uL (0.8-4.8) 01/25/25 21:05 [place] # (Auto) 0.7 10^3/uL (0.2-0.9) 01/25/25 21:05 Eos # (Auto) 0.0 10^3/uL (0.0-0.8) 01/25/25 21:05 Baso # (Auto) 0.0 10^3/uL (0.0-0.1) 01/25/25 21:05 Nucleated RBC % (auto) 0 % 01/25/25 21:05 Nucleated RBCs # 0.0 /100WBC 01/25/25 21:05 Sodium 133 mmol/L (136-145) L 01/25/25 21:05 Potassium 4.6 mmol/L (3.5-5.1) 01/25/25 21:05 Chloride 99 mmol/L (98-107) 01/25/25 21:05 Carbon Dioxide 26 mmol/L (22-29) 01/25/25 21:05 Anion Gap 12.6 (5-19) 01/25/25 21:05 BUN 30 mg/dL (8-23) H 01/25/25 21:05 Creatinine 0.6 mg/dL (0.5-0.9) 01/25/25 21:05 GFR Calculation 98.8 mL/min (90-130) 01/25/25 21:05 Glucose 116 mg/dL (65-115) H 01/25/25 21:05 Calculated Osmolality 283 mOsm/kg (285-295) L 01/25/25 21:05 Lactic Acid 1.3 mmol/L (0.5-2.2) 01/25/25 21:05 Calcium 8.8 mg/dL (8.5-10.5) 01/25/25 21:05 Total Bilirubin 0.2 mg/dL (0.15-1.2) 01/25/25 21:05 AST 38 U/L (0-32) H 01/25/25 21:05 ALT 22 U/L (0-33) 01/25/25 21:05 Alkaline Phosphatase 89 U/L (35-105) 01/25/25 21:05 Troponin T Baseline 9 ng/L (0-10) 01/26/25 01:15 Total Protein 6.7 g/dL (6.6-8.7) 01/25/25 21:05 Albumin 3.3 g/dL (3.5-5.2) L 01/25/25 21:05 Globulin 3.4 g/dL (1.3-4.6) 01/25/25 21:05 Blood Type O Positive 01/25/25 21:05 Rho(D) Type Rh positive 01/25/25 21:05 Antibody Screen Negative 01/25/25 21:05 All radiology interpretation(s) finalized by discharge Discharge Plan Discharge Patient Disposition: Home Clinical Impression: Gastrostomy tube present Gastritis Qualifiers: Gastritis type: other gastritis Chronicity: acute Gastritis bleeding: with bleeding Qualified Code(s): K29.01 - Acute gastritis with bleeding Condition: Stable Prescriptions: New pantoprazole 40 mg tablet,delayed release (DR/EC) 40 mg PO DAILY 42 Days Qty: 30 0RF No Action levothyroxine 137 mcg tablet 137 mcg PO QAM Qty: 60 3RF (DME) shower chair See Rx Instructions .Route .MEDSUPPLY Qty: 1 0RF Rx Instructions: As directed (DME) Back brace See Rx Instructions .Route .MEDSUPPLY Qty: 1 0RF Rx Instructions: As directed trazodone 100 mg tablet See Rx Instructions .ROUTE .COMPLEX Qty: 30 0RF Dose Instruction: TAKE ONE TABLET BY MOUTH DAILY Rx Instructions: TAKE ONE TABLET BY MOUTH DAILY albuterol sulfate [Ventolin HFA] 90 mcg/actuation HFA aerosol inhaler 2 inh inhalation Q6H PRN (Reason: shortness of breath or wheezing) Qty: 6.7 0RF spironolactone 25 mg tablet 25 mg PO BID Qty: 60 0RF amlodipine 10 mg tablet 10 mg PO DAILY Qty: 30 0RF tetrabenazine [Xenazine] 25 mg tablet 25 mg PO BID 30 Days Qty: 60 0RF potassium chloride [Klor-Con M20] 20 mEq tablet,ER particles/crystals 20 meq PO BID Qty: 60 0RF Discharge Orders: Discharge ED (Routine); Ordered 01/26/25 Ordered By: Bobo Whyte Referrals: Cherrie Cosme MD [Primary Care Provider, Family Practice] Patient Instructions: Pain Management, Patient Portal & Sid Instructions Activity Restrictions/Additional Instructions: Follow-up with GI if bleeding continues. Prescribing Protonix daily. Print Language: Namibian Coding Level of Care Code ED Building Superintendent for Anyi Cunningham
[2025-01-25 21:21] LABS: Hematocrit 23.3 % (36-47); Hemoglobin 7.20 g/dL (11.27-16.99); Mean Corpuscular HGB Conc 30.9 g/dL (30-55); Mean Corpuscular Hemoglobin 26.1 pg (27-33); Mean Corpuscular Volume 84.4 fl (85-98); Nucleated Red Blood Cells % 0 %; Platelet Count 338 10^3/cmm (157-399); Red Blood Count 2.76 10^6/uL (3.85-5.65); White Blood Count 15.99 10^3/uL (3.29-11.43)
[2025-01-25 21:23] VITALS: BP 110/67; PULSE 94; RESP 17; O2SAT 97
[2025-01-25 21:31] VITALS: BP 120/66; PULSE 90; O2SAT 97
[2025-01-25 21:36] LABS: Alanine Aminotransferase 22 U/L (0-33); Albumin Level 3.3 g/dL (3.5-5.2); Alkaline Phosphatase 89 U/L (35-105); Anion Gap 12.6 (5-19); Aspartate Amino Transferase 38 U/L (0-32); Blood Urea Nitrogen 30 mg/dL (8-23); Calcium 8.8 mg/dL (8.5-10.5); Carbon Dioxide 26 mmol/L (22-29); Chloride 99 mmol/L (98-107); Creatinine Clr Calc Pharmacy 50.5552; Globulin 3.4 g/dL (1.3-4.6); Glucose 116 mg/dL (65-115); Osmolality Calculated 283 mOsm/kg (285-295); Potassium 4.6 mmol/L (3.5-5.1); Sodium 133 mmol/L (136-145); Total Protein 6.7 g/dL (6.6-8.7)
[2025-01-25 21:37] LABS: Lactic Sepsis W/Reflex 1.3 mmol/L (0.5-2.2)
[2025-01-25] MEDS: pantoprazole 40 mg SDV 80 MG IVP (21:38)
[2025-01-25] MEDS: morphine 4 mg/mL SDV 1 mL IVP (21:38)
[2025-01-25] MEDS: ondansetron 2 mg/ML SDV 2 mL 4 MG IVP (21:38)
[2025-01-25 22:01] VITALS: BP 124/76; PULSE 83; O2SAT 98
[2025-01-25 23:58] VITALS: BP 130/74; PULSE 84; RESP 18; O2SAT 97
[2025-01-26] VITALS (13 sets, daily range): BP systolic 94–131; BP diastolic 58–84; PULSE 73–99; RESP 15–21; O2SAT 95–99
--- NOTE | 2025-01-26 01:38 | ECG_ITS ---
[facility] Test Date: 2025-01-26 Pat Name: Gilda Hodge Department: Room: Gender: Female Organ Recovery Coordinator: : 1955 Requested By: Bobo Whyte Order Number: [id number] Hamilton MD: Didier Garcia M.D. Measurements Intervals [place] Rate: 92 P: 72 WA: 160 QRS: -3 QRSD: 72 T: 70 QT: 344 QTc: 427 Interpretive Statements SINUS RHYTHM LOW QRS VOLTAGE IN EXTREMITY LEADS [QRS DEFLECTION < 0.5 mV IN LIMB LEADS] Compared to ECG 01/06/2025 19:36:05 Left anterior fascicular block no longer present Myocardial infarct finding no longer present Electronically Signed On 01-27-2025 13:54:27 CDT by Didier Garcia M.D. [email or web address]
[2025-01-26 01:48] LABS: Troponin(5th) Baseline 9 ng/L (0-10)
== END 2025-01-26 07:37 | disposition home or self-care (01) ==
PROVIDERS: Emergency Provider Emergency Medicine; PCP Family Medicine
DX: K29.01 Acute gastritis with bleeding (principal); F17.210 Nicotine dependence, cigarettes, uncomplicated; Z93.1 Gastrostomy status
CPT/HCPCS: 36415; 80053; 83605; 84484; 85025; 86850; 86900; 93005; 96374; 96375; 99284; J2270; J2405; J2470